=== PATIENT | female | born 1945 | race Caucasian/White ===

== ENCOUNTER → 2018-05-13 | Outpatient (CLI) | payer MEDICARE ==
--- NOTE | 2018-05-13 14:11 | CONS ---
CONSULTATION DATE OF SERVICE: 05/13/2018 A 72-year-old lady who has been evaluated in the [facility] for obstructive sleep apnea-hypopnea syndrome. HISTORY OF PRESENT ILLNESS/SLEEP-WAKE EVALUATION: Patient has been diagnosed with obstructive sleep apnea in [facility] about 5 years ago. Since that time, she is on treatment with CPAP. Presently, she is using her second CPAP unit, which she started to use for about 1-1/2 years. She is using equipment every night for the whole night without any significant problems with the machine. No snoring with the machine. She maybe wakes up from sleep only once with nocturia. No problem with falling asleep. Her sleep schedule from around 11 p.m. until 7 am. She has a TV set in bedroom, sleeps on the side position. No history of hypnagogic hallucinations. Patient usually dreams on the second part of the night. No history of sleep paralysis. [place] Sleepiness Scale is only 3, which is in normal range. She might have one nap around 2:30 pm and feel refreshed after that. No vivid dreams during naps. She takes about 1 cup of coffee a day. PAST MEDICAL HISTORY: Positive for hypertension. PAST SURGICAL HISTORY: Bilateral total knee replacement, cholecystectomy, hernia repair. MEDICATIONS: A baby aspirin, lisinopril, vitamin D supplement, multiple vitamins and some kind of water pills. SOCIAL HISTORY: Negative for smoking or using alcohol. FAMILY HISTORY: Positive for arthritis, acid reflux, diabetes, cancer. REVIEW OF SYMPTOMS: Basically negative, sometimes awakenings with nocturia. I checked patient's CPAP unit. CPAP pressure is 10 cm of water, usage 29/30 nights for more than 4 hours, average 7 hours. Borderline leak 29 L/minute. Apnea-hypopnea index reading from the machine for last month 3.5, the last 6 months 2.7. PHYSICAL EXAM: A 72-year-old lady without distress. BP 140/83, HR 59, RR 18, height 5, 4, weight 285.4, BMI 48.9, temperature 98.5, oxygen saturation at room air 96%. OROPHARYNX: Moderately low position of soft palate. ABDOMEN: Obese. EXTREMITIES: 1+ bilateral ankle edema. Neck Supple, no JVD. Thyroid is not palpable. LUNGS Clear to percussion and to auscultation. Good air exchange. No wheezing or rhonchi. HEART S1, S2 regular. No murmurs, gallops, or rubs. EMPLOYMENT INSTRUCTIONAL ASSOCIATE Awake, alert, and oriented X3. Cranial nerves 2 to 7 intact. There is no fasciculation or atrophy. noted. No focal deficits observed. IMPRESSION: 1. Obstructive sleep apnea-hypopnea syndrome, diagnosed in different institution. Patient is on treatment with CPAP every night for the whole night, demonstrated great compliance with treatment by the reading from her machine. Normal aspiration on CPAP. Low position of soft palate, snoring before started treatment, wide neck, obstructive sleep apnea-hypopnea syndrome on full control with CPAP at the present time, patient benefitting from treatment. 2. Obesity, body mass index 48.9. 3. Hypertension. 4. Status post bilateral total knee replacement. 5. Status post cholecystectomy. 6. One+ bilateral ankle edema. 7. Status post hernia repair. PLAN: 1. Patient will continue to use CPAP equipment every night for the whole night with the same regimen. CPAP pressure is 10 cm of water. 2. Prescription for all necessary CPAP supplies, including nasal pillow mask, tube, filters. 3. Losing weight. 4. Sleep hygiene with regular time in bed for at least 8 hours. 5. No driving if feeling any sleepiness. 6. We will get results of patient's previous sleep studies. Thank you very much for referring this patient. Sincerely, Buzz Francis MD, PhD, FAASM Diplomat of [place] [employer] [place] [employer] Last Puller of [facility] [place] MMODL / MAEVEN: [id number] /
== END | disposition home or self-care (01) ==
LOC: SLEEP 10:43
PROVIDERS: ATTEND Internal Medicine
DX: G47.33 Obstructive sleep apnea (adult) (pediatric) (principal); I10 Essential (primary) hypertension; E66.9 Obesity, unspecified; Z68.42 Body mass index [BMI] 45.0-49.9, adult; Z96.653 Presence of artificial knee joint, bilateral; Z90.49 Acquired absence of other specified parts of digestive tract; R60.9 Edema, unspecified; Z98.890 Other specified postprocedural states; Z79.82 Long term (current) use of aspirin; Z79.899 Other long term (current) drug therapy; Z99.89 Dependence on other enabling machines and devices
CPT/HCPCS: 99211

== ENCOUNTER → 2018-10-01 | Outpatient (CLI) | payer MEDICARE ==
--- NOTE | 2018-10-01 16:56 | BD ---
EXAMINATION TYPE: Axial Bone Density DATE OF EXAM: 10/01/2018 COMPARISON: NONE CLINICAL HISTORY: Height: 285.3 Weight: 63 FRAX RISK QUESTIONS: Alcohol (3 or more units per day): no Family History (Parent hip fracture): no Glucocorticoids (More than 3mos): no (Ex: prednisone, prednisolone, methylprednisolone, dexamethasone, and hydrocortisone). History of Fracture in Adulthood: yes Secondary Osteoporosis: 1. Type 1 Diabetes: no 2. Hyperthyroidism: no 3. Menopause before 45: no 4. Malnutrition: no 5. Chronic liver disease: no Rheumatoid Arthritis: no Current Tobacco Use: no RISK FACTORS HISTORY OF: Spine Fracture: l-5 When: 5 years ago Family History of Osteoporosis: no Active: sometimes Diet low in dairy products/other sources of calcium: no Postmenopausal woman: late 50's Lost more than 2 inches in height since high school: yes MEDICATIONS: lisinopril Additional History: EXAM MEASUREMENTS: Bone mineral densitometry was performed using the SensGard System. Bone mineral density as measured about the Lumbar spine is: ----- L1-L4(G/cm2): 1.216 T Score Values are as follows: ----- L2: 2.0 ----- L3: 0.2 ----- L4: -0.7 ----- L1-L4: 0.3 Bone mineral density : baseline Bone mineral density about the R hip (g/cm2): 0.816 Bone mineral density about the L hip (g/cm2): 0.766 T Score values are as follows: -----R Neck: -1.6 -----L Neck: -2.0 -----R Total: -0.4 -----L Total: -0.6 Bone mineral density : baseline IMPRESSION: Osteopenia (T Score between -2.5 and -1). There is slightly increased risk of fracture and the patient may be considered for treatment. Re-Screen 2-5 years. NOTE: T-SCORE=SD OF THE YOUNG ADULT MEAN.
--- NOTE | 2018-10-06 08:31 | MM ---
Reason for exam: screening (asymptomatic). Last mammogram was performed 1 year ago. History: Patient is postmenopausal. Family history of breast cancer in sister at age 70. Physical Findings: A clinical breast exam by your physician is recommended on an annual basis and results should be correlated with mammographic findings. MG 3D Screening Mammo W/Cad Bilateral CC and MLO view(s) were taken. Prior study comparison: September 17, 2017, bilateral MG 3d screening mammo w/cad. September 05, 2016, bilateral MG 3d screening mammo w/cad. There are scattered fibroglandular densities. No suspicious abnormality. No significant changes when compared with prior studies. ASSESSMENT: Negative, BI-RAD 1 RECOMMENDATION: Routine screening mammogram of both breasts in 1 year.
== END | disposition home or self-care (01) ==
LOC: RADMAMWWP 07:33
PROVIDERS: ATTEND Family Medicine
DX: Z12.31 Encounter for screening mammogram for malignant neoplasm of breast (principal); M85.80 Other specified disorders of bone density and structure, unspecified site; Z78.0 Asymptomatic menopausal state
CPT/HCPCS: 77063; 77067; 77080

== ENCOUNTER 2020-03-03 19:55 | Emergency (ER) | payer MEDICARE ==
[2020-03-03] MEDS ORDERED: DIAZEPAM 5 MG/ML 2 ML INJ IVP STA (20:57)
[2020-03-03] MEDS ORDERED: SODIUM CHLORIDE 0.9% 1,000 ML IV STA (20:57)
[2020-03-03] MEDS ORDERED: ONDANSETRON 4 MG/2 ML VIAL IVP STA (20:57)
--- NOTE | 2020-03-03 21:21 | ED ---
Dizziness HPI - General Chief Complaint: Dizziness Stated Complaint: Weakness Time Seen by Provider: 03/03/20 20:05 Source: patient, family Mode of arrival: wheelchair Limitations: no limitations - History of Present Illness Initial Comments: The patient is a 74-year-old female with past history of hypertension and seizure disorder who presents to the emergency department with reported vertiginous symptoms. She states her symptoms were sudden onset when she woke up this morning around 5:30. States that she feels as if the room is spinning. Symptoms are worse with positional changes. States she's been laying in bed all day. She has had nausea with dry heaving. States she is minimally ate today. No history of similar episodes in the past. Denies any recent trauma. Does admit to a frontal headache. History of migraines and states that this headache is not as severe. Denies photophobia, neck pain or stiffness, fevers or chills. No recent chiropractic medication tonight. Denies any head trauma. She denies any chest pain or shortness of breath. No abdominal pain. No changes in her bowel or bladder habits. Notes that her blood pressure is normally low however today she took it and was noted to be high. She took an extra dose of her lisinopril. There are no other alleviating, precipitating or modifying factors - Related Data Home Medications Medication Instructions Recorded Confirmed Multivitamins, Thera [Theragran] 1 tab PO DAILY 09/22/15 03/03/20 ALPRAZolam [Xanax] 0.25 mg PO TID PRN 10/12/15 03/03/20 Aspirin [Adult Low Dose Aspirin EC] 81 mg PO HS 10/12/15 03/03/20 Cholecalciferol [Vitamin D3] 2,000 unit PO DAILY 10/12/15 03/03/20 Lisinopril 10 mg PO BID 10/12/15 03/03/20 Albuterol Inhaler [Ventolin Hfa 2 puff INHALATION RT-Q6H PRN 03/03/20 03/03/20 Inhaler] Famotidine 40 mg PO HS 03/03/20 03/03/20 Hydrochlorothiazide [Hydrodiuril] 12.5 mg PO DAILY 03/03/20 03/03/20 Previous Rx's Medication Instructions Recorded Cephalexin [Keflex] 500 mg PO Q12HR #14 cap 03/04/20 Meclizine [Antivert] 25 mg PO TID PRN #15 tab 03/04/20 Allergies Allergy/AdvReac Type Severity Reaction Status Date / Time Iodinated Contrast Media Allergy Unknown Verified 03/03/20 21:59 [Iodinated Contrast Media - IV Dye] Penicillins Allergy Unknown Verified 03/03/20 21:59 Review of Systems ROS Statement: Those systems with pertinent positive or pertinent negative responses have been documented in the HPI. ROS Other: All systems not noted in ROS Statement are negative. Past Medical History Past Medical History: Hypertension, Seizure Disorder Additional Past Medical History / Comment(s): MOLES ON BACK, HX OF MIGRAINE, STATES HAD "MIGRAINE SEIZURE" 3 WEEKS AGO. HAD EPISODE OF HYPOGLYCEMIA AT SAME TIME. HX OF FX BACK, History of Any Multi-Drug Resistant Organisms: None Reported Past Surgical History: Cholecystectomy, Joint Replacement Additional Past Surgical History / Comment(s): JANNA knee replacement, JANNA CATARACT SX Past Anesthesia/Blood Transfusion Reactions: No Reported Reaction Past Psychological History: No Psychological Hx Reported Smoking Status: Never smoker Past Alcohol Use History: None Reported Past Drug Use History: None Reported General Exam Limitations: no limitations General appearance: alert, in no apparent distress Head exam: Present: atraumatic, normocephalic, normal inspection Eye exam: Present: normal appearance, PERRL, EOMI. Absent: scleral icterus, conjunctival injection, periorbital swelling ENT exam: Present: normal exam, mucous membranes moist Neck exam: Present: normal inspection. Absent: tenderness, meningismus, lymphadenopathy Respiratory exam: Present: normal lung sounds bilaterally. Absent: respiratory distress, wheezes, rales, rhonchi, stridor Cardiovascular Exam: Present: regular rate, normal rhythm, normal heart sounds. Absent: systolic murmur, diastolic murmur, rubs, gallop, clicks GI/Abdominal exam: Present: soft, normal bowel sounds. Absent: distended, tenderness, guarding, rebound, rigid Extremities exam: Present: normal inspection, full ROM, normal capillary refill. Absent: tenderness, pedal edema, joint swelling, calf tenderness Back exam: Present: normal inspection Neurological exam: Present: alert, oriented X3, CN II-XII intact, normal gait (no truncal ataxia. Finger to nose symmetric bilaterally. Ambulates without ataxia. No nystagmus), other Psychiatric exam: Present: normal affect, normal mood Skin exam: Present: warm, dry, intact, normal color. Absent: rash Course Vital Signs 03/03/20 03/03/20 03/03/20 20:03 20:20 21:42 Temperature 97.9 F Pulse Rate 70 62 61 Pulse Rate [ Admin Assistant ] Respiratory 20 18 18 Rate Blood Pressure 169/73 171/89 171/82 Blood Pressure [Left Arm Sitting] Blood Pressure [Left Arm Standing] Blood Pressure [Left Arm Supine] O2 Sat by Pulse 96 Oximetry 03/03/20 03/03/20 03/04/20 22:30 23:00 00:22 Temperature 98.0 F Pulse Rate 61 61 Pulse Rate [ 75 Admin Assistant ] Respiratory 16 16 16 Rate Blood Pressure 151/75 151/75 Blood Pressure 160/73 [Left Arm Sitting] Blood Pressure 174/49 [Left Arm Standing] Blood Pressure 157/61 [Left Arm Supine] O2 Sat by Pulse 96 Oximetry EKG Findings - EKG Comments: EKG Findings:: EKG demonstrates a normal sinus rhythm with a ventricular rate of 64. MD interval to a 6. QRS 92. QTC of 385. There is significant baseline artifact. No acute ST segment elevations or depressions. Medical Decision Making - Medical Decision Making Upon arrival the patient was placed into room 3. A thorough history and phys ical exam is performed. 12-lead EKG is performed. IV was established. Laboratory studies were conducted. Patient was given 2 mg of Valium and fluids are started at 75 mL per hour. Patient is also provided 4 mg of Zofran. Laboratory studies are remarkable for a glucose of 116. Urinalysis shows large leukocyte esterase, 16 red blood cells, 49 white blood cells and moderate white blood cell clumps. Patient was given a dose of Rocephin. Sent over for a CT of her brain without contrast as the patient does have a contrast ALLERGY. He demonstrates no acute findings. sinusitis unchanged. Chest x-ray demonstrates cardio medically with no active cardiac disease. The patient is able to get up and ambulate however does continue to report dizziness which is not as severe as her initial presentation. I did give the patient some meclizine. Patient is ambulated around the emergency department and reports to marked improvement in her symptoms. I discussed the diagnosis, differential and treatment options. At this time the patient does opt to go home. I will provide her with a small prescription for meclizine. Strict return parameters were discussed. The patient has any new or worsening symptoms I did strongly recommend that she come back to the emergency room. Patient did agree to this. She'll be given a prescription for her urinary tract infection. Patient was then discharged home ambulatory in stable condition - Lab Data Result diagrams: 03/03/20 22:29 03/03/20 22:29 Lab Results 03/03/20 03/03/20 03/03/20 Range/Units 22:21 22:29 22:29 WBC 9.3 (3.8-10.6) k/uL RBC 4.71 (3.80-5.40) m/uL Hgb 14.5 (11.4-16.0) gm/dL Hct 45.5 (34.0-46.0) % MCV 96.5 (80.0-100.0) fL MCH 30.7 (25.0-35.0) pg MCHC 31.9 (31.0-37.0) g/dL RDW 12.9 (11.5-15.5) % Plt Count 157 (150-450) k/uL Neutrophils % 78 % Lymphocytes % 15 % Monocytes % 5 % Eosinophils % 1 % Basophils % 0 % Neutrophils # 7.2 (1.3-7.7) k/uL Lymphocytes # 1.4 (1.0-4.8) k/uL Monocytes # 0.5 (0-1.0) k/uL Eosinophils # 0.1 (0-0.7) k/uL Basophils # 0.0 (0-0.2) k/uL PT 10.2 (9.0-12.0) sec INR 1.0 (<1.2) Sodium (137-145) mmol/L Potassium (3.5-5.1) mmol/L Chloride (98-107) mmol/L Carbon Dioxide (22-30) mmol/L Anion Gap mmol/L BUN (7-17) mg/dL Creatinine (0.52-1.04) mg/dL Est GFR (CKD-EPI)AfAm (>60 ml/min/1.73 sqM) Est GFR (CKD-EPI)NonAf (>60 ml/min/1.73 sqM) Glucose (74-99) mg/dL Plasma Lactic Acid Efra (0.7-2.0) mmol/L Calcium (8.4-10.2) mg/dL Total Bilirubin (0.2-1.3) mg/dL AST (14-36) U/L ALT (4-34) U/L Alkaline Phosphatase (38-126) U/L Troponin I (0.000-0.034) ng/mL Total Protein (6.3-8.2) g/dL Albumin (3.5-5.0) g/dL Urine Color Yellow Urine Appearance Turbid H (Clear) Urine pH 5.5 (5.0-8.0) Ur Specific [place] 1.022 (1.001-1.035) Urine Protein 1+ H (Negative) Urine Glucose (UA) Negative (Negative) Urine Ketones Negative (Negative) Urine Blood Small H (Negative) Urine Nitrite Negative (Negative) Urine Bilirubin Negative (Negative) Urine Urobilinogen <2.0 (<2.0) mg/dL Ur Leukocyte Esterase Large H (Negative) Urine RBC 16 H (0-5) /hpf Urine WBC 49 H (0-5) /hpf Urine WBC Clumps Moderate H (None) /hpf Ur Squamous Epith Cells 15 H (0-4) /hpf Urine Bacteria Few H (None) /hpf Hyaline Casts 51 H (0-2) /lpf Urine Mucus Few H (None) /hpf 03/03/20 03/03/20 03/03/20 Range/Units 22:29 22:29 22:29 WBC (3.8-10.6) k/uL RBC (3.80-5.40) m/uL Hgb (11.4-16.0) gm/dL Hct (34.0-46.0) % MCV (80.0-100.0) fL MCH (25.0-35.0) pg MCHC (31.0-37.0) g/dL RDW (11.5-15.5) % Plt Count (150-450) k/uL Neutrophils % % Lymphocytes % % Monocytes % % Eosinophils % % Basophils % % Neutrophils # (1.3-7.7) k/uL Lymphocytes # (1.0-4.8) k/uL Monocytes # (0-1.0) k/uL Eosinophils # (0-0.7) k/uL Basophils # (0-0.2) k/uL PT (9.0-12.0) sec INR (<1.2) Sodium 138 (137-145) mmol/L Potassium 3.9 (3.5-5.1) mmol/L Chloride 108 H (98-107) mmol/L Carbon Dioxide 24 (22-30) mmol/L Anion Gap 6 mmol/L BUN 16 (7-17) mg/dL Creatinine 0.70 (0.52-1.04) mg/dL Est GFR (CKD-EPI)AfAm >90 (>60 ml/min/1.73 sqM) Est GFR (CKD-EPI)NonAf 86 (>60 ml/min/1.73 sqM) Glucose 116 H (74-99) mg/dL Plasma Lactic Acid Efra 1.8 (0.7-2.0) mmol/L Calcium 8.3 L (8.4-10.2) mg/dL Total Bilirubin 0.5 (0.2-1.3) mg/dL AST 30 (14-36) U/L ALT 26 (4-34) U/L Alkaline Phosphatase 50 (38-126) U/L Troponin I <0.012 (0.000-0.034) ng/mL Total Protein 6.7 (6.3-8.2) g/dL Albumin 3.7 (3.5-5.0) g/dL Urine Color Urine Appearance (Clear) Urine pH (5.0-8.0) Ur Specific [place] (1.001-1.035) Urine Protein (Negative) Urine Glucose (UA) (Negative) Urine Ketones (Negative) Urine Blood (Negative) Urine Nitrite (Negative) Urine Bilirubin (Negative) Urine Urobilinogen (<2.0) mg/dL Ur Leukocyte Esterase (Negative) Urine RBC (0-5) /hpf Urine WBC (0-5) /hpf Urine WBC Clumps (None) /hpf Ur Squamous Epith Cells (0-4) /hpf Urine Bacteria (None) /hpf Hyaline Casts (0-2) /lpf Urine Mucus (None) /hpf Disposition Clinical Impression: Vertigo Disposition: HOME SELF-CARE Condition: Stable Instructions (If sedation given, give patient instructions): Dizziness (ED) Additional Instructions: Please follow-up with your primary care doctor in 2-4 days. Return to the emergency department for any new or worsening symptoms Prescriptions: Meclizine [Antivert] 25 mg PO TID PRN #15 tab PRN Reason: Vertigo Cephalexin [Keflex] 500 mg PO Q12HR #14 cap Is patient prescribed a controlled substance at d/c from ED?: No Referrals: Aroldo Ford MD [Primary Care Provider] - 1-2 days Time of Disposition: 00:05
--- NOTE | 2020-03-03 22:10 | CT ---
EXAMINATION TYPE: CT brain wo con DATE OF EXAM: 03/03/2020 COMPARISON: 09/22/2015 HISTORY: Headache, dizziness, hypertension. CT DLP: 1158.4 mGycm Automated exposure control for dose reduction was used. Ventricles and sulci appear normal. There is no mass effect nor midline shift. There is no sign of in tracranial hemorrhage. Calvarium is intact. Skull base is intact. Impression Negative unenhanced head CT scan. Maxillary sinusitis noted unchanged.
--- NOTE | 2020-03-03 22:27 | XR ---
EXAMINATION TYPE: XR chest 2V DATE OF EXAM: 03/03/2020 COMPARISON: NONE HISTORY: Weakness TECHNIQUE: 2 views FINDINGS: Heart is enlarged. There is no heart failure. Costophrenic angles are clear. There are no h ilar masses. Bony thorax is intact. IMPRESSION: Cardiomegaly. No active cardiopulmonary disease.
[2020-03-03 22:32] VITALS: RESP 16
[2020-03-03] MEDS ORDERED: MECLIZINE 12.5 MG TAB PO STA (22:52)
[2020-03-03 22:59] LABS: Basophils % (A) 0 %; Eosinophils # (A) 0.1 k/uL (0-0.7); Eosinophils % (A) 1 %; HCT 45.5 % (34.0-46.0); HGB 14.5 gm/dL (11.4-16.0); Lymphocytes # (A) 1.4 k/uL (1.0-4.8); Lymphocytes % (A) 15 %; MCH 30.7 pg (25.0-35.0); MCHC 31.9 g/dL (31.0-37.0); MCV 96.5 fL (80.0-100.0); Mean Platelet Volume 8.4; Monocytes # (A) 0.5 k/uL (0-1.0); Monocytes % (A) 5 %; Neutrophils # (A) 7.2 k/uL (1.3-7.7); Neutrophils % (A) 78 %; Platelet Count 157 k/uL (150-450); RBC 4.71 m/uL (3.80-5.40); RDW 12.9 % (11.5-15.5); WBC 9.3 k/uL (3.8-10.6)
[2020-03-03 23:11] LABS: Appearance,Urine Turbid (Clear); Bacteria,Urine Few /hpf; Bilirubin,Urine Negative (Negative); Blood,Urine Small (Negative); Color,Urine Yellow; Glucose,Urine (UA) Negative (Negative); Hyaline Casts,Urine 51 /lpf (0-2); Ketones,Urine Negative (Negative); Leukocyte Esterase,Urine Large (Negative); Mucus,Urine Few /hpf; Nitrite,Urine Negative (Negative); PH, Urine 5.5 (5.0-8.0); Protein,Urine 1+ (Negative); RBC,Urine 16 /hpf (0-5); Specific Gravity,Urine 1.022 (1.001-1.035); Squamous Epithelial Cell,Urine 15 /hpf (0-4); Urobilinogen,Urine <2.0 mg/dL (<2.0); WBC,Urine 49 /hpf (0-5)
[2020-03-03 23:13] LABS: ALT 26 U/L (4-34); AST 30 U/L (14-36); African American GFR (CKD) >90 (>60 ml/min/1.73 sqM); Albumin 3.7 g/dL (3.5-5.0); Alkaline Phosphatase 50 U/L (38-126); Anion Gap 6 mmol/L; Blood Urea Nitrogen 16 mg/dL (7-17); Calcium 8.3 mg/dL (8.4-10.2); Carbon Dioxide 24 mmol/L (22-30); Chloride 108 mmol/L (98-107); Glucose 116 mg/dL (74-99); Non-African American GFR(CKD) 86 (>60 ml/min/1.73 sqM); Potassium 3.9 mmol/L (3.5-5.1); Sodium 138 mmol/L (137-145); Total Bilirubin 0.5 mg/dL (0.2-1.3); Total Protein 6.7 g/dL (6.3-8.2)
[2020-03-03 23:20] VITALS: BP 151/75; PULSE 61
[2020-03-03] MEDS ORDERED: cefTRIAXone IN SWFI 1,000 MG/10 ML SYRINGE IVP STA (23:24)
[2020-03-03 23:29] LABS: Prothrombin Time 10.2 sec (9.0-12.0)
[2020-03-04 00:24] VITALS: TEMP 98
== END 2020-03-04 00:28 | disposition home or self-care (01) ==
LOC: EC 19:55
DX: R42 Dizziness and giddiness (principal); R82.998 Other abnormal findings in urine; R31.9 Hematuria, unspecified; I10 Essential (primary) hypertension; Z79.82 Long term (current) use of aspirin; Z79.899 Other long term (current) drug therapy; Z91.041 Radiographic dye allergy status; Z88.0 Allergy status to penicillin; Z96.653 Presence of artificial knee joint, bilateral; Z86.69 Personal history of other diseases of the nervous system and sense organs
CPT/HCPCS: 99285; 96374; 96375 ×2; 96361 ×3; 36415; 93005; 80053; 83605; 84484; 85025; 85610; 81001; 87086; 71046; 70450; J3360; J2405; J0696

== ENCOUNTER → 2020-06-07 | Outpatient (CLI) | payer MEDICARE ==
--- NOTE | 2020-06-07 17:58 | SFUN ---
SLEEP CENTER FOLLOW UP NOTE DATE OF SERVICE: 06/07/2020 This patient is a 74-year-old lady who has been followed in the sleep center for treatment of obstructive sleep apnea-hypopnea syndrome. The patient continues to use CPAP equipment every night for the whole night. No snoring with the machine. [place] Sleepiness Scale today is 2. Her weight is 307 pounds. During her previous visit several years ago her weight was 285 pounds. Subsequently her weight increased by 22 pounds. I checked her CPAP unit. Pressure is 10 cm of water. Usage is 28/30 nights and 21/30 nights for more than 4 hours with average usage 5.2 hours per night. Leak is 40 L/minute. Apnea-hypopnea index is only 0.9, which is normal. MEDICATIONS: Lisinopril, multivitamins, Prevacid, baby aspirin. PHYSICAL EXAMINATION: GENERAL: A pleasant patient in no distress. VITAL SIGNS: BP 159/60, HR 75, RR 15, height 5 feet 2 inches, weight 307, body mass index 56.1, temperature 98.0, oxygen saturation at room air 96%. HEENT: PERRLA, EOMI. Evaluation of oropharynx showed tongue protrudes midline. Low position of soft palate. Mallampati III. NECK: Supple. No JVD. Thyroid is not palpable. Wide neck; 19 inches in circumference. LUNGS: Clear to percussion and to auscultation. Good air exchange. No wheezing or rhonchi. HEART: S1, S2 regular. No murmurs, gallops or rubs. ABDOMEN: Obese. EXTREMITIES: No clubbing or cyanosis. SHORE HAND DREDGE OR BARGE: Awake, alert, and oriented X3. Cranial nerves 2 to 7 intact. There is no fasciculation or atrophy. noted. No focal deficits observed. IMPRESSION: 1. Obstructive sleep apnea-hypopnea syndrome. Patient demonstrated good compliance with treatment, benefitting from treatment. 2. Hypertension. 3. Morbid obesity. BMI 56.1. Patient's weight has increased by 22 pounds since her previous visit several years ago. 4. Status post bilateral total knee replacement. 5. Status post cholecystectomy. 6. Status post hernia repair. PLAN: 1. Patient will continue to use PAP equipment every night for the whole night. 2. Sleep hygiene with regular time in bed for at least 7-1/2 to 8 hours. 3. Precautions related to driving. No driving if feeling sleepiness. 4. I will maintain all necessary prescription for PAP supplies including mask, tube, filters. 5. Watching weight. 6. No driving if feeling sleepiness. 7. Follow-up visit in 6 months or earlier if patient has any problems. Thank you very much for allowing me to participate in the management of your patient. Sincerely, Buzz Francis MD, PhD, FAASM Diplomat of [place] [employer] [place] [employer] Wet Milling Wheel Operator of [facility] [place] MMODL / MAEVEN: [phone] /
== END | disposition home or self-care (01) ==
LOC: SLEEP 11:09
PROVIDERS: ATTEND Internal Medicine
DX: G47.33 Obstructive sleep apnea (adult) (pediatric) (principal); I10 Essential (primary) hypertension; E66.01 Morbid (severe) obesity due to excess calories; Z68.43 Body mass index [BMI] 50.0-59.9, adult; Z96.653 Presence of artificial knee joint, bilateral; Z90.49 Acquired absence of other specified parts of digestive tract; Z98.890 Other specified postprocedural states; Z99.89 Dependence on other enabling machines and devices

== ENCOUNTER → 2020-12-06 | Outpatient (CLI) | payer MEDICARE ==
--- NOTE | 2020-12-06 12:38 | SFUN ---
SLEEP CENTER FOLLOW UP NOTE DATE OF SERVICE: 12/06/2020 This 75-year-old lady has been followed in Sleep Center for treatment of obstructive sleep apnea-hypopnea syndrome. Patient continued to use her CPAP equipment, but sometimes in the middle of the night when she goes to bathroom she does not put her mask back on and sleeps second part of the night without machine. [place] Sleepiness Scale today is 4. Patient also had some problems with getting correct nasal pillow size instead of small size she received medium size and then when she asked company to replace it they sent her extra-small size. I checked her CPAP unit. CPAP pressure is 10 cm of water. Usage is 100% of nights and 18 out of 30 nights more than 4 hours, average usage 4.3 hours per night. Leak is quite high, 38 L/minute. Apnea-hypopnea index although perfect, 0.9. MEDICATIONS: Lisinopril 10 mg twice a day, aspirin 81 mg twice a day, vitamin D, Prevacid. PHYSICAL EXAMINATION: GENERAL: Patient in no distress. VITAL SIGNS: BP 143/59, HR 59, RR 12, height 5 feet 3-1/2 inches, weight 303 pounds, body mass index 52.8, temperature 97.8, oxygen saturation at room air 97%. HEENT: PERRLA, EOMI. Oropharynx low position of soft palate. Mallampati 3. NECK: Supple, no JVD. Thyroid is not palpable. LUNGS: Clear to percussion and to auscultation. Good air exchange. No wheezing or rhonchi. HEART: S1, S2 regular. No murmurs, gallops, or rubs. ABDOMEN: Soft and nontender. Bowel sounds are present. No organomegaly appreciated. EXTREMITIES: No clubbing or cyanosis. PIPELINE GANG SUPERVISOR: Awake, alert, and oriented X3. Cranial nerves 2 to 7 intact. There is no fasciculation or atrophy. noted. No focal deficits observed. IMPRESSION: 1. Obstructive sleep apnea-hypopnea syndrome. The patient demonstrated borderline compliance with treatment, benefitting from treatment. 2. Hypertension. 3. Morbid obesity. 4. Status post bilateral total knee replacement. 5. Status post cholecystectomy. 6. Status post hernia repair. PLAN: 1. I again wrote a prescription for all necessary CPAP supplies, including a nasal pillow mask, small size Robb FX. 2. I recommended the patient do not take her mask off when she goes to bathroom at night and just disconnect the tube and then connect the tube back, this way it is easier to restart using CPAP during the night. 3. Because of significant leak, I discussed with the patient's possibility to use the chinstrap. 4. Patient will continue to use PAP equipment every night for the whole night. 5. Sleep hygiene with regular time in bed for at least 7-1/2 to 8 hours. 6. Precautions related to driving. No driving if feeling sleepiness. 7. I will maintain all necessary prescription for PAP supplies including mask, tube, filters. 8. Watching weight. 9. No driving if feeling sleepiness. 10.Follow-up visit in 6 months or earlier if patient has any problems. Thank you very much for allowing me to participate in management of your patient. Sincerely, Buzz Francis MD, PhD, FAASM Diplomat of [place] [employer] [employer] Tile Mason of [facility] [place] MMSELENE / IESHA: [phone] /
== END | disposition home or self-care (01) ==
LOC: SLEEP 10:51
PROVIDERS: ATTEND Internal Medicine
DX: G47.33 Obstructive sleep apnea (adult) (pediatric) (principal); I10 Essential (primary) hypertension; E66.01 Morbid (severe) obesity due to excess calories; Z99.89 Dependence on other enabling machines and devices; Z79.899 Other long term (current) drug therapy; Z96.653 Presence of artificial knee joint, bilateral; Z90.49 Acquired absence of other specified parts of digestive tract; Z98.890 Other specified postprocedural states

== ENCOUNTER 2021-03-03 11:53 | Inpatient (IN) | payer MEDICARE ==
--- NOTE | 2021-03-03 12:13 | ED ---
General Adult HPI - General Chief complaint: Neuro Symptoms/Deficit Stated complaint: Vision issues Time Seen by Provider: 03/03/21 12:02 Source: patient, family, RN notes reviewed Mode of arrival: ambulatory Limitations: no limitations - History of Present Illness Initial comments: Patient is a pleasant 75-year-old female presenting to the emergency department with complaints of visual disturbance. Onset of symptoms was between 4 and 5 PM yesterday. Patient had sudden blurry vision in both eyes. Patient also lost vision of her left upper eye. Patient states she did have laser surgery done just week ago with Dr. Thorpe. Patient has had headache, mild at this time. Headache is frontal. No confusion.Crohn's. No extremity weakness. No history of similar symptoms previously. - Related Data Home Medications Medication Instructions Recorded Confirmed Multivitamins, Thera [Theragran] 1 tab PO DAILY 09/22/15 03/03/21 ALPRAZolam [Xanax] 0.25 mg PO TID PRN 10/12/15 03/03/21 Aspirin [Adult Low Dose Aspirin EC] 81 mg PO HS 10/12/15 03/03/21 Cholecalciferol [Vitamin D3] 50 mcg PO DAILY 10/12/15 03/03/21 lisinopriL [Lisinopril] 10 mg PO BID 10/12/15 03/03/21 hydroCHLOROthiazide [Hydrodiuril] 12.5 mg PO DAILY 03/03/20 03/03/21 Acetaminophen [Tylenol Arthritis] 650 mg PO TID PRN 03/03/21 03/03/21 Famotidine [Pepcid] 20 mg PO BID 03/03/21 03/03/21 Vit C/E/Zn/Coppr/Lutein/Zeaxan 1 cap PO BID 03/03/21 03/03/21 [Preservision Areds 2 Softgel] Allergies Allergy/AdvReac Type Severity Reaction Status Date / Time codeine Allergy Rash/Hives Verified 03/03/21 13:46 Iodinated Contrast Media Allergy Rash/Hives Verified 03/03/21 13:46 [Iodinated Contrast Media - IV Dye] Penicillins Allergy Rash/Hives Verified 03/03/21 13:46 Review of Systems ROS Statement: Those systems with pertinent positive or pertinent negative responses have been documented in the HPI. ROS Other: All systems not noted in ROS Statement are negative. Constitutional: Denies: fever Eyes: Reports: vision change. Denies: eye pain, eye discharge ENT: Denies: ear pain Respiratory: Denies: cough Cardiovascular: Denies: chest pain Endocrine: Denies: fatigue Gastrointestinal: Denies: abdominal pain Genitourinary: Denies: dysuria Musculoskeletal: Denies: back pain Skin: Denies: rash Neurological: Reports: as per HPI, headache. Denies: weakness, confusion Past Medical History Past Medical History: Hypertension, Seizure Disorder Additional Past Medical History / Comment(s): MOLES ON BACK, HX OF MIGRAINE, STATES HAD "MIGRAINE SEIZURE" 3 WEEKS AGO. HAD EPISODE OF HYPOGLYCEMIA AT SAME TIME. HX OF FX BACK, History of Any Multi-Drug Resistant Organisms: None Reported Past Surgical History: Cholecystectomy, Joint Replacement Additional Past Surgical History / Comment(s): JANNA knee replacement, JANNA CATARACT SX Past Anesthesia/Blood Transfusion Reactions: No Reported Reaction Past Psychological History: No Psychological Hx Reported Past Alcohol Use History: None Reported Past Drug Use History: None Reported General Exam Limitations: no limitations General appearance: alert, in no apparent distress Head exam: Present: normocephalic Eye exam: Present: normal appearance, PERRL, EOMI Expanded Eyelids: Normal Inspection: Bilateral Pupils: Regular, Round: Bilateral Sclera/Conjunctival: Normal Inspection: Bilateral Posterior chamber: Normal Inspection: Bilateral ENT exam: Present: normal oropharynx Respiratory exam: Present: normal lung sounds bilaterally Cardiovascular Exam: Present: regular rate, normal rhythm GI/Abdominal exam: Present: soft. Absent: tenderness Extremities exam: Present: normal inspection Neurological exam: Present: alert, oriented X3, CN II-XII intact. Absent: motor sensory deficit Expanded Neurological exam: Present: protecting the airway Speech: Present: fluid speech Cranial nerves: EOM's Intact: Normal, Facial Sensation: Normal Sensory exam: Upper Extremity Light Touch: Normal, Lower Extremity Light Touch: Normal Motor strength exam: RUE: 5, LUE: 5, RLE: 5, LLE: 5 Eye Response: (4) open spontaneously Motor Response: (6) obeys commands Verbal Response: (5) oriented Psychiatric exam: Present: normal affect, normal mood Skin exam: Present: normal color Course Vital Signs 03/03/21 03/03/21 03/03/21 11:54 12:06 14:17 Temperature 97.9 F Pulse Rate 70 65 62 Respiratory 18 18 18 Rate Blood Pressure 133/88 126/48 146/64 O2 Sat by Pulse 97 95 96 Oximetry - Reevaluation(s) Reevaluation #1: 03/03/21 12:20 I did speak with Dr. Thorpe who is out of town. He does also request adding ESR and CRP. He feels visual changes. Unlikely to be related to recent laser surgery. He does have some concern for ischemic optic neuropathy and agrees with CT and further workup. 03/03/21 15:33 Patient is not a candidate for TPA secondary to onset greater than 4.5 hours. EKG Findings - EKG Comments: EKG Findings:: Sinus rhythm rate of 70. AK 206. QRS 98. QT 362. QTC 390. Normal axis. LVH. No acute ST change. First-degree AV block. Medical Decision Making - Medical Decision Making Patient reevaluated. Patient and family updated. Case was discussed with Dr. Bright, who will admit For Dr. Ford. Neurology will be placed on consult. Ophthalmology Dr. Burk has also been paged. - Lab Data Result diagrams: 03/03/21 12:42 03/03/21 12:42 Lab Results 03/03/21 03/03/21 03/03/21 Range/Units 12:42 12:42 12:42 WBC 6.6 (3.8-10.6) k/uL RBC 4.64 (3.80-5.40) m/uL Hgb 14.5 (11.4-16.0) gm/dL Hct 43.6 (34.0-46.0) % MCV 94.0 (80.0-100.0) fL MCH 31.3 (25.0-35.0) pg MCHC 33.3 (31.0-37.0) g/dL RDW 13.4 (11.5-15.5) % Plt Count 154 (150-450) k/uL MPV 8.4 Neutrophils % 51 % Lymphocytes % 37 % Monocytes % 8 % Eosinophils % 2 % Basophils % 1 % Neutrophils # 3.4 (1.3-7.7) k/uL Lymphocytes # 2.4 (1.0-4.8) k/uL Monocytes # 0.5 (0-1.0) k/uL Eosinophils # 0.1 (0-0.7) k/uL Basophils # 0.0 (0-0.2) k/uL ESR 8 (0-20) mm/hr PT 10.5 (9.0-12.0) sec INR 1.0 (<1.2) APTT 20.7 L (22.0-30.0) sec Sodium 140 (137-145) mmol/L Potassium 3.5 (3.5-5.1) mmol/L Chloride 104 (98-107) mmol/L Carbon Dioxide 27 (22-30) mmol/L Anion Gap 9 mmol/L BUN 18 H (7-17) mg/dL Creatinine 0.75 (0.52-1.04) mg/dL Est GFR (CKD-EPI)AfAm >90 (>60 ml/min/1.73 sqM) Est GFR (CKD-EPI)NonAf 79 (>60 ml/min/1.73 sqM) Glucose 133 H (74-99) mg/dL Calcium 9.3 (8.4-10.2) mg/dL Total Bilirubin 0.4 (0.2-1.3) mg/dL AST 46 H (14-36) U/L ALT 46 H (4-34) U/L Alkaline Phosphatase 59 (38-126) U/L Troponin I (0.000-0.034) ng/mL C-Reactive Protein 0.8 (<1.0) mg/dL Total Protein 6.9 (6.3-8.2) g/dL Albumin 4.1 (3.5-5.0) g/dL 03/03/21 Range/Units 12:42 WBC (3.8-10.6) k/uL RBC (3.80-5.40) m/uL Hgb (11.4-16.0) gm/dL Hct (34.0-46.0) % MCV (80.0-100.0) fL MCH (25.0-35.0) pg MCHC (31.0-37.0) g/dL RDW (11.5-15.5) % Plt Count (150-450) k/uL MPV Neutrophils % % Lymphocytes % % Monocytes % % Eosinophils % % Basophils % % Neutrophils # (1.3-7.7) k/uL Lymphocytes # (1.0-4.8) k/uL Monocytes # (0-1.0) k/uL Eosinophils # (0-0.7) k/uL Basophils # (0-0.2) k/uL ESR (0-20) mm/hr PT (9.0-12.0) sec INR (<1.2) APTT (22.0-30.0) sec Sodium (137-145) mmol/L Potassium (3.5-5.1) mmol/L Chloride (98-107) mmol/L Carbon Dioxide (22-30) mmol/L Anion Gap mmol/L BUN (7-17) mg/dL Creatinine (0.52-1.04) mg/dL Est GFR (CKD-EPI)AfAm (>60 ml/min/1.73 sqM) Est GFR (CKD-EPI)NonAf (>60 ml/min/1.73 sqM) Glucose (74-99) mg/dL Calcium (8.4-10.2) mg/dL Total Bilirubin (0.2-1.3) mg/dL AST (14-36) U/L ALT (4-34) U/L Alkaline Phosphatase (38-126) U/L Troponin I 0.045 H* (0.000-0.034) ng/mL C-Reactive Protein (<1.0) mg/dL Total Protein (6.3-8.2) g/dL Albumin (3.5-5.0) g/dL - Radiology Data Radiology results: report reviewed (Computed tomography scan of the brain reveals no acute abnormality. Possible chronic small vessel ischemic changes. CT angios shows possible stenosis proximal right carotid artery), image reviewed (Chest x-ray shows no acute process) Disposition Clinical Impression: Cerebrovascular accident (CVA) Disposition: ADMITTED IP TO THIS HOSP Is patient prescribed a controlled substance at d/c from ED?: No Referrals: Aroldo Ford MD [Primary Care Provider] - 1-2 days Decision Time: 15:31
[2021-03-03] MEDS ORDERED: methylPREDNISolone SOD SUCCI 125 MG/2 ML VIAL IV STA (12:39)
[2021-03-03] MEDS ORDERED: FAMOTIDINE 20 MG/2 ML VIAL IV STA (12:39)
[2021-03-03] MEDS ORDERED: diphenhydrAMINE 50 MG/ML 1 ML VIAL IVP STA (12:39)
[2021-03-03 12:51] LABS: Basophils % (A) 1 %; Eosinophils # (A) 0.1 k/uL (0-0.7); Eosinophils % (A) 2 %; HCT 43.6 % (34.0-46.0); HGB 14.5 gm/dL (11.4-16.0); Lymphocytes # (A) 2.4 k/uL (1.0-4.8); Lymphocytes % (A) 37 %; MCH 31.3 pg (25.0-35.0); MCHC 33.3 g/dL (31.0-37.0); Mean Platelet Volume 8.4; Monocytes # (A) 0.5 k/uL (0-1.0); Monocytes % (A) 8 %; Neutrophils # (A) 3.4 k/uL (1.3-7.7); Neutrophils % (A) 51 %; Platelet Count 154 k/uL (150-450); RBC 4.64 m/uL (3.80-5.40); RDW 13.4 % (11.5-15.5); WBC 6.6 k/uL (3.8-10.6)
[2021-03-03 13:03] LABS: ALT 46 U/L (4-34); AST 46 U/L (14-36); African American GFR (CKD) >90 (>60 ml/min/1.73 sqM); Albumin 4.1 g/dL (3.5-5.0); Alkaline Phosphatase 59 U/L (38-126); Anion Gap 9 mmol/L; Blood Urea Nitrogen 18 mg/dL (7-17); C Reactive Protein 0.8 mg/dL (<1.0); Calcium 9.3 mg/dL (8.4-10.2); Carbon Dioxide 27 mmol/L (22-30); Chloride 104 mmol/L (98-107); Glucose 133 mg/dL (74-99); Non-African American GFR(CKD) 79 (>60 ml/min/1.73 sqM); Potassium 3.5 mmol/L (3.5-5.1); Sodium 140 mmol/L (137-145); Total Bilirubin 0.4 mg/dL (0.2-1.3); Total Protein 6.9 g/dL (6.3-8.2)
[2021-03-03 13:07] LABS: Prothrombin Time 10.5 sec (9.0-12.0)
[2021-03-03 13:14] LABS: Partial Thromboplastin Time 20.7 sec (22.0-30.0)
--- NOTE | 2021-03-03 13:36 | XR ---
EXAMINATION TYPE: XR chest 2V DATE OF EXAM: 03/03/2021 COMPARISON: Chest x-ray 03/03/2020 HISTORY: Altered mental status TECHNIQUE: Frontal and lateral views of the chest are obtained. FINDINGS: There is no focal air space opacity, pleural effusion, or pneumothorax seen. The cardiac silhouette size is stable, enlarged. There are overlying leads. The osseous structures are intact. IMPRESSION: No acute cardiopulmonary process.
--- NOTE | 2021-03-03 13:54 | CT ---
EXAMINATION TYPE: CT brain wo con for TPA DATE OF EXAM: 03/03/2021 COMPARISON: CT 03/03/2020 HISTORY: Weakness and visual disturbance. CT DLP: 2017.5 mGycm Automated exposure control for dose reduction was used. Helical imaging through the brain. FINDINGS: There is no interval change. No hemorrhage or hydrocephalus. Mild cortical atrophy is likely age-rela aury, periventricular patchy low-attenuation is noted. Orbits show symmetric appearance. There is a pa rtially empty sella. The calvarium is intact. Inflammatory changes are present within the maxillary s inuses. IMPRESSION: SINUS DISEASE. NO ACUTE BRAIN ABNORMALITY. POSSIBLE CHRONIC SMALL VESSEL ISCHEMIC CHANGES.
[2021-03-03 14:04] LABS: Erythrocyte Sedimentation Rate 8 mm/hr (0-20)
--- NOTE | 2021-03-03 14:07 | CT ---
EXAMINATION TYPE: CT angio head neck DATE OF EXAM: 03/03/2021 HISTORY: Weakness and visual disturbance. COMPARISON: CT brain same date CT DLP: 2017.5 mGycm. Automated Exposure Control for Dose Reduction was Utilized. TECHNIQUE: CTA scan of the neck is performed with IV Contrast, patient injected with 100 mL of Isovu e 370, axial images are obtained, coronal and sagittal reformatted images are reviewed. Three-D recon structed images are created on an independent workstation and reviewed. FINDINGS: Carotid/Vascular Structures: Patent, transverse aorta, 3 super aortic branch vessels are noted, there is atheromatous change present, left and right common carotid arteries are patent however there is m otion present. The origin of the right common carotid artery is not well-defined. There is atheromatous change of the carotid bifurcation on the right however no significant stenosis by NASCET criteria. There is no evident dissection or aneurysm. Vertebral arteries are patent and cod ominant. Origin of the right vertebral artery is not well seen however. Anterior posterior circulation within the [place] are patent. No aneurysm, stenosis, dissect ion, or embolus is evident. Atheromatous changes are present. Other: Degenerative disc changes, multilevel foraminal encroachment noted incidentally within the cer vical spine. IMPRESSION: Cannot exclude a stenosis of the proximal right common carotid artery, possibly technical .
[2021-03-03] MEDS ORDERED: ASPIRIN 325 MG TAB PO STA (15:31)
--- NOTE | 2021-03-03 16:15 | US ---
EXAMINATION TYPE: US carotid duplex BILAT DATE OF EXAM: 03/03/2021 COMPARISON: CT 03/03/2021 CLINICAL HISTORY: eval for blockage. EXAM MEASUREMENTS: RIGHT: Peak Systolic Velocity (PSV) cm/sec ----- Right CCA: 75.5 ----- Right ICA: 92.5 ----- Right ECA: 75.8 ICA/CCA ratio: 1.2 RIGHT: End Diastole cm/sec ----- Right CCA: 15.5 ----- Right ICA: 23.3 ----- Right ECA: 11.1 LEFT: Peak Systolic Velocity (PSV) cm/sec ----- Left CCA: 85.4 ----- Left ICA: 164.7 ----- Left ECA: 125.2 ICA/CCA ratio: 1.9 LEFT: End Diastole cm/sec ----- Left CCA: 14.4 ----- Left ICA: 34.6 ----- Left ECA: 6.7 VERTEBRALS (direction of flow): Right Vertebral: Antegrade Left Vertebral: Antegrade Rhythm: Normal Moderate plaque visualized in bilateral bulbs. Elevated velocity in left mid ICA, possibly due to it being a tortuous vessel. IMPRESSION: There is antegrade flow in the vertebral arteries. Images and measurements suggest 50-70% stenosis in the left internal carotid artery and 50% stenosis in the right internal carotid artery. Criteria for Assigning % of Stenosis / Diameter reduction (Estimation based on the indirect measurements of the internal carotid artery velocities (ICA PSV). 1. Normal (no stenosis)=ICA PSV < 125 cm/s: ratio < 2.0: ICA EDV<40 cm/s. 2. Less than 50% stenosis=ICA PSV < 125 cm/s: ratio < 2.0: ICA EDV<40 cm/s. 3. 50 to 69% stenosis=ICA PSV of 125 to 230 cm/s: ration 2.0 ? 4.0: ICA EDV 40-100 cm/s. 4. Greater than 70% stenosis to near occlusion= ICA PSV > 230 cm/s: ratio > 4.0: ICA EDV > 100 cm/s. 5. Near occlusion= ICA PSV velocities may be low or undetectable: variable ratio and ICA EDV. 6. Total occlusion=unable to detect flow.
[2021-03-03] MEDS: SODIUM CHLORIDE 0.9% 1,000 ML IV SCH (16:31)
[2021-03-03] MEDS ORDERED: ALPRAZolam 0.25 MG TAB PO PRN (20:32)
[2021-03-03 20:54] LABS: Glucose,Whole Blood 141 mg/dL (75-99)
[2021-03-03] MEDS: FAMOTIDINE 20 MG TAB PO SCH (21:16)
[2021-03-03] MEDS: ATORVASTATIN 40 MG TAB PO SCH (21:16)
[2021-03-03] MEDS: lisinopriL 10 MG TAB PO SCH (21:17)
[2021-03-03] MEDS: HEPARIN SODIUM,PORCINE/PF 5,000 UNIT/0.5 ML SYRINGE SQ SCH (21:17)
[2021-03-03] MEDS: ACETAMINOPHEN TAB 325 MG TAB PO PRN (21:25)
[2021-03-03] MEDS: VIT A,C & E-LUTEIN-MINERALS 1 EACH TAB PO SCH (21:59)
--- NOTE | 2021-03-03 22:13 | HP ---
HISTORY AND PHYSICAL I am covering for Dr. Ford. DATE OF SERVICE: 03/03/2021. CHIEF COMPLAINTS: Vision issues especially the left eye. HISTORY OF PRESENT ILLNESS: This 75-year-old woman with a past medical history of hypertension, seizure disorder, being followed Dr. Ford in the outpatient setting. Also had laser surgery with Dr. Littlejohn about 1 week ago. Yesterday, between 4 and 5 o'clock the patient apparently had visual difficulty in the some part of the left eye was showing especially upper part was having reddish coloration. Patient unable to see and the patient came to [facility] and was admitted for evaluation and treatment. Otherwise, a TIA was suspected. The baseline evaluation showed troponin 0.[address] angi[address] and CT scan of the brain showed no acute abnormality. Neurology and ophthalmology consultation has been sought. The CT angio showed cannot exclude stenosis of the proximal right common carotid artery, possible technical. Carotid Doppler was done which showed a 50-70 percent stenosis of the left internal carotid artery and 50% stenosis of the right internal carotid artery. There is no history of fevers, rigors or chills at this time. PAST MEDICAL HISTORY: Hypertension and seizure disorder. MEDICATIONS: Home medications are lisinopril, HydroDIURIL, multivitamins, Pepcid, vitamin D3, aspirin, Tylenol, Xanax. ALLERGIES: CODEINE, PENICILLIN. FAMILY HISTORY: No history of heart disease or strokes in the family. SOCIAL HISTORY: No history of smoking. No history of alcohol intake. REVIEW OF SYSTEMS: ENT: As mentioned earlier. Cardiovascular system: No angina. RESPIRATORY: No cough. GI no nausea or vomiting. no dysuria. NERVOUS SYSTEM: As mentioned earlier. ALLERGY/IMMUNOLOGY: No asthma or hayfever. MUSCULOSKELETAL: As mentioned earlier. HEMATOLOGY/ONCOLOGY: No history of anemia. ENDOCRINE: No history of diabetes or hypothyroidism. CONSTITUTIONAL: As mentioned earlier. DERMATOLOGY: Negative. RHEUMATOLOGY: Negative. PSYCHIATRIC: As mentioned earlier. PHYSICAL EXAMINATION: Alert and oriented times three. Pulse 71. Blood pressure 168/72, respiration 20, temperature normal, pulse ox 96% on room air. HEENT: Conjunctivae normal. NECK: No JVD. CARDIOVASCULAR: S1, S2 muffled. RESPIRATION: Breath sounds diminished in the bases. No rhonchi. No crackles. ABDOMEN: Soft. Nontender. LEGS: No edema. No swelling. NERVOUS SYSTEM: Higher functions as mentioned earlier. Cranial nerves 2nd eyes: Left eye visual field defect in the upper field does not appear to be hemianopsia. SKIN: No ulcer. No rashes. No bleeding. JOINTS: No active deforming arthropathy. Motor power. Sensory normal. LABORATORY DATA: CBC within normal limits. Sodium 140, troponin 0.045, AST and ALT noted. ASSESSMENT: 1. Vision loss and defect in the left eye possible acute transient ischemic attack rule out scotoma. 2. Troponin 0.045 indeterminate. 3. Elevated AST/ALT. 4. History of recent laser surgery to the eye. 5. Bilateral carotid artery stenosis in the carotid Doppler 50-70 percent on the left internal carotid artery and 50% stenosis of the right internal carotid artery. 6. Hypertension. 7. History of seizure disorder. 8. History of migraine. 9. History of migraine seizures. 10.History of cholecystectomy. 11.History of degenerative joint disease. 12.Obesity with body mass of 49.9. RECOMMENDATIONS AND DISCUSSION: This 75-year-old woman who presented with multiple complex medical issues, we will monitor the patient closely, continue the current medications, management and symptomatic treatment. We will initiate antiplatelet agents Lipitor, otherwise I would also recommend neurology and as well as Ophthalmology consultation. Resume the home medication. Monitor blood pressure closely. Permissive hypertension. Prognosis guarded because of multiple complex medical issues. Further recommendations to follow. I would also recommend vascular surgery evaluation. MMODL / IJN: [id number] /
[2021-03-04] MEDS: SODIUM CHLORIDE 0.9% 1,000 ML IV SCH ×3 (03:54→23:14)
[2021-03-04 03:55] LABS: Appearance,Urine Clear (Clear); Bacteria,Urine Rare /hpf; Bilirubin,Urine Negative (Negative); Blood,Urine Small (Negative); Color,Urine Yellow; Glucose,Urine (UA) Negative (Negative); Ketones,Urine Trace (Negative); Leukocyte Esterase,Urine Negative (Negative); Mucus,Urine Rare /hpf; Nitrite,Urine Negative (Negative); PH, Urine 5.5 (5.0-8.0); Protein,Urine Trace (Negative); RBC,Urine 8 /hpf (0-5); Specific Gravity,Urine 1.034 (1.001-1.035); Squamous Epithelial Cell,Urine <1 /hpf (0-4); Urobilinogen,Urine <2.0 mg/dL (<2.0); WBC,Urine <1 /hpf (0-5)
[2021-03-04] MEDS: PANTOPRAZOLE 40 MG TABLET PO SCH (06:14)
[2021-03-04 06:16] LABS: Glucose,Whole Blood 165 mg/dL (75-99)
[2021-03-04] MEDS: ACETAMINOPHEN TAB 325 MG TAB PO PRN ×3 (06:17→21:32)
[2021-03-04 08:10] LABS: Basophils % (A) 0 %; Eosinophils % (A) 0 %; HCT 42.4 % (34.0-46.0); HGB 13.6 gm/dL (11.4-16.0); Lymphocytes # (A) 1.8 k/uL (1.0-4.8); Lymphocytes % (A) 18 %; MCH 30.4 pg (25.0-35.0); MCHC 32.1 g/dL (31.0-37.0); MCV 94.7 fL (80.0-100.0); Monocytes # (A) 0.5 k/uL (0-1.0); Monocytes % (A) 5 %; Neutrophils # (A) 7.6 k/uL (1.3-7.7); Neutrophils % (A) 76 %; Platelet Count 190 k/uL (150-450); RBC 4.48 m/uL (3.80-5.40); RDW 13.5 % (11.5-15.5)
[2021-03-04 08:18] LABS: Calcium 8.9 mg/dL (8.4-10.2); Potassium 4.3 mmol/L (3.5-5.1)
[2021-03-04] MEDS: hydroCHLOROthiazide 12.5 MG CAP PO SCH (09:20)
[2021-03-04] MEDS: VIT A,C & E-LUTEIN-MINERALS 1 EACH TAB PO SCH ×2 (09:20→20:07)
[2021-03-04] MEDS: MULTIVITAMINS, THERA 1 EACH TAB PO SCH (09:21)
[2021-03-04] MEDS: lisinopriL 10 MG TAB PO SCH ×2 (09:21→20:07)
[2021-03-04] MEDS: HEPARIN SODIUM,PORCINE/PF 5,000 UNIT/0.5 ML SYRINGE SQ SCH ×2 (09:21→20:04)
[2021-03-04] MEDS: FAMOTIDINE 20 MG TAB PO SCH ×2 (09:21→20:07)
[2021-03-04] MEDS: CHOLECALCIFEROL 25 MCG (1000 IU) TABLET PO SCH (09:21)
[2021-03-04 12:13] LABS: Chol/HDL Ratio 3.53; LDL Cholesterol,Calculated 104.2 mg/dL (0.0-131.0); VLDL Calculation 19.8 mg/dL (5.00-40.00)
[2021-03-04 12:23] LABS: Glucose,Whole Blood 103 mg/dL (75-99)
[2021-03-04] MEDS ORDERED: CLOPIDOGREL 75 MG TAB PO STA (14:23)
--- NOTE | 2021-03-04 14:51 | P.CNNES ---
History of Present Illness Consult date: 03/04/21 Requesting physician: Samuel Marcelo Reason for Consult: Visual loss, evaluate for CVA History of Present Illness: Patient is a 75-year-old female came to the hospital yesterday at 11:53 AM for visual disturbance. Patient states that the day prior to arrival at 4:30 PM patient was speaking to her daughter on the phone when she developed blurred vision some dizziness. She then noticed that she has altitudinal visual field defect with solid infarct vision in the left upper visual field only of the left eye. She was able to see the lower half of the visual field clearly with the left eye. Patient states that her left eye is a good I, as her right I always have some blurred vision, which was slightly worse. She was having some headache involving bifrontal region and above the brow. Some pain in the left temporal region. Patient did not know what it was, had dinner, relaxed, and then went to sleep. Yesterday morning she woke up and was still having similar symptoms with upper altitudinal visual field defect of the left eye. She did have a laser eye surgery done by Dr. Thorpe a week ago for macular degeneration. Patient tried to contact her broadcast program director, as he was not available, therefore decided to come to the ER. Vital signs on arrival blood pressure 133/88, pulse rate 70, temperature 97.9. Blood pressure has gone up to 170s systolic as well. Chest x-ray showed no acute cardiopulmonary disease. CT of the head showed sinus disease. No acute brain abnormality, possible chronic small vessel ischemic changes. CTA of the head and neck showed cannot exclude a stenosis of proximal right common carotid artery, possible technical. Carotid Doppler showed antegrade flow in vertebral arteries. 50-70% stenosis in the left ICA and 50% stenosis in the right ICA. EKG shows sinus rhythm with premature atrial complexes. Left ventricle hypertrophy with repolarization abnormality. Blood test shows normal CBC, ESR is 8, PT/PTT is normal, Chem-7 is normal. CRP normal 0.8. AST mildly elevated 46 ALT 46. UA shows negative leukocyte esterase. Rose virus PCR negative. Lipid panel with cholesterol 173, LDL 104, HDL 49 and triglycerides 99. Medications include multivitamins, lisinopril 10 mg twice a day, aspirin 81 mg, HCTZ 12.5, Pepcid 20 twice a day. Patient states that since arrival to the hospital, the visual field defect has been changing color, from dark red to dark pink and today has started floating all over and goes up. Sometimes she sees light green color and then red. Sometimes she see as if there is a wire pad in her vision. It appears half of an egg is floating up. She is noticing light sensitivity. Patient denies any slurred speech facial droop or any strokelike symptoms otherwise. Still getting some headache and left temporal pain. Patient has hypertension, states has hypoglycemia no diabetes. She does not take any antiplatelet medication at home. Only Tylenol, for back problems. She has suffered from a fall due to coming out of stationary bike and fell hurting her back. She has arthritis and DJD. Review of Systems All other review of systems completely unremarkable except as mentioned in HPI. Denies any chest pain shortness of breath wheezing or cough. Denies any nausea vomiting diarrhea. Past Medical History Past Medical History: Hypertension, Seizure Disorder Additional Past Medical History / Comment(s): MOLES ON BACK, HX OF MIGRAINE, Hy poglycemia, last seizure in august 2020 History of Any Multi-Drug Resistant Organisms: None Reported Past Surgical History: Cholecystectomy, Joint Replacement Additional Past Surgical History / Comment(s): JANNA knee replacement, JANNA CATARACT SX, LASER eye surgery 1 week ago 02/24/21 Past Anesthesia/Blood Transfusion Reactions: No Reported Reaction Past Psychological History: No Psychological Hx Reported Smoking Status: Never smoker Past Alcohol Use History: None Reported Past Drug Use History: None Reported - Past Family History Mother Family Medical History: GERD/Reflux Father Family Medical History: CVA/TIA, Myocardial Infarction ([place]) Additional Family Medical History / Comment(s): mini strokes, CABG Medications and Allergies Home Medications Medication Instructions Recorded Confirmed Type Multivitamins, Thera [Theragran] 1 tab PO DAILY 09/22/15 03/03/21 History ALPRAZolam [Xanax] 0.25 mg PO TID PRN 10/12/15 03/03/21 History Aspirin [Adult Low Dose Aspirin EC] 81 mg PO HS 10/12/15 03/03/21 History Cholecalciferol [Vitamin D3] 50 mcg PO DAILY 10/12/15 03/03/21 History lisinopriL [Lisinopril] 10 mg PO BID 10/12/15 03/03/21 History hydroCHLOROthiazide [Hydrodiuril] 12.5 mg PO DAILY 03/03/20 03/03/21 History Acetaminophen [Tylenol Arthritis] 650 mg PO TID PRN 03/03/21 03/03/21 History Famotidine [Pepcid] 20 mg PO BID 03/03/21 03/03/21 History Vit C/E/Zn/Coppr/Lutein/Zeaxan 1 cap PO BID 03/03/21 03/03/21 History [Preservision Areds 2 Softgel] Allergies Allergy/AdvReac Type Severity Reaction Status Date / Time codeine Allergy Rash/Hives Verified 03/03/21 13:46 Iodinated Contrast Media Allergy Rash/Hives Verified 03/03/21 13:46 [Iodinated Contrast Media - IV Dye] Penicillins Allergy Rash/Hives Verified 03/03/21 13:46 Physical Examination - Vital Signs Vital Signs: Vital Signs Temp Pulse Pulse Resp BP BP Pulse Ox 03/04/21 08:00 98.2 F 71 18 142/68 96 03/04/21 06:32 66 17 140/65 95 03/04/21 03:44 97.9 F 77 17 157/76 93 L 03/04/21 01:07 68 17 03/04/21 00:00 98 F 68 17 175/72 93 L 03/03/21 20:55 98.1 F 74 17 175/78 95 03/03/21 20:00 74 17 03/03/21 18:44 73 18 177/87 95 03/03/21 17:00 71 20 168/72 96 03/03/21 16:23 71 18 170/68 95 03/03/21 15:00 58 L 18 167/75 95 03/03/21 14:17 62 18 146/64 96 Intake and Output 03/03/21 03/04/21 03/04/21 22:59 06:59 14:59 Intake Total 400 240 Balance 400 240 Intake: Intake, IV Titration 300 Amount Sodium Chloride 0.9% 1, 300 000 ml @ 100 mls/hr IV . Q10H [facility] Rx#:[id number] Oral 100 240 Other: Voiding Method Toilet Toilet Toilet Diaper Diaper Diaper # Voids 1 Weight 136.078 kg 134 kg Patient is an elderly female, very pleasant, in no acute distress. Patient is alert awake oriented to time place and person. Speech and language functions are normal. Attention, concentration and fund of knowledge is adequate. On cranial examination, pupils are round and reacting to light, visual spears are full on confrontation, although she has sometimes misses the left upper lateral quadrant. Funduscopic examination revealed no significant abnormality. Her extraocular muscles are intact with no nystagmus. Face is symmetric, tongue protrudes to the midline. Palatal elevation and sensation normal, hearing and shoulder shrug normal, facial sensation normal. Shoulder shrug normal. On muscle strength testing, there is no pronator drift and the strength is normal in arms and legs distally and proximally. Deep tendon reflexes are hypoactive and symmetric and plantars downgoing. Her knees are sensitive from previous surgery therefore was not checked. Sensory to touch is equal with no neglect. Cerebellar function showed no ataxia for [id number] testing. No dysdiadoch okinesia. Tone and bulk of muscles normal. Gait normal. On general examination, there is no carotid bruit or murmur, S1-S2 audible. Abdomen is soft nontender. Chest is clear. Peripheral pulses are present. No edema. Results - Laboratory Findings CBC and BMP: 03/04/21 07:03 03/04/21 07:03 Abnormal Lab Findings: Abnormal Labs 03/03/21 03/03/21 03/03/21 12:42 12:42 12:42 APTT 20.7 L BUN 18 H Glucose 133 H POC Glucose (mg/dL) AST 46 H ALT 46 H Troponin I 0.045 H* Urine Protein Urine Ketones Urine Blood Urine RBC Urine Bacteria Urine Mucus 03/03/21 03/04/21 03/04/21 20:52 02:03 06:14 APTT BUN Glucose POC Glucose (mg/dL) 141 H 165 H AST ALT Troponin I Urine Protein Trace H Urine Ketones Trace H Urine Blood Small H Urine RBC 8 H Urine Bacteria Rare H Urine Mucus Rare H 03/04/21 03/04/21 07:03 12:03 APTT BUN 19 H Glucose 139 H POC Glucose (mg/dL) 103 H AST ALT Troponin I Urine Protein Urine Ketones Urine Blood Urine RBC Urine Bacteria Urine Mucus Assessment and Plan Assessment: * Acute left upper altitudinal visual field defect involving the left eye, probably due to retinal ischemia. * Bilateral ICA stenosis, 50-70% on the left and 50% on the right as per carotid Doppler. * Hypertension * Obesity * Hyperlipidemia * History of cataract surgery and macular degeneration. Plan: * Patient is having fluctuating visual field symptoms involving the left eye. Concerned about complete vision loss in left eye. Patient has been given aspirin 325 mg in the ER. We will give loading dose of Plavix 300 mg and start on Plavix 75 mg daily. * Hemoglobin A1c. * MRI of the brain rule out CVA. * Vascular surgical consultation for possible possible ICA stenosis. Some discrepancy between report of CT and carotid Doppler. We await vascular surgery to evaluate. * Await ophthalmology consultation. * ESR and CRP are negative, therefore temporal arteritis less likely. * Avoid hypotension for the next 24-48 hours. * 2-D echo to rule out any embolic source. * Continue Lipitor 40 mg daily.
--- NOTE | 2021-03-04 16:41 | PN ---
PROGRESS NOTE DATE OF SERVICE: 03/04/2021 I am covering for Dr. Ford. INTERVAL HISTORY: This is a 75-year-old woman who was admitted with visual defect on the left side, possible acute TIA versus scotoma. Troponin is indeterminate. The patient also had bilateral carotid stenosis about 50% to 70% on the left, as was 50% on the right. Also the patient closely monitored. Patient will start antiplatelet agents. PAST MEDICAL HISTORY: Reviewed. REVIEW OF SYMPTOMS: ENT: As mentioned earlier. CARDIOVASCULAR: No angina. RESPIRATORY: No cough. GI: As mentioned earlier. : No dysuria. NERVOUS SYSTEM: No numbness or weakness. CURRENT MEDICATIONS: Reviewed include Tylenol, Xanax, aspirin, Lipitor, Pepcid, Doses and other medications reviewed. PHYSICAL EXAMINATION: GENERAL: Patient is alert and oriented times three. VITAL SIGNS: Pulse 70, blood pressure 132/60, respirations 18, temperature 98.2, pulse ox 96% on room air. HEENT: Conjunctivae normal. Oral mucosa moist. NECK: No jugular venous distention. No carotid bruits. No lymph node enlargement. RESPIRATORY: Breath sounds diminished at the bases. A few scattered rhonchi and crackles. ABDOMEN: Soft, no tenderness. No masses palpable. EXTREMITIES: No edema, no swelling. NERVOUS: No focal deficits. LABS: CBC within normal. Sodium 140, potassium 4.3, glucose is 139. UA is noted. ASSESSMENT: 1. Vision loss and defect in the left eye possible acute transient ischemic attack. Rule out scotoma. 2. Troponin 0.05 indeterminate. 3. Bilateral carotid artery stenosis. Carotid Doppler 50-70% in the left internal carotid artery and 50% stenosis of the right internal carotid artery. 4. Elevated AST and ALT. 5. History of recent laser surgery to the left eye. 6. Hypertension. 7. History of seizure disorder. 8. History of migraine. 9. History of migraine seizures. 10.History of cholecystectomy. 11.History of degenerative joint disease. 12.Obesity with body mass index 49.9. RECOMMENDATION AND DISCUSSION: In this 75-year-old woman who presented with multiple complex medical issues, we will monitor the patient closely. Continue the current management and continue symptomatic treatment. Continue with Lipitor and continue with antiplatelet agents. Otherwise, continue with neurovascular workup. Resume the home medications. Neurology and Vascular Surgery evaluation and as well Ophthalmology evaluation. Prognosis guarded because of multiple complex medical issues. Discussed the patient and discussed with the family. Further recommendations to follow. MMODL / IJN: [id number] /
--- NOTE | 2021-03-04 16:49 | P.GSCN ---
History of Present Illness Consult date: 03/04/21 Reason for Consult: Carotid stenosis with TIA History of present illness: 75-year-old female with a past medical history of hypertension, seizure disorder presents to the hospital yesterday secondary to blackness coming over her left eye at the top of her field of vision. She states that the day prior she was speaking with her daughter in the phone and developed blurred vision and some dizziness and at that time had some blackness in her field of vision. She the bed and the next morning she was still having the same issues and decided to come to the hospital. She's also been complaining of bilateral frontal headaches above her eyebrows. She does have a recent history of laser eye surgery a week ago for macular degeneration. She has tried to contact her legal entity controller but was unable and therefore came to the emergency department. Currently she states her field of vision is changing slightly with different color now a dark pink. She also is describing floaters. She also is complaining of a pain in her thigh consistent with a feeling of the wire in her vision. She denies any fevers, chills, chest pain or shortness of breath. She denies any other lateralizing symptoms such as weakness or slurred speech. Review of Systems All systems: negative (What is mentioned in the HPI or past medical history) Past Medical History Past Medical History: Hypertension, Seizure Disorder Additional Past Medical History / Comment(s): MOLES ON BACK, HX OF MIGRAINE, Hypoglycemia, last seizure in august 2020 History of Any Multi-Drug Resistant Organisms: None Reported Past Surgical History: Cholecystectomy, Joint Replacement Additional Past Surgical History / Comment(s): JANNA knee replacement, JANNA CATARACT SX, LASER eye surgery 1 week ago 02/24/21 Past Anesthesia/Blood Transfusion Reactions: No Reported Reaction Past Psychological History: No Psychological Hx Reported Smoking Status: Never smoker Past Alcohol Use History: None Reported Past Drug Use History: None Reported - Past Family History Mother Family Medical History: GERD/Reflux Father Family Medical History: CVA/TIA, Myocardial Infarction ([place]) Additional Family Medical History / Comment(s): mini strokes, CABG Medications and Allergies Home Medications Medication Instructions Recorded Confirmed Type Multivitamins, Thera [Theragran] 1 tab PO DAILY 09/22/15 03/03/21 History ALPRAZolam [Xanax] 0.25 mg PO TID PRN 10/12/15 03/03/21 History Aspirin [Adult Low Dose Aspirin EC] 81 mg PO HS 10/12/15 03/03/21 History Cholecalciferol [Vitamin D3] 50 mcg PO DAILY 10/12/15 03/03/21 History lisinopriL [Lisinopril] 10 mg PO BID 10/12/15 03/03/21 History hydroCHLOROthiazide [Hydrodiuril] 12.5 mg PO DAILY 03/03/20 03/03/21 History Acetaminophen [Tylenol Arthritis] 650 mg PO TID PRN 03/03/21 03/03/21 History Famotidine [Pepcid] 20 mg PO BID 03/03/21 03/03/21 History Vit C/E/Zn/Coppr/Lutein/Zeaxan 1 cap PO BID 03/03/21 03/03/21 History [Preservision Areds 2 Softgel] Allergies Allergy/AdvReac Type Severity Reaction Status Date / Time codeine Allergy Rash/Hives Verified 03/03/21 13:46 Iodinated Contrast Media Allergy Rash/Hives Verified 03/03/21 13:46 [Iodinated Contrast Media - IV Dye] Penicillins Allergy Rash/Hives Verified 03/03/21 13:46 Surgical - Exam Vital Signs Temp Pulse Resp BP Pulse Ox 97.9 F 70 18 133/88 97 03/03/21 11:54 03/03/21 11:54 03/03/21 11:54 03/03/21 11:54 03/03/21 11:54 - General well developed, well nourished, no distress - Eyes PERRL, normal ocular movement - ENT normal pinna, normal nares - Neck no masses - Respiratory normal expansion, normal respiratory effort - Cardiovascular Rhythm: regular - Abdomen Abdomen: soft, non tender, no distended - Integumentary no rash - Neurologic normal coordination, normal sensation - Psychiatric oriented to time, oriented to person, oriented to place, speech is normal, memory intact Muscle strength is 5 out of 5 bilaterally. No pronator drift. No facial droop. Results - Labs 03/04/21 07:03 03/04/21 07:03 Abnormal Lab Results - Last 24 Hours (Table) 03/03/21 03/04/21 03/04/21 Range/Units 20:52 02:03 06:14 BUN (7-17) mg/dL Glucose (74-99) mg/dL POC Glucose (mg/dL) 141 H 165 H (75-99) mg/dL Urine Protein Trace H (Negative) Urine Ketones Trace H (Negative) Urine Blood Small H (Negative) Urine RBC 8 H (0-5) /hpf Urine Bacteria Rare H (None) /hpf Urine Mucus Rare H (None) /hpf 03/04/21 03/04/21 Range/Units 07:03 12:03 BUN 19 H (7-17) mg/dL Glucose 139 H (74-99) mg/dL POC Glucose (mg/dL) 103 H (75-99) mg/dL Urine Protein (Negative) Urine Ketones (Negative) Urine Blood (Negative) Urine RBC (0-5) /hpf Urine Bacteria (None) /hpf Urine Mucus (None) /hpf Diabetes panel 03/04/21 Range/Units 07:03 Sodium 140 (137-145) mmol/L Potassium 4.3 (3.5-5.1) mmol/L Chloride 104 (98-107) mmol/L Carbon Dioxide 28 (22-30) mmol/L BUN 19 H (7-17) mg/dL Creatinine 0.78 (0.52-1.04) mg/dL Glucose 139 H (74-99) mg/dL Calcium 8.9 (8.4-10.2) mg/dL Triglycerides 99.0 (0.0-149.0) mg/dL HDL Cholesterol 49.0 (40.0-60.0) mg/dL Calcium panel 03/04/21 Range/Units 07:03 Calcium 8.9 (8.4-10.2) mg/dL Pituitary panel 03/04/21 Range/Units 07:03 Sodium 140 (137-145) mmol/L Potassium 4.3 (3.5-5.1) mmol/L Chloride 104 (98-107) mmol/L Carbon Dioxide 28 (22-30) mmol/L BUN 19 H (7-17) mg/dL Creatinine 0.78 (0.52-1.04) mg/dL Glucose 139 H (74-99) mg/dL Calcium 8.9 (8.4-10.2) mg/dL Adrenal panel 03/04/21 Range/Units 07:03 Sodium 140 (137-145) mmol/L Potassium 4.3 (3.5-5.1) mmol/L Chloride 104 (98-107) mmol/L Carbon Dioxide 28 (22-30) mmol/L BUN 19 H (7-17) mg/dL Creatinine 0.78 (0.52-1.04) mg/dL Glucose 139 H (74-99) mg/dL Calcium 8.9 (8.4-10.2) mg/dL - Imaging Additional studies: Carotid Doppler demonstrates bilateral ICA stenosis 50-70% on the left and 50% on the right CTA of the neck demonstrates calcification at the bifurcation but no significant stenosis of bilateral internal carotid arteries. Assessment and Plan Assessment: #1 amaurosis fugax of the left eye #2 bilateral internal carotid artery stenosis #3 hypertension #4 obesity #5 recent history of cataract surgery and macular degeneration Plan: Reviewed carotid Doppler and CT angiogram of the neck in full detail. The osorio tid Doppler demonstrates significantly increased stenosis compared to CT angiogram of the neck. She does have some calcification noted in the right internal carotid artery seen on computed tomography scan but her left internal carotid artery does not appear to have any significant stenosis compared to the carotid Doppler. There is significant tortuosity noted on the left and could be causing elevation of her velocities and not necessarily a stenosis. If per neurology it is determined that she is having embolic disease she would need a carotid angiogram to further delineate any disease. I do agree with aspirin and Plavix. Thank you for allowing me to participate in your patient's care.
[2021-03-04 17:18] LABS: Glucose,Whole Blood 109 mg/dL (75-99)
[2021-03-04] MEDS: ATORVASTATIN 40 MG TAB PO SCH (20:07)
[2021-03-04 20:08] LABS: Glucose,Whole Blood 130 mg/dL (75-99)
[2021-03-04 23:31] LABS: Hemoglobin A1C 4.7 % (4.0-6.0)
[2021-03-05 06:09] LABS: Glucose,Whole Blood 63 mg/dL (75-99)
[2021-03-05] MEDS: PANTOPRAZOLE 40 MG TABLET PO SCH (06:21)
[2021-03-05 06:24] LABS: Glucose,Whole Blood 81 mg/dL (75-99)
[2021-03-05] MEDS: CHOLECALCIFEROL 25 MCG (1000 IU) TABLET PO SCH (08:38)
[2021-03-05] MEDS: HEPARIN SODIUM,PORCINE/PF 5,000 UNIT/0.5 ML SYRINGE SQ SCH ×2 (08:38→20:32)
[2021-03-05] MEDS: hydroCHLOROthiazide 12.5 MG CAP PO SCH (08:38)
[2021-03-05] MEDS: FAMOTIDINE 20 MG TAB PO SCH ×2 (08:38→20:32)
[2021-03-05] MEDS: MULTIVITAMINS, THERA 1 EACH TAB PO SCH (08:38)
[2021-03-05] MEDS: lisinopriL 10 MG TAB PO SCH ×2 (08:38→20:32)
[2021-03-05] MEDS: VIT A,C & E-LUTEIN-MINERALS 1 EACH TAB PO SCH ×2 (08:39→20:33)
[2021-03-05] MEDS ORDERED: ASPIRIN 325 MG TAB PO SCH (09:00)
[2021-03-05 11:53] LABS: Glucose,Whole Blood 86 mg/dL (75-99)
--- NOTE | 2021-03-05 12:00 | ECHOF ---
Referral Reason:Thrombus MEASUREMENTS -------- HEIGHT: 165.1 cm WEIGHT: 136.1 kg BP: 113/66 RVIDd: 3.1 cm (< 3.3) IVSd: 1.8 cm (0.6 - 1.1) LVIDd: 5.0 cm (3.9 - 5.3) LVPWd: 1.9 cm (0.6 - 1.1) IVSs: 2.4 cm LVIDs: 2.1 cm LVPWs: 2.3 cm EF(Teich): 87 % %FS: 57 % LAESV Index (A-L): 31.90 ml/m IVSd: 1.7 cm (0.6 - 1.1) LVIDd: 4.5 cm (3.9 - 5.3) LVPWd: 1.8 cm (0.6 - 1.1) IVSs: 1.9 cm LVIDs: 2.0 cm LVPWs: 2.6 cm EDV(Teich): 94 ml ESV(Teich): 12 ml EF(Teich): 87 % %FS: 57 % SV(Teich): 82 ml Ao Diam: 3.1 cm (2.0 - 3.7) AV Cusp: 1.8 cm (1.5 - 2.6) LA Diam: 4.9 cm (2.7 - 3.8) MV EXCURSION: 16.226 mm (> 18.000) MV EF SLOPE: 72 mm/s (70 - 150) EPSS: 1.1 cm MV E Conrad: 1.06 m/s MV DecT: 279 ms MV A Conrad: 1.07 m/s MV E/A Ratio: 1.00 AV maxP.78 mmHg AV meanP.37 mmHg RAP: 5.00 mmHg RVSP: 25.72 mmHg FINDINGS -------- This was a technically difficult study with suboptimal views. The left ventricular size is normal. There is severe concentric left ventricular hypertrophy. Ove rall left ventricular systolic function is normal with, an EF between 55 - 60 %. Normal LAP. Grade 1 Diastolic Dysfunction. The right ventricle is normal in size. LA is midly dilated 29-33ml/m2. The right atrial size is normal. xx ml of Lumason was utilized for enhancement of images. Unable to visualize atrial septum. Aortic valve is trileaflet and is mildly thickened. There is moderate aortic stenosis present. Pe ak/mean gradient across the Aortic Valve is 33.78mmHg / 25.37mmHg. The mitral valve is normal. The mitral valve leaflets are mildly thickened. Mild mitral regurgita tion is present. The tricuspid valve appears structurally normal. Mild tricuspid regurgitation present. Right vent ricular systolic pressure is normal at < 35 mmHg. The pulmonic valve was not well visualized. The aortic root size is normal. IVC Not well visulized. There is no pericardial effusion. CONCLUSIONS -------- 1. The left ventricular size is normal. 2. There is severe concentric left ventricular hypertrophy. 3. Overall left ventricular systolic function is normal with, an EF between 55 - 60 %. 4. Normal LAP. Grade 1 Diastolic Dysfunction. 5. LA is midly dilated 29-33ml/m2. 6. Aortic valve is trileaflet and is mildly thickened. 7. There is moderate aortic stenosis present. 8. Peak/mean gradient across the Aortic Valve is 33.78mmHg / 25.37mmHg. 9. The mitral valve leaflets are mildly thickened. 10. Mild mitral regurgitation is present. 11. Mild tricuspid regurgitation present. 12. There is no pericardial effusion. DIAMOND SAW OPERATOR: Delmi Howard RDCS
[2021-03-05] MEDS: ACETAMINOPHEN TAB 325 MG TAB PO PRN (12:23)
--- NOTE | 2021-03-05 13:29 | P.PN ---
Subjective Progress Note Date: 03/05/21 Principal diagnosis: Carotid stenosis with TIA Patient was seen and examined lying in her pain. States she still having visual disturbances in her right eye. She states that she is now seeing things on the wall, that they are moving. She is also having floaters. Ophthalmology is consulted to see patient. Neurology is following patient as well. Patient scheduled for an MRI of the brain this afternoon. She is denying any upper or lower extremity weakness, any dysphasia or aphasia. Objective - Vital Signs Vital signs: Vital Signs Temp 96.7 F L 03/05/21 08:00 Pulse 67 03/05/21 08:00 Resp 17 03/05/21 08:00 BP 133/62 03/05/21 08:00 Pulse Ox 96 03/05/21 08:00 Intake & Output 03/04/21 03/05/21 03/05/21 18:59 06:59 18:59 Intake Total 720 290 280 Balance 720 290 280 Weight 136.2 kg Intake: IV 10 Invasive Line 3 10 Intake, IV Titration 180 Amount Sodium Chloride 0.9% 1, 180 000 ml @ 100 mls/hr IV . Q10H [facility] Rx#:[id number] Oral 720 100 280 Other: Voiding Method Toilet Toilet Toilet Diaper Diaper Diaper # Voids 2 1 - Exam General appearance: The patient is alert, oriented, appears in no acute distress. HET: Head is normocephalic and atraumatic. Facial symmetry. Neck: Supple without lymphadenopathy. Trachea midline. Heart: S1 S2. Regular rate and rhythm. Lungs: Clear to auscultation. Extremities: Normal skin color and turgor. Palpable bilateral brachial pulses. Neurological: Normal coordination. Facial symmetry, tongue protrudes midline, no pronator drift or facial droop. Strength and sensation are grossly intact. - Labs CBC & Chem 7: 03/04/21 07:03 03/04/21 07:03 Labs: Abnormal Lab Results - Last 24 Hours (Table) 03/04/21 03/04/21 03/04/21 Range/Units 12:03 17:04 20:06 POC Glucose (mg/dL) 103 H 109 H 130 H (75-99) mg/dL 03/05/21 Range/Units 06:07 POC Glucose (mg/dL) 63 L (75-99) mg/dL Assessment and Plan Assessment: 1. Amaurosis fugax of the left eye 2. Bilateral internal carotid artery stenosis 3. Hypertension 4. Obesity 5. Recent history of cataract surgery macular degeneration Plan: Carotid Doppler and CT angiogram reviewed in full detail by Dr. Gong. Carotid Doppler demonstrated significant increase stenosis compared to CT angiogram of the neck. There is significant tortuosity noted on the left and could be causing elevation of her last days and not necessarily as stenosis. If neurology determined she is having embolic disease to need a carotid angiogram for further delineation of any disease. Continue aspirin and Plavix. Agree w ith ophthalmology consultation, also await their recommendations. The impression and plan of care has been dictated as directed. I performed a history and examination of this patient, discussed the same with the dictator. I agree with the dictator's note ,documented as a scribe. Any additional findings or plans will be noted.
--- NOTE | 2021-03-05 16:03 | MR ---
MR brain without contrast HISTORY: Rule out cerebrovascular accident, left visual field defect Multiplanar multisequence imaging through the brain, correlation to CT brain dated 03/03/2020 fast brain protocol was utilized due to patient's claustrophobia. There is a focus of restricted diffusion involving the medial aspect of the right occipital lobe, axi al image 13, corresponding hyperintensity noted on inversion recovery T2-weighted sequences. There ar e scattered hyperintensities in the periventricular and subcortical white matter on inversion recover y T2-weighted sequences, approximately 5-10 lesions are present. Inflammatory changes present in the mastoid air cells bilaterally right greater than left. There is no hemorrhage or hydrocephalus. Corpu s callosum, cervical medullary junction are normal, there is a partially empty sella. Inflammatory ch skip noted within the maxillary sinus on the left. IMPRESSION: Subacute infarct left occipital lobe. Age-related changes of atrophy and probable chronic small vessel ischemia. Correlate for mastoiditis. Sinus disease.
[2021-03-05 17:16] LABS: Glucose,Whole Blood 82 mg/dL (75-99)
[2021-03-05] MEDS: CLOPIDOGREL 75 MG TAB PO SCH (19:35)
[2021-03-05 20:11] LABS: Glucose,Whole Blood 85 mg/dL (75-99)
[2021-03-05] MEDS: SODIUM CHLORIDE 0.9% 1,000 ML IV SCH (20:29)
[2021-03-05] MEDS: ATORVASTATIN 40 MG TAB PO SCH (20:32)
--- NOTE | 2021-03-05 20:44 | P.PN ---
Subjective Progress Note Date: 03/05/21 Patient was seen for a follow-up. Patient is sitting comfortably in the recliner. Patient states that for the last 2 nights she has been having some hallucinations. Her vision has improved. She is noticing some soaps/bubbles like aura in the left upper visual field. The visual scotomata goes up and then to the side. Denies any other focal symptoms whatsoever. No headache. Telemetry monitoring showing sinus rhythm with sinus bradycardia and first- degree AV block. Objective - Vital Signs Vital signs: Vital Signs Temp 96.7 F L 03/05/21 08:00 Pulse 60 03/05/21 16:00 Resp 18 03/05/21 16:00 BP 145/63 03/05/21 16:00 Pulse Ox 95 03/05/21 16:00 Intake & Output 03/04/21 03/05/21 03/05/21 18:59 06:59 18:59 Intake Total 720 290 380 Balance 720 290 380 Weight 136.2 kg Intake: IV 10 Invasive Line 3 10 Intake, IV Titration 180 Amount Sodium Chloride 0.9% 1, 180 000 ml @ 100 mls/hr IV . Q10H [facility] Rx#:[id number] Oral 720 100 380 Other: Voiding Method Toilet Toilet Toilet Diaper Diaper Diaper # Voids 2 1 - Exam Patient's examination remains unchanged. Had left visual field deficit has improved. Rest of the examination is nonfocal. Mental status, speech and language functions are normal. - Labs CBC & Chem 7: 03/04/21 07:03 03/04/21 07:03 Labs: Abnormal Lab Results - Last 24 Hours (Table) 03/04/21 03/04/21 03/05/21 Range/Units 17:04 20:06 06:07 POC Glucose (mg/dL) 109 H 130 H 63 L (75-99) mg/dL Assessment and Plan Assessment: * Acute upper altitudinal visual field defect involving the left eye, probably due to retinal ischemia. * Acute left occipital lobe stroke, small size. This suggests patient had 2 different ischemic event, (involving the left optic nerve, and also the left occipital region). * Bilateral ICA stenosis, 50-70% on the left and 50% on the right as per carotid Doppler. * Hypertension * Obesity * Hyperlipidemia * History of cataract surgery and macular degeneration. Plan: * MRI of the brain revealed subacute infarct left occipital lobe. Age-related changes of atrophy and probable chronic small vessel ischemia. Correlate for mastoiditis. * Patient apparently has 2 different ischemic events, one of them involving the left optic nerve, and second involving left occipital lobe. The CVA involving the left occipital lobe also appears to be likely from small vessel disease ve rsus a small embolic event also a possibility. Patient was not taking any antiplatelet medication prior to this CVA. Patient is now on dual antiplatelet medication. 2-D echo revealed no obvious embolic source. Consider bubble study which was not performed. I am not sure if HAYDEE is indicated, as the CVA is likely due to small vessel disease versus small embolic event. * Continue dual antiplatelet medication including aspirin 81 mg and Plavix 75 mg daily. * Hemoglobin A1c 4.7. * Vascular surgical consultation note reviewed, input appreciated. Will await ophthalmology input as well. * Await ophthalmology consultation. * ESR and CRP are negative, therefore temporal arteritis less likely. * Avoid hypotension for the next 24-48 hours. * 2-D echo revealed normal left ventricular size. Severe concentric LVH, EF is 55-60%. Left atrium is mildly dilated. Moderate aortic stenosis. Aortic valve is trileaflet in is mildly thickened. No obvious embolic source. It appears bubble study was not performed. * * Continue Lipitor 40 mg daily.
[2021-03-06] MEDS: SODIUM CHLORIDE 0.9% 1,000 ML IV SCH (05:17)
[2021-03-06 06:11] LABS: Glucose,Whole Blood 74 mg/dL (75-99)
[2021-03-06] MEDS: PANTOPRAZOLE 40 MG TABLET PO SCH (06:29)
[2021-03-06] MEDS: VIT A,C & E-LUTEIN-MINERALS 1 EACH TAB PO SCH ×2 (08:21→19:55)
[2021-03-06] MEDS: CLOPIDOGREL 75 MG TAB PO SCH (08:21)
[2021-03-06] MEDS: ASPIRIN 81 MG PO SCH (08:21)
[2021-03-06] MEDS: MULTIVITAMINS, THERA 1 EACH TAB PO SCH (08:21)
[2021-03-06] MEDS: hydroCHLOROthiazide 12.5 MG CAP PO SCH (08:21)
[2021-03-06] MEDS: FAMOTIDINE 20 MG TAB PO SCH ×2 (08:22→19:54)
[2021-03-06] MEDS: HEPARIN SODIUM,PORCINE/PF 5,000 UNIT/0.5 ML SYRINGE SQ SCH ×2 (08:22→19:54)
[2021-03-06] MEDS: CHOLECALCIFEROL 25 MCG (1000 IU) TABLET PO SCH (08:22)
[2021-03-06] MEDS: lisinopriL 10 MG TAB PO SCH ×2 (08:22→19:54)
[2021-03-06 12:05] LABS: Glucose,Whole Blood 77 mg/dL (75-99)
--- NOTE | 2021-03-06 14:39 | P.PN ---
Subjective Progress Note Date: 03/06/21 Principal diagnosis: Carotid stenosis with TIA Vision is seen and examined sitting up at the bedside. States the blackness in her vision of her left eye has improved, however now it's just blurred vision with seeing floaters and flashes. Ophthalmology still is seeing patient at this time. Patient underwent MRI of the brain yesterday showing subacute infarct left occipital lobe. Age-related changes of atrophy and probable chronic small vessel ischemia. Correlate for mastoiditis. Sinus disease. Neurology's note states patient had 2 different ischemic events one of them involving the left optic nerve and second involving left occipital lobe. CVA involving left occip ital lobe appears to be likely from small vessel disease versus a small embolic event also a possibility. 2-D echo revealed no obvious embolic source. Patient is on dual antiplatelet therapy. She denies any other focal deficits. She is denying any shortness of breath, chest pain, weakness, or difficulty swallowing. Objective - Vital Signs Vital signs: Vital Signs Temp 97.7 F 03/06/21 08:00 Pulse 57 L 03/06/21 11:44 Resp 18 03/06/21 11:44 BP 152/49 03/06/21 11:44 Pulse Ox 97 03/06/21 11:44 Intake & Output 03/05/21 03/06/21 03/06/21 18:59 06:59 18:59 Intake Total 755 720 180 Balance 755 720 180 Weight 111 kg Intake: Oral 755 720 180 Other: Voiding Method Toilet Toilet Toilet Diaper Diaper Diaper # Voids 1 1 - Exam General appearance: The patient is alert, oriented, appears in no acute distress. HET: Head is normocephalic and atraumatic. Facial symmetry. Neck: Supple without lymphadenopathy. Trachea midline. Heart: S1 S2. Regular rate and rhythm. Lungs: Clear to auscultation. Extremities: Normal skin color and turgor. Palpable bilateral brachial pulses. Neurological: Normal coordination. Facial symmetry, tongue protrudes midline, no pronator drift or facial droop. Strength and sensation are grossly intact. - Labs CBC & Chem 7: 03/04/21 07:03 03/04/21 07:03 Labs: Abnormal Lab Results - Last 24 Hours (Table) 03/06/21 Range/Units 06:00 POC Glucose (mg/dL) 74 L (75-99) mg/dL Assessment and Plan Assessment: 1. Amaurosis fugax of the left eye 2. Bilateral internal carotid artery stenosis 3. Subacute infarct left occipital lobe per MRI of the brain 4. Hypertension 5. Obesity 6. Recent history of cataract surgery macular degeneration Plan: 1. Agree continue with dual antiplatelet therapy 2. MRI of brain reviewed 3. Carotid ultrasound and CT angiogram of head and neck reviewed 4. Await recommendations from ophthalmology Recommend medical management at this time, with close outpatient follow-up. Thank you for this consultation, will be on standby The impression and plan of care has been dictated as directed. I performed a history and examination of this patient, discussed the same with the dictator. I agree with the dictator's note ,documented as a scribe. Any additional findings or plans will be noted.
[2021-03-06 17:14] LABS: Glucose,Whole Blood 83 mg/dL (75-99)
[2021-03-06] MEDS: ATORVASTATIN 40 MG TAB PO SCH (19:54)
[2021-03-06 20:13] LABS: Glucose,Whole Blood 99 mg/dL (75-99)
--- NOTE | 2021-03-06 21:07 | P.PN ---
Subjective Progress Note Date: 03/06/21 Principal diagnosis: Visual distortion This is a continue progress note on a 75-year-old white female, MRI has revealed occipital and retinal distortion causing visual disturbance. The patient states that bright lights do bother her and she is seeing bubbling in her visual field. No significant extremity weakness or speech/swallowing difficulties. No significant nausea, vomiting or diarrhea as stated. Appetite is minimal. Objective - Vital Signs Vital signs: Vital Signs Temp 97.7 F 03/06/21 08:00 Pulse 61 03/06/21 16:00 Resp 18 03/06/21 16:00 BP 159/69 03/06/21 16:00 Pulse Ox 97 03/06/21 16:00 Intake & Output 03/06/21 03/06/21 03/07/21 06:59 18:59 06:59 Intake Total 720 610 Balance 720 610 Weight 111 kg Intake: Oral 720 610 Other: Voiding Method Toilet Toilet Diaper Diaper # Voids 1 1 - Constitutional General appearance: Present: obese - EENT Eyes: Present: anicteric sclerae. Absent: ptosis, scleral icterus - Respiratory Respiratory: bilateral: CTA - Cardiovascular Rhythm: regular Heart sounds: normal: S1 Abnormal Heart Sounds: Absent: S3 Gallop - Gastrointestinal General gastrointestinal: Present: soft. Absent: tenderness - Musculoskeletal Musculoskeletal: Present: gait normal - Psychiatric Psychiatric: Present: A&O x's 3, appropriate affect, intact judgment & insight - Labs CBC & Chem 7: 03/04/21 07:03 03/04/21 07:03 Labs: Abnormal Lab Results - Last 24 Hours (Table) 03/06/21 Range/Units 06:00 POC Glucose (mg/dL) 74 L (75-99) mg/dL Assessment and Plan (1) Cerebrovascular accident (CVA) Current Visit: Yes Status: Acute Code(s): I63.9 - CEREBRAL INFARCTION, UNSPECIFIED SNOMED Code(s): 832452797 Plan: Continue current regimen of anticoagulation. Appreciate neurology and vascular surgery input. Check CBC and CMP in the a.m. Ophthalmology consult also pending.
--- NOTE | 2021-03-06 21:08 | P.PN ---
Subjective Principal diagnosis: Visual distortion This is a continue progress note on a 75-year-old white female, Echocardiogram does not show any type of valvular/embolic issue. The patient states that bright lights do bother her and she is seeing bubbling in her visual field. No significant extremity weakness or speech/swallowing difficulties. No significant nausea, vomiting or diarrhea as stated. Appetite is minimal. Objective - Vital Signs Vital signs: Vital Signs Temp 97.7 F 03/06/21 08:00 Pulse 61 03/06/21 16:00 Resp 18 03/06/21 16:00 BP 159/69 03/06/21 16:00 Pulse Ox 97 03/06/21 16:00 Intake & Output 03/06/21 03/06/21 03/07/21 06:59 18:59 06:59 Intake Total 720 610 Balance 720 610 Weight 111 kg Intake: Oral 720 610 Other: Voiding Method Toilet Toilet Diaper Diaper # Voids 1 1 - Constitutional General appearance: Present: obese - EENT Eyes: Absent: abnormal pupil - Respiratory Respiratory: bilateral: CTA - Cardiovascular Rhythm: regular Heart sounds: normal: S1, S2 Abnormal Heart Sounds: Absent: S3 Gallop - Gastrointestinal General gastrointestinal: Present: soft. Absent: tenderness - Musculoskeletal Musculoskeletal: Present: gait normal - Labs CBC & Chem 7: 03/04/21 07:03 03/04/21 07:03 Labs: Abnormal Lab Results - Last 24 Hours (Table) 03/06/21 Range/Units 06:00 POC Glucose (mg/dL) 74 L (75-99) mg/dL Assessment and Plan (1) Cerebrovascular accident (CVA) Current Visit: Yes Status: Acute Code(s): I63.9 - CEREBRAL INFARCTION, UNSPECIFIED SNOMED Code(s): 606079274 Plan: Continue current regimen of anticoagulation. MRI is pending for today. Check appropriate CMP in a.m. Multiple consultants appreciated.
[2021-03-07 04:50] VITALS: PULSE 60; RESP 20; TEMP 98.3
[2021-03-07] MEDS: SODIUM CHLORIDE 0.9% 1,000 ML IV SCH ×2 (05:35→08:15)
[2021-03-07] MEDS: PANTOPRAZOLE 40 MG TABLET PO SCH (05:35)
[2021-03-07 06:04] LABS: Glucose,Whole Blood 120 mg/dL (75-99)
--- NOTE | 2021-03-07 07:52 | P.DS ---
Providers Date of admission: 03/03/21 15:31 Attending physician: Aroldo Ford Consults: 03/03/21 15:32 Consult Physician Urgent Consulting Provider: Denilson Burk Consult Reason/Comments: visual loss Do you want consulting provider notified?: Yes Consult Physician Urgent Consulting Provider: Tate Nixon Consult Reason/Comments: visual loss, eval for cva Do you want consulting provider notified?: Yes 03/03/21 20:34 Consult Physician Routine Consulting Provider: Narciso Gong Consult Reason/Comments: carotid stenosis Do you want consulting provider notified?: Yes Primary care physician: Aroldo Ford - Discharge Diagnosis(es) (1) Cerebrovascular accident (CVA) Current Visit: Yes Status: Acute Hospital Course: This is a discharge summary on a 75 yo wF admitted for visual distortion. CVA on occiptal an retianl area was found. Mutiple consultants. Dual antiplatelet therapy started. She will be scheduled for outpatient angiogram once cleared by consultants. Patient Condition at Discharge: Stable Plan - Discharge Summary Discharge Rx Participant: Yes New Discharge Prescriptions: New Atorvastatin [Lipitor] 40 mg PO HS #30 tab Clopidogrel [Plavix] 75 mg PO DAILY #30 tab Continue Multivitamins, Thera [Multivitamin (formulary)] 1 tab PO DAILY lisinopriL [Lisinopril] 10 mg PO BID Cholecalciferol [Vitamin D3 (25 Mcg = 1000 Iu)] 50 mcg PO DAILY Aspirin [Adult Low Dose Aspirin EC] 81 mg PO HS ALPRAZolam [Xanax] 0.25 mg PO TID PRN PRN Reason: Anxiety hydroCHLOROthiazide [Hydrodiuril] 12.5 mg PO DAILY Vit C/E/Zn/Coppr/Lutein/Zeaxan [Preservision Areds 2 Softgel] 1 cap PO BID Acetaminophen [Tylenol Arthritis] 650 mg PO TID PRN PRN Reason: BACK PAIN Famotidine [Pepcid] 20 mg PO BID Discharge Medication List Multivitamins, Thera [Multivitamin (formulary)] 1 tab PO DAILY 09/22/15 [History] ALPRAZolam [Xanax] 0.25 mg PO TID PRN 10/12/15 [History] Aspirin [Adult Low Dose Aspirin EC] 81 mg PO HS 10/12/15 [History] Cholecalciferol [Vitamin D3 (25 Mcg = 1000 Iu)] 50 mcg PO DAILY 10/12/15 [History] lisinopriL [Lisinopril] 10 mg PO BID 10/12/15 [History] hydroCHLOROthiazide [Hydrodiuril] 12.5 mg PO DAILY 03/03/20 [History] Acetaminophen [Tylenol Arthritis] 650 mg PO TID PRN 03/03/21 [History] Famotidine [Pepcid] 20 mg PO BID 03/03/21 [History] Vit C/E/Zn/Coppr/Lutein/Zeaxan [Preservision Areds 2 Softgel] 1 cap PO BID 03/03/21 [History] Atorvastatin [Lipitor] 40 mg PO HS #30 tab 03/07/21 [Rx] Clopidogrel [Plavix] 75 mg PO DAILY #30 tab 03/07/21 [Rx] Follow up Appointment(s)/Referral(s): Aroldo Ford MD [Primary Care Provider] - 1 Week Discharge Disposition: HOME WITH HOME HEALTH SERVICES
[2021-03-07] MEDS: CLOPIDOGREL 75 MG TAB PO SCH (08:14)
[2021-03-07] MEDS: hydroCHLOROthiazide 12.5 MG CAP PO SCH (08:14)
[2021-03-07] MEDS: CHOLECALCIFEROL 25 MCG (1000 IU) TABLET PO SCH (08:14)
[2021-03-07] MEDS: MULTIVITAMINS, THERA 1 EACH TAB PO SCH (08:14)
[2021-03-07] MEDS: lisinopriL 10 MG TAB PO SCH (08:14)
[2021-03-07] MEDS: ASPIRIN 81 MG PO SCH (08:14)
[2021-03-07] MEDS: FAMOTIDINE 20 MG TAB PO SCH (08:14)
[2021-03-07] MEDS: VIT A,C & E-LUTEIN-MINERALS 1 EACH TAB PO SCH (08:14)
[2021-03-07] MEDS: HEPARIN SODIUM,PORCINE/PF 5,000 UNIT/0.5 ML SYRINGE SQ SCH (08:14)
[2021-03-07 09:45] VITALS: BP 136/62
--- NOTE | 2021-03-07 10:47 | P.PN ---
Subjective Progress Note Date: 03/06/21 Patient was seen for a follow-up. Patient is sitting comfortably in the recliner. Patient states her visual spears have improved. She is still seeing some scotomas in the left upper visual field. She sometimes sees double. Her vision has improved. Denies any other focal symptoms whatsoever. No headache. Telemetry monitoring showing sinus rhythm with sinus bradycardia and first- degree AV block. Objective - Vital Signs Vital signs: Vital Signs Temp 97.7 F 03/06/21 08:00 Pulse 57 L 03/06/21 14:00 Resp 18 03/06/21 14:00 BP 152/49 03/06/21 11:44 Pulse Ox 97 03/06/21 11:44 Intake & Output 03/05/21 03/06/21 03/06/21 18:59 06:59 18:59 Intake Total 755 720 610 Balance 755 720 610 Weight 111 kg Intake: Oral 755 720 610 Other: Voiding Method Toilet Toilet Toilet Diaper Diaper Diaper # Voids 1 1 - Exam Patient's examination remains unchanged. Her pupils are round and reacting, visual spears are full on confrontation. Extraocular muscles are intact. Sometimes she see double on looking to 1 or the other side. Rest of the exami nation is nonfocal. Mental status, speech and language functions are normal. Muscle strength is normal. No ataxia. Sensations are equal. - Labs CBC & Chem 7: 03/04/21 07:03 03/04/21 07:03 Labs: Abnormal Lab Results - Last 24 Hours (Table) 03/06/21 Range/Units 06:00 POC Glucose (mg/dL) 74 L (75-99) mg/dL Assessment and Plan Assessment: * Acute upper altitudinal visual field defect involving the left eye, probably due to retinal ischemia. * Acute left occipital lobe stroke, small size. This suggests patient had 2 different ischemic event, (involving the left optic nerve, and also the left occipital region). * Bilateral ICA stenosis, 50-70% on the left and 50% on the right as per carotid Doppler. * Hypertension * Obesity * Hyperlipidemia * History of cataract surgery and macular degeneration. Plan: * MRI of the brain revealed subacute infarct left occipital lobe. Age-related changes of atrophy and probable chronic small vessel ischemia. Correlate for mastoiditis. * Carotid Doppler revealed 50-70% stenosis of the left ICA and 50% stenosis of the right ICA. Antegrade flow in both vertebral arteries. * CTA revealed "cannot exclude a stenosis of the proximal right common carotid artery, possibly technical". * Patient apparently has 2 different ischemic events, one of them involving the left optic nerve, and second involving left occipital lobe. The CVA involving the left occipital lobe also appears to be likely from small vessel disease versus a small embolic event also a possibility. Patient was not taking any antiplatelet medication prior to this CVA. Patient is now on dual antiplatelet medication. 2-D echo revealed no obvious embolic source. Consider bubble study which was not performed. I am not sure if HAYDEE is indicated, as the CVA is likely due to small vessel disease versus small embolic event. * Continue dual antiplatelet medication including aspirin 81 mg and Plavix 75 mg daily. * Hemoglobin A1c 4.7. * Await ophthalmology consultation. * ESR and CRP are negative, therefore temporal arteritis less likely. * Avoid hypotension for the next 24-48 hours. * 2-D echo revealed normal left ventricular size. Severe concentric LVH, EF is 55-60%. Left atrium is mildly dilated. Moderate aortic stenosis. Aortic valve is trileaflet in is mildly thickened. No obvious embolic source. It appears bubble study was not performed. * Lipid panel with cholesterol 173, LDL 104, HDL 49 and triglycerides 99. Continue Lipitor 40 mg daily. * Patient has been seen by vascular surgery, recommending outpatient angiogram and perhaps revascularization for left ICA stenosis.
[2021-03-07 11:47] LABS: Glucose,Whole Blood 84 mg/dL (75-99)
--- NOTE | 2021-03-07 11:49 | P.PN ---
Subjective Progress Note Date: 03/07/21 Principal diagnosis: Carotid stenosis with TIA Patient is seen and examined sitting up at the bedside chair. No acute changes through the night. No focal deficits. Patient states still has some blurred vision in her left eye. Ophthalmology has still not seen patient, patient has orders for discharge to follow-up with pulmonology outpatient. Objective - Vital Signs Vital signs: Vital Signs Temp 98.3 F 03/07/21 04:00 Pulse 60 03/07/21 04:00 Resp 20 03/07/21 04:00 BP 154/88 03/07/21 04:00 Pulse Ox 96 03/07/21 04:00 Intake & Output 03/06/21 03/07/21 03/07/21 18:59 06:59 18:59 Intake Total 610 480 240 Output Total 200 Balance 610 480 40 Weight 134.9 kg Intake: Oral 610 480 240 Output: Urine 200 Other: Voiding Method Toilet Toilet Diaper Diaper # Voids 1 1 2 - Exam General appearance: The patient is alert, oriented, appears in no acute distress. HET: Head is normocephalic and atraumatic. Facial symmetry. Neck: Supple without lymphadenopathy. Trachea midline. Heart: S1 S2. Regular rate and rhythm. Lungs: Clear to auscultation. Extremities: Normal skin color and turgor. Palpable bilateral brachial pulses. Neurological: Normal coordination. Facial symmetry, tongue protrudes midline, no pronator drift or facial droop. Strength and sensation are grossly intact. - Labs CBC & Chem 7: 03/04/21 07:03 03/04/21 07:03 Labs: Abnormal Lab Results - Last 24 Hours (Table) 03/07/21 Range/Units 06:02 POC Glucose (mg/dL) 120 H (75-99) mg/dL Assessment and Plan Assessment: 1. Amaurosis fugax of the left eye 2. Bilateral internal carotid artery stenosis 3. Subacute infarct left occipital lobe per MRI of the brain 4. Hypertension 5. Obesity 6. Recent history of cataract surgery macular degeneration Plan: 1. Agree continue with dual antiplatelet therapy and statin 2. MRI of brain reviewed 3. Carotid ultrasound and CT angiogram of head and neck reviewed Recommend medical management at this time, with close outpatient follow-up. Thank you for this consultation, patient is cleared for discharge from vascular surgery. The impression and plan of care has been dictated as directed. I performed a history and examination of this patient, discussed the same with the dictator. I agree with the dictator's note ,documented as a scribe. Any additional findings or plans will be noted.
== END 2021-03-07 13:30 | disposition home health service (06) | DRG 65 ==
LOC: EC 11:53 → 3SCARD 15:31
PROVIDERS: ADMIT Family Medicine; ATTEND Family Medicine
DX: I63.89 Other cerebral infarction (principal); G45.3 Amaurosis fugax; Z68.42 Body mass index [BMI] 45.0-49.9, adult; H35.82 Retinal ischemia; E16.2 Hypoglycemia, unspecified; E66.9 Obesity, unspecified; E78.5 Hyperlipidemia, unspecified; G40.909 Epilepsy, unspecified, not intractable, without status epilepticus; H35.30 Unspecified macular degeneration; H53.459 Other localized visual field defect, unspecified eye; I11.9 Hypertensive heart disease without heart failure; I44.30 Unspecified atrioventricular block; I49.1 Atrial premature depolarization; M19.90 Unspecified osteoarthritis, unspecified site; Z20.822 Contact with and (suspected) exposure to COVID-19; D22.5 Melanocytic nevi of trunk; K21.9 Gastro-esophageal reflux disease without esophagitis; R77.8 Other specified abnormalities of plasma proteins; Z79.82 Long term (current) use of aspirin; Z79.899 Other long term (current) drug therapy; Z82.3 Family history of stroke; Z82.49 Family history of ischemic heart disease and other diseases of the circulatory system; Z90.49 Acquired absence of other specified parts of digestive tract; Z96.653 Presence of artificial knee joint, bilateral; Z88.5 Allergy status to narcotic agent; Z88.0 Allergy status to penicillin; Z91.041 Radiographic dye allergy status; Z98.42 Cataract extraction status, left eye; Z98.41 Cataract extraction status, right eye; Z98.890 Other specified postprocedural states; Z79.02 Long term (current) use of antithrombotics/antiplatelets
CPT/HCPCS: 36415; 70450; 70496; 70498; 70551; 71046; 80048; 80053; 80061; 81001; 83036; 84484; 85025; 85610; 85652; 85730; 86140; 87635; 93005; 93306; 93880; 94760; 96374; 96375; 99285

== ENCOUNTER → 2021-03-27 | Outpatient (CLI) | payer MEDICARE ==
[2021-03-27 14:12] LABS: Basophils # (A) 0.1 k/uL (0-0.2); Basophils % (A) 1 %; Eosinophils # (A) 0.2 k/uL (0-0.7); Eosinophils % (A) 2 %; HCT 41.4 % (34.0-46.0); HGB 13.8 gm/dL (11.4-16.0); Lymphocytes # (A) 2.9 k/uL (1.0-4.8); Lymphocytes % (A) 35 %; MCH 31.4 pg (25.0-35.0); MCHC 33.4 g/dL (31.0-37.0); Mean Platelet Volume 7.8; Monocytes # (A) 0.7 k/uL (0-1.0); Monocytes % (A) 8 %; Neutrophils # (A) 4.4 k/uL (1.3-7.7); Neutrophils % (A) 52 %; Platelet Count 181 k/uL (150-450); RBC 4.41 m/uL (3.80-5.40); RDW 13.3 % (11.5-15.5); WBC 8.5 k/uL (3.8-10.6)
[2021-03-27 14:32] LABS: Potassium 4.3 mmol/L (3.5-5.1)
== END | disposition home or self-care (01) ==
LOC: LABPAT 13:08
PROVIDERS: ATTEND Surgery
DX: Z01.812 Encounter for preprocedural laboratory examination (principal); I65.23 Occlusion and stenosis of bilateral carotid arteries
CPT/HCPCS: 36415; 80051; 82565; 84520; 85025

== ENCOUNTER 2021-04-18 06:17 | Day surgery (SDC) | payer MEDICARE ==
[2021-04-17 09:14] VITALS: BMI 53.1
[2021-04-18 06:52] LABS: Glucose,Whole Blood 165 mg/dL (75-99)
[2021-04-18 06:59] VITALS: RESP 18; TEMP 98.7
[2021-04-18] MEDS ORDERED: SODIUM CHLORIDE 0.9% 1,000 ML IV ONE (06:59)
[2021-04-18] MEDS ORDERED: LIDOCAINE 1% INJ 10MG/ML (20 ML MDV) ONE (07:25)
[2021-04-18] MEDS ORDERED: LIDOCAINE 1% INJ 10MG/ML (20 ML MDV) SQ ONE (07:52)
[2021-04-18] MEDS ORDERED: IOPAMIDOL-250 100ML BTL INTRAARTER ONE (08:01)
--- NOTE | 2021-04-18 08:29 | P.OP ---
Date of Procedure: 04/18/21 Description of Procedure: Preoperative diagnosis: [Carotid stenosis, discordance on imaging, vision changes] Postoperative diagnosis: Same, less than 50% bilateral internal carotid artery stenosis Procedure: [Ultrasound-guided right common femoral artery Right iliofemoral angiogram Aortic arch angiogram] Surgeon: Citlaly Fay D.O. EBL: [<10cc] IV fluids: [See records] Urine output: [Not measured] Drains: [None] Complications: [None immediately apparent] Condition: [Stable to recovery] Operative indication and findings: [Patient is a 75-year-old female who initially was admitted to the hospital in the past with vision changes and was thought to have possible ocular stroke, she had an ultrasound which showed 50- 69% stenosis on the left. She had CT angiogram which showed no evidence of stenosis but significant tortuosity. She was discharged home to see a hair boiler operator and given the discordance it was recommended she undergo a cerebral angiogram. Risks and benefits were discussed. She seemingly understood and is willing to proceed as such] Procedure in detail: [The patient was taken to the special suite and placed in supine position. Bilateral groins are prepped and draped in usual sterile fashion. A preprocedure timeout performed, all parties were in agreement. The ultrasound was utilized in the right common femoral artery was identified. The skin overlying was necessary 1% lidocaine plain. A micropuncture needle was used and the artery was accessed. Seldinger technique was used and a 5-Bermudian sheath was placed. A right iliofemoral angiogram was performed revealing no evidence of significant stenosis or calcific disease. Guidewires catheters were advanced into the ascending aortic arch. An angiogram was performed. There is a type I arch. There is a patent brachiocephalic, right subclavian and right common carotid artery. The bifurcation of the right internal and external carotid are slightly obscured by dental hardware. Patent right vertebral artery. The left common carotid, internal neck show appear widely patent. There is a significant bend of tortuosity in the left internal carotid artery without any significant stenosis with pulsatile flow. The left subclavian and vertebral arteries appear patent without significant disease. At this point given these findings the catheters and wires were removed. The sheath was removed and pressure was held until hemostasis was adequate. Plan - Discharge Summary Discharge Rx Participant: No New Discharge Prescriptions: No Action RX: Multivitamins, Thera [Multivitamin (formulary)] 1 tab PO DAILY RX: lisinopriL [Lisinopril] 10 mg PO BID RX: Cholecalciferol [Vitamin D3 (25 Mcg = 1000 Iu)] 50 mcg PO DAILY RX: Aspirin [Adult Low Dose Aspirin EC] 81 mg PO HS RX: ALPRAZolam [Xanax] 0.25 mg PO TID PRN PRN Reason: Anxiety RX: hydroCHLOROthiazide [Hydrodiuril] 12.5 mg PO DAILY RX: Vit C/E/Zn/Coppr/Lutein/Zeaxan [Preservision Areds 2 Softgel] 1 cap PO BID Latanoprost/Pf [Latanoprost 0.005% Eye Drop] 1 drop BOTH EYES BID RX: Famotidine [Pepcid] 20 mg PO BID RX: Clopidogrel [Plavix] 75 mg PO DAILY #30 tab Albuterol Inhaler [Ventolin Hfa Inhaler] 1 puff INHALATION DIRECTED PRN PRN Reason: Shortness Of Breath Nystatin 100,000 Unit/gm Powd [Mycostatin Powder] 1 applic TOPICAL DIRECTED Brimonidine Tartrate [Alphagan P 0.2% Ophth Soln] 1 drops BOTH EYES BID Discharge Medication List Multivitamins, Thera [Multivitamin (formulary)] 1 tab PO DAILY 09/22/15 [History] ALPRAZolam [Xanax] 0.25 mg PO TID PRN 10/12/15 [History] Aspirin [Adult Low Dose Aspirin EC] 81 mg PO HS 10/12/15 [History] Cholecalciferol [Vitamin D3 (25 Mcg = 1000 Iu)] 50 mcg PO DAILY 10/12/15 [History] lisinopriL [Lisinopril] 10 mg PO BID 10/12/15 [History] hydroCHLOROthiazide [Hydrodiuril] 12.5 mg PO DAILY 03/03/20 [History] Famotidine [Pepcid] 20 mg PO BID 03/03/21 [History] Vit C/E/Zn/Coppr/Lutein/Zeaxan [Preservision Areds 2 Softgel] 1 cap PO BID 03/03/21 [History] Clopidogrel [Plavix] 75 mg PO DAILY #30 tab 03/07/21 [Rx] Albuterol Inhaler [Ventolin Hfa Inhaler] 1 puff INHALATION DIRECTED PRN 04/17/21 [History] Brimonidine Tartrate [Alphagan P 0.2% Ophth Soln] 1 drops BOTH EYES BID 04/17/21 [History] Latanoprost/Pf [Latanoprost 0.005% Eye Drop] 1 drop BOTH EYES BID 04/17/21 [History] Nystatin 100,000 Unit/gm Powd [Mycostatin Powder] 1 applic TOPICAL DIRECTED 04/17/21 [History] Follow up Appointment(s)/Referral(s): Citlaly Fay DO [STAFF PHYSICIAN] - 2 Weeks Activity/Diet/Wound Care/Special Instructions: Light activity for the next 48 hours. May resume Plavix and aspirin starting tomorrow. Resume regular diet. Resume other medications as previously ordered. Discharge Disposition: HOME SELF-CARE
[2021-04-18] MEDS ORDERED: ALPRAZolam 0.25 MG TAB PO STA (10:12)
[2021-04-18] MEDS ORDERED: ACETAMINOPHEN TAB 325 MG TAB PO STA (10:12)
[2021-04-18] MEDS ORDERED: ACETAMINOPHEN TAB 325 MG TAB ONE (10:13)
--- NOTE | 2021-04-18 12:31 | IR ---
EXAMINATION TYPE: IR angio aortic arch DATE OF EXAM: 04/18/2021 CLINICAL HISTORY: Vision changes TECHNIQUE: Fluoroscopy. COMPARISON: None. FINDINGS: Fluoroscopic guidance was provided during procedure by performing physician. A total of 1 .1 minutes of fluoroscopic time was utilized during the procedure and 26 total images acquired. IMPRESSION: As Above.
[2021-04-18 14:43] VITALS: BP 136/64; PULSE 74
== END 2021-04-18 15:04 | disposition home or self-care (01) ==
LOC: CATHCVL 06:17
PROVIDERS: ATTEND Surgery
DX: I65.23 Occlusion and stenosis of bilateral carotid arteries (principal); Z79.02 Long term (current) use of antithrombotics/antiplatelets; Z79.82 Long term (current) use of aspirin
CPT/HCPCS: 76937; 36221; C1769 ×4; C1894; J2001; Q9966

== ENCOUNTER 2021-04-18 20:00 | Emergency (ER) | payer MEDICARE ==
[2021-04-18 20:08] VITALS: TEMP 98
[2021-04-18] MEDS ORDERED: SODIUM CHLORIDE 0.9% 1,000 ML IV STA (20:28)
[2021-04-18] MEDS ORDERED: diphenhydrAMINE 50 MG/ML 1 ML VIAL IVP STA (20:28)
[2021-04-18] MEDS ORDERED: MECLIZINE 12.5 MG TAB PO STA (20:28)
[2021-04-18] MEDS ORDERED: methylPREDNISolone SOD SUCCI 125 MG/2 ML VIAL IV STA (20:29)
[2021-04-18] MEDS ORDERED: FAMOTIDINE 20 MG/2 ML VIAL IV STA (20:29)
[2021-04-18] MEDS ORDERED: ACETAMINOPHEN TAB 500 MG TAB PO STA (20:29)
[2021-04-18] MEDS ORDERED: KETOROLAC 15 MG/ML 1 ML VIAL IVP STA (20:29)
--- NOTE | 2021-04-18 20:30 | ED ---
General Adult HPI - General Chief complaint: Dizziness Stated complaint: Post op weakness Time Seen by Provider: 04/18/21 20:20 Source: patient, RN notes reviewed, old records reviewed Mode of arrival: ambulatory Limitations: no limitations - History of Present Illness Initial comments: Patient is a 75-year-old female with past medical history remarkable for asthma, CVA, hypertension, seizure disorder, sleep apnea, obesity received a carotid angiography earlier this morning and received contrast dye, which is ALLERGIC to but received the pre-prep presents emergency Department complaining of lightheadedness, flushing sensation, and anxiety since this morning. She denies any difficulty breathing or difficulty swallowing. She denies any chest pain or dyspnea or wheezing. She denies any nausea or vomiting. She denies any rashes. She has not abdominal pain. Patient states that her anxiety may be causing this, but she is also concerned because she now she is ALLERGIC to contrast prep. She states she felt lightheaded at home and flushed which somewhat resolved but due to her symptoms, she wanted to be evaluated in the hospital. She did take the full prep consisting of Benadryl, famotidine, Solu-Medrol prior to her angiography this morning. She endorses no acute complaints at this time otherwise. - Related Data Home Medications Medication Instructions Recorded Confirmed Multivitamins, Thera [Multivitamin 1 tab PO DAILY 09/22/15 04/18/21 (formulary)] ALPRAZolam [Xanax] 0.25 mg PO TID PRN 10/12/15 04/18/21 Aspirin [Adult Low Dose Aspirin EC] 81 mg PO HS 10/12/15 04/18/21 Cholecalciferol [Vitamin D3 (25 2,000 unit PO DAILY 10/12/15 04/18/21 Mcg = 1000 Iu)] lisinopriL [Lisinopril] 10 mg PO BID 10/12/15 04/18/21 hydroCHLOROthiazide [Hydrodiuril] 12.5 mg PO DAILY 03/03/20 04/18/21 Famotidine [Pepcid] 20 mg PO BID 03/03/21 04/18/21 Vit C/E/Zn/Coppr/Lutein/Zeaxan 1 cap PO BID 03/03/21 04/18/21 [Preservision Areds 2 Softgel] Albuterol Inhaler [Ventolin Hfa 1 puff INHALATION RT-Q6H PRN 04/17/21 04/18/21 Inhaler] Brimonidine Tartrate [Alphagan P 1 drops BOTH EYES BID 04/17/21 04/18/21 0.2% Ophth Soln] Latanoprost/Pf [Latanoprost 0.005% 1 drop BOTH EYES BID 04/17/21 04/18/21 Eye Drop] Nystatin 100,000 Unit/gm Powd 1 applic TOPICAL BID PRN 04/17/21 04/18/21 [Mycostatin Powder] Atorvastatin Calcium [Lipitor] 40 mg PO DAILY 04/18/21 04/18/21 Ibuprofen [Motrin] 600 mg PO Q8HR PRN 04/18/21 04/18/21 Previous Rx's Medication Instructions Recorded Clopidogrel [Plavix] 75 mg PO DAILY #30 tab 03/07/21 Meclizine [Antivert] 25 mg PO TID PRN #20 tab 04/18/21 Allergies Allergy/AdvReac Type Severity Reaction Status Date / Time codeine Allergy Rash/Hives Verified 04/18/21 21:31 Iodinated Contrast Media Allergy Rash/Hives Verified 04/18/21 21:31 [Iodinated Contrast Media - IV Dye] Penicillins Allergy Rash/Hives Verified 04/18/21 21:31 Review of Systems ROS Statement: Those systems with pertinent positive or pertinent negative responses have been documented in the HPI. Review of Systems: CONST: Denies fever EYES: Denies blurry vision ENT: Denies nasal congestion C/V: Denies Chest pain RESP: Denies shortness of breath GI: Denies abdominal pain : Denies dysuria SKIN: Denies rash. MSK: Denies joint pain. NEURO: Endorses lightheadedness, dizziness ROS Other: All systems not noted in ROS Statement are negative. 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 History of Any Multi-Drug Resistant Organisms: None Reported Past Surgical History: Cholecystectomy, Hernia Repair, Joint Replacement Additional Past Surgical History / Comment(s): JANNA knee replacement, JANNA CATARACT SX, LASER eye surgery janna 02/24/21 . hiatal hernia repair. Past Anesthesia/Blood Transfusion Reactions: No Reported Reaction Past Psychological History: Anxiety Smoking Status: Never smoker Past Alcohol Use History: None Reported Past Drug Use History: None Reported - Past Family History Mother Family Medical History: GERD/Reflux Father Family Medical History: CVA/TIA, Myocardial Infarction (ME) Additional Family Medical History / Comment(s): mini strokes, CABG General Exam - General Exam Comments Initial Comments: General: Appears in no acute distress. HEAD: Normal with no signs of head trauma. EYES: PERRLA, EOMI, conjunctiva normal, no discharge. Pupils are 3 mm and equally reactive bilaterally. ENT: Hearing grossly intact, normal oropharynx. There is no stridor auscultated, there is no swelling in the posterior or anterior oropharynx. RESPIRATORY: Clear breath sounds bilaterally. No wheezes, rales, or rhonchi. C/V: Regular rate and rhythm. S1 and S2 auscultated, no edema, peripheral pulses 2+ and intact throughout ABD: Abd is soft, nontender, nondistended EXT: Normal range of motion, no obvious deformity SKIN: No rashes or lesions observed on exposed skin. NEURO: Patient is alert and oriented 4. Cranial nerves II-12 are intact. No focal sensory strength deficits. Cerebellar function is intact as evident by normal finger to nose testing. Patient is able to ambulate without difficulty. Limitations: no limitations Course Vital Signs 04/18/21 04/18/21 20:04 22:56 Temperature 98.0 F Pulse Rate 72 57 L Respiratory 18 16 Rate Blood Pressure 151/66 135/62 O2 Sat by Pulse 95 100 Oximetry Medical Decision Making - Medical Decision Making Based on the patient's presentation and physical exam, I'm concerned for possible mild ALLERGIC reaction to the contrast media earlier. She does have a known ALLERGIC reaction and she is currently lightheaded. She is not currently ananaphylaxis. I cannot rule out other possible causes including cardiac with her history, and therefore we will obtain basic laboratory studies including EKG, chest x-ray, troponin and blood work. She will be treated with 125 mg of IV Solu-Medrol, IV famotidine, IV Benadryl, IV Toradol, by mouth Tylenol, meclizine, 1 L fluid bolus. She'll be subsequently reevaluated. While she is in the department should both connected to continuous cardiac monitoring. She was in agreement with this plan. Patient's laboratory studies are relatively unremarkable. Troponin is not elevated. Patient has a slight leukocytosis of 15.0 which is likely reactive. Remainder of her labs are unremarkable. Chest x-ray shows no acute cardiopulmonary process. EKG revealed now acute signs of ischemia or acute changes. I discussed the results with the patient. She expressed understanding. On reevaluation, her symptoms have resolved. She feels improved. She is able to ambulate without difficulty. She is no longer lightheaded. She never had chest pain in the emergency department. She will be discharged home with close follow-up with her PCP. She was in agreement with this plan. I will provide the patient with a prescription for meclizine. I instructed the patient to follow up with their PCP in the next 3 days. I explained that the patient should return to the emergency department if they experience any worsening symptoms. Strict return precautions were discussed with the patient. The patient expressed understanding of these instructions. I answered all questions that the patient had. The patient was discharged home in improved condition with their prescriptions and follow up information. - Lab Data Result diagrams: 04/18/21 20:35 04/18/21 20:35 Lab Results 04/18/21 04/18/21 04/18/21 Range/Units 20:35 20:35 20:35 WBC 15.0 H (3.8-10.6) k/uL RBC 4.45 (3.80-5.40) m/uL Hgb 14.0 (11.4-16.0) gm/dL Hct 41.6 (34.0-46.0) % MCV 93.3 (80.0-100.0) fL MCH 31.4 (25.0-35.0) pg MCHC 33.7 (31.0-37.0) g/dL RDW 13.4 (11.5-15.5) % Plt Count 165 (150-450) k/uL MPV 8.3 Neutrophils % 74 % Lymphocytes % 15 % Monocytes % 8 % Eosinophils % 2 % Basophils % 0 % Neutrophils # 11.1 H (1.3-7.7) k/uL Lymphocytes # 2.3 (1.0-4.8) k/uL Monocytes # 1.2 H (0-1.0) k/uL Eosinophils # 0.2 (0-0.7) k/uL Basophils # 0.0 (0-0.2) k/uL Sodium 139 (137-145) mmol/L Potassium 4.4 (3.5-5.1) mmol/L Chloride 102 (98-107) mmol/L Carbon Dioxide 27 (22-30) mmol/L Anion Gap 10 mmol/L BUN 26 H (7-17) mg/dL Creatinine 0.75 (0.52-1.04) mg/dL Est GFR (CKD-EPI)AfAm >90 (>60 ml/min/1.73 sqM) Est GFR (CKD-EPI)NonAf 79 (>60 ml/min/1.73 sqM) Glucose 158 H (74-99) mg/dL Calcium 9.4 (8.4-10.2) mg/dL Total Bilirubin 0.8 (0.2-1.3) mg/dL AST 45 H (14-36) U/L ALT 28 (4-34) U/L Alkaline Phosphatase 55 (38-126) U/L Troponin I 0.022 (0.000-0.034) ng/mL Total Protein 7.2 (6.3-8.2) g/dL Albumin 4.0 (3.5-5.0) g/dL - EKG Data -: EKG Interpreted by Me EKG Comments: 12-lead Electrocardiogram Interpretation Note EKG was reviewed and interpreted by myself. 12-lead ECG performed at 2132 is i nterpreted by me as revealing normal sinus rhythm, despite the machine reading is atrial fibrillation there is a P-wave for every QRS complex. At a rate of 61 bpm beats per minute. [place] is normal. DC interval is not obtained. QRS duration 76 ms, QTc is 434 ms.. There are biphasic T waves seen in leads III, as well as V2 through V6 which are seen on prior EKGs.. R wave progression across the precordium was satisfactory. By my interpretation this EKG is non- diagnostic for acute ischemia. It reveals chronic T-wave changes. Disposition Clinical Impression: Dizziness, Contrast media allergy, Headache Disposition: HOME SELF-CARE Condition: Good Instructions (If sedation given, give patient instructions): Dizziness (ED) Prescriptions: Meclizine [Antivert] 25 mg PO TID PRN #20 tab PRN Reason: Vertigo Is patient prescribed a controlled substance at d/c from ED?: No Referrals: Aroldo Ford MD [Primary Care Provider] - 1-2 days
[2021-04-18 20:50] LABS: Basophils % (A) 0 %; Eosinophils # (A) 0.2 k/uL (0-0.7); Eosinophils % (A) 2 %; HCT 41.6 % (34.0-46.0); Lymphocytes # (A) 2.3 k/uL (1.0-4.8); Lymphocytes % (A) 15 %; MCH 31.4 pg (25.0-35.0); MCHC 33.7 g/dL (31.0-37.0); MCV 93.3 fL (80.0-100.0); Mean Platelet Volume 8.3; Monocytes # (A) 1.2 k/uL (0-1.0); Monocytes % (A) 8 %; Neutrophils # (A) 11.1 k/uL (1.3-7.7); Neutrophils % (A) 74 %; Platelet Count 165 k/uL (150-450); RBC 4.45 m/uL (3.80-5.40); RDW 13.4 % (11.5-15.5)
--- NOTE | 2021-04-18 21:32 | XR ---
EXAMINATION TYPE: XR chest 1V portable DATE OF EXAM: 04/18/2021 COMPARISON: 03/03/2021 HISTORY: Dizziness TECHNIQUE: Single view FINDINGS: Heart is enlarged. There is no heart failure. There are no hilar masses. Costophrenic angle s are clear. Thoracic aorta is atheromatous. IMPRESSION: Mild cardiomegaly. No active cardiopulmonary disease. No change.
[2021-04-18 21:33] LABS: ALT 28 U/L (4-34); African American GFR (CKD) >90 (>60 ml/min/1.73 sqM); Anion Gap 10 mmol/L; Blood Urea Nitrogen 26 mg/dL (7-17); Calcium 9.4 mg/dL (8.4-10.2); Carbon Dioxide 27 mmol/L (22-30); Chloride 102 mmol/L (98-107); Glucose 158 mg/dL (74-99); Non-African American GFR(CKD) 79 (>60 ml/min/1.73 sqM); Sodium 139 mmol/L (137-145)
[2021-04-18 21:40] LABS: Potassium 4.4 mmol/L (3.5-5.1)
[2021-04-18 21:41] LABS: AST 45 U/L (14-36); Alkaline Phosphatase 55 U/L (38-126); Total Bilirubin 0.8 mg/dL (0.2-1.3); Total Protein 7.2 g/dL (6.3-8.2)
[2021-04-18 22:57] VITALS: BP 135/62; PULSE 57; RESP 16
== END 2021-04-18 22:56 | disposition home or self-care (01) ==
LOC: EC 20:00
DX: R51.9 Headache, unspecified (principal); T50.8X5A Adverse effect of diagnostic agents, initial encounter; M19.90 Unspecified osteoarthritis, unspecified site; E66.9 Obesity, unspecified; F41.9 Anxiety disorder, unspecified; G40.909 Epilepsy, unspecified, not intractable, without status epilepticus; I10 Essential (primary) hypertension; J45.909 Unspecified asthma, uncomplicated; K21.9 Gastro-esophageal reflux disease without esophagitis; Z79.82 Long term (current) use of aspirin; Z96.653 Presence of artificial knee joint, bilateral; Z86.73 Personal history of transient ischemic attack (TIA), and cerebral infarction without residual deficits; Z79.02 Long term (current) use of antithrombotics/antiplatelets; Z68.43 Body mass index [BMI] 50.0-59.9, adult
CPT/HCPCS: 36415; 93005; 80053; 84484; 85025; 71045; 99284; 96374; 96375 ×3; 96361; J1200; J2930; J1885

== ENCOUNTER → 2021-07-11 | Outpatient (CLI) | payer MEDICARE ==
--- NOTE | 2021-07-11 18:08 | SFUN ---
SLEEP CENTER FOLLOW UP NOTE DATE OF SERVICE: 07/11/2021 This 76-year-old lady has been followed in Sleep Center for treatment of obstructive sleep apnea-hypopnea syndrome. The patient continues to use CPAP equipment every night. No snoring with the machine. Nelson Sleepiness Scale today is 3. The patient had a stroke in March of 2021. I checked her CPAP unit. CPAP pressure is 10 cm of water, usage 27/30 nights with average usage 6.4 hours. Leak is slightly increased at 38 L/minute. Apnea-hypopnea index is 1.5, which is absolutely normal. MEDICATIONS: 1. Tolterodine 4 mg once a day. 2. Famotidine 40 mg twice a day. 3. Clopidogrel 75 mg once a day. 4. Hydrochlorothiazide 12.5 mg once a day. 5. Lisinopril 10 mg once a day. 6. Atorvastatin 40 mg once a day. 7. Aspirin 81 mg once a day. 8. Albuterol inhaler as needed. 9. Alprazolam 0.5 mg as needed. 10.Meclizine 25 mg as needed. 11.Latanoprost eye drops once a day. 12. eyedrops both eyes once a day. 13.Multivitamins, vitamin D3. PHYSICAL EXAMINATION: GENERAL: Pleasant patient in no distress. VITAL SIGNS: BP 169/74, HR 80, RR 15, height 5 feet 3 inches, weight 306.6, which is 3 pounds more than during the last visit. Body mass index 54.5. Temperature 97.2. Oxygen saturation at room air 94%. HEENT: PERRLA, EOMI, evaluation of oropharynx showed tongue protrudes midline. Low position of soft palate; Mallampati III. NECK: Supple, no JVD. Thyroid is not palpable. LUNGS: Clear to percussion and to auscultation. Good air exchange. No wheezing or rhonchi. HEART: S1, S2 regular. No murmurs, gallops, or rubs. ABDOMEN: Obese. EXTREMITIES: No clubbing or cyanosis. PETROPHYSICAL ENGINEER: Awake, alert, and oriented X3. Cranial nerves 2 to 7 intact. There is no fasciculation or atrophy. noted. No focal deficits observed. IMPRESSION: 1. Obstructive sleep apnea-hypopnea syndrome. Patient demonstrated great compliance with treatment, benefitting from treatment. 2. Hypertension. Blood pressure increased in the office. 3. History of stroke in March of 2021. 4. Obesity. Body mass index 54.5. 5. Status post bilateral total knee replacement. 6. Status post cholecystectomy. 7. Status post hernia repair. PLAN: 1. Monitoring blood pressure. 2. Patient will continue to use CPAP equipment every night for the whole night. 3. Sleep hygiene with regular time in bed for at least 7-1/2 to 8 hours. 4. Precautions related to driving. No driving if feeling sleepiness. 5. I will maintain all necessary prescription for PAP supplies including mask, tube, filters. 6. Watching weight. 7. Follow-up visit in 6 months or earlier if patient has any problems. Thank you very much for allowing me to participate in the management of your patient. Sincerely, Buzz Francis MD, PhD, FAASM Diplomat of [place] [employer] Sleep Medicine Board of [place] [employer] Pin Inserter Regulator of [facility] [place] MMODL / MAEVEN: [id number] /
== END ==
LOC: SLEEP 14:29
PROVIDERS: ATTEND Internal Medicine
DX: G47.33 Obstructive sleep apnea (adult) (pediatric) (principal); I10 Essential (primary) hypertension; E66.9 Obesity, unspecified; Z86.73 Personal history of transient ischemic attack (TIA), and cerebral infarction without residual deficits; Z68.43 Body mass index [BMI] 50.0-59.9, adult; Z90.49 Acquired absence of other specified parts of digestive tract; Z98.890 Other specified postprocedural states; Z96.653 Presence of artificial knee joint, bilateral; Z99.89 Dependence on other enabling machines and devices; Z79.82 Long term (current) use of aspirin; Z79.899 Other long term (current) drug therapy; Z88.0 Allergy status to penicillin; Z88.5 Allergy status to narcotic agent; Z91.041 Radiographic dye allergy status

== ENCOUNTER → 2022-03-04 | Outpatient (CLI) | payer MEDICARE | END | disposition home or self-care (01) | LOC: LABWHC1 14:59 | PROVIDERS: ATTEND Ophthalmology | DX: Z00.00 Encounter for general adult medical examination without abnormal findings (principal) | CPT/HCPCS: 36415; 85652; 86140 ==

== ENCOUNTER → 2022-07-23 | Outpatient (CLI) | payer MEDICARE ==
--- NOTE | 2022-07-23 11:27 | P.PN ---
Subjective DATE: 07/23/2022 FOLLOW UP VISIT. Patient with obstructive sleep apnea hypopnea syndrome return to sleep center for follow-up visit. Information from previous visit have been reviewed. Patient is using PAP equipment every night for the whole night, getting PAP supplies in time. The patient does not have significant problems with the mask, PAP unit and humidification. Rudyard sleepiness scale is 4, which is normal I checked PAP unit. PAP unit pressure [10cm H2O. Usage is 90 ]% for more then 4 hours, average [4.1hours per night. Leak is 34[]l/m, which is in acceptable range. Apnea Hypopnea Index is 0.8[], which is perfect. MEDICATIONS:1. [ Lisinopril 10 mg twice a day 2. [ Hydrochlorothiazide 12.5 mg once a day 3. [ Clopidogrel 75 mg once a day 4. [ Famotidine 40 mg once a day 5. [ Alprazolam 0.25 mg 3 times a day 6. [ Meclizine 25 mg up to 3 times a day 7. [Atorvastatin 40 mg once a day During physical exam: GENERAL: A pleasant patient without any distress. VITAL SIGNS: BP [153/70 HR [68 RR[ 20, weight[ 315.4 temperature [98.7 oxygen saturation at room air[ 95 . HEENT: PERRLA, EOMI.low position of soft palate, Mallapati[ 3. NECK: Supple. No JVD. LUNGS: Clear to percussion and to auscultation. Good air exchange. No wheezing or rhonchi. HEART: S1, S2 regular. ABDOMEN: Soft and nontender.[ Obese EXTREMITIES: No clubbing or cyanosis. BUSINESS DEVELOPMENT MANAGER: Awake, alert, and oriented x3. No focal deficit. Impressions: 1. Obstructive sleep apnea-hypopnea syndrome. Patient demonstrated great compliance with treatment, benefiting from treatment. 2. [Obesity 3. [Hypertension 4. [History of stroke in March 2021 5. [Status post bilateral total knee replacement 6. [Status post cholecystectomy 7. [Status post hernia repair Plan: 1. Continue using PAP equipment every night for the whole night. 2. To change air filter at least 1-2 times per month. 3. PAP unit should stay lower then position of the head. 4. Advised patient to remove all remaining water from humidifier canister daily and make it dry after each usage. Refill canister with fresh distilled water before each usage. 5. Sleep hygiene with regular time in bed for at least 8 hours. 6. Precautions related to driving. No driving if feel any sleepiness. 7. I will maintain prescription for PAP supplies including mask, tube, filters. 8. Follow up visit in 6 months or earlier if patient has any problems. 9. Watching and losingweight. Thank you very much for allowing me to participate in the management of your patient. Buzz Francis MD, PhD, FAASM. Diplomat of [place] [employer], Sleep Medicine Board by [place] [employer] Rib Cloth Knitter of [facility] [place]
== END ==
LOC: SLEEP 10:38
PROVIDERS: ATTEND Internal Medicine
DX: G47.33 Obstructive sleep apnea (adult) (pediatric) (principal); Z88.5 Allergy status to narcotic agent; Z88.0 Allergy status to penicillin; Z91.041 Radiographic dye allergy status; E66.9 Obesity, unspecified; I10 Essential (primary) hypertension; Z86.73 Personal history of transient ischemic attack (TIA), and cerebral infarction without residual deficits; Z90.49 Acquired absence of other specified parts of digestive tract; Z96.653 Presence of artificial knee joint, bilateral; Z98.890 Other specified postprocedural states; Z99.89 Dependence on other enabling machines and devices

== ENCOUNTER 2022-09-20 16:38 | Emergency (ER) | payer MEDICARE ==
[2022-09-20 16:43] VITALS: BP 154/59; PULSE 76; RESP 16; TEMP 98.3
[2022-09-20] MEDS ORDERED: FLUORESCEIN STRIPS 1 MG STRIP RIGHT EYE ONE ×2 (17:21→17:55)
--- NOTE | 2022-09-20 17:25 | ED ---
General Adult HPI - General Chief complaint: Eye Problems Stated complaint: pain near eyes Time Seen by Provider: 09/20/22 17:07 Source: patient, RN notes reviewed Mode of arrival: ambulatory Limitations: no limitations - History of Present Illness Initial comments: 77-year-old female presents to the emergency Department with complaints of sharp shooting pain in the right eye. Patient states has been intermittent for the past three days. Reports some improvement today. No aggravating or alleviating factors. No known trigger. No erythema, edema, or drainage from or surrounding the eye. Reports photosensitivity, though states this is baseline for her since having a stroke last summer. Patient states when she had her stroke her only symptom was sudden onset left eye blurry vision. States she now sees DR. Thorpe, ophthalmology, for ongoing care and was there last month; has been using eye drops as prescribed. Denies any other concerns or symptoms at this time. Denies headache, weakness, dizziness, chest pain, shortness of breath, abdominal pain, nausea, or vomiting. - Related Data Home Medications Medication Instructions Recorded Confirmed Multivitamins, Thera [Multivitamin 1 tab PO DAILY 09/22/15 04/18/21 (formulary)] ALPRAZolam [Xanax] 0.25 mg PO TID PRN 10/12/15 04/18/21 Aspirin [Adult Low Dose Aspirin EC] 81 mg PO HS 10/12/15 04/18/21 Cholecalciferol [Vitamin D3 (25 2,000 unit PO DAILY 10/12/15 04/18/21 Mcg = 1000 Iu)] lisinopriL [Lisinopril] 10 mg PO BID 10/12/15 04/18/21 hydroCHLOROthiazide [Hydrodiuril] 12.5 mg PO DAILY 03/03/20 04/18/21 Famotidine [Pepcid] 20 mg PO BID 03/03/21 04/18/21 Vit C/E/Zn/Coppr/Lutein/Zeaxan 1 cap PO BID 03/03/21 04/18/21 [Preservision Areds 2 Softgel] Albuterol Inhaler [Ventolin Hfa 1 puff INHALATION RT-Q6H PRN 04/17/21 04/18/21 Inhaler] Brimonidine Tartrate [Alphagan P 1 drops BOTH EYES BID 04/17/21 04/18/21 0.2% Ophth Soln] Latanoprost/Pf [Latanoprost 0.005% 1 drop BOTH EYES BID 04/17/21 04/18/21 Eye Drop] Nystatin 100,000 Unit/gm Powd 1 applic TOPICAL BID PRN 04/17/21 04/18/21 [Mycostatin Powder] Atorvastatin Calcium [Lipitor] 40 mg PO DAILY 04/18/21 04/18/21 Ibuprofen [Motrin] 600 mg PO Q8HR PRN 04/18/21 04/18/21 Previous Rx's Medication Instructions Recorded Clopidogrel [Plavix] 75 mg PO DAILY #30 tab 03/07/21 Meclizine [Antivert] 25 mg PO TID PRN #20 tab 04/18/21 Allergies Allergy/AdvReac Type Severity Reaction Status Date / Time codeine Allergy Rash/Hives Verified 09/20/22 16:43 Iodinated Contrast Media Allergy Rash/Hives Verified 09/20/22 16:43 [Iodinated Contrast Media - IV Dye] Penicillins Allergy Rash/Hives Verified 09/20/22 16:43 Review of Systems ROS Statement: Those systems with pertinent positive or pertinent negative responses have been documented in the HPI. ROS Other: All systems not noted in ROS Statement are negative. 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 History of Any Multi-Drug Resistant Organisms: None Reported Past Surgical History: Cholecystectomy, Hernia Repair, Joint Replacement Additional Past Surgical History / Comment(s): JANNA knee replacement, JANNA CATARACT SX, LASER eye surgery janna 02/24/21 . hiatal hernia repair. Past Anesthesia/Blood Transfusion Reactions: No Reported Reaction Past Psychological History: Anxiety Smoking Status: Never smoker Past Alcohol Use History: None Reported Past Drug Use History: None Reported - Past Family History Mother Family Medical History: GERD/Reflux Father Family Medical History: CVA/TIA, Myocardial Infarction ([place]) Additional Family Medical History / Comment(s): mini strokes, CABG General Exam Limitations: no limitations General appearance: alert, in no apparent distress Eye exam: Present: normal appearance, PERRL, EOMI. Absent: scleral icterus, conjunctival injection, periorbital swelling, periorbital tenderness Pupils: Present: other (Fluorescein stain shows no focal area of uptake. No dendritic lesions.) Expanded Eyelids: Normal Inspection: Bilateral Pupils: Regular, Round: Bilateral, Reactive: Bilateral Sclera/Conjunctival: Normal Inspection: Bilateral Anterior chamber: Normal Inspection: Bilateral Visual acuity (R) = 20/: 30 Visual acuity (L) = 20/: 50 (baseline for patient) With correction: Yes (20/25 both) IOP (R) in mmH IOP (L) in mmH IOP measured with: Tonopen ENT exam: Present: normal exam, normal oropharynx, mucous membranes moist, TM's normal bilaterally Respiratory exam: Present: normal lung sounds bilaterally. Absent: respiratory distress, wheezes, rales, rhonchi, stridor Cardiovascular Exam: Present: regular rate, normal rhythm, normal heart sounds, systolic murmur. Absent: diastolic murmur, rubs, gallop, clicks Neurological exam: Present: alert, oriented X3, other (gait baseline for patient- cane) Psychiatric exam: Present: normal affect, normal mood Course Vital Signs 09/20/22 16:40 Temperature 98.3 F Pulse Rate 76 Respiratory 16 Rate Blood Pressure 154/59 O2 Sat by Pulse 97 Oximetry - Reevaluation(s) Reevaluation #1: 09/20/22 17:20 Fluorescein exam reveals no focal area of uptake. Eyelids everted with no evidence of foreign body. No pain at this time. 09/20/22 18:00 Spoke with my attending regarding this patient's care. He perform slitlamp exam with no significant findings. Will reach out to her electronic installer if available. 09/20/22 19:30 Visual acuity in right eye 20/30. Left eye 20/50. Both eyes 20/25. Patient was wearing correction. Patient states this is baseline for her. She will be discharged home to follow up with her electronic installer on Thursday for recheck. Strict return parameters given. Medical Decision Making - Medical Decision Making This is a pleasant 77-year-old female with a past medical history of CVA affecting the left eye causing vision impairment who presents to the emergency department for evaluation of right eye pain x3 days. Upon exam, patient is well appearing and in no acute distress. There is no periorbital edema or swelling. No conjunctivitis, tearing, or drainage from the eye. PERRL. Fluorescein stain shows no focal area of uptake or dendritic lesions. Slit lamp per Dr. Brewster shows no abnormal findings. Visual acuity is baseline for patient. Right eye 20/30, left eye 20/50, both eyes 20/25 while wearing correction. Patient sees her electronic installer, Dr. Thorpe, regularly. She is using eyedrops as prescribed. Results were discussed with patient and spouse at length. She will be discharged home to follow-up with her electronic installer. Instructed to call the office on Thursday to schedule an appointment. Return parameters were discussed in detail. Patient verbalizes understanding and agrees with this plan. Attending: Narcisa Disposition Clinical Impression: Pain, eye, right Disposition: HOME SELF-CARE Condition: Stable Instructions (If sedation given, give patient instructions): Eye Pain (ED) Additional Instructions: Please call Dr. Thorpe on Thursday to schedule an appointment to be seen. Return to the emergency department immediately if you have any change in vision, redness or swelling to the eye, or worsening pain. Is patient prescribed a controlled substance at d/c from ED?: No Referrals: Aroldo Ford MD [Primary Care Provider] - 1-2 days Time of Disposition: 19:44
== END 2022-09-20 20:32 | disposition home or self-care (01) ==
LOC: EC 16:38
DX: H57.11 Ocular pain, right eye (principal); I10 Essential (primary) hypertension; K21.9 Gastro-esophageal reflux disease without esophagitis; F41.9 Anxiety disorder, unspecified; J45.909 Unspecified asthma, uncomplicated; Z88.0 Allergy status to penicillin; Z88.8 Allergy status to other drugs, medicaments and biological substances; Z88.5 Allergy status to narcotic agent; Z79.899 Other long term (current) drug therapy; Z90.89 Acquired absence of other organs
CPT/HCPCS: 99283

== ENCOUNTER → 2023-02-19 | Outpatient (CLI) | payer MEDICARE ==
--- NOTE | 2023-02-19 16:36 | P.PN ---
Subjective DATE: 02/19/2023 FOLLOW UP VISIT. Patient with obstructive sleep apnea hypopnea syndrome return to sleep center for follow-up visit. Information from previous visit have been reviewed. Patient is using PAP equipment every night for the whole night, getting PAP supplies in time. The patient does not have significant problems with the mask, PAP unit and humidification. [place] sleepiness scale is 5, which is normal. I checked information from PAP unit. PAP unit pressure 10 cm H2O. Usage is 80 % , average 4.3 hours per night. Leak is 24 l/m, which is in acceptable range. Apnea Hypopnea Index is 1.1, which is normal. MEDICATIONS:1. Lisinopril 10 mg once a day 2. Hydrochlorothiazide 12.5 mg once a day 3. Clopidogrel 75 mg once a day 4. Famotidine 40 mg once a day 5. Xanax 0.25 mg up to 3 times a day 6. Meclizine 25 mg up to 3 times a day 7. Atorvastatin 40 mg once a day During physical exam: GENERAL: A pleasant patient without any distress. VITAL SIGNS: BP 146/61, HR 90, RR 16 , weight 316.4, temperature 97.1, oxygen saturation at room air 95 % . HEENT: PERRLA, EOMI.low position of soft palate, Mallapati 3 . NECK: Supple. No JVD. LUNGS: Clear to percussion and to auscultation. Good air exchange. No wheezing or rhonchi. HEART: S1, S2 regular. ABDOMEN: Soft and nontender. Obese EXTREMITIES: No clubbing or cyanosis. REVOLVING FIELD ASSEMBLER: Awake, alert, and oriented x3. No focal deficit. Impressions: 1. Obstructive sleep apnea-hypopnea syndrome. Patient demonstrated good compliance with treatment, benefiting from treatment. 2. Obesity, body mass index 56.8. 3. Hypertension. 4. History of stroke in March 2021. 5. Status post bilateral total knee replacement. 6. Status post cholecystectomy. Plan: 1. Continue using PAP equipment every night for the whole night. 2. To change air filter at least 1-2 times per month. 3. PAP unit should stay lower then position of the head. 4. Advised patient to remove all remaining water from humidifier canister daily and make it dry after each usage. Refill canister with fresh distilled water before each usage. 5. Sleep hygiene with regular time in bed for at least 8 hours. 6. Precautions related to driving. No driving if feel any sleepiness. 7. I will maintain prescription for PAP supplies including mask, tube, filters. 8. Watching and losing weight. 9. Follow up visit in 6 months or earlier if patient has any problems. Thank you very much for allowing me to participate in the management of your patient. Buzz Francis MD, PhD, FAASM. Diplomat of [place] [employer], Sleep Medicine Board by [place] [employer] Inclusion Paraeducator of [facility] [place]
== END ==
LOC: SLEEP 15:37
PROVIDERS: ATTEND Internal Medicine
DX: G47.33 Obstructive sleep apnea (adult) (pediatric) (principal); Z79.899 Other long term (current) drug therapy; E66.9 Obesity, unspecified; Z68.43 Body mass index [BMI] 50.0-59.9, adult; I10 Essential (primary) hypertension; Z86.73 Personal history of transient ischemic attack (TIA), and cerebral infarction without residual deficits; Z96.653 Presence of artificial knee joint, bilateral; Z98.890 Other specified postprocedural states; Z99.89 Dependence on other enabling machines and devices; Z88.5 Allergy status to narcotic agent; Z88.0 Allergy status to penicillin; Z91.041 Radiographic dye allergy status
CPT/HCPCS: 99212

== ENCOUNTER 2023-06-05 17:55 | Emergency (ER) | payer MEDICARE ==
[2023-06-05 18:06] VITALS: TEMP 97.9
[2023-06-05] MEDS ORDERED: HYDROmorphone 1 MG/ML 1 ML SYRINGE IM STA (18:16)
--- NOTE | 2023-06-05 18:19 | ED ---
General Adult HPI - General Chief complaint: Fall Stated complaint: left rib pain Time Seen by Provider: 06/05/23 17:58 Source: patient, EMS, RN notes reviewed Mode of arrival: EMS Limitations: no limitations - History of Present Illness Initial comments: Patient is a pleasant 77-year-old female presenting to the emergency department with concerns with left-sided rib pain. Patient did have a fall 2 days ago. Patient tripped in her yard over grass. Patient landed on the left side of her chest. Patient has had some left rib discomfort since that time, worse today. Discomfort does increase with deep breaths as well as turning. Discomfort feels improved with holding pressure on the left lower ribs under the breast. No dyspnea. Discomfort feels sharp. - Related Data Home Medications Medication Instructions Recorded Confirmed Multivitamins, Thera [Multivitamin 1 tab PO DAILY 09/22/15 04/18/21 (formulary)] ALPRAZolam [Xanax] 0.25 mg PO TID PRN 10/12/15 04/18/21 Aspirin [Adult Low Dose Aspirin EC] 81 mg PO HS 10/12/15 04/18/21 Cholecalciferol [Vitamin D3 (25 2,000 unit PO DAILY 10/12/15 04/18/21 Mcg = 1000 Iu)] lisinopriL [Lisinopril] 10 mg PO BID 10/12/15 04/18/21 hydroCHLOROthiazide [Hydrodiuril] 12.5 mg PO DAILY 03/03/20 04/18/21 Famotidine [Pepcid] 20 mg PO BID 03/03/21 04/18/21 Vit C/E/Zn/Coppr/Lutein/Zeaxan 1 cap PO BID 03/03/21 04/18/21 [Preservision Areds 2 Softgel] Albuterol Inhaler [Ventolin Hfa 1 puff INHALATION RT-Q6H PRN 04/17/21 04/18/21 Inhaler] Brimonidine Tartrate [Alphagan P 1 drops BOTH EYES BID 04/17/21 04/18/21 0.2% Ophth Soln] Latanoprost/Pf [Latanoprost 0.005% 1 drop BOTH EYES BID 04/17/21 04/18/21 Eye Drop] Nystatin 100,000 Unit/gm Powd 1 applic TOPICAL BID PRN 04/17/21 04/18/21 [Mycostatin Powder] Atorvastatin Calcium [Lipitor] 40 mg PO DAILY 04/18/21 04/18/21 Ibuprofen [Motrin] 600 mg PO Q8HR PRN 04/18/21 04/18/21 Previous Rx's Medication Instructions Recorded Clopidogrel [Plavix] 75 mg PO DAILY #30 tab 03/07/21 Meclizine [Antivert] 25 mg PO TID PRN #20 tab 04/18/21 Cyclobenzaprine [Flexeril] 10 mg PO TID PRN #12 tablet 06/05/23 Ibuprofen [Motrin] 600 mg PO Q6HR PRN #20 tab 06/05/23 Allergies Allergy/AdvReac Type Severity Reaction Status Date / Time codeine Allergy Rash/Hives Verified 09/20/22 16:43 Iodinated Contrast Media Allergy Rash/Hives Verified 09/20/22 16:43 [Iodinated Contrast Media - IV Dye] Penicillins Allergy Rash/Hives Verified 09/20/22 16:43 Review of Systems ROS Statement: Those systems with pertinent positive or pertinent negative responses have been documented in the HPI. ROS Other: All systems not noted in ROS Statement are negative. Constitutional: Denies: fever Eyes: Denies: eye pain ENT: Denies: ear pain Respiratory: Reports: as per HPI. Denies: cough Cardiovascular: Reports: as per HPI Endocrine: Denies: fatigue Gastrointestinal: Denies: abdominal pain Past Medical History Past Medical History: Asthma, CVA/TIA, Eye Disorder, GERD/Reflux, Hypertension, Osteoarthritis (OA), Seizure Disorder, Sleep Apnea/CPAP/BIPAP Additional Past Medical History / Comment(s): Hypoglycemia-states seizure from hypoglycemia - last seizure 08/2020., heart murmur, hx of broken back , DDD, uses c-pap machine., states bed sore left buttocks, "inflammation" in abd fold (using nystatin powder), states "mini eye stroke"-no vision in top of left eye., recent episode of vertigo. History of Any Multi-Drug Resistant Organisms: None Reported Past Surgical History: Cholecystectomy, Hernia Repair, Joint Replacement Additional Past Surgical History / Comment(s): JANNA knee replacement, JANNA CATARACT SX, LASER eye surgery janna 02/24/21 . hiatal hernia repair. Past Anesthesia/Blood Transfusion Reactions: No Reported Reaction Past Psychological History: Anxiety Smoking Status: Never smoker Past Alcohol Use History: None Reported Past Drug Use History: None Reported - Past Family History Mother Family Medical History: GERD/Reflux Father Family Medical History: CVA/TIA, Myocardial Infarction ([place]) Additional Family Medical History / Comment(s): mini strokes, CABG General Exam Limitations: no limitations General appearance: alert Head exam: Present: normocephalic Eye exam: Present: normal appearance Neck exam: Present: normal inspection. Absent: tenderness Respiratory exam: Present: normal lung sounds bilaterally, chest wall tenderness (Left-sided under the breast.) Cardiovascular Exam: Present: regular rate, normal rhythm Expanded Peripheral pulses: 2+: Radial (R), Radial (L), Dorsalis Pedis (R), Dorsalis Pedis (L) GI/Abdominal exam: Present: soft. Absent: distended, tenderness, guarding, rebound, rigid, pulsatile mass Extremities exam: Present: normal inspection. Absent: pedal edema, calf tenderness Neurological exam: Present: alert Psychiatric exam: Present: normal affect, normal mood Skin exam: Present: normal color Course Vital Signs 06/05/23 17:59 Temperature 97.9 F Pulse Rate 66 Respiratory 23 Rate Blood Pressure 125/80 O2 Sat by Pulse 95 Oximetry EKG Findings - EKG Results: EKG: interpreted by [facility] (LVH criteria. Previous EKG reviewed from 2020 also showing atrial fibrillation.), normal axis, normal ST/T EKG shows: atrial fibrillation Medical Decision Making - Medical Decision Making Was pt. sent in by a medical professional or institution (, PA, FAMILY LIVING EDUCATOR, urgent care, hospital, or fci...) When possible be specific @ -No Did you speak to anyone other than the patient for history (EMS, parent, family, police, friend...)? What history was obtained from this source @ -Daughter is present and helps confirm history including incident of the fall Did you review nursing and triage notes (agree or disagree)? Why? @ -I reviewed and agree with nursing and triage notes Were old charts reviewed (outside hosp., previous admission, EMS record, old EKG, old radiological studies, urgent care reports/EKG's, fci records)? Report findings @ -Previous EKG reviewed Differential Diagnosis (chest pain, altered mental status, abdominal pain women, abdominal pain men, vaginal bleeding, weakness, fever, dyspnea, syncope, headache, dizziness, GI bleed, back pain, seizure, CVA, palpatations, mental health, musculoskeletal)? @ -Differential Musculoskeletal Muscular strain, contusion, ligament sprain, fracture, arthritis, septic arthritis, bursitis, cellulitis, muscle spasm, nerve compression, DVT, arterial occlusion, herpes zoster, electrolyte abnormality, tumor.... This is not meant to be in all inclusive list EKG interpreted by me (3pts min.). @ -As above X-rays interpreted by me (1pt min.). @ -X-ray left ribs and chest show no fracture. Some increased versus hemorrhagic CT interpreted by me (1pt min.). @ -None done U/S interpreted by me (1pt. min.). @ -None done What testing was considered but not performed or refused? (CT, X-rays, U/S, labs)? Why? @ -None What meds were considered but not given or refused? Why? @ -None Did you discuss the management of the patient with other professionals (professionals i.e. , PA, FAMILY LIVING EDUCATOR, lab, RT, psych nurse, clinical social worker, manufacturing accountant, teacher, prison officer, manager case management)? Give summary @ -No Was smoking cessation discussed for >3mins.? @ -No Was critical care preformed (if so, how long)? @ -No Were there social determinants of health that impacted care today? How? (Homelessness, low income, unemployed, alcoholism, drug addiction, transportation, low edu. Level, literacy, decrease access to med. care, group home, rehab)? @ -No Was there de-escalation of care discussed even if they declined (Discuss DNR or withdrawal of care, Hospice)? DNR status @ -No What co-morbidities impacted this encounter? (DM, HTN, Smoking, COPD, CAD, Cancer, CVA, ARF, Chemo, Hep., AIDS, mental health diagnosis, sleep apnea, morbid obesity)? @ -None Was patient admitted / discharged? Hospital course, mention meds given and route, prescriptions, significant lab abnormalities, going to OR and other pertinent info. @ -Patient reevaluated. Patient and family updated. Patient states she is feeling much better however is receptive to Toradol. Previous EKG also shows atrial fibrillation. Patient states she is on Plavix for this. Patient is advised to make sure she follows up with her doctor and probably clinical documentation consultant for this as well. Undiagnosed new problem with uncertain prognosis? @ -No Drug Therapy requiring intensive monitoring for toxicity (Heparin, Nitro, Insulin, Cardizem)? @ -No Were any procedures done? @ -No Diagnosis/symptom? @ -Chest wall pain Acute, or Chronic, or Acute on Chronic? @ -Acute Uncomplicated (without systemic symptoms) or Complicated (systemic symptoms)? @ -default Side effects of treatment? @ -No Exacerbation, Progression, or Severe Exacerbation? @ -No Poses a threat to life or bodily function? How? (Chest pain, [place], [place], pneumonia, PE, COPD, DKA, ARF, appy, cholecystitis, CVA, Diverticulitis, Homicidal, Suicidal, threat to staff... and all critical care pts) @ -No Disposition Clinical Impression: Chest wall pain Disposition: HOME SELF-CARE Condition: Stable Instructions (If sedation given, give patient instructions): Chest Wall Pain (ED) Additional Instructions: Please do follow-up to primary care physician in the next day or 2 for recheck. These have your primary care physician review EKG and confirmed no history of atrial fibrillation. Otherwise follow-up as directed with her primary care physician with cardiology, number provided. Return for difficulty breathing, increased pain, weakness, worsening symptoms or other concerns. Prescription was sent to pharmacy. Prescriptions: Cyclobenzaprine [Flexeril] 10 mg PO TID PRN #12 tablet PRN Reason: Pain Ibuprofen [Motrin] 600 mg PO Q6HR PRN #20 tab PRN Reason: Pain Is patient prescribed a controlled substance at d/c from ED?: No Referrals: Aroldo Ford MD [Primary Care Provider] - 1-2 days Selam Espinoza MD [STAFF PHYSICIAN] - 1-2 days Time of Disposition: 19:30
--- NOTE | 2023-06-05 19:18 | XR ---
EXAMINATION TYPE: XR ribs LT w pa chest xray DATE OF EXAM: 06/05/2023 6:49 PM INDICATION: Patient age:Female; 77 years old; Reason for study: fall; [facility]. COMPARISON: 04/18/2021 TECHNIQUE: Frontal and oblique views of the left ribs with frontal chest radiograph. FINDINGS: The ribs have a normal appearance. No displaced rib fractures definitively visualized. The heart is enlarged for size. There is suspected pulmonary vascular congestion. This course of the aort ic arch. IMPRESSION: 1. No definitive displaced rib fracture. 2. Cardiomegaly with suspected pulmonary vasculature congestion correlate with serum BNP.
[2023-06-05] MEDS ORDERED: traMADol 50 MG STARTER PACK 3 TAB BTL PO STA (19:31)
[2023-06-05] MEDS ORDERED: KETOROLAC 15 MG/ML 1 ML VIAL IM STA (19:31)
[2023-06-05 19:52] VITALS: BP 118/80; PULSE 72; RESP 18
== END 2023-06-05 19:52 | disposition home or self-care (01) ==
LOC: EC 17:55
DX: R07.89 Other chest pain (principal); J45.909 Unspecified asthma, uncomplicated; I10 Essential (primary) hypertension; G47.30 Sleep apnea, unspecified; M19.90 Unspecified osteoarthritis, unspecified site; F41.9 Anxiety disorder, unspecified; Z79.899 Other long term (current) drug therapy; Z79.1 Long term (current) use of non-steroidal anti-inflammatories (NSAID); Z79.82 Long term (current) use of aspirin; Z88.5 Allergy status to narcotic agent; Z91.041 Radiographic dye allergy status; Z88.0 Allergy status to penicillin; Z90.49 Acquired absence of other specified parts of digestive tract; W01.0XXA Fall on same level from slipping, tripping and stumbling without subsequent striking against object, initial encounter
CPT/HCPCS: 93005; 71101; 99285; 96372 ×2; J1170; J1885

== ENCOUNTER → 2023-09-03 | Outpatient (CLI) | payer MEDICARE ==
--- NOTE | 2023-09-03 16:15 | P.PN ---
Subjective DATE: 09/03/2023 FOLLOW UP VISIT. Patient with obstructive sleep apnea hypopnea syndrome return to sleep center for follow-up visit. Information from previous visit have been reviewed. Patient is using PAP equipment every night for the whole night, getting PAP supplies in time. The patient does not have significant problems with the mask, PAP unit and humidification. [place] sleepiness scale is 3. I checked information from PAP unit. PAP unit pressure 10 cm H2O. Usage is 98 % for more then 4 hours, average 4.5 hours per night. Leak is 28 l/m, which is in acceptable range. Apnea Hypopnea Index is 0.7, which is normal. MEDICATIONS:1. Lisinopril 10 mg twice a day 2. Hydrochlorothiazide 12.5 mg once a day 3. Clopidogrel 75 mg once a day 4. Famotidine 40 mg once a day 5. Atorvastatin 40 mg once a day 6. Xanax 0.25 mg up to 3 times a day 7. Meclizine 25 mg 3 times a day 8. Latanoprost eyedrops During physical exam: GENERAL: A pleasant patient without any distress. VITAL SIGNS: BP 137/66, HR 93, RR 16 , weight 293.0, temperature 97.3, oxygen saturation at room air 94 % . HEENT: PERRLA, EOMI.low position of soft palate, Mallapati 3 . NECK: Supple. No JVD. LUNGS: Clear to percussion and to auscultation. Good air exchange. No wheezing or rhonchi. HEART: S1, S2 irregular. ABDOMEN: Soft and nontender.[] EXTREMITIES: No clubbing or cyanosis. MEASURER MACHINE: Awake, alert, and oriented x3. No focal deficit. Impressions: 1. Obstructive sleep apnea-hypopnea syndrome. Patient demonstrated great compliance with treatment, benefiting from treatment. 2. Obesity, patient lost 23 pounds since previous visit. 3. Hypertension. 4. History of stroke in March 2021. 5. Status post bilateral knee replacement. 6. Status post cholecystectomy. 7. Atrial fibrillation. Plan: 1. Continue using PAP equipment every night for the whole night. 2. To change air filter at least 1-2 times per month. 3. PAP unit should stay lower then position of the head. 4. Advised patient to remove all remaining water from humidifier canister daily and make it dry after each usage. Refill canister with fresh distilled water before each usage. 5. Sleep hygiene with regular time in bed for at least 8 hours. 6. Precautions related to driving. No driving if feel any sleepiness. 7. I will maintain prescription for PAP supplies including mask, tube, filters. 8. Follow up visit in 6 months or earlier if patient has any problems. 9. Watching and losing weight. Thank you very much for allowing me to participate in the management of your patient. Buzz Francis MD, PhD, FAASM. Diplomat of [place] [employer], Sleep Medicine Board by [place] [employer] Draw Fire Operator of [facility] [place]
== END ==
LOC: 3 N SLEEP 14:59
PROVIDERS: ATTEND Internal Medicine
DX: G47.33 Obstructive sleep apnea (adult) (pediatric) (principal); E66.9 Obesity, unspecified; I10 Essential (primary) hypertension; I48.91 Unspecified atrial fibrillation; Z96.653 Presence of artificial knee joint, bilateral; Z90.49 Acquired absence of other specified parts of digestive tract; Z86.73 Personal history of transient ischemic attack (TIA), and cerebral infarction without residual deficits; Z99.89 Dependence on other enabling machines and devices; Z88.5 Allergy status to narcotic agent; Z88.0 Allergy status to penicillin; Z91.041 Radiographic dye allergy status; Z79.899 Other long term (current) drug therapy; Z79.82 Long term (current) use of aspirin; Z79.02 Long term (current) use of antithrombotics/antiplatelets
CPT/HCPCS: 99212

== ENCOUNTER 2023-09-25 10:24 | Day surgery (SDC) | payer MEDICARE ==
[~2023-09-25 10:24] MED LIST: ALPRAZolam 0.25 MG TAB PO PRN; ALPRAZolam 0.5 MG TAB PO PRN; ASPIRIN 325 MG TAB PO ONE; HEPARIN SODIUM,PORCINE (1 ML) 2,500 UNIT in SODIUM CHLORIDE 0.9% 250 ML IRRIGATION PRN; HEPARIN SODIUM,PORCINE 10,000 UNIT in SODIUM CHLORIDE 0.9% 1,000 ML IRRIGATION PRN; NITROGLYCERIN SL TABS 0.4 MG TAB SUBLINGUAL PRN; SODIUM CHLORIDE 0.9% 1,000 ML in EMPTY BAG 1 BAG IV SCH
[2023-09-25] MEDS ORDERED: SODIUM CHLORIDE 0.9% 1,000 ML IV ONE (10:30)
[2023-09-25 10:55] VITALS: TEMP 98.5
[2023-09-25 10:58] LABS: Basophils % (A) 0 %; Eosinophils # (A) 0.2 k/uL (0-0.7); Eosinophils % (A) 1 %; HCT 31.8 % (34.0-46.0); HGB 10.2 gm/dL (11.4-16.0); Hypochromasia Moderate; Lymphocytes # (A) 2.1 k/uL (1.0-4.8); Lymphocytes % (A) 15 %; MCH 28.8 pg (25.0-35.0); Mean Platelet Volume 7.3; Monocytes # (A) 0.7 k/uL (0-1.0); Monocytes % (A) 5 %; Neutrophils # (A) 11.5 k/uL (1.3-7.7); Neutrophils % (A) 78 %; Platelet Count 373 k/uL (150-450); RBC 3.54 m/uL (3.80-5.40); RDW 14.5 % (11.5-15.5); WBC 14.7 k/uL (3.8-10.6)
[2023-09-25 11:14] LABS: African American GFR (CKD) 80 (>60 ml/min/1.73 sqM); Anion Gap 12 mmol/L; Blood Urea Nitrogen 22 mg/dL (7-17); Calcium 8.9 mg/dL (8.4-10.2); Carbon Dioxide 25 mmol/L (22-30); Chloride 99 mmol/L (98-107); Glucose 99 mg/dL (74-99); Non-African American GFR(CKD) 69 (>60 ml/min/1.73 sqM); Potassium 4.3 mmol/L (3.5-5.1); Sodium 136 mmol/L (137-145)
[2023-09-25] MEDS ORDERED: methylPREDNISolone SOD SUCCI 125 MG/2 ML VIAL IV STA (11:20)
[2023-09-25] MEDS ORDERED: diphenhydrAMINE 50 MG/ML 1 ML VIAL IVP STA (11:20)
[2023-09-25] MEDS ORDERED: VERAPAMIL 2.5 MG/ML 2 ML AMP ONE (11:33)
[2023-09-25] MEDS ORDERED: LIDOCAINE 1% INJ 10MG/ML (20 ML MDV) ONE (11:33)
[2023-09-25] MEDS ORDERED: HEPARIN SODIUM 1,000 UN/ML (10ML VL) ONE (12:35)
[2023-09-25] MEDS ORDERED: LIDOCAINE 1% INJ 10MG/ML (20 ML MDV) SQ ONE (12:43)
[2023-09-25] MEDS ORDERED: VERAPAMIL SYRINGE (5 MG/10 ML) INTRAARTER ONE (12:47)
[2023-09-25] MEDS ORDERED: MIDAZOLAM 2 MG/2 ML VIAL IVP ONE (12:47)
[2023-09-25] MEDS ORDERED: HEPARIN SODIUM 1,000 UN/ML (10ML VL) IVP ONE ×2 (12:49→12:56)
[2023-09-25] MEDS ORDERED: fentaNYL (PF) 50 MCG/ML 2 ML AMP ONE (12:51)
[2023-09-25] MEDS ORDERED: NITROGLYCERIN SL TABS 0.4 MG TAB SUBLINGUAL ONE ×2 (12:52→12:55)
[2023-09-25] MEDS ORDERED: fentaNYL (PF) 50 MCG/ML 2 ML AMP IVP ONE (12:55)
[2023-09-25] MEDS ORDERED: IOPAMIDOL-370 100ML BTL INJ ONE (13:00)
[2023-09-25] MEDS ORDERED: SODIUM CHLORIDE 0.9% 500 ML 500 ML IV ONE (13:54)
[2023-09-25 14:16] VITALS: RESP 16
[2023-09-25 17:01] VITALS: BP 132/78; PULSE 78
--- NOTE | 2023-09-28 18:46 | P.PCN ---
Date of Procedure: 09/28/23 Operative Findings: Cardiac catheterization Performing physician Ector Jerez MD Procedure performed Selective right and left coronary angiogram Left heart catheterization Ultrasound-guided access of the right radial artery Indication Abnormal myocardial perfusion imaging stress test in this 78-year-old female patient who was symptomatic Approach Right radial artery Complications None Level of sedation Moderate with sedation lenght of 12 minutes Procedure description The patient was brought to the cardiac rn cardiac cath. The right radial artery was cannulated using micropuncture technique under ultrasound guidance and a micropuncture wire passed easily and I placed a 6 Egyptian 11 cm sheath at the right radial artery. I gave the patient 2 mg of verapamil intra-arterial and 5000's of heparin intravenous. Selective right and left coronary angiogram performed using JR4 and JL 3.5 catheters. After heart catheterization was performed using 6 Egyptian pigtail catheter Selective coronary angiogram The RCA Is a moderate caliber vessel and dominant vessel appeared to be angiographically normal The left main Is angiographically normal Left circumflex Is a large caliber vessel and a dominant vessel and appeared to be angiographically normal. Gives rises into the first and second obtuse marginal branches and distally bifurcates into PDA and PLV branches The LAD Is a large caliber vessel and appears to be angiographically normal. Gives rises into a diagonal branch which has mild ostial disease Hemodynamic The LVEDP was 12 mmHg was no significant gradient across the aortic valve Conclusion Normal coronary angiogram Normal left-sided filling pressure
== END 2023-09-25 16:54 | disposition home or self-care (01) ==
LOC: CATHCVL 10:24
PROVIDERS: ATTEND Internal Medicine Interventional Cardiology
DX: I48.0 Paroxysmal atrial fibrillation (principal); I10 Essential (primary) hypertension; E78.5 Hyperlipidemia, unspecified; Z86.73 Personal history of transient ischemic attack (TIA), and cerebral infarction without residual deficits; Z88.5 Allergy status to narcotic agent; Z88.0 Allergy status to penicillin; Z88.8 Allergy status to other drugs, medicaments and biological substances; Z79.01 Long term (current) use of anticoagulants; Z79.899 Other long term (current) drug therapy
CPT/HCPCS: 93458; 76937; 80048; 85025; C1769 ×2; C1894; J2250; J1200; J2930; J2001; J3010; J1644; Q9967

== ENCOUNTER 2023-11-02 10:21 | Inpatient (IN) | payer MEDICARE ==
--- NOTE | 2023-11-02 10:43 | ED ---
Weakness HPI - General Chief complaint: Fall Stated complaint: Fall Time Seen by Provider: 11/02/23 10:32 Source: patient, RN notes reviewed, old records reviewed Mode of arrival: EMS Limitations: no limitations - History of Present Illness Initial comments: This is a 78-year-old female to the ER for evaluation today. Patient resting for evaluation of severe debility. Patient fell sometime last night was on the ground throughout the course of the night patient admits to feeling significantly weak lately especially with multiple syncopal events. No headache chest pain shortness of breath or abdominal pain. Patient has no other real complaints MD Complaint: generalized weakness, lack of energy, difficulty walking -: days(s) Location: generalized Severity: severe Severity scale (1-10): 10 Quality: constant Consistency: constant Improves with: none Context: recent illness, history of similar Associated Symptoms: confusion, shortness of breath, syncope - Related Data Home Medications Medication Instructions Recorded Confirmed Multivitamins, Thera [Multivitamin 1 tab PO DAILY 09/22/15 11/02/23 (formulary)] ALPRAZolam [Xanax] 0.25 mg PO TID PRN 10/12/15 11/02/23 hydroCHLOROthiazide [Hydrodiuril] 12.5 mg PO DAILY 03/03/20 11/02/23 Albuterol Inhaler [Ventolin Hfa 1 puff INHALATION RT-Q6H PRN 04/17/21 11/02/23 Inhaler] Latanoprost/Pf [Latanoprost 0.005% 1 drop BOTH EYES BID 04/17/21 11/02/23 Eye Drop] Atorvastatin Calcium [Lipitor] 40 mg PO HS 04/18/21 11/02/23 Acetaminophen Tab [Tylenol] 500 mg PO Q6H PRN 09/23/23 11/02/23 Apixaban [Eliquis] 2.5 mg PO BID 09/23/23 11/02/23 Cholecalciferol (Vitamin D3) 1 tab PO DAILY 09/23/23 11/02/23 [Vitamin D3 (50 Mcg = 2000 Iu) Chew Tab] Dorzolamide HCl/Pf [Dorzolamide 2% 1 drop BOTH EYES BID 09/23/23 11/02/23 Eye Drop] Loratadine [Claritin] 10 mg PO DAILY 09/23/23 11/02/23 Tolterodine ER [Detrol LA] 4 mg PO DAILY 09/23/23 11/02/23 Previous Rx's Medication Instructions Recorded Clopidogrel [Plavix] 75 mg PO DAILY #30 tab 03/07/21 Ferrous Sulfate [Iron (65 MG 325 mg PO DAILY #30 tab 11/07/23 Elemental)] Pantoprazole [Protonix] 40 mg PO AC-BID 30 Days #60 tab 11/07/23 lisinopriL 2.5 mg PO DAILY #30 tablet 11/07/23 Allergies Allergy/AdvReac Type Severity Reaction Status Date / Time codeine Allergy Rash/Hives Verified 11/02/23 13:29 Iodinated Contrast Media Allergy Rash/Hives Verified 11/02/23 13:29 [Iodinated Contrast Media - IV Dye] Penicillins Allergy Rash/Hives Verified 11/02/23 13:29 Review of Systems ROS Statement: Those systems with pertinent positive or pertinent negative responses have been documented in the HPI. ROS Other: All systems not noted in ROS Statement are negative. 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 History of Any Multi-Drug Resistant Organisms: None Reported Past Surgical History: Cholecystectomy, Hernia Repair, Joint Replacement Additional Past Surgical History / Comment(s): Bilateral knee replacement,kashif. cataract surgery, bilateral laser eye surgery 02/24/21. hiatal hernia repair. Past Anesthesia/Blood Transfusion Reactions: No Reported Reaction Past Psychological History: Anxiety Smoking Status: Never smoker - Past Family History Mother Family Medical History: GERD/Reflux Additional Family Medical History / Comment(s): osteoporosis Father Family Medical History: CVA/TIA, Myocardial Infarction (CO) Additional Family Medical History / Comment(s): mini strokes, CABG General Exam Limitations: altered mental status, physical limitation General appearance: alert, anxious, lethargic, in distress Head exam: Present: atraumatic, normocephalic, normal inspection Eye exam: Present: normal appearance, PERRL, EOMI. Absent: scleral icterus, conjunctival injection, periorbital swelling ENT exam: Present: normal exam, mucous membranes moist Neck exam: Present: normal inspection. Absent: tenderness, meningismus, lymphadenopathy Respiratory exam: Present: normal lung sounds bilaterally. Absent: respiratory distress, wheezes, rales, rhonchi, stridor Cardiovascular Exam: Present: regular rate, normal rhythm, normal heart sounds. Absent: systolic murmur, diastolic murmur, rubs, gallop, clicks GI/Abdominal exam: Present: soft, normal bowel sounds. Absent: distended, tenderness, guarding, rebound, rigid Extremities exam: Present: normal inspection, full ROM, normal capillary refill. Absent: tenderness, pedal edema, joint swelling, calf tenderness Back exam: Present: normal inspection Neurological exam: Present: alert, oriented X3, CN II-XII intact Psychiatric exam: Present: normal affect, normal mood Skin exam: Present: warm, dry, intact, normal color. Absent: rash Course Vital Signs 11/02/23 11/02/23 11/02/23 10:24 14:07 14:17 Temperature 99.7 F H 98.1 F 98.2 F Pulse Rate 99 98 93 Pulse Rate [ Waiter/Waitress Head ] Respiratory 20 18 20 Rate Blood Pressure 104/38 120/49 112/40 Blood Pressure [Left Arm] O2 Sat by Pulse 94 L 95 Oximetry 11/02/23 11/02/23 11/02/23 14:37 15:06 15:41 Temperature 98 F 98.2 F 98.3 F Pulse Rate 92 95 87 Pulse Rate [ Waiter/Waitress Head ] Respiratory 20 20 20 Rate Blood Pressure 111/41 104/49 98/46 Blood Pressure [Left Arm] O2 Sat by Pulse 94 L 96 96 Oximetry 11/02/23 11/02/23 11/02/23 16:31 16:53 17:18 Temperature 97.4 F L 98.3 F 98.6 F Pulse Rate 93 81 90 Pulse Rate [ Waiter/Waitress Head ] Respiratory 20 20 18 Rate Blood Pressure 124/57 112/46 100/78 Blood Pressure [Left Arm] O2 Sat by Pulse 98 97 Oximetry 11/02/23 11/02/23 11/02/23 17:38 17:53 18:28 Temperature 98 F 98.7 F Pulse Rate 88 87 89 Pulse Rate [ Waiter/Waitress Head ] Respiratory 20 20 18 Rate Blood Pressure 107/51 107/51 127/50 Blood Pressure [Left Arm] O2 Sat by Pulse 97 95 97 Oximetry 11/02/23 11/02/23 20:07 20:30 Temperature 98.6 F 98.6 F Pulse Rate 88 Pulse Rate [ 88 Waiter/Waitress Head ] Respiratory 20 18 Rate Blood Pressure 100/75 Blood Pressure 100/75 [Left Arm] O2 Sat by Pulse 99 99 Oximetry - Reevaluation(s) Reevaluation #1: 11/02/23 12:35 Medical record is reviewed Reevaluation #2: 11/02/23 12:35 Patient symptoms are unchanged still very weak and short of breath Reevaluation #3: 11/02/23 12:35 Patient informed of results and questions answered Reevaluation #4: 11/02/23 12:35 Was pt. sent in by a medical professional or institution (, PA, CRIME LAB ANALYST, urgent care, hospital, or half-way...) When possible be specific @ -no Did you speak to anyone other than the patient for history (EMS, parent, family, police, friend...)? What history was obtained from this source @ -no Did you review nursing and triage notes (agree or disagree)? Why? @ -agree Are old charts reviewed (outside hosp., previous admission, EMS record, old EKG, old radiological studies, urgent care reports/EKG's, half-way records)? Report findings @ -yes Differential Diagnosis (chest pain, altered mental status, abdominal pain women, abdominal pain men, vaginal bleeding, weakness, fever, dyspnea, syncope, headache, dizziness, GI bleed, back pain, seizure, CVA, palpatations, mental health, musculoskeletal)? @ -prior EKG interpreted by me (3pts min.). @ -yes X-rays interpreted by me (1pt min.). @ -yes negative for acute disease CT interpreted by me (1pt min.). @ -no U/S interpreted by me (1pt. min.). @ -no What testing was considered but not performed or refused? (CT, X-rays, U/S, labs)? Why? @ -none What meds were considered but not given or refused? Why? @ -none Did you discuss the management of the patient with other professionals (trev yost ijesenia Amaya, PA, CRIME LAB ANALYST, lab, RT, psych nurse, criminal justice social worker, media relations associate, teacher, aviation ordnance officer, telephonic case manager)? Give summary @ -no Was smoking cessation discussed for >3mins.? @ -no Were there social determinants of health that impacted care today? How? (Homelessness, low income, unemployed, alcoholism, drug addiction, transportation, low edu. Level, literacy, decrease access to med. care, [facility], r ehab)? @ -none Was there de-escalation of care discussed even if they declined (Discuss DNR or withdrawal of care, Hospice)? DNR status @ -no What co-morbidities impacted this encounter? (DM, HTN, Smoking, COPD, CAD, Cancer, CVA, ARF, Chemo, Hep., AIDS, mental health diagnosis, sleep apnea, morbid obesity)? @ -none Was patient admitted / discharged? Hospital course, mention meds given and route , prescriptions, significant lab abnormalities, going to OR and other pertinent info. @ - 78 female with severe anemia. Patient will be admitted for transfusion and GI evaluation, patient had a near syncopal versus syncopal event with recent episodes of weakness lately and was unable to get off the floor secondary to weakness Admitted Was critical care preformed (if so, how long)? @ -yes31 Diagnosis/symptom? @ -Severe anemia weakness Undiagnosed new problem with uncertain prognosis? @ -no Drug Therapy requiring intensive monitoring for toxicity (Heparin, Nitro, Insulin, Cardizem)? @ -no Were any procedures done? @ -no Acute, or Chronic, or Acute on Chronic? @ -Acute Uncomplicated (without systemic symptoms) or Complicated (systemic symptoms)? @ -Complicated Side effects of treatment? @ -no Exacerbation, Progression, or Severe Exacerbation? @ -exacerbation Poses a threat to life or bodily function? How? (Chest pain, USA, CO, pneumonia, PE, COPD, DKA, ARF, appy, cholecystitis, CVA, Diverticulitis, Homicidal, Suicidal, threat to staff... and all critical care pts) @ -yes significant blood loss anemia Reevaluation #5: 11/02/23 12:35 Differential Syncope: Valvular disease, hypertrophic cardiomyopathy, pulmonary embolism, tamponade, tachycardia, bradycardia, CO, hypovolemia, hemorrhage, dissection, anemia, intracranial hemorrhage, seizure, hypoglycemia, carbon monoxide poisoning, this is not meant to be an all-inclusive list. - Consultations Consultation #1: Spoke with Dr. Ford who will admit this patient Consultation #2: sPoke with ICU regarding ICU placement, patient does not meet criteria for ICU at this time EKG Findings - EKG Comments: EKG Findings:: EKG shows atrial fibrillation 98 QRS 92 QTc 429 - EKG Results: EKG: interpreted by [facility] Medical Decision Making - Medical Decision Making 78 female with severe anemia. Patient will be admitted for transfusion and GI evaluation, patient had a near syncopal versus syncopal event with recent episodes of weakness lately and was unable to get off the floor secondary to weakness - Lab Data Result diagrams: 11/07/23 14:23 11/07/23 10:06 Lab Results 11/02/23 11/02/23 11/02/23 Range/Units 10:59 10:59 10:59 WBC 26.7 H (3.8-10.6) k/uL RBC 2.06 L (3.80-5.40) m/uL Hgb 4.7 L* D (11.4-16.0) gm/dL Hct 16.1 L* (34.0-46.0) % MCV 78.3 L D (80.0-100.0) fL MCH 23.0 L (25.0-35.0) pg MCHC 29.3 L (31.0-37.0) g/dL RDW 17.4 H (11.5-15.5) % Plt Count 531 H (150-450) k/uL MPV 7.7 Neutrophils % (Manual) 88 % Lymphocytes % (Manual) 7 % Monocytes % (Manual) 6 % Neutrophils # (Manual) 23.50 H (1.3-7.7) k/uL Lymphocytes # (Manual) 1.87 (1.0-4.8) k/uL Monocytes # (Manual) 1.60 H (0-1.0) k/uL Nucleated RBCs 3 H (0-0) /100 WBC Manual Slide Review Performed Polychromasia Present Hypochromasia Marked Poikilocytosis Moderate Anisocytosis Slight Microcytosis Slight PT 12.2 (10.0-12.5) sec INR 1.1 (<1.2) APTT 19.9 L (22.0-30.0) sec Sodium 133 L (137-145) mmol/L Potassium 4.1 (3.5-5.1) mmol/L Chloride 96 L (98-107) mmol/L Carbon Dioxide 24 (22-30) mmol/L Anion Gap 13 mmol/L BUN 44 H (7-17) mg/dL Creatinine 1.17 H (0.52-1.04) mg/dL Est GFR (CKD-EPI)AfAm 52 (>60 ml/min/1.73 sqM) Est GFR (CKD-EPI)NonAf 45 (>60 ml/min/1.73 sqM) Glucose 193 H (74-99) mg/dL Plasma Lactic Acid Efra (0.7-2.0) mmol/L Calcium 8.4 (8.4-10.2) mg/dL Phosphorus 4.7 H (2.5-4.5) mg/dL Magnesium 2.1 (1.6-2.3) mg/dL Iron (50-170) UG/DL TIBC (228-460) UG/DL % Saturation (12.00-45.00) Transferrin (204.0-354.0) mg/dL Ferritin (10.0-291.0) ng/mL Total Bilirubin 1.2 (0.2-1.3) mg/dL AST 120 H (14-36) U/L ALT 43 H (4-34) U/L Alkaline Phosphatase 81 (38-126) U/L Creatine Kinase 5249 H* (30-135) U/L Troponin I (0.000-0.034) ng/mL NT-Pro-B Natriuret Pep 8280 pg/mL Total Protein 5.9 L (6.3-8.2) g/dL Albumin 3.2 L (3.5-5.0) g/dL Vitamin B12 (200.0-944.0) pg/mL 11/02/23 11/02/23 11/02/23 Range/Units 10:59 10:59 10:59 WBC (3.8-10.6) k/uL RBC (3.80-5.40) m/uL Hgb (11.4-16.0) gm/dL Hct (34.0-46.0) % MCV (80.0-100.0) fL MCH (25.0-35.0) pg MCHC (31.0-37.0) g/dL RDW (11.5-15.5) % Plt Count (150-450) k/uL MPV Neutrophils % (Manual) % Lymphocytes % (Manual) % Monocytes % (Manual) % Neutrophils # (Manual) (1.3-7.7) k/uL Lymphocytes # (Manual) (1.0-4.8) k/uL Monocytes # (Manual) (0-1.0) k/uL Nucleated RBCs (0-0) /100 WBC Manual Slide Review Polychromasia Hypochromasia Poikilocytosis Anisocytosis Microcytosis PT (10.0-12.5) sec INR (<1.2) APTT (22.0-30.0) sec Sodium (137-145) mmol/L Potassium (3.5-5.1) mmol/L Chloride (98-107) mmol/L Carbon Dioxide (22-30) mmol/L Anion Gap mmol/L BUN (7-17) mg/dL Creatinine (0.52-1.04) mg/dL Est GFR (CKD-EPI)AfAm (>60 ml/min/1.73 sqM) Est GFR (CKD-EPI)NonAf (>60 ml/min/1.73 sqM) Glucose (74-99) mg/dL Plasma Lactic Acid Efra 4.2 H* (0.7-2.0) mmol/L Calcium (8.4-10.2) mg/dL Phosphorus (2.5-4.5) mg/dL Magnesium (1.6-2.3) mg/dL Iron 13 L (50-170) UG/DL TIBC 307 (228-460) UG/DL % Saturation 4.23 L (12.00-45.00) Transferrin 219.0 (204.0-354.0) mg/dL Ferritin 12.5 (10.0-291.0) ng/mL Total Bilirubin (0.2-1.3) mg/dL AST (14-36) U/L ALT (4-34) U/L Alkaline Phosphatase (38-126) U/L Creatine Kinase (30-135) U/L Troponin I 0.136 H* (0.000-0.034) ng/mL NT-Pro-B Natriuret Pep pg/mL Total Protein (6.3-8.2) g/dL Albumin (3.5-5.0) g/dL Vitamin B12 414.0 (200.0-944.0) pg/mL - EKG Data -: EKG Interpreted by Me - Radiology Data Radiology results: report reviewed (X-ray chest and pelvis are negative for acute disease), image reviewed Critical Care Time Critical Care Time: Yes Total Critical Care Time: 31 Disposition Clinical Impression: Fall, Weakness, Anemia, Syncope, NSTEMI (non-ST elevated myocardial infarction), Rhabdomyolysis Disposition: ADMITTED IP TO THIS [facility] Condition: Good Is patient prescribed a controlled substance at d/c from ED?: No Time of Disposition: 12:30
--- NOTE | 2023-11-02 11:09 | XR ---
EXAMINATION TYPE: XR chest 1V DATE OF EXAM: 11/02/2023 COMPARISON: 06/05/2023 HISTORY: 78-year-old female with pain after fall TECHNIQUE: Single frontal view of the chest is obtained. FINDINGS: Heart moderately enlarged. Suggestion of some mild pleural thickening or effusion tracking of the rig ht chest wall. Patchy opacity right side of chest. Left lung appears relatively clear. IMPRESSION: 1. Moderate cardiomegaly. 2. There may be underlying small right pleural effusion along with some mild volume loss in the right hemithorax. Patchy densities in the right lung may reflect atelectasis or mild pulmonary contusions.
--- NOTE | 2023-11-02 11:10 | XR ---
EXAMINATION TYPE: XR pelvis AP view DATE OF EXAM: 11/02/2023 Comparison: None Clinical History: 78-year-old female with pain after fall Findings: Large body habitus limiting evaluation. Further limitation due to osteopenia. Pubic symphysis and SI joints appear intact. Mild degenerative change at the hips. No displaced fracture is seen. Impression: Osteopenia and large body habitus limiting evaluation. No displaced fracture seen.
[2023-11-02] MEDS: SODIUM CHLORIDE 0.9% 1,000 ML IV STA (12:16)
[2023-11-02 12:18] LABS: Anisocytosis Slight; Hypochromasia Marked; MCHC 29.3 g/dL (31.0-37.0); MCV 78.3 fL (80.0-100.0); Mean Platelet Volume 7.7; Microcytosis Slight; Platelet Count 531 k/uL (150-450); Poikilocytosis Moderate; RBC 2.06 m/uL (3.80-5.40); RDW 17.4 % (11.5-15.5)
[2023-11-02 12:21] LABS: INR 1.1 (<1.2); Prothrombin Time 12.2 sec (10.0-12.5)
[2023-11-02 12:25] LABS: HCT 16.1 % (34.0-46.0); HGB 4.7 gm/dL (11.4-16.0)
[2023-11-02 12:27] LABS: ALT 43 U/L (4-34); AST 120 U/L (14-36); African American GFR (CKD) 52 (>60 ml/min/1.73 sqM); Albumin 3.2 g/dL (3.5-5.0); Alkaline Phosphatase 81 U/L (38-126); Anion Gap 13 mmol/L; Blood Urea Nitrogen 44 mg/dL (7-17); Calcium 8.4 mg/dL (8.4-10.2); Carbon Dioxide 24 mmol/L (22-30); Chloride 96 mmol/L (98-107); Glucose 193 mg/dL (74-99); Magnesium 2.1 mg/dL (1.6-2.3); Non-African American GFR(CKD) 45 (>60 ml/min/1.73 sqM); Phosphorus 4.7 mg/dL (2.5-4.5); Potassium 4.1 mmol/L (3.5-5.1); Sodium 133 mmol/L (137-145); Total Bilirubin 1.2 mg/dL (0.2-1.3); Total Protein 5.9 g/dL (6.3-8.2)
[2023-11-02 12:28] LABS: Partial Thromboplastin Time 19.9 sec (22.0-30.0)
[2023-11-02 12:33] LABS: NT-Pro-B-Type Natriuretic Pept 8280 pg/mL
[2023-11-02] MEDS ORDERED: NALOXONE 0.4 MG/ML 1 ML VIAL IV PRN (12:33)
[2023-11-02 12:46] LABS: Lymphocytes # (M) 1.87 k/uL (1.0-4.8); Neutrophils % (M) 88 %; Nucleated Red Blood Cells 3 /100 WBC (0-0); Total Cells Counted 200; WBC 26.7 k/uL (3.8-10.6)
[2023-11-02 12:47] LABS: Polychromasia Present
[2023-11-02 13:17] LABS: Creatine Kinase 5249 U/L (30-135)
[2023-11-02] MEDS: MORPHINE SULFATE 4 MG/ML SYRINGE IV PRN (13:25)
[2023-11-02] MEDS ORDERED: Kcentra PER PHARMACY 1 EACH MISC MISCELLANE PRN (13:50)
[2023-11-02] MEDS ORDERED: HUMAN PROTHROMBIN COMPLX 500 UNIT/16 ML VIAL IV ONE (13:56)
[2023-11-02] MEDS ORDERED: LORazepam 2 MG/ML INJ IV PRN (15:03)
--- NOTE | 2023-11-02 15:11 | P.CONS ---
History of Present Illness - Reason for Consult Consult date: 11/02/23 Anemia Requesting physician: Deo Yin - Chief Complaint Weakness, fall - History of Present Illness This is a pleasant 78-year-old white female who was brought in by EMS after being found on the floor. Patient apparently had fallen and was on the ground for about approximately 16 hours. Patient states she has been feeling weak over the last couple weeks she has not been eating well she has been having dry heaves. She was started on Eliquis 2.5 mg twice daily about 4 months ago also on Plavix and aspirin for history of stroke. On presentation she was found to have a hemoglobin of 4.6 with a microcytic anemia. Also labs are consistent with rhabdomyolysis. She is complaining of back and butt pain. She denies any abdominal pain, or nancy red blood. She does state that since she started Eliquis as she has been having black stool. Last dose of Eliquis was yesterday morning as well as her Plavix and aspirin. Unsure of last scopes. She does st ate that she does have a history of an ulcer many years ago. Review of Systems REVIEW OF SYSTEMS: CARDIOPULMONARY: No chest pain or shortness of breath. Gastrointestinal: No abdominal pain. Nausea and dry heaves. No hematemesis, coffee-ground emesis. No rectal bleeding, patient does report black stool for about last 4 months. GENITOURINARY: No dysuria or hematuria. MUSCULOSKELETAL: Reports normal range of motion., Joint pain. Pain in back and buttocks after fall. SKIN: No rashes. No jaundice. ENDOCRINE: No chills, fevers. No excessive weight gain or loss. No polydipsia or polyuria. PSYCHIATRIC: Unremarkable. NEUROLOGY: No change in mental status. Denies dizziness, headache. ENT: Vision unremarkable. CONSTITUTIONAL: No recent weight loss. No fever, chills, night sweats. Increased weakness. 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 History of Any Multi-Drug Resistant Organisms: None Reported Past Surgical History: Cholecystectomy, Hernia Repair, Joint Replacement Additional Past Surgical History / Comment(s): Bilateral knee replacement,kashif. cataract surgery, bilateral laser eye surgery 02/24/21. hiatal hernia repair. Past Anesthesia/Blood Transfusion Reactions: No Reported Reaction Past Psychological History: Anxiety Smoking Status: Never smoker - Past Family History Mother Family Medical History: GERD/Reflux Additional Family Medical History / Comment(s): osteoporosis Father Family Medical History: CVA/TIA, Myocardial Infarction ([place]) Additional Family Medical History / Comment(s): mini strokes, CABG Medications and Allergies Home Medications Medication Instructions Recorded Confirmed Type Multivitamins, Thera [Multivitamin 1 tab PO DAILY 09/22/15 11/02/23 History (formulary)] ALPRAZolam [Xanax] 0.25 mg PO TID PRN 10/12/15 11/02/23 History lisinopriL [Lisinopril] 10 mg PO BID 10/12/15 11/02/23 History hydroCHLOROthiazide [Hydrodiuril] 12.5 mg PO DAILY 03/03/20 11/02/23 History Famotidine [Pepcid] 40 mg PO HS 03/03/21 11/02/23 History Vit C/E/Zn/Coppr/Lutein/Zeaxan 1 cap PO BID 03/03/21 11/02/23 History [Preservision Areds 2 Softgel] Clopidogrel [Plavix] 75 mg PO DAILY #30 tab 03/07/21 11/02/23 Rx Albuterol Inhaler [Ventolin Hfa 1 puff INHALATION RT-Q6H PRN 04/17/21 11/02/23 History Inhaler] Latanoprost/Pf [Latanoprost 0.005% 1 drop BOTH EYES BID 04/17/21 11/02/23 History Eye Drop] Atorvastatin Calcium [Lipitor] 40 mg PO HS 04/18/21 11/02/23 History Acetaminophen Tab [Tylenol Tab] 500 mg PO Q6H PRN 09/23/23 11/02/23 History Apixaban [Eliquis] 2.5 mg PO BID 09/23/23 11/02/23 History Cholecalciferol (Vitamin D3) 1 tab PO DAILY 09/23/23 11/02/23 History [Vitamin D3 (50 Mcg = 2000 Iu) Chew Tab] Dorzolamide HCl/Pf [Dorzolamide 2% 1 drop BOTH EYES BID 09/23/23 11/02/23 History Eye Drop] Loratadine [Claritin] 10 mg PO DAILY 09/23/23 11/02/23 History Tolterodine ER [Detrol LA] 4 mg PO DAILY 09/23/23 11/02/23 History Allergies Allergy/AdvReac Type Severity Reaction Status Date / Time codeine Allergy Rash/Hives Verified 11/02/23 13:29 Iodinated Contrast Media Allergy Rash/Hives Verified 11/02/23 13:29 [Iodinated Contrast Media - IV Dye] Penicillins Allergy Rash/Hives Verified 11/02/23 13:29 Physical Exam Vitals: Vital Signs Temp Pulse Resp BP Pulse Ox 11/02/23 10: 99.7 F H 99 20 104/38 94 L Intake and Output 11/01/23 11/02/23 11/02/23 22:59 06:59 14:59 Other: Weight 134.717 kg General appearance: The patient is alert, oriented, pale and ill appearing. Appears in no acute distress. HET: Head is normocephalic and atraumatic. Pupils are equal and reactive. Neck: Supple. Heart: Regular. Lungs: Equal expansion, normal respiratory effort. Abdomen: Soft, nontender, nondistended. Extremities: Normal skin color and turgor. Neurological: No focal deficits. Results CBC & Chem 7: 11/02/23 10:59 11/02/23 10:59 Labs: Abnormal Lab Results - Last 24 Hours (Table) 11/02/23 11/02/23 11/02/23 Range/Units 10:59 10:59 10:59 WBC 26.7 H (3.8-10.6) k/uL RBC 2.06 L (3.80-5.40) m/uL Hgb 4.7 L* D (11.4-16.0) gm/dL Hct 16.1 L* (34.0-46.0) % MCV 78.3 L D (80.0-100.0) fL MCH 23.0 L (25.0-35.0) pg MCHC 29.3 L (31.0-37.0) g/dL RDW 17.4 H (11.5-15.5) % Plt Count 531 H (150-450) k/uL Neutrophils # (Manual) 23.50 H (1.3-7.7) k/uL Monocytes # (Manual) 1.60 H (0-1.0) k/uL Nucleated RBCs 3 H (0-0) /100 WBC APTT 19.9 L (22.0-30.0) sec Sodium 133 L (137-145) mmol/L Chloride 96 L (98-107) mmol/L BUN 44 H (7-17) mg/dL Creatinine 1.17 H (0.52-1.04) mg/dL Glucose 193 H (74-99) mg/dL Plasma Lactic Acid Efra (0.7-2.0) mmol/L Phosphorus 4.7 H (2.5-4.5) mg/dL AST 120 H (14-36) U/L ALT 43 H (4-34) U/L Creatine Kinase 5249 H* (30-135) U/L Troponin I (0.000-0.034) ng/mL Total Protein 5.9 L (6.3-8.2) g/dL Albumin 3.2 L (3.5-5.0) g/dL Crossmatch 11/02/23 11/02/23 11/02/23 Range/Units 10:59 10:59 12:40 WBC (3.8-10.6) k/uL RBC (3.80-5.40) m/uL Hgb (11.4-16.0) gm/dL Hct (34.0-46.0) % MCV (80.0-100.0) fL MCH (25.0-35.0) pg MCHC (31.0-37.0) g/dL RDW (11.5-15.5) % Plt Count (150-450) k/uL Neutrophils # (Manual) (1.3-7.7) k/uL Monocytes # (Manual) (0-1.0) k/uL Nucleated RBCs (0-0) /100 WBC APTT (22.0-30.0) sec Sodium (137-145) mmol/L Chloride (98-107) mmol/L BUN (7-17) mg/dL Creatinine (0.52-1.04) mg/dL Glucose (74-99) mg/dL Plasma Lactic Acid Efra 4.2 H* (0.7-2.0) mmol/L Phosphorus (2.5-4.5) mg/dL AST (14-36) U/L ALT (4-34) U/L Creatine Kinase (30-135) U/L Troponin I 0.136 H* (0.000-0.034) ng/mL Total Protein (6.3-8.2) g/dL Albumin (3.5-5.0) g/dL Crossmatch See Detail Comments: Pelvis x-ray: Osteopenia and large body habitus limiting evaluation. No displaced fracture seen. Chest x-ray: report reviewed (Moderate cardiomegaly. There may be underlying small right pleural effusion along with some mild volume loss in the right hemithorax. Patchy densities in the right lung may reflect atelectasis or mild pulmonary contusions.) Assessment and Plan (1) Anemia Narrative/Plan: 78-year-old female with multiple comorbidities on Eliquis, Plavix and aspirin pr esented to the emergency department after sustaining a fall and being on the ground for at least 16 hours according to patient's family. Patient was noted to have rhabdomyolysis, and significant anemia with a hemoglobin of 4.7. Patient denies any history of GI bleed in the past. States she started her Eliquis about 4 months ago and has had dark stools since that time. Does also report a remote history of peptic ulcer disease, unclear of any endoscopic evaluation in the past. 4 units of blood have been ordered. Unclear etiology possibilities include peptic ulcer disease, AVM, esophagitis, gastritis or other possible etiologies. Recommend upper endoscopy tomorrow and based on those find ings will consider colonoscopy in another day or 2. Current Visit: Yes Status: Acute Code(s): D64.9 - ANEMIA, UNSPECIFIED SNOMED Code(s): 866100942 (2) Fall Current Visit: Yes Status: Acute Code(s): W19.XXXA - UNSPECIFIED FALL, INITIAL ENCOUNTER SNOMED Code(s): 0063334 (3) Rhabdomyolysis Current Visit: Yes Status: Acute Code(s): M62.82 - RHABDOMYOLYSIS SNOMED Code(s): 081051584 (4) Weakness Current Visit: Yes Status: Acute Code(s): R53.1 - WEAKNESS SNOMED Code(s): 30266240 Plan: 1. Continue symptomatic and supportive care 2. Agree with blood transfusion 3. Repeat CBC daily 4. Hold Eliquis, Plavix and aspirin 5. Patient may have clear liquid diet, n.p.o. after midnight 6. Plan for EGD tomorrow. Procedure discussed with patient and family at the bedside. Patient is willing to proceed Thank you for this consultation, we will continue to follow. Dr. Miguel Alfaro I agree with the dictator's note, documented as a scribe by Jeni Lynn.
[2023-11-02] MEDS: HUMAN PROTHROMBIN COMPLX IV STA (15:20)
[2023-11-02] MEDS: SODIUM CHLORIDE 0.9% 1,000 ML IV SCH (16:22)
[2023-11-02] MEDS: LORazepam 2 MG/ML INJ IV STA (16:24)
[2023-11-03 07:10] LABS: ALT 101 U/L (4-34); AST 224 U/L (14-36); African American GFR (CKD) 79 (>60 ml/min/1.73 sqM); Albumin 2.8 g/dL (3.5-5.0); Alkaline Phosphatase 95 U/L (38-126); Anion Gap 3 mmol/L; Blood Urea Nitrogen 42 mg/dL (7-17); Carbon Dioxide 29 mmol/L (22-30); Chloride 102 mmol/L (98-107); Glucose 81 mg/dL (74-99); Magnesium 2.2 mg/dL (1.6-2.3); Non-African American GFR(CKD) 69 (>60 ml/min/1.73 sqM); Phosphorus 3.2 mg/dL (2.5-4.5); Potassium 3.9 mmol/L (3.5-5.1); Sodium 134 mmol/L (137-145); Total Protein 5.4 g/dL (6.3-8.2)
[2023-11-03] MEDS ORDERED: ALBUTEROL NEBULIZED 2.5 MG/3 ML INHALATION PRN (08:18)
--- NOTE | 2023-11-03 08:41 | P.HPIM ---
History of Present Illness H&P Date: 11/03/23 Chief Complaint: weakness, fall This is a 78-year-old female who presented to the emergency room with complaints of weakness and fall. She had been found at home laying on the ground for a unknown amount of time. Hemoglobin on admission was 4.7. Patient does report a history of black tarry stools for the last several months since starting Eliquis. Patient reports she was started on Eliquis 4 months ago for a CVA. Patient seen and evaluated by surgeon and is planning for an EGD this morning. Repeat hemoglobin is not up at this time of dictation. Further medical history as noted below. Review of Systems Constitutional: Reports fatigue, Reports weakness, Denies chills, Denies fever Cardiovascular: Denies chest pain, Denies dyspnea on exertion (Over the) Respiratory: Denies cough, Denies dyspnea (Present.) Gastrointestinal: Reports abdominal pain, Reports melena Musculoskeletal: Denies arm numbness/tingling, Denies leg numbness/tingling (6) Neurological: Reports weakness (Reviewed), Denies headaches Past Medical History Past Medical History: Atrial Fibrillation, Asthma, CVA/TIA, Eye Disorder, GERD/Reflux, Hyperlipidemia, Hypertension, Osteoarthritis (OA), Seizure Disorder, Sleep Apnea/CPAP/BIPAP Additional Past Medical History / Comment(s): Hypoglycemia-states seizure from hypoglycemia - last seizure 08/2020., heart murmur, hx of broken back , DDD, uses c-pap machine., "inflammation" in abd fold (using nystatin powder) - no current problems, 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 History of Any Multi-Drug Resistant Organisms: None Reported Past Surgical History: Cholecystectomy, Hernia Repair, Joint Replacement Additional Past Surgical History / Comment(s): Bilateral knee replacement,kashif. cataract surgery, bilateral laser eye surgery 02/24/21. hiatal hernia repair. Past Anesthesia/Blood Transfusion Reactions: No Reported Reaction Past Psychological History: Anxiety Smoking Status: Never smoker Past Alcohol Use History: None Reported Past Drug Use History: None Reported - Past Family History Mother Family Medical History: GERD/Reflux Additional Family Medical History / Comment(s): osteoporosis Father Family Medical History: CVA/TIA, Myocardial Infarction ([place]) Additional Family Medical History / Comment(s): mini strokes, CABG Medications and Allergies Home Medications Medication Instructions Recorded Confirmed Type Multivitamins, Thera [Multivitamin 1 tab PO DAILY 09/22/15 11/02/23 History (formulary)] ALPRAZolam [Xanax] 0.25 mg PO TID PRN 10/12/15 11/02/23 History lisinopriL [Lisinopril] 10 mg PO BID 10/12/15 11/02/23 History hydroCHLOROthiazide [Hydrodiuril] 12.5 mg PO DAILY 03/03/20 11/02/23 History Famotidine [Pepcid] 40 mg PO HS 03/03/21 11/02/23 History Vit C/E/Zn/Coppr/Lutein/Zeaxan 1 cap PO BID 03/03/21 11/02/23 History [Preservision Areds 2 Softgel] Clopidogrel [Plavix] 75 mg PO DAILY #30 tab 03/07/21 11/02/23 Rx Albuterol Inhaler [Ventolin Hfa 1 puff INHALATION RT-Q6H PRN 04/17/21 11/02/23 History Inhaler] Latanoprost/Pf [Latanoprost 0.005% 1 drop BOTH EYES BID 04/17/21 11/02/23 History Eye Drop] Atorvastatin Calcium [Lipitor] 40 mg PO HS 04/18/21 11/02/23 History Acetaminophen Tab [Tylenol Tab] 500 mg PO Q6H PRN 09/23/23 11/02/23 History Apixaban [Eliquis] 2.5 mg PO BID 09/23/23 11/02/23 History Cholecalciferol (Vitamin D3) 1 tab PO DAILY 09/23/23 11/02/23 History [Vitamin D3 (50 Mcg = 2000 Iu) Chew Tab] Dorzolamide HCl/Pf [Dorzolamide 2% 1 drop BOTH EYES BID 09/23/23 11/02/23 History Eye Drop] Loratadine [Claritin] 10 mg PO DAILY 09/23/23 11/02/23 History Tolterodine ER [Detrol LA] 4 mg PO DAILY 09/23/23 11/02/23 History Allergies Allergy/AdvReac Type Severity Reaction Status Date / Time codeine Allergy Rash/Hives Verified 11/02/23 13:29 Iodinated Contrast Media Allergy Rash/Hives Verified 11/02/23 13:29 [Iodinated Contrast Media - IV Dye] Penicillins Allergy Rash/Hives Verified 11/02/23 13:29 Physical Exam Vitals: Vital Signs Temp Pulse Pulse Resp BP BP Pulse Ox 11/03/23 04:56 98.0 F 84 18 103/52 99 11/03/23 04:00 83 18 103/50 100 11/03/23 02:37 98.0 F 80 16 116/70 100 11/03/23 02:17 98.2 F 81 16 105/51 100 11/03/23 02:07 98.0 F 79 16 112/67 11/03/23 02:00 98.0 F 73 16 105/47 11/03/23 00:00 98.4 F 84 20 103/57 100 11/02/23 23:12 98.0 F 95 16 100/62 100 11/02/23 22:52 98.8 F 82 16 102/69 100 11/02/23 22:42 99.6 F 82 16 114/60 96 11/02/23 20:30 98.6 F 88 18 100/75 99 11/02/23 20:07 98.6 F 88 20 100/75 99 11/02/23 18:28 98.7 F 89 18 127/50 97 11/02/23 17:53 98 F 87 20 107/51 95 11/02/23 17:38 88 20 107/51 97 11/02/23 17:18 98.6 F 90 18 100/78 97 11/02/23 16:53 98.3 F 81 20 112/46 11/02/23 16:31 97.4 F L 93 20 124/57 98 11/02/23 15:41 98.3 F 87 20 98/46 96 11/02/23 15:06 98.2 F 95 20 104/49 96 11/02/23 14:37 98 F 92 20 111/41 94 L 11/02/23 14:17 98.2 F 93 20 112/40 95 11/02/23 14:07 98.1 F 98 18 120/49 11/02/23 10:24 99.7 F H 99 20 104/38 94 L Intake and Output 11/02/23 11/03/23 11/03/23 22:59 06:59 14:59 Intake Total 620 630 Output Total 500 Balance 620 130 Intake: IV 10 Invasive Line 1 10 Blood Product 620 620 Rc As-1 Unit 0 310 [id number] Rc As-1 Unit 310 [id number] Rc As-1 Unit 310 [id number] Rc As-1 Unit 310 [id number] Output: Urine 500 Other: Voiding Method External Catheter Weight 134.717 kg 110.5 kg - Constitutional General appearance: cooperative, no acute distress - EENT Eyes: PERRLA - Neck Neck: no lymphadenopathy, normal ROM, rigidity - Respiratory Respiratory: bilateral: diminished - Cardiovascular Heart sounds: normal: S1, S2 - Gastrointestinal General gastrointestinal: soft, no tenderness - Integumentary Integumentary: pale - Musculoskeletal Musculoskeletal: generalized weakness - Psychiatric Psychiatric: A&O x's 3, appropriate affect, intact judgment & insight Results CBC & Chem 7: 11/02/23 10:59 11/03/23 06:50 Labs: Abnormal Lab Results - Last 24 Hours (Table) 11/02/23 11/02/23 11/02/23 Range/Units 10:59 10:59 10:59 WBC 26.7 H (3.8-10.6) k/uL RBC 2.06 L (3.80-5.40) m/uL Hgb 4.7 L* D (11.4-16.0) gm/dL Hct 16.1 L* (34.0-46.0) % MCV 78.3 L D (80.0-100.0) fL MCH 23.0 L (25.0-35.0) pg MCHC 29.3 L (31.0-37.0) g/dL RDW 17.4 H (11.5-15.5) % Plt Count 531 H (150-450) k/uL Neutrophils # (Manual) 23.50 H (1.3-7.7) k/uL Monocytes # (Manual) 1.60 H (0-1.0) k/uL Nucleated RBCs 3 H (0-0) /100 WBC APTT 19.9 L (22.0-30.0) sec Sodium 133 L (137-145) mmol/L Chloride 96 L (98-107) mmol/L BUN 44 H (7-17) mg/dL Creatinine 1.17 H (0.52-1.04) mg/dL Glucose 193 H (74-99) mg/dL Plasma Lactic Acid Efra (0.7-2.0) mmol/L Calcium (8.4-10.2) mg/dL Phosphorus 4.7 H (2.5-4.5) mg/dL Total Bilirubin (0.2-1.3) mg/dL AST 120 H (14-36) U/L ALT 43 H (4-34) U/L Creatine Kinase 5249 H* (30-135) U/L Troponin I (0.000-0.034) ng/mL Total Protein 5.9 L (6.3-8.2) g/dL Albumin 3.2 L (3.5-5.0) g/dL Crossmatch 11/02/23 11/02/23 11/02/23 Range/Units 10:59 10:59 12:40 WBC (3.8-10.6) k/uL RBC (3.80-5.40) m/uL Hgb (11.4-16.0) gm/dL Hct (34.0-46.0) % MCV (80.0-100.0) fL MCH (25.0-35.0) pg MCHC (31.0-37.0) g/dL RDW (11.5-15.5) % Plt Count (150-450) k/uL Neutrophils # (Manual) (1.3-7.7) k/uL Monocytes # (Manual) (0-1.0) k/uL Nucleated RBCs (0-0) /100 WBC APTT (22.0-30.0) sec Sodium (137-145) mmol/L Chloride (98-107) mmol/L BUN (7-17) mg/dL Creatinine (0.52-1.04) mg/dL Glucose (74-99) mg/dL Plasma Lactic Acid Efra 4.2 H* (0.7-2.0) mmol/L Calcium (8.4-10.2) mg/dL Phosphorus (2.5-4.5) mg/dL Total Bilirubin (0.2-1.3) mg/dL AST (14-36) U/L ALT (4-34) U/L Creatine Kinase (30-135) U/L Troponin I 0.136 H* (0.000-0.034) ng/mL Total Protein (6.3-8.2) g/dL Albumin (3.5-5.0) g/dL Crossmatch See Detail 11/02/23 11/02/23 11/03/23 Range/Units 15:30 18:17 06:50 WBC (3.8-10.6) k/uL RBC (3.80-5.40) m/uL Hgb (11.4-16.0) gm/dL Hct (34.0-46.0) % MCV (80.0-100.0) fL MCH (25.0-35.0) pg MCHC (31.0-37.0) g/dL RDW (11.5-15.5) % Plt Count (150-450) k/uL Neutrophils # (Manual) (1.3-7.7) k/uL Monocytes # (Manual) (0-1.0) k/uL Nucleated RBCs (0-0) /100 WBC APTT (22.0-30.0) sec Sodium 134 L (137-145) mmol/L Chloride (98-107) mmol/L BUN 42 H (7-17) mg/dL Creatinine (0.52-1.04) mg/dL Glucose (74-99) mg/dL Plasma Lactic Acid Efra 2.6 H* 2.3 H* (0.7-2.0) mmol/L Calcium 8.0 L (8.4-10.2) mg/dL Phosphorus (2.5-4.5) mg/dL Total Bilirubin 2.0 H (0.2-1.3) mg/dL AST 224 H (14-36) U/L ALT 101 H (4-34) U/L Creatine Kinase (30-135) U/L Troponin I (0.000-0.034) ng/mL Total Protein 5.4 L (6.3-8.2) g/dL Albumin 2.8 L (3.5-5.0) g/dL Crossmatch Assessment and Plan (1) History of CVA (cerebrovascular accident) Current Visit: Yes Status: Acute Code(s): Z86.73 - PRSNL HX OF TIA (TIA), AND CEREB INFRC W/O RESID DEFICITS SNOMED Code(s): 148224041 (2) Anemia Current Visit: Yes Status: Acute Code(s): D64.9 - ANEMIA, UNSPECIFIED SNOMED Code(s): 652622531 (3) Fall Current Visit: Yes Status: Acute Code(s): W19.XXXA - UNSPECIFIED FALL, INITIAL ENCOUNTER SNOMED Code(s): 4863874 (4) Rhabdomyolysis Current Visit: Yes Status: Acute Code(s): M62.82 - RHABDOMYOLYSIS SNOMED Code(s): 714256987 (5) Weakness Current Visit: Yes Status: Acute Code(s): R53.1 - WEAKNESS SNOMED Code(s): 65527198 (6) Hypertension Current Visit: Yes Status: Acute Code(s): I10 - ESSENTIAL (PRIMARY) HYPERTENSION SNOMED Code(s): 26619357 (7) Hyperlipidemia Current Visit: Yes Status: Acute Code(s): E78.5 - HYPERLIPIDEMIA, UNSPECIFIED SNOMED Code(s): 92567317 (8) GERD (gastroesophageal reflux disease) Current Visit: Yes Status: Acute Code(s): K21.9 - GASTRO-ESOPHAGEAL REFLUX DISEASE WITHOUT ESOPHAGITIS SNOMED Code(s): 642385090 Plan: Home medications reconciled, continue to hold anticoagulation. She may begin to take home medications after her EGD Check CBC and CMP in the morning. Patient seen and evaluated by nurse practitioner, physician in agreement with plan
[2023-11-03 09:20] LABS: Anisocytosis Slight; Hypochromasia Moderate; MCH 29.2 pg (25.0-35.0); MCHC 33.5 g/dL (31.0-37.0); MCV 87.2 fL (80.0-100.0); Mean Platelet Volume 8.4; Platelet Count 329 k/uL (150-450); Poikilocytosis Marked; RBC 3.56 m/uL (3.80-5.40); RDW 17.4 % (11.5-15.5)
[2023-11-03 09:29] LABS: HGB 10.4 gm/dL (11.4-16.0)
[2023-11-03] MEDS: ONDANSETRON 4 MG/2 ML VIAL IVP PRN (11:33)
--- NOTE | 2023-11-03 11:35 | CDI ---
Documentation Clarification Form Date: From: Sheila Whelan Phone: [phone] Admit Date: 11/02/2023 12:33:00 PM Patient Name: Sharla Lin Visit Number: [id number] Discharge Date: ATTENTION: The Clinical Documentation Specialists (CDI) and [facility] Coding Staff appreciate your assistance in clarifying documentation. Please respond to the clarification below the line at the bottom and electronically sign. The CDI & [facility] Coding staff will review the response and follow-up if needed. Please note: Queries are made part of the Legal Health Record. If you have any questions, please contact the author of this message via ITS. Dr. Aroldo Ford Rhabdomyolysis is documented in the H&P on 11/03. Additional clarification regarding the type of rhabdomyolysis is requested. History/Risk Factors: "78-year-old female who presented to the emergency room with complaints of weakness and fall." - Per H&P on 11/03 Clinical Indicators: "found at home laying on the ground for a unknown amount of time." - Per H&P on 11/03 CK: 11/02 - 5249 Treatment: Per MAR: Normal saline IV infusion 130ml/hr started 11/02 10:44 Please clarify the type of rhabdomyolysis, if known: [ ] Traumatic rhabdomyolysis due to fall [x ] Traumatic rhabdomyolysis due to prolonged immobility [ ] Other, please specify [ ] Unable to Determine MTDD
[2023-11-03] MEDS ORDERED: PROPOFOL 10 MG/ML 20 ML VIAL IV ONE (12:23)
[2023-11-03] MEDS ORDERED: LIDOCAINE 1% INJ 10MG/ML (20 ML MDV) ONE (12:23)
[2023-11-03] MEDS: IV FLUID CONTINUATION 1,000 ML IV ONE (12:33)
--- NOTE | 2023-11-03 12:49 | P.PCN ---
Date of Procedure: 11/03/23 Procedure(s) Performed: BRIEF HISTORY: Patient is a 78-year-old, pleasant, white female admitted hospital yesterday with a hemoglobin of 4.5 g/dL. She is been having fatigue and weakness for the last 2 weeks and intermittent black tarry stools. Rest history of A. fib and has been on Eliquis as for the last 4 months.. PROCEDURE PERFORMED: Esophagogastroduodenoscopy. PREOPERATIVE DIAGNOSIS: Severe symptomatic anemia and black tarry stools. IV sedation per anesthesia. PROCEDURE: After informed consent was obtained, the patient was brought into the endoscopy unit. IV sedation was administered by Anesthesia under continuous monitoring. Initially the Olympus GIF-140 video endoscope was inserted into the mouth. Esophagus intubated without any difficulty. It was gradually advanced into the stomach and duodenum and carefully examined. The bulb and the second part of the duodenum appeared normal. The scope at this time was withdrawn to the stomach, adequately insufflated with air, and upon careful examination, mucosa of the antrum, had mild gastritis. In the prepyloric area there was a 2 cm ulceration identified with no active bleeding. Biopsies were done from this ulcer. In the gastric body along the incisura angularis there was a 5-6 cm deep ulceration with raised margins and multiple biopsies were done from the margins of the ulcer. No active bleeding noted. In the proximal body the stomach just distal to the cardia there was another 3 cm gastric ulcer with a clean base and no active bleeding and biopsies were done from this area. The fundus appeared normal. The scope was then withdrawn into the esophagus. The GE junction was located at 39 cm from the incisors. The esophagus appeared normal. There were no erosions or ulcerations seen and the patient tolerated the procedure well. IMPRESSION: 1. 2 cm prepyloric ulcer with no active bleeding. 2. 5-6 cm deep large ulcer along the incisura angularis with raised margins status post multiple biopsies to rule out neoplasm 3. 3 cm proximal gastric ulcer just distal to the cardia of the stomach status post biopsy. RECOMMENDATIONS: The findings of this examination were discussed with the patient . She'll be started on clear liquid diet. Await biopsy results. Continue with Protonix 40 mg twice daily.. The CBC daily.
[2023-11-03 13:04] LABS: Band Neutrophils % 1 %; Neutrophils % (M) 84 %; Nucleated Red Blood Cells 3 /100 WBC (0-0); Total Cells Counted 200
[2023-11-03 13:05] LABS: Eosinophils # (M) 0.27 k/uL (0-0.7); Monocytes # (M) 2.18 k/uL (0-1.0); Polychromasia Present; WBC 27.2 k/uL (3.8-10.6)
[2023-11-03] MEDS: VIT A,C & E-LUTEIN-MINERALS 1 EACH TAB PO SCH (16:33)
[2023-11-03] MEDS: PANTOPRAZOLE 40 MG TABLET PO SCH (16:50)
[2023-11-03] MEDS: MULTIVITAMINS, THERA 1 EACH TAB PO SCH (16:50)
[2023-11-03] MEDS: lisinopriL 10 MG TAB PO SCH (16:50)
[2023-11-03] MEDS: DORZOLAMIDE HCL 2% DROPS 10 ML BTL BOTH EYES SCH (16:50)
[2023-11-03] MEDS: hydroCHLOROthiazide 12.5 MG CAP PO SCH (16:50)
[2023-11-03] MEDS: LORATADINE 10 MG TAB PO SCH (16:50)
[2023-11-03] MEDS: OXYBUTYNIN 10 MG TAB.ER.24 PO SCH (16:50)
[2023-11-03] MEDS: CHOLECALCIFEROL 25 MCG (1000 IU) TABLET PO SCH (16:50)
[2023-11-03] MEDS ORDERED: FAMOTIDINE 20 MG TAB PO SCH (21:00)
[2023-11-03] MEDS: DOCUSATE 100 MG CAP PO SCH (22:03)
[2023-11-03] MEDS: ATORVASTATIN 40 MG TAB PO SCH (22:03)
[2023-11-03] MEDS: LATANOPROST 0.005% OPHTH DROPS 2.5 ML BTL BOTH EYES SCH (22:04)
[2023-11-04 06:51] LABS: Anisocytosis Slight; HCT 29.7 % (34.0-46.0); HGB 9.6 gm/dL (11.4-16.0); Hypochromasia Marked; MCHC 32.3 g/dL (31.0-37.0); MCV 89.8 fL (80.0-100.0); Mean Platelet Volume 7.6; Platelet Count 284 k/uL (150-450); Poikilocytosis Marked; RDW 17.5 % (11.5-15.5); WBC 19.1 k/uL (3.8-10.6)
[2023-11-04 07:03] LABS: ALT 84 U/L (4-34); AST 143 U/L (14-36); African American GFR (CKD) 82 (>60 ml/min/1.73 sqM); Albumin 2.4 g/dL (3.5-5.0); Alkaline Phosphatase 93 U/L (38-126); Anion Gap 4 mmol/L; Blood Urea Nitrogen 28 mg/dL (7-17); Carbon Dioxide 29 mmol/L (22-30); Chloride 103 mmol/L (98-107); Glucose 70 mg/dL (74-99); Non-African American GFR(CKD) 71 (>60 ml/min/1.73 sqM); Potassium 3.6 mmol/L (3.5-5.1); Sodium 136 mmol/L (137-145); Total Bilirubin 1.5 mg/dL (0.2-1.3)
--- NOTE | 2023-11-04 08:32 | P.PN ---
Subjective Progress Note Date: 11/04/23 Principal diagnosis: The patient is here essentially for acute GI bleed with anemia associated. Status post transfusion of PRBC. EKG shows 3 areas of concern with ulceration. Still some tarry stools stated. Appreciate GI input. Patient states no chest pain no voiding difficulties. No fever or chills. Objective - Vital Signs Vital signs: Vital Signs Temp 97.9 F 11/04/23 04:00 Pulse 82 11/04/23 08:05 Resp 16 11/04/23 08:05 BP 101/56 11/04/23 04:00 Pulse Ox 98 11/04/23 04:00 FiO2 Intake & Output 11/03/23 11/04/23 11/04/23 18:59 06:59 18:59 Intake Total 230 Output Total 300 Balance -70 Intake: IV 110 Invasive Line 1 10 Oral 120 Output: Urine 300 Other: Voiding Method Bedpan Bedpan Bedpan External Catheter External Catheter External Catheter # Voids 1 # Bowel Movements 1 - Constitutional General appearance: Present: morbidly obese - EENT Eyes: Absent: abnormal pupil - Neck Neck: Absent: lymphadenopathy - Respiratory Respiratory: bilateral: diminished - Cardiovascular Rhythm: irregularly irregular Heart sounds: normal: S1, S2 Abnormal Heart Sounds: Absent: S3 Gallop - Gastrointestinal General gastrointestinal: Present: soft. Absent: tenderness - Psychiatric Psychiatric: Present: A&O x's 3 - Labs CBC & Chem 7: 11/04/23 06:35 11/04/23 06:35 Labs: Abnormal Lab Results - Last 24 Hours (Table) 11/03/23 11/04/23 11/04/23 Range/Units 06:50 06:35 06:35 WBC 27.2 H 19.1 H (3.8-10.6) k/uL RBC 3.56 L 3.30 L (3.80-5.40) m/uL Hgb 10.4 L D 9.6 L (11.4-16.0) gm/dL Hct 31.0 L 29.7 L (34.0-46.0) % RDW 17.4 H 17.5 H (11.5-15.5) % Neutrophils # (Manual) 23.10 H (1.3-7.7) k/uL Monocytes # (Manual) 2.18 H (0-1.0) k/uL Nucleated RBCs 3 H (0-0) /100 WBC Sodium 136 L (137-145) mmol/L BUN 28 H (7-17) mg/dL Glucose 70 L (74-99) mg/dL Calcium 8.0 L (8.4-10.2) mg/dL Total Bilirubin 1.5 H (0.2-1.3) mg/dL AST 143 H (14-36) U/L ALT 84 H (4-34) U/L Total Protein 5.0 L (6.3-8.2) g/dL Albumin 2.4 L (3.5-5.0) g/dL Assessment and Plan (1) Anemia due to GI blood loss Current Visit: Yes Status: Acute Code(s): D50.0 - IRON DEFICIENCY ANEMIA SECONDARY TO BLOOD LOSS (CHRONIC) SNOMED Code(s): 630648753 (2) Peptic ulcer disease Current Visit: Yes Status: Acute Code(s): K27.9 - PEPTIC ULC, SITE UNSP, UNSP AC OR CHR, W/O HEMOR OR PERF SNOMED Code(s): 31673561 Plan: Check CBC and CMP in the a.m. Hold anticoagulation at this time. Await colonoscopy per GI. Will continue to follow Time with Patient: Greater than 30
--- NOTE | 2023-11-04 10:36 | P.PN ---
Subjective Progress Note Date: 11/04/23 Principal diagnosis: GI bleed This is a pleasant 78-year-old white female who was brought in by EMS after being found on the floor. Patient apparently had fallen and was on the ground for about approximately 16 hours. Patient states she has been feeling weak over the last couple weeks she has not been eating well she has been having dry heaves. She was started on Eliquis 2.5 mg twice daily about 4 months ago also on Plavix and aspirin for history of stroke. On presentation she was found to have a hemoglobin of 4.6 with a microcytic anemia. Also labs are consistent wi th rhabdomyolysis. She is complaining of back and butt pain. She denies any abdominal pain, or nancy red blood. She does state that since she started Eliquis as she has been having black stool. Last dose of Eliquis was yesterday morning as well as her Plavix and aspirin. Unsure of last scopes. She does state that she does have a history of an ulcer many years ago. 11/04/2023 Patient seen and examined as a follow-up. She is status post upper endoscopy with findings of prepyloric ulcer with no active bleeding, a 5 to 6 cm deep large ulcer along the incisura angularis with raised margins status post biopsy to rule out neoplasm and a 3 cm proximal gastric ulcer status postbiopsy. Patient started on Protonix 40 mg twice daily. Repeat CBC today stable at 9.4. Patient had a bowel movement this morning around 3 AM which she states was dark still. No abdominal pain, nausea or vomiting. Objective - Vital Signs Vital signs: Vital Signs Temp 97.9 F 11/04/23 04:00 Pulse 82 11/04/23 08:05 Resp 16 11/04/23 08:05 BP 101/56 11/04/23 04:00 Pulse Ox 98 11/04/23 04:00 FiO2 Intake & Output 11/03/23 11/04/23 11/04/23 18:59 06:59 18:59 Intake Total 230 Output Total 300 Balance -70 Intake: IV 110 Invasive Line 1 10 Oral 120 Output: Urine 300 Other: Voiding Method Bedpan Bedpan Bedpan External Catheter External Catheter External Catheter # Voids 1 # Bowel Movements 1 - Exam General appearance: The patient is alert, oriented, appears in no acute distress. Morbidly obese. HET: Head is normocephalic and atraumatic. Conjunctiva pink. Sclera anicteric. Neck: Supple without lymphadenopathy. Abdomen: Soft, nontender, nondistended with bowel sounds. No guarding or rigidity. Extremities: Normal skin color and turgor. No pedal edema Skin: No rashes, no jaundice Neurological: No focal deficits. Alert and oriented. - Labs CBC & Chem 7: 11/04/23 06:35 11/04/23 06:35 Labs: Abnormal Lab Results - Last 24 Hours (Table) 11/03/23 11/04/23 11/04/23 Range/Units 06:50 06:35 06:35 WBC 27.2 H 19.1 H (3.8-10.6) k/uL RBC 3.56 L 3.30 L (3.80-5.40) m/uL Hgb 10.4 L D 9.6 L (11.4-16.0) gm/dL Hct 31.0 L 29.7 L (34.0-46.0) % RDW 17.4 H 17.5 H (11.5-15.5) % Neutrophils # (Manual) 23.10 H (1.3-7.7) k/uL Monocytes # (Manual) 2.18 H (0-1.0) k/uL Nucleated RBCs 3 H (0-0) /100 WBC Sodium 136 L (137-145) mmol/L BUN 28 H (7-17) mg/dL Glucose 70 L (74-99) mg/dL Calcium 8.0 L (8.4-10.2) mg/dL Total Bilirubin 1.5 H (0.2-1.3) mg/dL AST 143 H (14-36) U/L ALT 84 H (4-34) U/L Total Protein 5.0 L (6.3-8.2) g/dL Albumin 2.4 L (3.5-5.0) g/dL Assessment and Plan (1) Anemia Narrative/Plan: 78-year-old female with multiple comorbidities on Eliquis, Plavix and aspirin presented to the emergency department after sustaining a fall and being on the ground for at least 16 hours according to patient's family. Patient was noted to have rhabdomyolysis, and significant anemia with a hemoglobin of 4.7. Patient denies any history of GI bleed in the past. States she started her Eliquis about 4 months ago and has had dark stools since that time. Does also report a remote history of peptic ulcer disease, unclear of any endoscopic evaluation in the past. 4 units of blood have been ordered. Unclear etiology possibilities include peptic ulcer disease, AVM, esophagitis, gastritis or other possible etiologies. Recommend upper endoscopy tomorrow and based on those findings will consider colonoscopy in another day or 2. 11/04/2023 patient is status post upper endoscopy with findings of a 2 cm prepyloric ulcer with no active bleeding, 5 to 6 cm deep large ulcer along the incisor angularis with raised margins status post multiple biopsies to rule out neoplasm as well as a 3 cm proximal gastric ulcer just distal to the cardia of the stomach status post biopsy. This is likely source of bleeding however no active bleeding. Recommend holding Eliquis for another 2 days. No plans for colonoscopy as a source of blood loss likely from ulcers. Current Visit: Yes Status: Acute Code(s): D64.9 - ANEMIA, UNSPECIFIED SNOMED Code(s): 479425469 (2) Fall Current Visit: Yes Status: Acute Code(s): W19.XXXA - UNSPECIFIED FALL, INITIAL ENCOUNTER SNOMED Code(s): 4866716 (3) Rhabdomyolysis Current Visit: Yes Status: Acute Code(s): M62.82 - RHABDOMYOLYSIS SNOMED Code(s): 114919679 (4) Pyloric ulcer Current Visit: Yes Status: Acute Code(s): K25.9 - GASTRIC ULCER, UNSP ACUTE OR CHRONIC, W/O HEMOR OR PERF SNOMED Code(s): 60494536 (5) Gastric ulcer Current Visit: Yes Status: Acute Code(s): K25.9 - GASTRIC ULCER, UNSP ACUTE OR CHRONIC, W/O HEMOR OR PERF SNOMED Code(s): 698555295 (6) Weakness Current Visit: Yes Status: Acute Code(s): R53.1 - WEAKNESS SNOMED Code(s): 47316191 Plan: 1. Continue symptomatic and supportive care 2. Patient started on Protonix 40 mg twice daily, continue after discharge 3. Patient may have regular diet 4. Continue to hold Eliquis for 2 more days may resume Thursday11/06/23 5. No plans on any further endoscopic evaluation 6. Patient is cleared from gastroenterology for discharge, recommend following up in 1 week for biopsy results Thank you for this consultation. Dr. Miguel Alfaro I agree with the dictator's note, documented as a scribe by Jeni Lynn.
[2023-11-04] MEDS: ACETAMINOPHEN TAB 500 MG TAB PO PRN (13:24)
--- NOTE | 2023-11-04 15:06 | P.CRDCN ---
History of Present Illness Consult date: 11/04/23 Consult reason: atrial fibrillation History of present illness: History of present illness: This is a 78-year-old female patient Dr. Jerez with past med history of hypertension, dyslipidemia, morbid obesity, obstructive sleep apnea, paroxysmal atrial fibrillation, valvular heart disease with moderate AAS, history of stroke. We have been asked to evaluate the patient for atrial fibrillation. Patient presented to the hospital on November 02 due to weakness, debility status post fall on the ground for about 16 hours. Patient was also having dry heaves at home. And she had been on Eliquis, Plavix. Her initial hemoglobin was 4.6 and she has been treated for rhabdomyolysis. Patient underwent upper endoscopy finding prepyloric ulcer with no active bleeding, 5 to 6 cm deep large ulcer along the incisura need to angularis with raised margins s/p biopsy to rule out neoplasm and a 3 cm proximal gastric ulcer status postbiopsy. Patient has been transfused a total of 4 units of packed RBCs. This morning, patient was noted to be in A-fib with RVR. EKG obtained on 11/02: Atrial fibrillation with ventricular rate of 98. Telemetry is atrial fibrillation with controlled response. Chest x-ray: Moderate cardiomegaly. Small right pleural effusion and mild volume loss in the right hemithorax. Patchy densities in the right lung may reflect atelectasis or mild pulmonary contusions. WBC 19.1, hemoglobin 9.6, platelet count 284. Sodium 136, potassium 3.6, BUN 20 and creatinine 0.81. Total bilirubin 1.5, AST 143, ALT 84, alkaline phosphatase 93. Lactic acid most recently 1.5. Troponin obtained on 11/02 0.136. proBNP 8280. Initial CK 5249. Home cardiac medications: Eliquis 2.5 mg twice daily, atorvastatin 40 mg at bedtime, Plavix 75 mg daily, hydrochlorothiazide 12.5 mg daily, lisinopril 10 mg twice daily. Cardiac catheterization history 09/25/2023: Normal coronaries Echocardiogram obtained 08/31/2023 revealed normal EF of 55%, moderate aortic stenosis, mild mitral regurgitation, mild tricuspid regurgitation. Lexiscan Cardiolite stress test performed in the office on 07/21/2023 revealed nondiagnostic electrocardiographic stress test and response to Lexiscan. Abnormal myocardial perfusion imaging with evidence of reversible defect of moderate size and mild intensity anteriorly. Normal left ventricular systolic function. Review Of Systems: At the time of my evaluation: Constitutional: No fever, no chills. + weakness, + fatigue. EENT: No headache. No dizziness. Lungs: No shortness of breath, cough, no sputum production. No wheezing. Cardiovascular: No chest pain, no lower extremity edema. No palpitations. No paroxysmal nocturnal dyspnea. No orthopnea. No lightheadedness or dizziness. No syncopal episodes. Abdominal: No abdominal pain. No nausea, vomiting. No diarrhea. No constipation. No bloody or tarry stools. Genitourinary: No dysuria.. No urinary retention. Musculoskeletal: No myalgias. No muscle weakness, no frequent falls. Integumentary: No wounds. No rash. No unusual bruising. Neurologic: No aphasia. No facial droop. No change in mentation. Physical examination: Gen: This is a 78-year-old female resting in bed and appears to be in no acute distress. VS: reviewed blood pressure 91/47, heart rate 89, pulse ox 93% on room air, afebrile HEENT: Head is atraumatic, normocephalic. Pupils equal, round. Sclerae is anicteric. NECK: Supple. No JVD. LUNGS: Clear to auscultation. No wheezes or rhonchi. No intercostal retractions. HEART: Irregular rate and rhythm. Systolic murmur. EXTREMITIES: No pedal edema. No calf tenderness. NEUROLOGICAL: Patient is awake, alert and oriented x3. Assessment: Acute blood loss anemia, acute GI bleed status posttransfusion of 4 units packed RBCs Lactic acidosis Fall and rhabdomyolysis Paroxysmal atrial fibrillation, controlled ventricular rate Hypertension Dyslipidemia Valvular heart disease with moderate History of stroke Morbid obesity Obstructive sleep apnea Plan: Continue patient's home cardiac medications Continue to hold Eliquis Patient may not require both Eliquis and plavix in future. May consider Watchman procedure. Patient may discuss with Dr. Jerez on follow up. Further recommendations to follow based upon clinical course Upon discharge, patient will follow up with Dr. Jerez in 1-2 weeks. Nurse practitioner note has been reviewed, I agree with documented findings and plan of care. Patient was seen and examined. 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 History of Any Multi-Drug Resistant Organisms: None Reported Past Surgical History: Cholecystectomy, Hernia Repair, Joint Replacement Additional Past Surgical History / Comment(s): Bilateral knee replacement,kashif. cataract surgery, bilateral laser eye surgery 02/24/21. hiatal hernia repair. Past Anesthesia/Blood Transfusion Reactions: No Reported Reaction Past Psychological History: Anxiety Smoking Status: Never smoker Past Alcohol Use History: None Reported Past Drug Use History: None Reported - Past Family History Mother Family Medical History: GERD/Reflux Additional Family Medical History / Comment(s): osteoporosis Father Family Medical History: CVA/TIA, Myocardial Infarction (ID) Additional Family Medical History / Comment(s): mini strokes, CABG Medications and Allergies Home Medications Medication Instructions Recorded Confirmed Type Multivitamins, Thera [Multivitamin 1 tab PO DAILY 09/22/15 11/02/23 History (formulary)] ALPRAZolam [Xanax] 0.25 mg PO TID PRN 10/12/15 11/02/23 History lisinopriL [Lisinopril] 10 mg PO BID 10/12/15 11/02/23 History hydroCHLOROthiazide [Hydrodiuril] 12.5 mg PO DAILY 03/03/20 11/02/23 History Famotidine [Pepcid] 40 mg PO HS 03/03/21 11/02/23 History Vit C/E/Zn/Coppr/Lutein/Zeaxan 1 cap PO BID 03/03/21 11/02/23 History [Preservision Areds 2 Softgel] Clopidogrel [Plavix] 75 mg PO DAILY #30 tab 03/07/21 11/02/23 Rx Albuterol Inhaler [Ventolin Hfa 1 puff INHALATION RT-Q6H PRN 04/17/21 11/02/23 History Inhaler] Latanoprost/Pf [Latanoprost 0.005% 1 drop BOTH EYES BID 04/17/21 11/02/23 History Eye Drop] Atorvastatin Calcium [Lipitor] 40 mg PO HS 04/18/21 11/02/23 History Acetaminophen Tab [Tylenol Tab] 500 mg PO Q6H PRN 09/23/23 11/02/23 History Apixaban [Eliquis] 2.5 mg PO BID 09/23/23 11/02/23 History Cholecalciferol (Vitamin D3) 1 tab PO DAILY 09/23/23 11/02/23 History [Vitamin D3 (50 Mcg = 2000 Iu) Chew Tab] Dorzolamide HCl/Pf [Dorzolamide 2% 1 drop BOTH EYES BID 09/23/23 11/02/23 History Eye Drop] Loratadine [Claritin] 10 mg PO DAILY 09/23/23 11/02/23 History Tolterodine ER [Detrol LA] 4 mg PO DAILY 09/23/23 11/02/23 History Allergies Allergy/AdvReac Type Severity Reaction Status Date / Time codeine Allergy Rash/Hives Verified 11/02/23 13:29 Iodinated Contrast Media Allergy Rash/Hives Verified 11/02/23 13:29 [Iodinated Contrast Media - IV Dye] Penicillins Allergy Rash/Hives Verified 11/02/23 13:29 Physical Exam Vitals: Vital Signs Temp Pulse Resp BP Pulse Ox 11/04/23 11:55 89 16 91/47 93 L 11/04/23 11:33 98.1 F 82 18 92/59 99 11/04/23 08:05 82 16 11/04/23 08:00 97.9 F 82 18 90/55 99 11/04/23 04:00 97.9 F 75 18 101/56 98 11/04/23 00:00 98 F 91 16 107/60 95 11/03/23 20:36 98.2 F 86 16 121/83 98 11/03/23 17:59 80 16 11/03/23 17:02 97.8 F 82 16 123/77 97 11/03/23 16:40 83 16 Intake and Output 11/03/23 11/04/23 11/04/23 22:59 06:59 14:59 Intake Total 360 Balance 360 Intake: Oral 360 Other: Voiding Method Bedpan Bedpan Bedpan External Catheter External Catheter External Catheter # Voids 1 # Bowel Movements 0 1 1 Results 11/04/23 06:35 11/04/23 06:35 Cardiac Enzymes 11/04/23 Range/Units 06:35 AST 143 H (14-36) U/L CBC 11/03/23 11/04/23 Range/Units 06:50 06:35 WBC 19.1 H (3.8-10.6) k/uL RBC 3.30 L (3.80-5.40) m/uL Hgb 10.4 L D 9.6 L (11.4-16.0) gm/dL Hct 31.0 L 29.7 L (34.0-46.0) % Plt Count 284 (150-450) k/uL Comprehensive Metabolic Panel 11/04/23 Range/Units 06:35 Sodium 136 L (137-145) mmol/L Potassium 3.6 (3.5-5.1) mmol/L Chloride 103 (98-107) mmol/L Carbon Dioxide 29 (22-30) mmol/L BUN 28 H (7-17) mg/dL Creatinine 0.81 (0.52-1.04) mg/dL Glucose 70 L (74-99) mg/dL Calcium 8.0 L (8.4-10.2) mg/dL AST 143 H (14-36) U/L ALT 84 H (4-34) U/L Alkaline Phosphatase 93 (38-126) U/L Total Protein 5.0 L (6.3-8.2) g/dL Albumin 2.4 L (3.5-5.0) g/dL Current Medications Generic Name Dose Route Start Last Admin Trade Name Nicolette PRN Reason Stop Dose Admin Acetaminophen 500 mg 11/03/23 08:18 11/04/23 13:24 Acetaminophen Tab 500 Mg Tab PO 500 mg Q6H PRN Administration back pain Albuterol Sulfate 2.5 mg 11/03/23 08:18 Albuterol Nebulized 2.5 Mg/3 Ml INHALATION RT-Q6H PRN Shortness Of Breath Atorvastatin Calcium 40 mg 11/03/23 21:00 11/03/23 22:03 Atorvastatin 40 Mg Tab PO 40 mg HS BR[facility]ORD Administration Cholecalciferol 50 mcg 11/03/23 09:00 11/04/23 10:01 Cholecalciferol 25 Mcg (1000 Iu) Tablet PO 50 mcg DAILY [facility] Administration Docusate Sodium 100 mg 11/03/23 21:00 11/04/23 10:01 Docusate 100 Mg Cap PO 100 mg BID [facility] Administration Dorzolamide HCl 1 drops 11/03/23 09:00 11/04/23 10:02 Dorzolamide Hcl 2% Drops 10 Ml Btl BOTH EYES 1 drops BID [facility] Administration Hydrochlorothiazide 12.5 mg 11/03/23 09:00 11/04/23 10:03 Hydrochlorothiazide 12.5 Mg Cap PO 12.5 mg DAILY [facility] Administration Sodium Chloride 1,000 mls @ 20 mls/hr 11/02/23 12:45 11/04/23 12:04 Saline 0.9% IV Not Given .Q24H [facility] Latanoprost 1 drops 11/03/23 21:00 11/03/23 22:04 Latanoprost 0.005% Ophth Drops 2.5 Ml Btl BOTH EYES 1 drops HS [facility] Administration Lisinopril 10 mg 11/03/23 09:00 11/04/23 12:04 Lisinopril 10 Mg Tab PO Not Given BID [facility] Loratadine 10 mg 11/03/23 09:00 11/04/23 10:04 Loratadine 10 Mg Tab PO 10 mg DAILY [facility] Administration Lorazepam 0.5 mg 11/02/23 15:03 Lorazepam 2 Mg/Ml Inj IV Q6HR PRN Anxiety Miscellaneous Information 1 each 11/02/23 13:50 Kcentra Per Pharmacy 1 Each Misc MISCELLANE DIRECTED PRN Bleeding Protocol Morphine Sulfate 4 mg 11/02/23 12:33 11/02/23 19:58 Morphine Sulfate 4 Mg/Ml Syringe IV 4 mg Q4HR PRN Administration Severe Pain (Scale 7 to 10) Multivitamins 1 each 11/03/23 09:00 11/04/23 10:04 Multivitamins, Thera 1 Each Tab PO 1 each DAILY BR[facility] Administration Multivitamins/Minerals 1 each 11/03/23 09:00 11/04/23 10:06 Vit A,C & R-[id number]-[id number] 1 Each Tab PO 1 each BID BR[facility] Administration Naloxone HCl 0.2 mg 11/02/23 12:33 Naloxone 0.4 Mg/Ml 1 Ml Vial IV Q2M PRN Opioid Reversal Ondansetron HCl 4 mg 11/02/23 12:33 11/03/23 11:33 Ondansetron 4 Mg/2 Ml Vial IVP 4 mg Q8HR PRN Administration Nausea And Vomiting Oxybutynin Chloride 10 mg 11/03/23 09:00 11/04/23 10:05 Oxybutynin 10 Mg Tab.Er.24 PO 10 mg DAILY [facility] Administration Pantoprazole Sodium 40 mg 11/03/23 17:30 11/04/23 06:25 Pantoprazole 40 Mg Tablet PO 40 mg AC-BID BR[facility] Administration Intake and Output 11/03/23 11/04/23 11/04/23 22:59 06:59 14:59 Intake Total 360 Balance 360 Intake: Oral 360 Other: Voiding Method Bedpan Bedpan Bedpan External Catheter External Catheter External Catheter # Voids 1 # Bowel Movements 0 1 1 11/04/23 06:35 11/04/23 06:35
[2023-11-04] MEDS: LACTATED RINGERS 1,000 ML IV SCH (17:16)
--- NOTE | 2023-11-04 17:40 | CA ---
Transthoracic Echo Report Name: Sharla Lin Age: 78 Gender: F : 1945 Exam Date: 11/04/2023 12:46 Exam Location: [place] [facility] Ht (in): 63 Wt (lb): 243 Ordering Physician: Aroldo Ford MD Attending/Referring Phys: [employer] Presser Jerel Huynh RD Procedure CPT: Indications: atrial fibrillation Cardiac Hx: Technical Quality: Technically difficult study Contrast 1: Total Dose (mL): Contrast 2: Total Dose (mL): MEASUREMENTS (Male / Female) Normal Values 2D ECHO LV Diastolic Diameter PLAX 5.0 cm 4.2 - 5.9 / 3.9 - 5.3 cm LV Systolic Diameter PLAX 3.7 cm IVS Diastolic Thickness 1.3 cm 0.6 - 1.0 / 0.6 - 0.9 cm LVPW Diastolic Thickness 1.5 cm 0.6 - 1.0 / 0.6 - 0.9 cm LV Relative Wall Thickness 0.6 RV Internal Dim ED PLAX 3.4 cm LVOT Diameter 2.0 cm Aortic Root Diameter 2.6 cm LA Systolic Diameter LX 3.1 cm 3.0 - 4.0 / 2.7 - 3.8 cm LV Diastolic Volume MOD 4C 52.1 cm??? LV Systolic Volume MOD 4C 31.1 cm??? LV Ejection Fraction MOD 4C 40.3 % LV Cardiac Index MOD 4C 627.3 cm???/min???m??? LV Diastolic Length 4C 6.7 cm LV Systolic Length 4C 6.4 cm LA Volume 65.7 cm??? 18 - 58 / 22 - 52 cm??? LA Volume Index 28.9 cm???/m??? 16 - 28 cm???/m??? DOPPLER AV Peak Velocity 232.6 cm/s AV Peak Gradient 21.6 mmHg AV Mean Velocity 150.7 cm/s AV Mean Gradient 10.7 mmHg AV Velocity Time Integral 40.0 cm LVOT Peak Velocity 154.0 cm/s LVOT Peak Gradient 9.5 mmHg LVOT Velocity Time Integral 28.3 cm LVOT Stroke Volume 87.5 cm??? LVOT Stroke Volume Index 41.6 ml/m??? LVOT Cardiac Index 2614.0 cm???/min???m??? AV Area Cont Eq vti 2.2 cm??? AV Area Cont Eq pk 2.0 cm??? MV Peak Velocity 153.7 cm/s MV Peak Gradient 9.4 mmHg MV Mean Velocity 64.7 cm/s MV Mean Gradient 2.4 mmHg MV Velocity Time Integral 38.0 cm TR Peak Velocity 267.2 cm/s TR Peak Gradient 28.6 mmHg Right Ventricular Systolic Press 33.7 mmHg PV Peak Velocity 113.0 cm/s PV Peak Gradient 5.1 mmHg FINDINGS Left Ventricle Normal LV size. Moderate concentric LVH. Left ventricular ejection fraction is estimated at 50-55 %. Right Ventricle Upper limits of normal in size. RVSP= 38mmHg. Right Atrium Normal right atrial size. Left Atrium Mild to moderate left atrial dilatation. LA volume index= 31ml/m2 Mitral Valve Mitral valve not well visualized. At least moderate posterior mitral annulus calcification. No mitral stenosis. No mitral regurgitation. Aortic Valve Aortic valve not well visualized. Mild AV calcification/sclerosis. Peak gradient= 21.6mmHg. AV area by VTI= 2.2cm2 Tricuspid Valve Structurally normal tricuspid valve. Mild TR. Pulmonic Valve Pulmonic valve not well visualized. No pulmonic regurgitation. Pericardium No pleural effusion. Aorta Normal size aortic root. CONCLUSIONS Left ventricular ejection fraction is estimated at 50-55 %. Moderate concentric LVH. Mild TV dilatation with normal gloabl systolic function Mitral valve annular calcification with no significant regurgitation or stenosis Aortic valve calcification with mild aortic stenosis, mean gradient 10 mmHg No pleural effusion. Previewed by: Dr Tyron Alcantara (Electronically Signed) Final Date: 04 November 2023 17:40
[2023-11-05 08:49] LABS: Anisocytosis Slight; HCT 29.6 % (34.0-46.0); HGB 9.2 gm/dL (11.4-16.0); Hypochromasia Marked; MCH 28.4 pg (25.0-35.0); MCHC 31.2 g/dL (31.0-37.0); Mean Platelet Volume 8.6; Platelet Count 274 k/uL (150-450); Poikilocytosis Marked; RBC 3.25 m/uL (3.80-5.40); RDW 17.2 % (11.5-15.5); WBC 20.3 k/uL (3.8-10.6)
--- NOTE | 2023-11-05 08:52 | P.PN ---
Subjective Progress Note Date: 11/05/23 Principal diagnosis: weakness This is a 78-year-old female who presented to the emergency room with complaints of weakness and a fall she had been found at home after laying on the ground for an unknown amount of time. Hemoglobin on admission was 4.7. EGD was completed with 3 areas of ulceration found. Hemoglobin has stabilized. Patient was found to be in atrial fibrillation yesterday which is new for her. Cardiology has been consulted. She has also been hypotensive since yesterday. Patient does report an increase in lightheadedness today. She is seen this morning sitting in chair at side of bed eating breakfast this morning. Objective - Vital Signs Vital signs: Vital Signs Temp 98.6 F 11/05/23 08:10 Pulse 73 11/05/23 08:10 Resp 18 11/05/23 08:10 BP 98/50 11/05/23 08:33 Pulse Ox 100 11/05/23 08:10 FiO2 Intake & Output 11/04/23 11/05/23 11/05/23 18:59 06:59 18:59 Intake Total 1200 480 Output Total 450 200 Balance 750 280 Intake: Oral 1200 480 Output: Urine 450 200 Other: Voiding Method External Catheter External Catheter # Bowel Movements 1 - Constitutional General appearance: Present: cooperative, no acute distress - EENT Eyes: Present: PERRLA - Neck Neck: Present: normal ROM. Absent: lymphadenopathy, rigidity - Respiratory Respiratory: bilateral: diminished - Cardiovascular Rhythm: irregularly irregular - Gastrointestinal General gastrointestinal: Present: soft. Absent: tenderness - Integumentary Integumentary: Present: normal, normal turgor - Psychiatric Psychiatric: Present: appropriate affect, intact judgment & insight - Labs CBC & Chem 7: 11/04/23 06:35 11/04/23 06:35 Assessment and Plan (1) History of CVA (cerebrovascular accident) Current Visit: Yes Status: Acute Code(s): Z86.73 - PRSNL HX OF TIA (TIA), AND CEREB INFRC W/O RESID DEFICITS SNOMED Code(s): 410608609 (2) Anemia Current Visit: Yes Status: Acute Code(s): D64.9 - ANEMIA, UNSPECIFIED SNOMED Code(s): 216249406 (3) Fall Current Visit: Yes Status: Acute Code(s): W19.XXXA - UNSPECIFIED FALL, INITIAL ENCOUNTER SNOMED Code(s): 7743699 (4) Rhabdomyolysis Current Visit: Yes Status: Acute Code(s): M62.82 - RHABDOMYOLYSIS SNOMED Code(s): 432948564 (5) Weakness Current Visit: Yes Status: Acute Code(s): R53.1 - WEAKNESS SNOMED Code(s): 90520682 (6) Hypertension Current Visit: Yes Status: Acute Code(s): I10 - ESSENTIAL (PRIMARY) HYPER TENSION SNOMED Code(s): 09726777 (7) Hyperlipidemia Current Visit: Yes Status: Acute Code(s): E78.5 - HYPERLIPIDEMIA, UNSPECIFIED SNOMED Code(s): 34985683 (8) GERD (gastroesophageal reflux disease) Current Visit: Yes Status: Acute Code(s): K21.9 - GASTRO-ESOPHAGEAL REFLUX DISEASE WITHOUT ESOPHAGITIS SNOMED Code(s): 248247016 (9) Peptic ulcer disease Current Visit: Yes Status: Acute Code(s): K27.9 - PEPTIC ULC, SITE UNSP, UNS P AC OR CHR, W/O HEMOR OR PERF SNOMED Code(s): 29374255 (10) Atrial fibrillation Current Visit: Yes Status: Acute Code(s): I48.91 - UNSPECIFIED ATRIAL FIBRILLATION SNOMED Code(s): 15585423 Plan: Check CBC and CMP in the morning. Appreciate cardiology's input regarding hypotension. Anticipate discharge in the next 24 to 48 hours if vitals are stable Patient seen and evaluated by nurse practitioner, physician in agreement with plan
[2023-11-05 09:13] LABS: ALT 108 U/L (4-34); AST 126 U/L (14-36); African American GFR (CKD) 72 (>60 ml/min/1.73 sqM); Albumin 2.7 g/dL (3.5-5.0); Alkaline Phosphatase 90 U/L (38-126); Anion Gap 4 mmol/L; Blood Urea Nitrogen 27 mg/dL (7-17); Carbon Dioxide 30 mmol/L (22-30); Chloride 100 mmol/L (98-107); Glucose 82 mg/dL (74-99); Non-African American GFR(CKD) 63 (>60 ml/min/1.73 sqM); Potassium 3.8 mmol/L (3.5-5.1); Sodium 134 mmol/L (137-145); Total Protein 5.3 g/dL (6.3-8.2)
--- NOTE | 2023-11-05 09:42 | P.PN ---
Subjective Progress Note Date: 11/05/23 Principal diagnosis: GI bleed This is a pleasant 78-year-old white female who was brought in by EMS after being found on the floor. Patient apparently had fallen and was on the ground for about approximately 16 hours. Patient states she has been feeling weak over the last couple weeks she has not been eating well she has been having dry heaves. She was started on Eliquis 2.5 mg twice daily about 4 months ago also on Plavix and aspirin for history of stroke. On presentation she was found to have a hemoglobin of 4.6 with a microcytic anemia. Also labs are consistent wi th rhabdomyolysis. She is complaining of back and butt pain. She denies any abdominal pain, or nancy red blood. She does state that since she started Eliquis as she has been having black stool. Last dose of Eliquis was yesterday morning as well as her Plavix and aspirin. Unsure of last scopes. She does state that she does have a history of an ulcer many years ago. 11/04/2023 Patient seen and examined as a follow-up. She is status post upper endoscopy with findings of prepyloric ulcer with no active bleeding, a 5 to 6 cm deep large ulcer along the incisura angularis with raised margins status post biopsy to rule out neoplasm and a 3 cm proximal gastric ulcer status postbiopsy. Patient started on Protonix 40 mg twice daily. Repeat CBC today stable at 9.4. Patient had a bowel movement this morning around 3 AM which she states was dark still. No abdominal pain, nausea or vomiting. 11/05/2023 Patient is seen and examined today as a follow-up. She has had no further bleeding no blood in her stool. Hemoglobin stable. Cardiology following for hypotension and atrial fibrillation. She denies any abdominal pain, nausea or vomiting. States she had a normal bowel movement today that was green no blood. Objective - Vital Signs Vital signs: Vital Signs Temp 98.6 F 11/05/23 08:10 Pulse 73 11/05/23 08:10 Resp 18 11/05/23 08:10 BP 98/50 11/05/23 08:33 Pulse Ox 100 11/05/23 08:10 FiO2 Intake & Output 11/04/23 11/05/23 11/05/23 18:59 06:59 18:59 Intake Total 1200 480 100 Output Total 450 200 Balance 750 280 100 Intake: Oral 1200 480 100 Output: Urine 450 200 Other: Voiding Method External Catheter External Catheter External Catheter # Bowel Movements 1 - Exam General appearance: The patient is alert, oriented, appears in no acute distress. Morbidly obese. HET: Head is normocephalic and atraumatic. Conjunctiva pink. Sclera anicteric. Neck: Supple without lymphadenopathy. Abdomen: Soft, nontender, nondistended with bowel sounds. No guarding or rigidity. Extremities: Normal skin color and turgor. No pedal edema Skin: No rashes, no jaundice Neurological: No focal deficits. Alert and oriented. - Labs CBC & Chem 7: 11/05/23 08:36 02 08:36 Labs: Abnormal Lab Results - Last 24 Hours (Table) 11/05/23 11/05/23 Range/Units 08:36 08:36 WBC 20.3 H (3.8-10.6) k/uL RBC 3.25 L (3.80-5.40) m/uL Hgb 9.2 L (11.4-16.0) gm/dL Hct 29.6 L (34.0-46.0) % RDW 17.2 H (11.5-15.5) % Sodium 134 L (137-145) mmol/L BUN 27 H (7-17) mg/dL Calcium 8.0 L (8.4-10.2) mg/dL AST 126 H (14-36) U/L ALT 108 H (4-34) U/L Total Protein 5.3 L (6.3-8.2) g/dL Albumin 2.7 L (3.5-5.0) g/dL Assessment and Plan (1) Anemia Narrative/Plan: 78-year-old female with multiple comorbidities on Eliquis, Plavix and aspirin presented to the emergency department after sustaining a fall and being on the ground for at least 16 hours according to patient's family. Patient was noted to have rhabdomyolysis, and significant anemia with a hemoglobin of 4.7. Patient denies any history of GI bleed in the past. States she started her Eliquis about 4 months ago and has had dark stools since that time. Does also report a remote history of peptic ulcer disease, unclear of any endoscopic evaluation in the past. 4 units of blood have been ordered. Unclear etiology possibilities include peptic ulcer disease, AVM, esophagitis, gastritis or other possible etiologies. Recommend upper endoscopy tomorrow and based on those findings will consider colonoscopy in another day or 2. 11/04/2023 patient is status post upper endoscopy with findings of a 2 cm prepyloric ulcer with no active bleeding, 5 to 6 cm deep large ulcer along the incisor angularis with raised margins status post multiple biopsies to rule out neoplasm as well as a 3 cm proximal gastric ulcer just distal to the cardia of the stomach status post biopsy. This is likely source of bleeding however no active bleeding. Recommend holding Eliquis for another 2 days. No plans for colonoscopy as a source of blood loss likely from ulcers. Current Visit: Yes Status: Acute Code(s): D64.9 - ANEMIA, UNSPECIFIED SNOMED Code(s): 165812550 (2) Fall Current Visit: Yes Status: Acute Code(s): W19.XXXA - UNSPECIFIED FALL, INITIAL ENCOUNTER SNOMED Code(s): 9047256 (3) Rhabdomyolysis Current Visit: Yes Status: Acute Code(s): M62.82 - RHABDOMYOLYSIS SNOMED Code(s): 938964215 (4) Pyloric ulcer Current Visit: Yes Status: Acute Code(s): K25.9 - GASTRIC ULCER, UNSP ACUTE OR CHRONIC, W/O HEMOR OR PERF SNOMED Code(s): 61097196 (5) Gastric ulcer Current Visit: Yes Status: Acute Code(s): K25.9 - GASTRIC ULCER, UNSP ACUTE OR CHRONIC, W/O HEMOR OR PERF SNOMED Code(s): 914021474 (6) Weakness Current Visit: Yes Status: Acute Code(s): R53.1 - WEAKNESS SNOMED Code(s): 64678178 Plan: 1. Continue symptomatic and supportive care 2. Patient started on Protonix 40 mg twice daily, continue after discharge 3. Patient may have regular diet 4. Continue to hold Eliquis for 2 more days may resume Thursday11/06/23 5. No plans on any further endoscopic evaluation 6. Patient is cleared from gastroenterology for discharge, recommend following up in 1 week for biopsy results Thank you for this consultation. We will sign off at this time. Dr. Miguel Alfaro I agree with the dictator's note, documented as a scribe by Jeni Lynn.
--- NOTE | 2023-11-05 17:15 | P.PN ---
Subjective History of present illness: This is a 78-year-old female patient Dr. Jerez with past med history of hypertension, dyslipidemia, morbid obesity, obstructive sleep apnea, paroxysmal atrial fibrillation, valvular heart disease with moderate AAS, history of stroke. We have been asked to evaluate the patient for atrial fibrillation. Patient presented to the hospital on November 02 due to weakness, debility status post fall on the ground for about 16 hours. Patient was also having dry heaves at home. And she had been on Eliquis, Plavix. Her initial hemoglobin was 4.6 and she has been treated for rhabdomyolysis. Patient underwent upper endoscopy finding prepyloric ulcer with no active bleeding, 5 to 6 cm deep large ulcer along the incisura need to angularis with raised margins s/p biopsy to rule out neoplasm and a 3 cm proximal gastric ulcer status postbiopsy. Patient has been transfused a total of 4 units of packed RBCs. This morning, patient was noted to be in A-fib with RVR. EKG obtained on 11/02: Atrial fibrillation with ventricular rate of 98. Telemetry is atrial fibrillation with controlled response. Chest x-ray: Moderate cardiomegaly. Small right pleural effusion and mild volume loss in the right hemithorax. Patchy densities in the right lung may reflect atelectasis or mild pulmonary contusions. WBC 19.1, hemoglobin 9.6, platelet count 284. Sodium 136, potassium 3.6, BUN 20 and creatinine 0.81. Total bilirubin 1.5, AST 143, ALT 84, alkaline phosphatase 93. Lactic acid most recently 1.5. Troponin obtained on 11/02 0.136. proBNP 8280. Initial CK 5249. Home cardiac medications: Eliquis 2.5 mg twice daily, atorvastatin 40 mg at bedtime, Plavix 75 mg daily, hydrochlorothiazide 12.5 mg daily, lisinopril 10 mg twice daily. Cardiac catheterization history 09/25/2023: Normal coronaries Echocardiogram obtained 08/31/2023 revealed normal EF of 55%, moderate aortic stenosis, mild mitral regurgitation, mild tricuspid regurgitation. Lexiscan Cardiolite stress test performed in the office on 07/21/2023 revealed nondiagnostic electrocardiographic stress test and response to Lexiscan. Abnormal myocardial perfusion imaging with evidence of reversible defect of moderate size and mild intensity anteriorly. Normal left ventricular systolic function. 11/05 Patient seen and examined. Patient's hemoglobin has been relatively stable I'll be decreased to 9.2 today. Denies any hematochezia or melena. She has had b orderline blood pressures and dropped in the 70s overnight. We will discontinue her lisinopril and she was restarted on hydrochlorothiazide secondary to mild lower extremity edema. Liver enzymes have mildly decreased. Physical examination: Gen: This is a 78-year-old female resting in bed and appears to be in no acute distress. VS: reviewed blood pressure 91/47, heart rate 89, pulse ox 93% on room air, afebrile HEENT: Head is atraumatic, normocephalic. Pupils equal, round. Sclerae is anicteric. NECK: Supple. No JVD. LUNGS: Clear to auscultation. No wheezes or rhonchi. No intercostal retra ctions. HEART: Irregular rate and rhythm. Systolic murmur. EXTREMITIES: No pedal edema. No calf tenderness. NEUROLOGICAL: Patient is awake, alert and oriented x3. Assessment: Acute blood loss anemia, acute GI bleed status posttransfusion of 4 units packed RBCs Lactic acidosis Fall and rhabdomyolysis Paroxysmal atrial fibrillation, controlled ventricular rate Hypertension Dyslipidemia Valvular heart disease with moderate History of stroke Morbid obesity Obstructive sleep apnea Hypotension, may be component of blood loss anemia Plan: Hold patient's lisinopril secondary to hypotension with systolics in the 70s overnight Continue to hold Eliquis Patient may not require both Eliquis and plavix in future. May consider Watchman procedure. Patient may discuss with Dr. Jerez on follow up. Further recommendations to follow based upon clinical course Objective - Vital Signs Vital signs: Vital Signs Temp 98.1 F 11/05/23 11:31 Pulse 85 11/05/23 11:31 Resp 16 11/05/23 11:31 BP 113/55 11/05/23 11:31 Pulse Ox 95 11/05/23 11:31 FiO2 Intake & Output 11/04/23 11/05/23 11/05/23 18:59 06:59 18:59 Intake Total 1200 480 238 Output Total 450 200 350 Balance 750 280 -112 Intake: IV 20 Invasive Line 1 10 Invasive Line 2 10 Oral 1200 480 218 Output: Urine 450 200 350 Other: Voiding Method External Catheter External Catheter External Catheter # Voids 1 # Bowel Movements 1 - Labs CBC & Chem 7: 11/05/23 08:36 11/05/23 08:36 Labs: Abnormal Lab Results - Last 24 Hours (Table) 11/05/23 11/05/23 Range/Units 08:36 08:36 WBC 20.3 H (3.8-10.6) k/uL RBC 3.25 L (3.80-5.40) m/uL Hgb 9.2 L (11.4-16.0) gm/dL Hct 29.6 L (34.0-46.0) % RDW 17.2 H (11.5-15.5) % Sodium 134 L (137-145) mmol/L BUN 27 H (7-17) mg/dL Calcium 8.0 L (8.4-10.2) mg/dL AST 126 H (14-36) U/L ALT 108 H (4-34) U/L Total Protein 5.3 L (6.3-8.2) g/dL Albumin 2.7 L (3.5-5.0) g/dL
--- NOTE | 2023-11-06 08:27 | P.PN ---
Subjective Principal diagnosis: The patient is here essentially for acute GI bleed with anemia associated. Status post transfusion of PRBC. EKG shows 3 areas of concern with ulceration. Still some tarry stools stated. Appreciate GI input. Patient states no chest pain no voiding difficulties. No fever or chills. The patient states minimal dizziness today. Increase ambulation. Objective - Vital Signs Vital signs: Vital Signs Temp 98.4 F 11/06/23 07:42 Pulse 78 11/06/23 07:42 Resp 18 11/06/23 07:42 BP 98/55 11/06/23 07:42 Pulse Ox 93 L 11/06/23 03:18 FiO2 Intake & Output 11/05/23 11/06/23 11/06/23 18:59 06:59 18:59 Intake Total 238 Output Total 350 550 Balance -112 -550 Intake: IV 20 Invasive Line 2 10 Invasive Line 3 10 Oral 218 Output: Urine 350 550 Other: Voiding Method External Catheter External Catheter # Voids 1 - Constitutional General appearance: Present: obese - EENT Eyes: Absent: abnormal pupil - Neck Neck: Absent: lymphadenopathy - Respiratory Respiratory: bilateral: diminished - Cardiovascular Rhythm: irregularly irregular Heart sounds: normal: S1, S2 Abnormal Heart Sounds: Absent: S3 Gallop - Gastrointestinal General gastrointestinal: Present: soft. Absent: tenderness - Psychiatric Psychiatric: Present: A&O x's 3 - Labs CBC & Chem 7: 11/05/23 08:36 11/05/23 08:36 Labs: Abnormal Lab Results - Last 24 Hours (Table) 11/05/23 11/05/23 Range/Units 08:36 08:36 WBC 20.3 H (3.8-10.6) k/uL RBC 3.25 L (3.80-5.40) m/uL Hgb 9.2 L (11.4-16.0) gm/dL Hct 29.6 L (34.0-46.0) % RDW 17.2 H (11.5-15.5) % Sodium 134 L (137-145) mmol/L BUN 27 H (7-17) mg/dL Calcium 8.0 L (8.4-10.2) mg/dL AST 126 H (14-36) U/L ALT 108 H (4-34) U/L Total Protein 5.3 L (6.3-8.2) g/dL Albumin 2.7 L (3.5-5.0) g/dL Assessment and Plan (1) Anemia due to GI blood loss Current Visit: Yes Status: Acute Code(s): D50.0 - IRON DEFICIENCY ANEMIA SECONDARY TO BLOOD LOSS (CHRONIC) SNOMED Code(s): 533625072 (2) Peptic ulcer disease Current Visit: Yes Status: Acute Code(s): K27.9 - PEPTIC ULC, SITE UNSP, UNSP AC OR CHR, W/O HEMOR OR PERF SNOMED Code(s): 42812695 Plan: Appreciate cardiology input. We will continue to increase ambulation. Hypotension is slowly resolving although she was below 100 systolic this morniimg Anticipate discharge in a.m. Atrial fibrillation with normal ventricular rate for the last day. Check CBC in the a.m.
[2023-11-06 09:02] LABS: Anisocytosis Slight; HCT 29.5 % (34.0-46.0); HGB 9.4 gm/dL (11.4-16.0); Hypochromasia Marked; MCH 28.9 pg (25.0-35.0); MCHC 31.9 g/dL (31.0-37.0); MCV 90.7 fL (80.0-100.0); Mean Platelet Volume 7.5; Platelet Count 278 k/uL (150-450); Poikilocytosis Moderate; RBC 3.26 m/uL (3.80-5.40); WBC 14.8 k/uL (3.8-10.6)
[2023-11-06 09:29] LABS: ALT 114 U/L (4-34); AST 102 U/L (14-36); African American GFR (CKD) >90 (>60 ml/min/1.73 sqM); Albumin 2.8 g/dL (3.5-5.0); Alkaline Phosphatase 87 U/L (38-126); Anion Gap 5 mmol/L; Blood Urea Nitrogen 21 mg/dL (7-17); Calcium 8.2 mg/dL (8.4-10.2); Carbon Dioxide 28 mmol/L (22-30); Chloride 99 mmol/L (98-107); Glucose 81 mg/dL (74-99); Non-African American GFR(CKD) 79 (>60 ml/min/1.73 sqM); Potassium 3.4 mmol/L (3.5-5.1); Sodium 132 mmol/L (137-145); Total Protein 5.6 g/dL (6.3-8.2)
[2023-11-06] MEDS ORDERED: Potassium Replacement Protocol 1 EACH MISC MISCELLANE PRN (10:16)
[2023-11-06] MEDS: POTASSIUM CHLORIDE ER 20 MEQ TAB.ER PO SCH ×2 (11:23→16:49)
--- NOTE | 2023-11-06 16:41 | P.PN ---
Subjective Progress Note Date: 11/06/23 History of present illness: This is a 78-year-old female patient Dr. Jerez with past med history of hyperte nsion, dyslipidemia, morbid obesity, obstructive sleep apnea, paroxysmal atrial fibrillation, valvular heart disease with moderate AAS, history of stroke. We have been asked to evaluate the patient for atrial fibrillation. Patient presented to the hospital on November 02 due to weakness, debility status post fall on the ground for about 16 hours. Patient was also having dry heaves at home. And she had been on Eliquis, Plavix. Her initial hemoglobin was 4.6 and she has been treated for rhabdomyolysis. Patient underwent upper endoscopy finding prepyloric ulcer with no active bleeding, 5 to 6 cm deep large ulcer along the incisura need to angularis with raised margins s/p biopsy to rule out neoplasm and a 3 cm proximal gastric ulcer status postbiopsy. Patient has been transfused a total of 4 units of packed RBCs. This morning, patient was noted to be in A-fib with RVR. EKG obtained on 11/02: Atrial fibrillation with ventricular rate of 98. Telemetry is atrial fibrillation with controlled response. Chest x-ray: Moderate cardiomegaly. Small right pleural effusion and mild volume loss in the right hemithorax. Patchy densities in the right lung may reflect atelectasis or mild pulmonary contusions. WBC 19.1, hemoglobin 9.6, platelet count 284. Sodium 136, potassium 3.6, BUN 20 and creatinine 0.81. Total bilirubin 1.5, AST 143, ALT 84, alkaline phosphatase 93. Lactic acid most recently 1.5. Troponin obtained on 11/02 0.136. proBNP 8280. Initial CK 5249. Home cardiac medications: Eliquis 2.5 mg twice daily, atorvastatin 40 mg at bedtime, Plavix 75 mg daily, hydrochlorothiazide 12.5 mg daily, lisinopril 10 mg twice daily. Cardiac catheterization history 09/25/2023: Normal coronaries Echocardiogram obtained 08/31/2023 revealed normal EF of 55%, moderate aortic stenosis, mild mitral regurgitation, mild tricuspid regurgitation. Lexiscan Cardiolite stress test performed in the office on 07/21/2023 revealed nondiagnostic electrocardiographic stress test and response to Lexiscan. Abnormal myocardial perfusion imaging with evidence of reversible defect of moderate size and mild intensity anteriorly. Normal left ventricular systolic function. 11/05 Patient seen and examined. Patient's hemoglobin has been relatively stable I'll be decreased to 9.2 today. Denies any hematochezia or melena. She has had borderline blood pressures and dropped in the 70s overnight. We will discontinue her lisinopril and she was restarted on hydrochlorothiazide secondary to mild lower extremity edema. Liver enzymes have mildly decreased. 11/06 Echocardiogram reveals EF of 50 to 55%, moderate concentric left ventricular hypertrophy. Mild TV dilatation with normal global systolic function. Mitral valve annular calcification with no significant regurgitation or stenosis. A ortic valve calcification with mild aortic stenosis mean gradient 10 mmHg. No pericardial effusion. Patient underwent EGD with positive results on biopsy for diffuse large B-cell lymphoma. Physical examination: Gen: This is a 78-year-old female resting in bed and appears to be in no acute distress. VS: reviewed blood pressure 91/47, heart rate 89, pulse ox 93% on room air, afebrile HEENT: Head is atraumatic, normocephalic. Pupils equal, round. Sclerae is anicteric. NECK: Supple. No JVD. LUNGS: Clear to auscultation. No wheezes or rhonchi. No intercostal retractions. HEART: Irregular rate and rhythm. Systolic murmur. EXTREMITIES: No pedal edema. No calf tenderness. NEUROLOGICAL: Patient is awake, alert and oriented x3. Assessment: Acute blood loss anemia, acute GI bleed status posttransfusion of 4 units packed RBCs Lactic acidosis Fall and rhabdomyolysis Paroxysmal atrial fibrillation, controlled ventricular rate Hypertension Dyslipidemia Valvular heart disease with moderate History of stroke Morbid obesity Obstructive sleep apnea Hypotension, may be component of blood loss anemia Plan: Continue to hold Eliquis, resume when cleared by GI Patient may not require both Eliquis and plavix in future. May consider Watchman procedure. Patient may discuss with Dr. Jerez on follow up. Cardiology will sign off this case and follow on an as-needed basis. Please reconsult for any new concerns. Patient may follow-up in the office in one to 2 weeks. Nurse practitioner note has been reviewed, I agree with documented findings and plan of care. Patient was seen and examined. Objective - Vital Signs Vital signs: Vital Signs Temp 97.7 F 11/06/23 15:51 Pulse 76 11/06/23 15:51 Resp 20 11/06/23 15:51 BP 118/74 11/06/23 15:51 Pulse Ox 96 11/06/23 15:51 FiO2 Intake & Output 11/05/23 11/06/23 11/06/23 18:59 06:59 18:59 Intake Total 238 368 Output Total 350 550 Balance -112 -550 368 Weight 133.3 kg Intake: IV 20 10 Invasive Line 2 10 Invasive Line 3 10 10 Oral 218 358 Output: Urine 350 550 Other: Voiding Method External Catheter External Catheter Toilet Diaper # Voids 1 2 - Labs CBC & Chem 7: 11/06/23 08:40 11/06/23 15:23 Labs: Abnormal Lab Results - Last 24 Hours (Table) 11/06/23 11/06/23 11/06/23 Range/Units 08:40 08:40 15:23 WBC 14.8 H (3.8-10.6) k/uL RBC 3.26 L (3.80-5.40) m/uL Hgb 9.4 L (11.4-16.0) gm/dL Hct 29.5 L (34.0-46.0) % RDW 18.0 H (11.5-15.5) % Sodium 132 L (137-145) mmol/L Potassium 3.4 L 3.4 L (3.5-5.1) mmol/L BUN 21 H (7-17) mg/dL Calcium 8.2 L (8.4-10.2) mg/dL AST 102 H (14-36) U/L ALT 114 H (4-34) U/L Total Protein 5.6 L (6.3-8.2) g/dL Albumin 2.8 L (3.5-5.0) g/dL
--- NOTE | 2023-11-06 21:39 | P.CONS ---
History of Present Illness - Reason for Consult Consult date: 11/06/23 Large B cell lymphoma Requesting physician: Jeni Leigh - Chief Complaint weakness, fall - History of Present Illness Patient is a 78-year-old female with a significant history of CVA and atrial fibrillation anticoagulated with eliquis and plavix. 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 Patient initially presented by EMS after a fall and was found on the floor. Patient reports progressing weakness over the last 6 weeks and also reports melena since starting eliquis approx 4 months ago. She was started on Eliquis 2.5 mg twice daily. Upon admission CBC revealed microcytic hypochromic anemia with hgb of 4.7. leukocytosis WBC 26.7 and platelets 531,000. Differential revealed neutrophilia and monocytosis. She has been transfused 4 units PRBCs since admit. Hemoglobin now stable at 9.4. Anticoagulation has been held. She underwent EGD on 11/03/2023 which revealed 2 cm prepyloric ulcer with no active bleeding. 5-6 cm deep large ulcer along the incisura angularis with raised margins. 3 cm proximal gastric ulcer just distal to the cardia of the stomach. Biopsies of gastric body ulcer and proximal gastric ulcer both positive for diffuse large B-cell lymphoma Review of Systems 10 point ROS is negative except as stated in the HPI Past Medical History Past Medical History: Atrial Fibrillation, Asthma, CVA/TIA, Eye Disorder, GERD/Reflux, Hyperlipidemia, Hypertension, Osteoarthritis (OA), Seizure Disorder, Sleep Apnea/CPAP/BIPAP Additional Past Medical History / Comment(s): Hypoglycemia-states seizure from hypoglycemia - last seizure 08/2020., heart murmur, hx of broken back , DDD, uses c-pap machine., "inflammation" in abd fold (using nystatin powder) - no current problems, 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 History of Any Multi-Drug Resistant Organisms: None Reported Past Surgical History: Cholecystectomy, Hernia Repair, Joint Replacement Additional Past Surgical History / Comment(s): Bilateral knee replacement,kashif. cataract surgery, bilateral laser eye surgery 02/24/21. hiatal hernia repair. Past Anesthesia/Blood Transfusion Reactions: No Reported Reaction Past Psychological History: Anxiety Smoking Status: Never smoker Past Alcohol Use History: None Reported Past Drug Use History: None Reported - Past Family History Mother Family Medical History: GERD/Reflux Additional Family Medical History / Comment(s): osteoporosis Father Family Medical History: CVA/TIA, Myocardial Infarction ([place]) Additional Family Medical History / Comment(s): mini strokes, CABG Medications and Allergies Home Medications Medication Instructions Recorded Confirmed Type Multivitamins, Thera [Multivitamin 1 tab PO DAILY 09/22/15 11/02/23 History (formulary)] ALPRAZolam [Xanax] 0.25 mg PO TID PRN 10/12/15 11/02/23 History lisinopriL [Lisinopril] 10 mg PO BID 10/12/15 11/02/23 History hydroCHLOROthiazide [Hydrodiuril] 12.5 mg PO DAILY 03/03/20 11/02/23 History Famotidine [Pepcid] 40 mg PO HS 03/03/21 11/02/23 History Vit C/E/Zn/Coppr/Lutein/Zeaxan 1 cap PO BID 03/03/21 11/02/23 History [Preservision Areds 2 Softgel] Clopidogrel [Plavix] 75 mg PO DAILY #30 tab 03/07/21 11/02/23 Rx Albuterol Inhaler [Ventolin Hfa 1 puff INHALATION RT-Q6H PRN 04/17/21 11/02/23 History Inhaler] Latanoprost/Pf [Latanoprost 0.005% 1 drop BOTH EYES BID 04/17/21 11/02/23 History Eye Drop] Atorvastatin Calcium [Lipitor] 40 mg PO HS 04/18/21 11/02/23 History Acetaminophen Tab [Tylenol Tab] 500 mg PO Q6H PRN 09/23/23 11/02/23 History Apixaban [Eliquis] 2.5 mg PO BID 09/23/23 11/02/23 History Cholecalciferol (Vitamin D3) 1 tab PO DAILY 09/23/23 11/02/23 History [Vitamin D3 (50 Mcg = 2000 Iu) Chew Tab] Dorzolamide HCl/Pf [Dorzolamide 2% 1 drop BOTH EYES BID 09/23/23 11/02/23 History Eye Drop] Loratadine [Claritin] 10 mg PO DAILY 09/23/23 11/02/23 History Tolterodine ER [Detrol LA] 4 mg PO DAILY 09/23/23 11/02/23 History Allergies Allergy/AdvReac Type Severity Reaction Status Date / Time codeine Allergy Rash/Hives Verified 11/02/23 13:29 Iodinated Contrast Media Allergy Rash/Hives Verified 11/02/23 13:29 [Iodinated Contrast Media - IV Dye] Penicillins Allergy Rash/Hives Verified 11/02/23 13:29 Physical Exam Vitals: Vital Signs Temp Pulse Pulse Resp BP BP Pulse Ox 11/06/23 20:00 98.0 F 60 18 121/52 98 11/06/23 19:05 81 16 11/06/23 17:30 97.8 F 81 16 127/56 98 11/06/23 15:51 97.7 F 76 20 118/74 96 11/06/23 11:18 98.2 F 72 16 107/64 96 11/06/23 10:18 79 112/55 11/06/23 07:42 98.4 F 78 18 98/55 11/06/23 03:18 98.1 F 59 L 18 99/64 93 L 11/05/23 23:34 98.2 F 86 20 124/70 97 Intake and Output 11/06/23 11/06/23 11/06/23 06:59 14:59 22:59 Intake Total 368 360 Output Total 550 Balance -550 368 360 Intake: IV 10 Invasive Line 3 10 Oral 358 360 Output: Urine 550 Other: Voiding Method External Catheter Toilet Toilet Diaper # Voids 2 1 Weight 133.3 kg - Constitutional General appearance: no acute distress, obese - EENT Eyes: anicteric sclerae, EOMI ENT: hearing grossly normal - Neck Neck: no lymphadenopathy - Respiratory Respiratory: bilateral: CTA - Cardiovascular Rhythm: regular Heart sounds: normal: S1, S2 - Gastrointestinal General gastrointestinal: soft, no tenderness - Integumentary Integumentary: no cyanotic - Musculoskeletal Musculoskeletal: generalized weakness - Psychiatric Psychiatric: A&O x's 3 Results CBC & Chem 7: 11/06/23 08:40 11/06/23 15:23 Labs: Abnormal Lab Results - Last 24 Hours (Table) 11/06/23 11/06/23 11/06/23 Range/Units 08:40 08:40 15:23 WBC 14.8 H (3.8-10.6) k/uL RBC 3.26 L (3.80-5.40) m/uL Hgb 9.4 L (11.4-16.0) gm/dL Hct 29.5 L (34.0-46.0) % RDW 18.0 H (11.5-15.5) % Sodium 132 L (137-145) mmol/L Potassium 3.4 L 3.4 L (3.5-5.1) mmol/L BUN 21 H (7-17) mg/dL Calcium 8.2 L (8.4-10.2) mg/dL AST 102 H (14-36) U/L ALT 114 H (4-34) U/L Total Protein 5.6 L (6.3-8.2) g/dL Albumin 2.8 L (3.5-5.0) g/dL Chest x-ray: report reviewed Assessment and Plan (1) Large B-cell lymphoma Current Visit: Yes Status: Acute Priority: High Code(s): C85.10 - UNSPECIFIED B-CELL LYMPHOMA, UNSPECIFIED SITE SNOMED Code(s): 529990089 (2) Anemia due to GI blood loss Current Visit: Yes Status: Acute Priority: High Code(s): D50.0 - IRON DEFICIENCY ANEMIA SECONDARY TO BLOOD LOSS (CHRONIC) SNOMED Code(s): 612228965 Plan: Large B cell Lymphoma: -Presented with progressing weakness and melena. Upon admission CBC revealed microcytic hypochromic anemia with hgb of 4.7. Leukocytosis with WBC 26.7 and platelets 531,000. Differential revealed neutrophilia and monocytosis. -She underwent EGD on 11/03/2023 which revealed 2 cm prepyloric ulcer with no active bleeding. 5-6 cm deep large ulcer along the incisura angularis with raised margins. 3 cm proximal gastric ulcer just distal to the cardia of the stomach. Biopsies of gastric body ulcer and proximal gastric ulcer both positive for diffuse large B-cell lymphoma. Discussed findings/diagnosis with patient and family -Staging PET CT will be scheduled outpt with clinic f/u to discuss results, treatment and goals of care Pt agreeable with POC Anemia: -Has been experiencing melena since starting eliquis approx 4 months ago. She was started on Eliquis 2.5 mg twice daily. Also on plavix for hx of CVA -Upon admission CBC revealed microcytic hypochromic anemia with hgb of 4.7. Plts 531,000. She has been transfused 4 units PRBCs since admit. Hemoglobin now stable at 9.4. -Had EGD on 11/03/2023 which revealed 2 cm prepyloric ulcer, 5-6 cm deep large ulcer along the incisura angularis with raised margins, and 3 cm proximal gastric ulcer just distal to the cardia of the stomach. No active bleeding was noted on EGD. -PPI started, Anticoagulation has been held -Anemia workup ordered -Will continue to monitor. Please transfuse for hgb less than 7 or if symptomatic Attests: I have seen and examined pt, performed H&P, developed impression and plan of care. Discussed with dictator. Agree with documentation, dictated as a scribe.
[2023-11-07 04:36] LABS: Ferritin 12.5 ng/mL (10.0-291.0)
[2023-11-07 05:54] LABS: % Iron Saturation 4.23 (12.00-45.00)
[2023-11-07 08:20] VITALS: RESP 20; TEMP 98
[2023-11-07 10:25] LABS: Anisocytosis Slight; HCT 27.6 % (34.0-46.0); HGB 8.6 gm/dL (11.4-16.0); Hypochromasia Marked; MCH 28.2 pg (25.0-35.0); MCHC 31.2 g/dL (31.0-37.0); MCV 90.2 fL (80.0-100.0); Mean Platelet Volume 8.1; Platelet Count 249 k/uL (150-450); Poikilocytosis Moderate; RBC 3.07 m/uL (3.80-5.40); RDW 18.3 % (11.5-15.5); WBC 10.5 k/uL (3.8-10.6)
[2023-11-07 10:55] LABS: African American GFR (CKD) >90 (>60 ml/min/1.73 sqM); Anion Gap 2 mmol/L; Blood Urea Nitrogen 16 mg/dL (7-17); Calcium 8.1 mg/dL (8.4-10.2); Carbon Dioxide 30 mmol/L (22-30); Chloride 104 mmol/L (98-107); Glucose 97 mg/dL (74-99); Non-African American GFR(CKD) 83 (>60 ml/min/1.73 sqM); Potassium 4.1 mmol/L (3.5-5.1); Sodium 136 mmol/L (137-145)
--- NOTE | 2023-11-07 13:35 | P.PN ---
Subjective Progress Note Date: 11/07/23 Principal diagnosis: Anemia Gastric DLBCL Pt's Hgb 8.6 today from 9.4. No active bleeding. Objective - Vital Signs Vital signs: Vital Signs Temp 98 F 11/07/23 08:00 Pulse 89 11/07/23 08:00 Resp 20 11/07/23 08:00 BP 126/49 11/07/23 08:00 Pulse Ox 98 11/07/23 09:43 FiO2 Intake & Output 11/06/23 11/07/23 11/07/23 18:59 06:59 18:59 Intake Total 728 120 Balance 728 120 Weight 133.3 kg Intake: IV 10 Invasive Line 3 10 Oral 718 120 Other: Voiding Method Toilet Toilet Diaper # Voids 3 1 # Bowel Movements 1 - Exam Patient is alert and oriented 3. Appears in no acute distress. No respiratory distress. No jaundice. Mucosa moist. - Labs CBC & Chem 7: 11/07/23 10:06 11/07/23 10:06 Labs: Abnormal Lab Results - Last 24 Hours (Table) 11/02/23 11/06/23 11/07/23 Range/Units 10:59 15:23 10:06 RBC 3.07 L (3.80-5.40) m/uL Hgb 8.6 L (11.4-16.0) gm/dL Hct 27.6 L (34.0-46.0) % RDW 18.3 H (11.5-15.5) % Sodium (137-145) mmol/L Potassium 3.4 L (3.5-5.1) mmol/L Calcium (8.4-10.2) mg/dL Iron 13 L (50-170) UG/DL % Saturation 4.23 L (12.00-45.00) 11/07/23 Range/Units 10:06 RBC (3.80-5.40) m/uL Hgb (11.4-16.0) gm/dL Hct (34.0-46.0) % RDW (11.5-15.5) % Sodium 136 L (137-145) mmol/L Potassium (3.5-5.1) mmol/L Calcium 8.1 L (8.4-10.2) mg/dL Iron (50-170) UG/DL % Saturation (12.00-45.00) Assessment and Plan Assessment: 1. Severe anemia 2. Iron deficiency 3. DLBCL of the stomach Plan: Mrs. Lin is a very pleasant 77-year-old female who is here for severe weakness and symptomatic anemia, hemoglobin of 4. Workup including EGD revealed multiple stomach ulceration, biopsy positive for DL BCL. Workup for anemia with iron deficiency. -For her DLBCL, recommended outpatient PET scan to complete staging and outpatient follow up afterwards to discuss results -For her iron deficiency anemia, she was transfused and received IV iron -Hemoglobin overall stable however did decrease slightly today -Patient otherwise seems ready for discharge, repeat CBC today to ensure fluctuating hemoglobin and not downtrending, and if stable no objections to discharge from hematology standpoint and will have her follow up to complete workup and continue IV iron supplementation outpatient -Pt states she does not feel well today, with weakness and abdominal pain, which may necessitate monitoring prior to discharge however. Discussed with patient she is agreeable to the plan. All of her questions were answered. Discussed with nursing staff.
[2023-11-07 14:55] LABS: Anisocytosis Slight; HCT 31.7 % (34.0-46.0); HGB 9.9 gm/dL (11.4-16.0); Hypochromasia Marked; MCH 28.1 pg (25.0-35.0); MCHC 31.1 g/dL (31.0-37.0); MCV 90.4 fL (80.0-100.0); Mean Platelet Volume 7.8; Platelet Count 319 k/uL (150-450); Poikilocytosis Moderate; RBC 3.51 m/uL (3.80-5.40); RDW 18.1 % (11.5-15.5); WBC 13.4 k/uL (3.8-10.6)
[2023-11-07 16:24] VITALS: BP 106/51; PULSE 85
--- NOTE | 2023-11-07 16:55 | P.DS ---
Providers Date of admission: 11/02/23 12:33 Expected date of discharge: 11/07/23 Attending physician: Aroldo Ford Consults: 11/04/23 08:42 Consult Physician Routine Consulting Provider: Live Vernon Consult Reason/Comments: atrial fibrillation Do you want consulting provider notified?: Yes 11/06/23 11:30 Consult Physician Urgent Consulting Provider: Iam Cam Consult Reason/Comments: Biopsy positive for diffuse large B-cell lymphoma on EGD Do you want consulting provider notified?: Yes Primary care physician: Aroldo Ford Hospital Course: 11/07/2023 Patient is currently sitting in a chair. Awake alert and oriented 3. Her complaints of chest pain or shortness of breath. No nausea vomiting or abdominal pain or diarrhea. Denied any episodes of hematemesis or melena. Hemoglobin this morning was 8.6 and repeat hemoglobin level is 9.9 today afternoon.. GI is agreeable to start back on eliquis but the patient states that she is not comfortable taking her liquids anymore and would like to discuss with Dr. Ford before restarting. Patient would like to continue to take Plavix at this time. Patient was advised that if she starts taking eliquis, she does not need to be on Plavix. Otherwise patient denied any chest pain. No fever no chills. No other acute overnight issues. Patient does have chronic leg swelling left slightly greater than right. Cleared from hematology standpoint and follow up as an outpatient. Patient Condition at Discharge: Good Plan - Discharge Summary Discharge Rx Participant: No New Discharge Prescriptions: New Pantoprazole [Protonix] 40 mg PO AC-BID 30 Days #60 tab lisinopriL 2.5 mg PO DAILY #30 tablet Ferrous Sulfate [Iron (65 MG Elemental)] 325 mg PO DAILY #30 tab Continue Multivitamins, Thera [Multivitamin (formulary)] 1 tab PO DAILY ALPRAZolam [Xanax] 0.25 mg PO TID PRN PRN Reason: Anxiety hydroCHLOROthiazide [Hydrodiuril] 12.5 mg PO DAILY Latanoprost/Pf [Latanoprost 0.005% Eye Drop] 1 drop BOTH EYES BID Atorvastatin Calcium [Lipitor] 40 mg PO HS Loratadine [Claritin] 10 mg PO DAILY Apixaban [Eliquis] 2.5 mg PO BID Cholecalciferol (Vitamin D3) [Vitamin D3 (50 Mcg = 2000 Iu) Chew Tab] 1 tab PO DAILY Clopidogrel [Plavix] 75 mg PO DAILY #30 tab Albuterol Inhaler [Ventolin Hfa Inhaler] 1 puff INHALATION RT-Q6H PRN PRN Reason: Shortness Of Breath Tolterodine ER [Detrol LA] 4 mg PO DAILY Acetaminophen Tab [Tylenol] 500 mg PO Q6H PRN PRN Reason: back pain Dorzolamide HCl/Pf [Dorzolamide 2% Eye Drop] 1 drop BOTH EYES BID Discontinued lisinopriL [Lisinopril] 10 mg PO BID Vit C/E/Zn/Coppr/Lutein/Zeaxan [Preservision Areds 2 Softgel] 1 cap PO BID Famotidine [Pepcid] 40 mg PO HS Discharge Medication List Multivitamins, Thera [Multivitamin (formulary)] 1 tab PO DAILY 09/22/15 [History] ALPRAZolam [Xanax] 0.25 mg PO TID PRN 10/12/15 [History] hydroCHLOROthiazide [Hydrodiuril] 12.5 mg PO DAILY 03/03/20 [History] Clopidogrel [Plavix] 75 mg PO DAILY #30 tab 03/07/21 [Rx] Albuterol Inhaler [Ventolin Hfa Inhaler] 1 puff INHALATION RT-Q6H PRN 04/17/21 [History] Latanoprost/Pf [Latanoprost 0.005% Eye Drop] 1 drop BOTH EYES BID 04/17/21 [History] Atorvastatin Calcium [Lipitor] 40 mg PO HS 04/18/21 [History] Acetaminophen Tab [Tylenol] 500 mg PO Q6H PRN 09/23/23 [History] Apixaban [Eliquis] 2.5 mg PO BID 09/23/23 [History] Cholecalciferol (Vitamin D3) [Vitamin D3 (50 Mcg = 2000 Iu) Chew Tab] 1 tab PO DAILY 09/23/23 [History] Dorzolamide HCl/Pf [Dorzolamide 2% Eye Drop] 1 drop BOTH EYES BID 09/23/23 [History] Loratadine [Claritin] 10 mg PO DAILY 09/23/23 [History] Tolterodine ER [Detrol LA] 4 mg PO DAILY 09/23/23 [History] Ferrous Sulfate [Iron (65 MG Elemental)] 325 mg PO DAILY #30 tab 11/07/23 [Rx] Pantoprazole [Protonix] 40 mg PO AC-BID 30 Days #60 tab 11/07/23 [Rx] lisinopriL 2.5 mg PO DAILY #30 tablet 11/07/23 [Rx] Follow up Appointment(s)/Referral(s): Aroldo Ford MD [Primary Care Provider] - 1-2 days [facility] Visiting Nurse, [NON-STAFF] - Iam Cam [STAFF PHYSICIAN] - 4 Weeks Discharge Disposition: HOME WITH HOME HEALTH SERVICES
[2023-11-10 06:38] LABS: Methylmalonic Acid 0.19 umol/L (<0.40)
== END 2023-11-07 17:35 | disposition home health service (06) | DRG 811 ==
LOC: EC 10:21 → 3SCARD 12:33 → 6NMEDSUR 11-07 07:13
PROVIDERS: ADMIT Family Medicine; ATTEND Family Medicine
PROC: 30283B1 Transfusion of Nonautologous 4-Factor Prothrombin Complex Concentrate into Vein, Percutaneous Approach (ICD-10-PCS; 2023-11-02)
PROC: 30233N1 Transfusion of Nonautologous Red Blood Cells into Peripheral Vein, Percutaneous Approach (ICD-10-PCS; 2023-11-02)
PROC: 0DB78ZX Excision of Stomach, Pylorus, Via Natural or Artificial Opening Endoscopic, Diagnostic (ICD-10-PCS; principal; 2023-11-03 11:50)
PROC: 0DB68ZX Excision of Stomach, Via Natural or Artificial Opening Endoscopic, Diagnostic (ICD-10-PCS; principal; 2023-11-03 11:50)
DX: D62 Acute posthemorrhagic anemia (principal); K25.4 Chronic or unspecified gastric ulcer with hemorrhage; K29.71 Gastritis, unspecified, with bleeding; C83.39 Diffuse large B-cell lymphoma, extranodal and solid organ sites; Z68.43 Body mass index [BMI] 50.0-59.9, adult; E87.20 Acidosis, unspecified; D72.829 Elevated white blood cell count, unspecified; E66.01 Morbid (severe) obesity due to excess calories; E78.5 Hyperlipidemia, unspecified; K21.9 Gastro-esophageal reflux disease without esophagitis; J45.909 Unspecified asthma, uncomplicated; I48.0 Paroxysmal atrial fibrillation; I10 Essential (primary) hypertension; T79.6XXA Traumatic ischemia of muscle, initial encounter; R53.81 Other malaise; M85.80 Other specified disorders of bone density and structure, unspecified site; K44.9 Diaphragmatic hernia without obstruction or gangrene; W18.30XA Fall on same level, unspecified, initial encounter; Y92.019 Unspecified place in single-family (private) house as the place of occurrence of the external cause; I95.9 Hypotension, unspecified; M19.90 Unspecified osteoarthritis, unspecified site; Z96.653 Presence of artificial knee joint, bilateral; G40.909 Epilepsy, unspecified, not intractable, without status epilepticus; F41.9 Anxiety disorder, unspecified; G47.33 Obstructive sleep apnea (adult) (pediatric); Z88.5 Allergy status to narcotic agent; Z88.0 Allergy status to penicillin; Z91.041 Radiographic dye allergy status; Z86.73 Personal history of transient ischemic attack (TIA), and cerebral infarction without residual deficits; Z79.899 Other long term (current) drug therapy; Z79.02 Long term (current) use of antithrombotics/antiplatelets; Z79.01 Long term (current) use of anticoagulants
CPT/HCPCS: 36415; 43239; 71045; 72170; 80048; 80053; 82525; 82550; 82607; 82728; 82747; 83540; 83550; 83605; 83735; 83880; 83921; 84100; 84132; 84484; 85025; 85027; 85610; 85730; 86850; 86900; 86901; 86920; 88305; 88341; 88342; 93005; 93306; 94760; 96361; 96365; 96375; 96376; 99291

== ENCOUNTER 2023-11-23 07:10 | Day surgery (SDC) | payer MEDICARE ==
[~2023-11-23 07:10] MED LIST changes: -ALPRAZolam 0.25 MG TAB PO PRN; -ALPRAZolam 0.5 MG TAB PO PRN; -ASPIRIN 325 MG TAB PO ONE; -HEPARIN SODIUM,PORCINE (1 ML) 2,500 UNIT in SODIUM CHLORIDE 0.9% 250 ML IRRIGATION PRN; -HEPARIN SODIUM,PORCINE 10,000 UNIT in SODIUM CHLORIDE 0.9% 1,000 ML IRRIGATION PRN; +LACTATED RINGERS 1,000 ML IV SCH; -NITROGLYCERIN SL TABS 0.4 MG TAB SUBLINGUAL PRN; +Pre Op ABX Message 1 EACH MISC MISCELLANE ONE; -SODIUM CHLORIDE 0.9% 1,000 ML in EMPTY BAG 1 BAG IV SCH; +fentaNYL (PF) 50 MCG/ML 2 ML AMP IV PRN
[2023-11-23] MEDS: LACTATED RINGERS 1,000 ML IV ONE (07:49)
[2023-11-23 08:06] LABS: Glucose,Whole Blood 84 mg/dL (70-110)
[2023-11-23] MEDS: DEXAMETHASONE SOD PHOSPHATE 4 MG/ML 1 ML VIAL IV ONE (08:31)
[2023-11-23] MEDS: ONDANSETRON 4 MG/2 ML VIAL IVP ONE (08:31)
[2023-11-23] MEDS: HEPARIN SODIUM,PORCINE 5,000 UNIT/ML 1 ML VIAL SQ PRN (08:32)
--- NOTE | 2023-11-23 08:33 | P.GSHP ---
History of Present Illness H&P Date: 11/23/23 Chief Complaint: Lymphoma This is a 78-year-old female who was recently diagnosed with gerd patient presents today for Port-A-Cath insertion. 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 bleeding ulcer- recent admit for anemia and weakness, ( transfused ) nonhodkins lymphoma in stomach dx. to have PET scan. pt states she has arrythmia where her heart beats faster ( afib per hx). cellulitis to bilateral shins - antibiotic cream uses diabetic socks. edema to left ankle History of Any Multi-Drug Resistant Organisms: None Reported Past Surgical History: Cholecystectomy, Hernia Repair, Joint Replacement Additional Past Surgical History / Comment(s): Bilateral knee replacement,kashif. cataract surgery, bilateral laser eye surgery 02/24/21. hiatal hernia repair. Past Anesthesia/Blood Transfusion Reactions: No Reported Reaction Smoking Status: Never smoker - Past Family History Mother Family Medical History: GERD/Reflux Additional Family Medical History / Comment(s): osteoporosis, feeding tube Father Family Medical History: CVA/TIA, Myocardial Infarction ([place]) Additional Family Medical History / Comment(s): mini strokes, CABG Daughter(s) Family Medical History: Pulmonary Embolus Additional Family Medical History / Comment(s): granddaughter blood clots when Medications and Allergies Home Medications Medication Instructions Recorded Confirmed Type Multivitamins, Thera [Multivitamin 1 tab PO DAILY 09/22/15 11/19/23 History (formulary)] ALPRAZolam [Xanax] 0.25 mg PO TID PRN 10/12/15 11/19/23 History hydroCHLOROthiazide [Hydrodiuril] 12.5 mg PO DAILY 03/03/20 11/19/23 History Clopidogrel [Plavix] 75 mg PO DAILY #30 tab 03/07/21 11/19/23 Rx Albuterol Inhaler [Ventolin Hfa 1 puff INHALATION RT-Q6H PRN 04/17/21 11/19/23 History Inhaler] Latanoprost/Pf [Latanoprost 0.005% 1 drop BOTH EYES BID 04/17/21 11/19/23 History Eye Drop] Atorvastatin Calcium [Lipitor] 40 mg PO HS 04/18/21 11/19/23 History Acetaminophen Tab [Tylenol] 500 mg PO Q6H PRN 09/23/23 11/19/23 History Cholecalciferol (Vitamin D3) 1 tab PO DAILY 09/23/23 11/19/23 History [Vitamin D3 (50 Mcg = 2000 Iu) Chew Tab] Loratadine [Claritin] 10 mg PO DAILY 09/23/23 11/19/23 History Tolterodine ER [Detrol LA] 4 mg PO DAILY 09/23/23 11/19/23 History Ferrous Sulfate [Iron (65 MG 325 mg PO DAILY #30 tab 11/07/23 11/19/23 Rx Elemental)] Pantoprazole [Protonix] 40 mg PO AC-BID 30 Days #60 tab 11/07/23 11/19/23 Rx lisinopriL 2.5 mg PO DAILY #30 tablet 11/07/23 11/19/23 Rx Unk Preservision 1 tab PO DAILY 11/19/23 11/19/23 History Allergies Allergy/AdvReac Type Severity Reaction Status Date / Time aspirin Allergy upset Verified 11/23/23 07:51 stomach , ulcers codeine Allergy Rash/Hives Verified 11/23/23 07:51 Iodinated Contrast Media Allergy Rash/Hives Verified 11/23/23 07:51 [Iodinated Contrast Media - IV Dye] Penicillins Allergy Rash/Hives Verified 11/23/23 07:51 Surgical - Exam Vital Signs Temp Pulse Resp BP Pulse Ox 97.8 F 102 H 16 128/57 97 11/23/23 08:07 11/23/23 08:07 11/23/23 08:07 11/23/23 08:07 11/23/23 08:07 - General well developed, well nourished, no distress - Eyes PERRL - ENT normal pinna - Neck no masses - Respiratory normal expansion - Cardiovascular Rhythm: regular - Abdomen Abdomen: soft, non tender Assessment and Plan Plan: History of lymphoma. Will perform Port-A-Cath insertion.
[2023-11-23 08:36] VITALS: RESP 16
[2023-11-23] MEDS: ACETAMINOPHEN TAB 500 MG TAB PO PRN (08:36)
[2023-11-23] MEDS ORDERED: PROPOFOL 10 MG/ML 20 ML VIAL IV ONE (08:48)
[2023-11-23] MEDS ORDERED: LIDOCAINE 1% INJ 10MG/ML (20 ML MDV) ONE (08:48)
[2023-11-23] MEDS ORDERED: MIDAZOLAM 2 MG/2 ML VIAL ONE (08:48)
[2023-11-23] MEDS ORDERED: fentaNYL (PF) 50 MCG/ML 2 ML AMP ONE (08:48)
[2023-11-23] MEDS ORDERED: SUCCINYLCHOLINE CHLORIDE 200 MG/10 ML VIAL IV ONE (08:48)
[2023-11-23] MEDS: HEPARIN SODIUM,PORCINE 100 UNIT/ML 5 ML VIAL IV ONE ×2 (09:12→09:22)
[2023-11-23] MEDS: LIDOCAINE 2%-EPI 1:100,000 20 ML VIAL SQ ONE ×2 (09:12→09:22)
--- NOTE | 2023-11-23 09:45 | FL ---
EXAMINATION TYPE: FL guided central line placemt HISTORY: Fluoroscopy time Impression: 1. Fluoroscopy support provided to the referring physician.
--- NOTE | 2023-11-23 10:00 | P.OP ---
Date of Procedure: 11/23/23 Preoperative Diagnosis: Lymphoma Postoperative Diagnosis: Lymphoma Procedure(s) Performed: Right subclavian Port-A-Cath Anesthesia: SAMUEL Surgeon: Asael Nicholas Estimated Blood Loss (ml): 5 Pathology: none sent Condition: stable Disposition: PACU Description of Procedure: T the patient was placed on the operating table in the supine position. The patient received IV sedation. The patient's chest was prepped and draped in the usual sterile fashion. A roll had been placed between the shoulder blades in a longitudinal fashion. After prepping and draping the skin was anesthetized 1% local Xylocaine. And then using the Seldinger technique the subclavian vein was cannulated. A wire was placed into the vein and fluoroscopy position the wire at the atrial caval junction. Next the dilator sheath was placed over top the wire and the wire was withdrawn. The catheter was positioned at the atriocaval position. The catheter was placed through the sheath after the dilator was withdrawn. The sheath was then withdrawn. Position of the catheter was confirmed with fluoroscopy. The Port-A-Cath was connected to the catheter. The Port-A-Cath was flushed with saline and then heparinized saline. The skin was closed interrupted 3-0 Monocryl suture. Dermabond was applied. Patient tolerated procedure well and was sent to recovery room stable condition.
[2023-11-23 10:13] VITALS: TEMP 97
[2023-11-23 10:24] LABS: Glucose,Whole Blood 91 mg/dL (70-110)
--- NOTE | 2023-11-23 10:43 | XR ---
EXAMINATION TYPE: XR chest 1V portable DATE OF EXAM: 11/23/2023 COMPARISON: 11/02/2023 HISTORY: Port-A-Cath TECHNIQUE: Single frontal view of the chest is obtained. FINDINGS: Heart is enlarged. A Mediport catheter is seen the tip overlying the SVC. Underlying COPD with no overt failure. Atherosclerotic change of the aorta. Degenerative changes of the spine. IMPRESSION: A Port-A-Cath is seen with the tip overlying the SVC and no sizable pneumothorax.
[2023-11-23 11:15] VITALS: BP 129/75; PULSE 82
== END 2023-11-23 11:15 | disposition home or self-care (01) ==
LOC: OR 07:10
PROVIDERS: ATTEND Surgery
DX: C85.90 Non-Hodgkin lymphoma, unspecified, unspecified site (principal); K21.9 Gastro-esophageal reflux disease without esophagitis; I48.91 Unspecified atrial fibrillation; J45.909 Unspecified asthma, uncomplicated; M19.90 Unspecified osteoarthritis, unspecified site; E78.5 Hyperlipidemia, unspecified; I10 Essential (primary) hypertension; G47.33 Obstructive sleep apnea (adult) (pediatric); G40.909 Epilepsy, unspecified, not intractable, without status epilepticus; K92.2 Gastrointestinal hemorrhage, unspecified; E16.2 Hypoglycemia, unspecified; Z90.49 Acquired absence of other specified parts of digestive tract; Z96.653 Presence of artificial knee joint, bilateral; Z98.890 Other specified postprocedural states; Z86.73 Personal history of transient ischemic attack (TIA), and cerebral infarction without residual deficits; Z82.62 Family history of osteoporosis; Z82.3 Family history of stroke; Z79.02 Long term (current) use of antithrombotics/antiplatelets; Z79.51 Long term (current) use of inhaled steroids; Z88.6 Allergy status to analgesic agent; Z88.5 Allergy status to narcotic agent; Z91.041 Radiographic dye allergy status; Z88.0 Allergy status to penicillin; Z45.2 Encounter for adjustment and management of vascular access device
CPT/HCPCS: 84132; 77001; 71045; 36561; C1788; J2250; J0330; J1644; J1642; J1100; J2405; J2001; J3010; J2704

== ENCOUNTER → 2023-11-27 | Outpatient (CLI) | payer MEDICARE ==
--- NOTE | 2023-11-30 07:26 | PE ---
EXAMINATION TYPE: PET CT fusion skull to thigh DATE OF EXAM: 11/27/2023 COMPARISON: No recent pertinent CT. Prior PET/CT: No prior PET/CT at this location HISTORY: Trauma TECHNIQUE: Following the intravenous administration of 10.81 mCi of F-18 FDG, whole body images are performed from the skull base to the midthigh. Images are reviewed on the computer in the coronal, a xial, and sagittal planes. Reconstructed rotating images are created on independent workstation and reviewed on the computer. A localization and attenuation correction CT is performed in conjunction with the PET scan. DLP: 1027.69 mGycm SCAN: Subsequent Blood glucose: 93 mg/dL Average Mediastinum SUV: 1.81 Average Liver SUV: 2.71 FINDINGS: NECK: No abnormal uptake THORAX: No abnormal uptake ABDOMEN: There is irregular signal within the wall of the stomach greater along the fundus and lesser curvature. Sample image 129, SUV 19.82. There is a punctate area of uptake near the aorta posterior to the stomach could be a small adjacent lymph node, image 129, SUV 5.82 Larger nodule appears to be superior to the stomach has increased uptake is suspicious for a lymph no de. Example Image 139, SUV 9.87 PELVIS: No abnormal uptake OSSEOUS STRUCTURES: No suspicious uptake identified. There is some mild intermediate areas of uptake near scattered joint spaces more likely inflammatory changes. LOCALIZATION CT: Nodule corresponding to the uptake adjacent to the distal stomach is evident posteri or to surgical clips suspicious for lymph node corresponding to the 80 uptake on PET scan. Additional soft tissue anterior to the inferior vena cava at this level does not have abnormal this time COMPARISON: None IMPRESSION: 1. Irregular uptake throughout the stomach wall predominantly on this. 2. Abnormal uptake within the soft tissue nodular density superior to the lesser curvature of the dis pedro stomach may be a lymph node. 3. Punctate density near the gastroesophageal junction posterior to the stomach may be an additional small node.
== END | disposition home or self-care (01) ==
LOC: RADPETMAIN 13:50
PROVIDERS: ATTEND Internal Medicine Hematology & Oncology
DX: C83.39 Diffuse large B-cell lymphoma, extranodal and solid organ sites (principal)
CPT/HCPCS: 78815; A9552

== ENCOUNTER → 2024-02-22 | Outpatient (CLI) | payer MEDICARE ==
--- NOTE | 2024-02-26 09:45 | PE ---
EXAMINATION TYPE: PET CT fusion skull to thigh DATE OF EXAM: 02/22/2024 COMPARISON: No recent pertinent CT Prior PET/CT: 11/27/2023 HISTORY: Lymphoma TECHNIQUE: Following the intravenous administration of 12.73 mCi of F-18 FDG, whole body images are performed from the skull base to the midthigh. Images are reviewed on the computer in the coronal, a xial, and sagittal planes. Reconstructed rotating images are created on independent workstation and reviewed on the computer. A localization and attenuation correction CT is performed in conjunction with the PET scan. DLP: 468.23 mGycm SCAN: Subsequent Blood glucose: 110 mg/dL Average Mediastinum SUV: 1.84 Average Liver SUV: 2.4 FINDINGS: NECK: No abnormal uptake THORAX: No abnormal uptake within the thoracic cavity. ABDOMEN: No intraperitoneal abnormality. Liver is heterogenous. Subtle underlying metastases may be d ifficult to exclude. Previous uptake within the epigastric region is not evident. PELVIS: No abnormal uptake OSSEOUS STRUCTURES: Negative there is increased uptake within the acromion on the left. There are norma e scattered areas of increased uptake within the cervical spine. Scattered uptake is within the thora cic spine. There may be some mild uptake within the sternoclavicular junctions.. Some uptake may be w ithin the humeral diaphysis. There is uptake within the pelvis iliac wings. Some uptake is is region. LOCALIZATION CT: No suspicious uptake. There is limitation due to beam hardening artifact. COMPARISON: Uptake within the osseous regions may be changing. IMPRESSION: 1. Mild scattered areas of increased uptake within the osseous structures. This may be related to christi atment changes. 2. Suspicious focal uptake is not otherwise apparent. 3. Resolution previous epigastric region uptake.
== END | disposition home or self-care (01) ==
LOC: RADPETMAIN 08:54
PROVIDERS: ATTEND Internal Medicine Hematology & Oncology
DX: C83.39 Diffuse large B-cell lymphoma, extranodal and solid organ sites (principal)
CPT/HCPCS: 78815; A9552

== ENCOUNTER → 2024-04-20 | Outpatient (CLI) | payer MEDICARE ==
[2024-04-20 11:38] VITALS: BP 107/73; PULSE 72; RESP 16; TEMP 98.3
--- NOTE | 2024-04-20 12:02 | P.PROGSL ---
Subjective DATE: 04/20/2024 FOLLOW UP VISIT. Patient with obstructive sleep apnea hypopnea syndrome return to sleep center for follow-up visit. Information from previous visit have been reviewed. Patient is using PAP equipment most of the night, getting PAP supplies in time. The patient does not have significant problems with the mask, PAP unit and humi dification. [place] sleepiness scale is 2. I checked information from PAP unit. PAP unit pressure 10 cm H2O. Usage is 50% of the nights for last 6 months, average 3 hours per night. Sometimes patient sleeps in the chair without CPAP. Leak is 28 l/m, which is in acceptable range. Apnea Hypopnea Index is 0.5, which is normal. MEDICATIONS: Please see below During physical exam: GENERAL: A pleasant patient without any distress. VITAL SIGNS: Please see below, weight 268 pounds . HEENT: PERRLA, EOMI.low position of soft palate, Mallapati[] . NECK: Supple. No JVD. LUNGS: Clear to percussion and to auscultation. Good air exchange. No wheezing or rhonchi. HEART: S1, S2 . ABDOMEN: Soft and nontender.[] EXTREMITIES: No clubbing or cyanosis. MANAGER BENEFIT: Awake, alert, and oriented x3. No focal deficit. Impressions: 1. Obstructive sleep apnea-hypopnea syndrome. Patient demonstrated borderline compliance with treatment, benefiting from treatment. 2. Status post recent chemotherapy for non-Hodgkin lymphoma. 3. Obesity, BMI 47.4, patient lost 25 pounds comparing with previous visit. 4. Hypertension. 5. History of stroke in March 2021. 6. Status post bilateral knee replacement. 7. History of atrial fibrillation. 8. Status post cholecystectomy. Plan: 1. Continue using PAP equipment every night for the whole night. Patient promised to follow recommendations. 2. To change air filter at least 1-2 times per month. 3. PAP unit should stay lower then position of the head. 4. Advised patient to remove all remaining water from humidifier canister daily and make it dry after each usage. Refill canister with fresh distilled water before each usage. 5. Sleep hygiene with regular time in bed for at least 8 hours. 6. Precautions related to driving. No driving if feel any sleepiness. 7. I will maintain prescription for PAP supplies including mask, tube, filters. 8. Watching and losing weight. 9. Follow up visit in 6 months or earlier if patient has any problems. Thank you very much for allowing me to participate in the management of your patient. Buzz Francis MD, PhD, FAASM. Diplomat of [employer], Sleep Medicine Board by [employer] Security Operations Specialist of [facility] [place] Objective - Vital Signs Vital Signs: Vital Signs Temp 98.3 F 04/20/24 11:37 Pulse 72 04/20/24 11:37 Resp 16 04/20/24 11:37 BP 107/73 04/20/24 11:37 Pulse Ox 94 L 04/20/24 11:37 FiO2 Intake & Output 04/19/24 04/20/24 04/20/24 18:59 06:59 18:59 Weight 121.563 kg Home Medications: Home Medications Medication Instructions Recorded Confirmed Type Multivitamins, Thera [Multivitamin 1 tab PO DAILY 09/22/15 04/20/24 History (formulary)] ALPRAZolam [Xanax] 0.25 mg PO TID PRN 10/12/15 04/20/24 History hydroCHLOROthiazide [Hydrodiuril] 12.5 mg PO DAILY 03/03/20 04/20/24 History Clopidogrel [Plavix] 75 mg PO DAILY #30 tab 03/07/21 12/10/23 Rx Albuterol Inhaler [Ventolin Hfa 1 puff INHALATION RT-Q6H PRN 04/17/21 04/20/24 History Inhaler] Latanoprost/Pf [Latanoprost 0.005% 1 drop BOTH EYES BID 04/17/21 04/20/24 History Eye Drop] Atorvastatin Calcium [Lipitor] 40 mg PO HS 04/18/21 04/20/24 History Acetaminophen Tab [Tylenol] 500 mg PO Q6H PRN 09/23/23 04/20/24 History Cholecalciferol (Vitamin D3) 1 tab PO DAILY 09/23/23 04/20/24 History [Vitamin D3 (50 Mcg = 2000 Iu) Chew Tab] Loratadine [Claritin] 10 mg PO DAILY 09/23/23 04/20/24 History Tolterodine ER [Detrol LA] 4 mg PO DAILY 09/23/23 04/20/24 History Ferrous Sulfate [Iron (65 MG 325 mg PO DAILY #30 tab 11/07/23 12/10/23 Rx Elemental)] Pantoprazole [Protonix] 40 mg PO AC-BID 30 Days #60 tab 11/07/23 04/20/24 Rx Unk Preservision 1 tab PO DAILY 11/19/23 04/20/24 History Apixaban [Eliquis] 5 mg PO BID 04/20/24 04/20/24 History Famotidine 40 mg PO HS 04/20/24 04/20/24 History lisinopriL 2.5 mg PO DAILY 04/20/24 04/20/24 History
== END ==
LOC: 3 N SLEEP 11:24
PROVIDERS: ATTEND Internal Medicine
DX: G47.33 Obstructive sleep apnea (adult) (pediatric) (principal); E66.9 Obesity, unspecified; I10 Essential (primary) hypertension; I48.91 Unspecified atrial fibrillation; Z86.73 Personal history of transient ischemic attack (TIA), and cerebral infarction without residual deficits; Z96.653 Presence of artificial knee joint, bilateral; Z90.49 Acquired absence of other specified parts of digestive tract; Z68.42 Body mass index [BMI] 45.0-49.9, adult; Z99.89 Dependence on other enabling machines and devices; Z79.01 Long term (current) use of anticoagulants; Z85.72 Personal history of non-Hodgkin lymphomas; Z92.21 Personal history of antineoplastic chemotherapy; Z79.899 Other long term (current) drug therapy; Z79.02 Long term (current) use of antithrombotics/antiplatelets; Z88.6 Allergy status to analgesic agent; Z88.5 Allergy status to narcotic agent; Z91.041 Radiographic dye allergy status; Z88.0 Allergy status to penicillin
CPT/HCPCS: 99212

== ENCOUNTER → 2024-05-13 | Outpatient (CLI) | payer MEDICARE ==
--- NOTE | 2024-06-16 14:19 | CT ---
EXAMINATION TYPE: CT ChestAbdPelvis w con CT DLP: 1898 mGycm, Automated exposure control for dose reduction was used. DATE OF EXAM: 05/13/2024 COMPARISON: PET CT 02/22/2024, 11/27/2023 CLINICAL INDICATION:Female, 78 years old with history of C83.39, I48.91, I10, J45.998; PHH, lymphoma Technique: Multiple axial images of the chest, abdomen, and pelvis were obtained following the intrav enous administration of 100 mL Isovue-300. Oral contrast was administered. Two-dimensional coronal an d sagittal reconstructions were obtained. Findings: CHEST: LUNGS/ PLEURA: No pleural effusion or pneumothorax. Left lower lung posteriorly. Dependent fatty pleu ral thickening. No focal consolidation. No suspicious pulmonary nodule or mass. AIRWAY: Patent and unremarkable.. HEART: Cardiomegaly is demonstrated. No pericardial effusion. Aortic valvular calcifications. Dense m itral annulus calcifications. MEDIASTINUM: No evidence of adenopathy. VASCULATURE: No aortic aneurysm. Right chest wall IJ Mediport catheter distal tip terminating in the low SVC. MUSCULOSKELETAL: No acute osseous abnormalities. No aggressive osseous lesion. Multilevel degenerativ e disc disease. SOFT TISSUES/LYMPH NODES: Unremarkable. LOWER NECK: No significant findings. ABDOMEN: ABDOMEN LIVER: Unremarkable GALLBLADDER AND BILE DUCTS: The gallbladder is surgically absent. Mild intra and extrahepatic biliary ductal dilatation which is not unexpected post cholecystectomy. PANCREAS: Unremarkable. SPLEEN: Unremarkable. ADRENAL GLANDS: Right adrenal gland is unremarkable. Left ureteral gland 1.9 cm nodule. No previous F DG avidity. KIDNEYS AND URETERS: No evidence of hydronephrosis or renal calculus. The kidneys enhance symmetrical ly. Contrast is demonstrated within both collecting systems on the delayed phase. PELVIS BLADDER: Unremarkable REPRODUCTIVE: Unremarkable. ABDOMEN & PELVIS STOMACH AND BOWEL: Post surgical changes at the GE junction. There is similar hypodense soft tissue i n the gastrohepatic region of the lesser curvature with encasement of the left gastric artery. This a buts the splenic artery and the common hepatic artery. This soft tissue extends into the lino hepati s region. Distal colonic diverticulosis without evidence for acute diverticulitis. Enteric contrast i s reaches the distal small bowel. The appendix is within normal limits. No evidence of bowel obstruct ion. PERITONEUM: No evidence of pneumoperitoneum or free fluid. VASCULATURE: Mild atherosclerotic calcifications are present throughout the abdominal aorta and its b ranches. No abdominal aortic aneurysm. MUSCULOSKELETAL: No acute osseous abnormalities. No aggressive osseous lesion. Multilevel degenerativ e disease. Prominent posterior disc osteophyte complex at T11-T12. Prominent Schmorl's node involving the superior endplate of the T12 vertebral body. There are multiple central compression deformity ve rsus Schmorl's node involving the superior endplate of the L2 vertebral body. Mild osteoarthritic veronika nges of both hips. LYMPH NODES: No distinct lymph nodes greater than 1 cm short axis. SOFT TISSUE/ABDOMINAL WALL: Unremarkable IMPRESSION: 1. Redemonstration of ill-defined soft tissue along the lesser curvature of the stomach extending in to the lino hepatis region related to known lymphoma. Relatively stable from most recent PET/CT 02/21. No new lymphadenopathy. 2. Stable indeterminate left adrenal gland 1.9 cm nodule. No previous FDG activity. May represent a benign adenoma however metastasis is not excluded. Attention on follow-up exams. 3. No evidence of metastatic disease within the chest.
== END | disposition home or self-care (01) ==
LOC: RADCTMAIN 11:05
PROVIDERS: ATTEND Internal Medicine Hematology & Oncology
DX: C83.39 Diffuse large B-cell lymphoma, extranodal and solid organ sites (principal); I48.91 Unspecified atrial fibrillation; I10 Essential (primary) hypertension; J45.998 Other asthma
CPT/HCPCS: 71260; 74177; Q9967

== ENCOUNTER 2024-06-01 20:28 | Inpatient (IN) | payer MEDICARE ==
--- NOTE | 2024-06-01 21:30 | ED ---
Weakness HPI - General Chief complaint: Weakness Stated complaint: Weakness, Dizzy Time Seen by Provider: 06/01/24 21:29 Source: patient Mode of arrival: wheelchair Limitations: no limitations - History of Present Illness Initial comments: 78-year-old female who recently just completed chemotherapy for non-Hodgkin's lymphoma presenting with chief complaint of weakness. Patient has been having generalized weakness which severely worsened yesterday. She denies any chest pain or difficulty breathing. - Related Data Home Medications Medication Instructions Recorded Confirmed Multivitamins, Thera [Multivitamin 1 tab PO DAILY 09/22/15 06/02/24 (formulary)] ALPRAZolam [Xanax] 0.25 mg PO TID PRN 10/12/15 06/02/24 hydroCHLOROthiazide [Hydrodiuril] 12.5 mg PO DAILY 03/03/20 06/02/24 Albuterol Inhaler [Ventolin Hfa 1 - 2 puff INHALATION RT-Q6H PRN 04/17/21 06/02/24 Inhaler] Latanoprost/Pf [Latanoprost 0.005% 1 drop BOTH EYES HS 04/17/21 06/02/24 Eye Drop] Atorvastatin Calcium [Lipitor] 40 mg PO HS 04/18/21 06/02/24 Cholecalciferol (Vitamin D3) 50 mcg PO DAILY 09/23/23 06/02/24 [Vitamin D3 (50 Mcg = 2000 Iu) Chew Tab] Loratadine [Claritin] 10 mg PO DAILY 09/23/23 06/02/24 Tolterodine ER [Detrol LA] 4 mg PO DAILY 09/23/23 06/02/24 Apixaban [Eliquis] 5 mg PO BID 04/20/24 06/02/24 Famotidine 40 mg PO HS 04/20/24 06/02/24 lisinopriL 2.5 mg PO DAILY 04/20/24 06/02/24 Dorzolamide 2% [Trusopt 2%] 1 drop BOTH EYES TID 06/02/24 06/02/24 Vit A/Vit C/Vit E/Zinc/Copper 1 cap PO DAILY 06/02/24 06/02/24 [ICAPS SOFTGEL] Previous Rx's Medication Instructions Recorded Clopidogrel [Plavix] 75 mg PO DAILY #30 tab 03/07/21 Pantoprazole [Protonix] 40 mg PO AC-BID 30 Days #60 tab 11/07/23 Allergies Allergy/AdvReac Type Severity Reaction Status Date / Time aspirin Allergy upset Verified 06/02/24 08:38 stomach , ulcers codeine Allergy Rash/Hives Verified 06/02/24 08:38 Iodinated Contrast Media Allergy Rash/Hives Verified 06/02/24 08:38 [Iodinated Contrast Media - IV Dye] Penicillins Allergy Rash/Hives Verified 06/02/24 08:38 Review of Systems ROS Statement: Those systems with pertinent positive or pertinent negative responses have been documented in the HPI. ROS Other: All systems not noted in ROS Statement are negative. 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 History of Any Multi-Drug Resistant Organisms: None Reported Past Surgical History: Cholecystectomy, Hernia Repair, Joint Replacement Additional Past Surgical History / Comment(s): Bilateral knee replacement,kashif. cataract surgery, bilateral laser eye surgery 02/24/21. hiatal hernia repair. Past Anesthesia/Blood Transfusion Reactions: No Reported Reaction Past Psychological History: Anxiety Smoking Status: Never smoker Past Alcohol Use History: None Reported Past Drug Use History: None Reported - Past Family History Mother Family Medical History: GERD/Reflux Additional Family Medical History / Comment(s): osteoporosis, feeding tube Father Family Medical History: CVA/TIA, Myocardial Infarction ([place]) Additional Family Medical History / Comment(s): mini strokes, CABG Daughter(s) Family Medical History: Pulmonary Embolus Additional Family Medical History / Comment(s): granddaughter blood clots when General Exam - General Exam Comments Initial Comments: Visual Physical Exam Vital signs reviewed General: Well-appearing, nontoxic, no acute distress. Head: Normocephalic, atraumatic Eyes: PERRLA, EOMI ENT: Airway patent Chest: Nonlabored breathing Skin: No visual rash, normal skin tone Neuro: Alert and oriented 3 Musculoskeletal: No gross abnormalities Limitations: no limitations Course Vital Signs 06/01/24 06/02/24 06/02/24 20:38 00:40 06:02 Temperature 98.8 F 98.5 F 99.1 F Pulse Rate 101 H 79 86 Respiratory 18 20 18 Rate Blood Pressure 118/54 110/71 103/67 O2 Sat by Pulse 94 L 94 L 95 Oximetry 06/02/24 06/02/24 06/02/24 09:27 10:58 13:06 Temperature 100.3 F H 98.8 F 98.1 F Pulse Rate 86 87 80 Respiratory 18 18 18 Rate Blood Pressure 112/68 119/52 110/60 O2 Sat by Pulse 96 92 L 97 Oximetry 06/02/24 06/02/24 06/02/24 14:36 15:24 15:45 Temperature 98.2 F 99.2 F 99.2 F Pulse Rate 59 L 60 Respiratory 18 20 Rate Blood Pressure 121/68 117/68 O2 Sat by Pulse 92 L 90 L Oximetry 06/02/24 06/02/24 06/02/24 16:19 17:39 17:48 Temperature Pulse Rate 68 68 65 Respiratory 18 Rate Blood Pressure O2 Sat by Pulse 95 95 Oximetry 06/02/24 18:20 Temperature 102.0 F H Pulse Rate 106 H Respiratory 18 Rate Blood Pressure 102/62 O2 Sat by Pulse 95 Oximetry Medical Decision Making - Medical Decision Making I performed the quick note portion of this visit, electronically signed Ozzie Rosenthal PA-C - Lab Data Result diagrams: 06/06/24 06:36 06/06/24 06:36 Lab Results 06/01/24 06/01/24 06/02/24 Range/Units 21:40 22:40 02:33 WBC 8.9 (3.8-10.6) k/uL RBC 4.83 (3.80-5.40) m/uL Hgb 14.4 (11.4-16.0) gm/dL Hct 44.8 (34.0-46.0) % MCV 92.8 (80.0-100.0) fL MCH 29.8 (25.0-35.0) pg MCHC 32.1 (31.0-37.0) g/dL RDW 14.7 (11.5-15.5) % Plt Count 128 L (150-450) k/uL MPV 7.7 Neutrophils % 73 % Lymphocytes % 16 % Monocytes % 8 % Eosinophils % 1 % Basophils % 0 % Neutrophils # 6.5 (1.3-7.7) k/uL Lymphocytes # 1.5 (1.0-4.8) k/uL Monocytes # 0.7 (0-1.0) k/uL Eosinophils # 0.1 (0-0.7) k/uL Basophils # 0.0 (0-0.2) k/uL PT (10.0-12.5) sec INR (<1.2) APTT (22.0-30.0) sec Sodium (137-145) mmol/L Potassium (3.5-5.1) mmol/L Chloride (98-107) mmol/L Carbon Dioxide (22-30) mmol/L Anion Gap mmol/L BUN (7-17) mg/dL Creatinine (0.52-1.04) mg/dL Est GFR (CKD-EPI)AfAm (>60 ml/min/1.73 sqM) Est GFR (CKD-EPI)NonAf (>60 ml/min/1.73 sqM) Glucose (74-99) mg/dL POC Glucose (mg/dL) (70-110) mg/dL POC Glu Nurse Informaticist ID Plasma Lactic Acid Efra (0.7-2.0) mmol/L Calcium (8.4-10.2) mg/dL Phosphorus (2.5-4.5) mg/dL Magnesium (1.6-2.3) mg/dL Total Bilirubin (0.2-1.3) mg/dL AST (14-36) U/L ALT (4-34) U/L Alkaline Phosphatase (38-126) U/L Troponin I (0.000-0.034) ng/mL Total Protein (6.3-8.2) g/dL Albumin (3.5-5.0) g/dL Procalcitonin (0.02-0.50) ng/mL Urine Color Light Yellow Urine Appearance Cloudy H (Clear) Urine pH 6.0 (5.0-8.0) Ur Specific [place] 1.018 (1.001-1.035) Urine Protein Trace H (Negative) Urine Glucose (UA) Negative (Negative) Urine Ketones Negative (Negative) Urine Blood Moderate H (Negative) Urine Nitrite Negative (Negative) Urine Bilirubin Negative (Negative) Urine Urobilinogen <2.0 (<2.0) mg/dL Ur Leukocyte Esterase Large H (Negative) Urine RBC 34 H (0-5) /hpf Urine WBC 118 H (0-5) /hpf Ur Squamous Epith Cells <1 (0-4) /hpf Urine Bacteria Many H (None) /hpf Urine Mucus Rare H (None) /hpf Influenza Type A (PCR) Not Detected (Not Detectd) Influenza Type B (PCR) Not Detected (Not Detectd) RSV (PCR) Not Detected (Not Detectd) SARS-CoV-2 (PCR) Not Detected (Not Detectd) 06/02/24 06/02/24 06/02/24 Range/Units 02:33 02:33 02:33 WBC (3.8-10.6) k/uL RBC (3.80-5.40) m/uL Hgb (11.4-16.0) gm/dL Hct (34.0-46.0) % MCV (80.0-100.0) fL MCH (25.0-35.0) pg MCHC (31.0-37.0) g/dL RDW (11.5-15.5) % Plt Count (150-450) k/uL MPV Neutrophils % % Lymphocytes % % Monocytes % % Eosinophils % % Basophils % % Neutrophils # (1.3-7.7) k/uL Lymphocytes # (1.0-4.8) k/uL Monocytes # (0-1.0) k/uL Eosinophils # (0-0.7) k/uL Basophils # (0-0.2) k/uL PT (10.0-12.5) sec INR (<1.2) APTT (22.0-30.0) sec Sodium 137 (137-145) mmol/L Potassium 3.5 (3.5-5.1) mmol/L Chloride 99 (98-107) mmol/L Carbon Dioxide 32 H (22-30) mmol/L Anion Gap 6 mmol/L BUN 16 (7-17) mg/dL Creatinine 0.74 (0.52-1.04) mg/dL Est GFR (CKD-EPI)AfAm >90 (>60 ml/min/1.73 sqM) Est GFR (CKD-EPI)NonAf 79 (>60 ml/min/1.73 sqM) Glucose 83 (74-99) mg/dL POC Glucose (mg/dL) (70-110) mg/dL POC Glu Nurse Informaticist ID Plasma Lactic Acid Efra 1.4 (0.7-2.0) mmol/L Calcium 9.4 (8.4-10.2) mg/dL Phosphorus (2.5-4.5) mg/dL Magnesium (1.6-2.3) mg/dL Total Bilirubin 1.4 H (0.2-1.3) mg/dL AST 36 (14-36) U/L ALT 24 (4-34) U/L Alkaline Phosphatase 80 (38-126) U/L Troponin I 0.160 H* (0.000-0.034) ng/mL Total Protein 6.9 (6.3-8.2) g/dL Albumin 4.1 (3.5-5.0) g/dL Procalcitonin (0.02-0.50) ng/mL Urine Color Urine Appearance (Clear) Urine pH (5.0-8.0) Ur Specific [place] (1.001-1.035) Urine Protein (Negative) Urine Glucose (UA) (Negative) Urine Ketones (Negative) Urine Blood (Negative) Urine Nitrite (Negative) Urine Bilirubin (Negative) Urine Urobilinogen (<2.0) mg/dL Ur Leukocyte Esterase (Negative) Urine RBC (0-5) /hpf Urine WBC (0-5) /hpf Ur Squamous Epith Cells (0-4) /hpf Urine Bacteria (None) /hpf Urine Mucus (None) /hpf Influenza Type A (PCR) (Not Detectd) Influenza Type B (PCR) (Not Detectd) RSV (PCR) (Not Detectd) SARS-CoV-2 (PCR) (Not Detectd) 06/02/24 06/02/24 06/02/24 Range/Units 02:33 02:33 06:01 WBC (3.8-10.6) k/uL RBC (3.80-5.40) m/uL Hgb (11.4-16.0) gm/dL Hct (34.0-46.0) % MCV (80.0-100.0) fL MCH (25.0-35.0) pg MCHC (31.0-37.0) g/dL RDW (11.5-15.5) % Plt Count (150-450) k/uL MPV Neutrophils % % Lymphocytes % % Monocytes % % Eosinophils % % Basophils % % Neutrophils # (1.3-7.7) k/uL Lymphocytes # (1.0-4.8) k/uL Monocytes # (0-1.0) k/uL Eosinophils # (0-0.7) k/uL Basophils # (0-0.2) k/uL PT (10.0-12.5) sec INR (<1.2) APTT (22.0-30.0) sec Sodium (137-145) mmol/L Potassium (3.5-5.1) mmol/L Chloride (98-107) mmol/L Carbon Dioxide (22-30) mmol/L Anion Gap mmol/L BUN (7-17) mg/dL Creatinine (0.52-1.04) mg/dL Est GFR (CKD-EPI)AfAm (>60 ml/min/1.73 sqM) Est GFR (CKD-EPI)NonAf (>60 ml/min/1.73 sqM) Glucose (74-99) mg/dL POC Glucose (mg/dL) 92 (70-110) mg/dL POC Glu Nurse Informaticist ID Becca Val Plasma Lactic Acid Efra (0.7-2.0) mmol/L Calcium (8.4-10.2) mg/dL Phosphorus 3.9 (2.5-4.5) mg/dL Magnesium 1.6 (1.6-2.3) mg/dL Total Bilirubin (0.2-1.3) mg/dL AST (14-36) U/L ALT (4-34) U/L Alkaline Phosphatase (38-126) U/L Troponin I (0.000-0.034) ng/mL Total Protein (6.3-8.2) g/dL Albumin (3.5-5.0) g/dL Procalcitonin 0.10 (0.02-0.50) ng/mL Urine Color Urine Appearance (Clear) Urine pH (5.0-8.0) Ur Specific [place] (1.001-1.035) Urine Protein (Negative) Urine Glucose (UA) (Negative) Urine Ketones (Negative) Urine Blood (Negative) Urine Nitrite (Negative) Urine Bilirubin (Negative) Urine Urobilinogen (<2.0) mg/dL Ur Leukocyte Esterase (Negative) Urine RBC (0-5) /hpf Urine WBC (0-5) /hpf Ur Squamous Epith Cells (0-4) /hpf Urine Bacteria (None) /hpf Urine Mucus (None) /hpf Influenza Type A (PCR) (Not Detectd) Influenza Type B (PCR) (Not Detectd) RSV (PCR) (Not Detectd) SARS-CoV-2 (PCR) (Not Detectd) 06/02/24 06/02/24 Range/Units 09:23 14:53 WBC (3.8-10.6) k/uL RBC (3.80-5.40) m/uL Hgb (11.4-16.0) gm/dL Hct (34.0-46.0) % MCV (80.0-100.0) fL MCH (25.0-35.0) pg MCHC (31.0-37.0) g/dL RDW (11.5-15.5) % Plt Count (150-450) k/uL MPV Neutrophils % % Lymphocytes % % Monocytes % % Eosinophils % % Basophils % % Neutrophils # (1.3-7.7) k/uL Lymphocytes # (1.0-4.8) k/uL Monocytes # (0-1.0) k/uL Eosinophils # (0-0.7) k/uL Basophils # (0-0.2) k/uL PT 12.6 H (10.0-12.5) sec INR 1.2 H (<1.2) APTT 27.7 (22.0-30.0) sec Sodium (137-145) mmol/L Potassium (3.5-5.1) mmol/L Chloride (98-107) mmol/L Carbon Dioxide (22-30) mmol/L Anion Gap mmol/L BUN (7-17) mg/dL Creatinine (0.52-1.04) mg/dL Est GFR (CKD-EPI)AfAm (>60 ml/min/1.73 sqM) Est GFR (CKD-EPI)NonAf (>60 ml/min/1.73 sqM) Glucose (74-99) mg/dL POC Glucose (mg/dL) (70-110) mg/dL POC Glu Nurse Informaticist ID Plasma Lactic Acid Efra (0.7-2.0) mmol/L Calcium (8.4-10.2) mg/dL Phosphorus (2.5-4.5) mg/dL Magnesium (1.6-2.3) mg/dL Total Bilirubin (0.2-1.3) mg/dL AST (14-36) U/L ALT (4-34) U/L Alkaline Phosphatase (38-126) U/L Troponin I 0.136 H* (0.000-0.034) ng/mL Total Protein (6.3-8.2) g/dL Albumin (3.5-5.0) g/dL Procalcitonin (0.02-0.50) ng/mL Urine Color Urine Appearance (Clear) Urine pH (5.0-8.0) Ur Specific [place] (1.001-1.035) Urine Protein (Negative) Urine Glucose (UA) (Negative) Urine Ketones (Negative) Urine Blood (Negative) Urine Nitrite (Negative) Urine Bilirubin (Negative) Urine Urobilinogen (<2.0) mg/dL Ur Leukocyte Esterase (Negative) Urine RBC (0-5) /hpf Urine WBC (0-5) /hpf Ur Squamous Epith Cells (0-4) /hpf Urine Bacteria (None) /hpf Urine Mucus (None) /hpf Influenza Type A (PCR) (Not Detectd) Influenza Type B (PCR) (Not Detectd) RSV (PCR) (Not Detectd) SARS-CoV-2 (PCR) (Not Detectd) Disposition Disposition: ADMITTED IP TO THIS HOSP
--- NOTE | 2024-06-01 22:02 | XR ---
EXAMINATION TYPE: XR chest 2V DATE OF EXAM: 06/01/2024 9:57 PM CLINICAL INDICATION:Female, 78 years old with history of Weakness; [facility] COMPARISON: Chest radiographs from 11/23/2023 TECHNIQUE: XR chest 2V Frontal and lateral views of the chest. FINDINGS: Lungs/Pleura: Suggestion of trace bilateral pleural effusions. Subsegmental atelectasis also present in the lung bases. Pulmonary vascularity: Unremarkable. Heart/mediastinum: Cardiomediastinal silhouette is enlarged and stable. Musculoskeletal: No acute osseous pathology. Lines/Tubes: Right chest wall [id number] is identified terminating in the superior vena cava. IMPRESSION: Mild cardiomegaly with suggestion of trace pleural effusions. Correlate with signs/symptoms of heart failure.
[2024-06-02 06:03] LABS: Glucose,Whole Blood 92 mg/dL (70-110)
[2024-06-02] MEDS ORDERED: MAG HYDROX/AL HYDROX/SIMETH 30 ML CUP PO PRN (07:43)
[2024-06-02] MEDS ORDERED: MAGNESIUM HYDROXIDE 2,400 MG/30 ML CUP PO PRN (07:43)
[2024-06-02] MEDS ORDERED: ONDANSETRON 4 MG/2 ML VIAL IVP PRN (07:43)
[2024-06-02] MEDS ORDERED: NALOXONE 0.4 MG/ML 1 ML VIAL IV PRN (07:43)
[2024-06-02] MEDS: SODIUM CHLORIDE 0.9% 1,000 ML IV SCH (08:13)
--- NOTE | 2024-06-02 08:22 | P.HPIM ---
History of Present Illness H&P Date: 06/02/24 Chief Complaint: weakness This is 78-year-old female with a history of non-Hodgkin's lymphoma who is currently undergoing chemotherapy who presented to the emergency room with increasing weakness. Patient reports over the last several days she become progressively weaker so she presented to the emergency department. Patient was diagnosed with a UTI in the ER. She is receiving Rocephin. She reports she is feeling better this morning. Further medical history as noted below. Review of Systems Constitutional: Reports chills, Reports weakness, Denies fever Cardiovascular: Denies chest pain, Denies dyspnea on exertion Respiratory: Denies cough, Denies dyspnea Gastrointestinal: Denies abdominal pain, Denies nausea, Denies vomiting Genitourinary: Denies urgency, Denies urinary frequency Musculoskeletal: Denies arm numbness/tingling, Denies leg numbness/tingling Neurological: Reports weakness Past Medical History Past Medical History: Asthma, CVA/TIA, Eye Disorder, GERD/Reflux, Hyperlipidemia, Hypertension, Osteoarthritis (OA), Seizure Disorder, Sleep Apnea/CPAP/BIPAP Additional Past Medical History / Comment(s): Hypoglycemia-states seizure from hypoglycemia - last seizure 08/2020., heart murmur, hx of broken back , DDD, uses c-pap machine., "inflammation" in abd fold (using nystatin powder) - no current problems, 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 History of Any Multi-Drug Resistant Organisms: None Reported Past Surgical History: Cholecystectomy, Hernia Repair, Joint Replacement Additional Past Surgical History / Comment(s): Bilateral knee replacement,kashif. cataract surgery, bilateral laser eye surgery 02/24/21. hiatal hernia repair. Past Anesthesia/Blood Transfusion Reactions: No Reported Reaction Past Psychological History: Anxiety Smoking Status: Never smoker Past Alcohol Use History: None Reported Past Drug Use History: None Reported - Past Family History Mother Family Medical History: GERD/Reflux Additional Family Medical History / Comment(s): osteoporosis, feeding tube Father Family Medical History: CVA/TIA, Myocardial Infarction ([place]) Additional Family Medical History / Comment(s): mini strokes, CABG Daughter(s) Family Medical History: Pulmonary Embolus Additional Family Medical History / Comment(s): granddaughter blood clots when Medications and Allergies Home Medications Medication Instructions Recorded Confirmed Type Multivitamins, Thera [Multivitamin 1 tab PO DAILY 09/22/15 04/20/24 History (formulary)] ALPRAZolam [Xanax] 0.25 mg PO TID PRN 10/12/15 04/20/24 History hydroCHLOROthiazide [Hydrodiuril] 12.5 mg PO DAILY 03/03/20 04/20/24 History Clopidogrel [Plavix] 75 mg PO DAILY #30 tab 03/07/21 12/10/23 Rx Albuterol Inhaler [Ventolin Hfa 1 puff INHALATION RT-Q6H PRN 04/17/21 04/20/24 History Inhaler] Latanoprost/Pf [Latanoprost 0.005% 1 drop BOTH EYES BID 04/17/21 04/20/24 History Eye Drop] Atorvastatin Calcium [Lipitor] 40 mg PO HS 04/18/21 04/20/24 History Acetaminophen Tab [Tylenol] 500 mg PO Q6H PRN 09/23/23 04/20/24 History Cholecalciferol (Vitamin D3) 1 tab PO DAILY 09/23/23 04/20/24 History [Vitamin D3 (50 Mcg = 2000 Iu) Chew Tab] Loratadine [Claritin] 10 mg PO DAILY 09/23/23 04/20/24 History Tolterodine ER [Detrol LA] 4 mg PO DAILY 09/23/23 04/20/24 History Ferrous Sulfate [Iron (65 MG 325 mg PO DAILY #30 tab 11/07/23 12/10/23 Rx Elemental)] Pantoprazole [Protonix] 40 mg PO AC-BID 30 Days #60 tab 11/07/23 04/20/24 Rx Unk Preservision 1 tab PO DAILY 11/19/23 04/20/24 History Apixaban [Eliquis] 5 mg PO BID 04/20/24 04/20/24 History Famotidine 40 mg PO HS 04/20/24 04/20/24 History lisinopriL 2.5 mg PO DAILY 04/20/24 04/20/24 History Allergies Allergy/AdvReac Type Severity Reaction Status Date / Time aspirin Allergy upset Verified 06/01/24 20:40 stomach , ulcers codeine Allergy Rash/Hives Verified 06/01/24 20:40 Iodinated Contrast Media Allergy Rash/Hives Verified 06/01/24 20:40 [Iodinated Contrast Media - IV Dye] Penicillins Allergy Rash/Hives Verified 06/01/24 20:40 Physical Exam Vitals: Vital Signs Temp Pulse Resp BP Pulse Ox 06/02/24 06:02 99.1 F 86 18 103/67 95 06/02/24 00:40 98.5 F 79 20 110/71 94 L 06/01/24 20:38 98.8 F 101 H 18 118/54 94 L Intake and Output 06/01/24 06/02/24 06/02/24 22:59 06:59 14:59 Other: Weight 120.202 kg - Constitutional General appearance: cooperative, no acute distress - EENT Eyes: PERRLA - Neck Neck: no lymphadenopathy, normal ROM, no rigidity - Respiratory Respiratory: bilateral: CTA - Cardiovascular Heart sounds: normal: S1, S2 - Gastrointestinal General gastrointestinal: soft, no tenderness - Integumentary Integumentary: normal, normal turgor - Musculoskeletal Musculoskeletal: generalized weakness - Psychiatric Psychiatric: A&O x's 3, appropriate affect, intact judgment & insight Assessment and Plan (1) Weakness Current Visit: No Status: Acute Code(s): R53.1 - WEAKNESS SNOMED Code(s): 21209505 (2) History of CVA (cerebrovascular accident) Current Visit: No Status: Acute Code(s): Z86.73 - PRSNL HX OF TIA (TIA), AND CEREB INFRC W/O RESID DEFICITS SNOMED Code(s): 137700992 (3) Hypertension Current Visit: No Status: Acute Code(s): I10 - ESSENTIAL (PRIMARY) HYPERTENSION SNOMED Code(s): 05568327 (4) Hyperlipidemia Current Visit: No Status: Acute Code(s): E78.5 - HYPERLIPIDEMIA, UNSPECIFIED SNOMED Code(s): 27475469 (5) GERD (gastroesophageal reflux disease) Current Visit: No Status: Acute Code(s): K21.9 - GASTRO-ESOPHAGEAL REFLUX DISEASE WITHOUT ESOPHAGITIS SNOMED Code(s): 622026140 (6) Non Hodgkin's lymphoma Current Visit: Yes Status: Acute Code(s): C85.90 - NON-HODGKIN LYMPHOMA, UNSPECIFIED, UNSPECIFIED SITE SNOMED Code(s): 159478636 (7) UTI (urinary tract infection) Current Visit: Yes Status: Acute Code(s): N39.0 - URINARY TRACT INFECTION, SITE NOT SPECIFIED SNOMED Code(s): 54001407 Plan: Continue home medications. Check CBC and CMP in the morning. Continue IV hydration. Patient seen and evaluated by nurse practitioner, physician in agreement with plan
[2024-06-02 08:47] LABS: Magnesium 1.6 mg/dL (1.6-2.3); Phosphorus 3.9 mg/dL (2.5-4.5)
[2024-06-02] MEDS ORDERED: CLOPIDOGREL 75 MG TAB PO SCH (09:00)
[2024-06-02 09:19] LABS: Appearance,Urine Cloudy (Clear); Bacteria,Urine Many /hpf; Bilirubin,Urine Negative (Negative); Blood,Urine Moderate (Negative); Color,Urine Light Yellow; Glucose,Urine (UA) Negative (Negative); Ketones,Urine Negative (Negative); Leukocyte Esterase,Urine Large (Negative); Mucus,Urine Rare /hpf; Nitrite,Urine Negative (Negative); Protein,Urine Trace (Negative); RBC,Urine 34 /hpf (0-5); Specific Gravity,Urine 1.018 (1.001-1.035); Squamous Epithelial Cell,Urine <1 /hpf (0-4); Urobilinogen,Urine <2.0 mg/dL (<2.0); WBC,Urine 118 /hpf (0-5)
[2024-06-02 09:30] LABS: Basophils % (A) 0 %; Eosinophils # (A) 0.1 k/uL (0-0.7); Eosinophils % (A) 1 %; HCT 44.8 % (34.0-46.0); HGB 14.4 gm/dL (11.4-16.0); Lymphocytes # (A) 1.5 k/uL (1.0-4.8); Lymphocytes % (A) 16 %; MCH 29.8 pg (25.0-35.0); MCHC 32.1 g/dL (31.0-37.0); MCV 92.8 fL (80.0-100.0); Mean Platelet Volume 7.7; Monocytes # (A) 0.7 k/uL (0-1.0); Monocytes % (A) 8 %; Neutrophils # (A) 6.5 k/uL (1.3-7.7); Neutrophils % (A) 73 %; Platelet Count 128 k/uL (150-450); RBC 4.83 m/uL (3.80-5.40); RDW 14.7 % (11.5-15.5); WBC 8.9 k/uL (3.8-10.6)
[2024-06-02] MEDS: ALPRAZolam 0.25 MG TAB PO PRN (09:37)
[2024-06-02] MEDS: CHOLECALCIFEROL 25 MCG (1000 IU) TABLET PO SCH (09:39)
[2024-06-02] MEDS: OXYBUTYNIN 10 MG TAB.ER.24 PO SCH (09:39)
[2024-06-02] MEDS: hydroCHLOROthiazide 12.5 MG CAP PO SCH (09:39)
[2024-06-02] MEDS: LORATADINE 10 MG TAB PO SCH (09:39)
[2024-06-02] MEDS: FAMOTIDINE 20 MG TAB PO SCH (09:39)
[2024-06-02] MEDS: MULTIVITAMINS, THERA 1 EACH TAB PO SCH (09:40)
[2024-06-02] MEDS: APIXABAN 5 MG TAB PO SCH (09:40)
[2024-06-02] MEDS: LATANOPROST 0.005% OPHTH DROPS 2.5 ML BTL BOTH EYES SCH (09:40)
[2024-06-02] MEDS: DORZOLAMIDE HCL 2% DROPS 10 ML BTL BOTH EYES SCH (09:40)
[2024-06-02 10:08] LABS: INR 1.2 (<1.2); Partial Thromboplastin Time 27.7 sec (22.0-30.0); Prothrombin Time 12.6 sec (10.0-12.5)
[2024-06-02] MEDS: FERROUS SULFATE 325 MG TAB PO SCH (12:03)
[2024-06-02] MEDS: VIT A,C & E-LUTEIN-MINERALS 1 EACH TAB PO SCH (12:22)
[2024-06-02 14:34] LABS: ALT 24 U/L (4-34); AST 36 U/L (14-36); African American GFR (CKD) >90 (>60 ml/min/1.73 sqM); Albumin 4.1 g/dL (3.5-5.0); Alkaline Phosphatase 80 U/L (38-126); Anion Gap 6 mmol/L; Blood Urea Nitrogen 16 mg/dL (7-17); Calcium 9.4 mg/dL (8.4-10.2); Carbon Dioxide 32 mmol/L (22-30); Chloride 99 mmol/L (98-107); Glucose 83 mg/dL (74-99); Non-African American GFR(CKD) 79 (>60 ml/min/1.73 sqM); Potassium 3.5 mmol/L (3.5-5.1); Sodium 137 mmol/L (137-145); Total Bilirubin 1.4 mg/dL (0.2-1.3); Total Protein 6.9 g/dL (6.3-8.2)
[2024-06-02] MEDS: ACETAMINOPHEN TAB 325 MG TAB PO PRN (15:42)
[2024-06-02] MEDS: ALBUTEROL NEBULIZED 2.5 MG/3 ML INHALATION PRN (17:38)
[2024-06-02] MEDS: ATORVASTATIN 40 MG TAB PO SCH (20:59)
--- NOTE | 2024-06-03 07:57 | P.PN ---
Subjective Progress Note Date: 06/03/24 Principal diagnosis: Chills UTI. Non-Hodgkin's lymphoma. The patient is a 78-year-old white female essentially admitted for UTI with history of systemic inflammatory response. The patient states she does feel better but she has significant rigors this morning. Element of non-Hodgkin's lymphoma. History of atrial fibrillation. Tolerating liquids. Constipation is complained of Objective - Vital Signs Vital signs: Vital Signs Temp 98.7 F 06/03/24 03:45 Pulse 79 06/03/24 03:45 Resp 16 06/03/24 03:45 BP 100/66 06/03/24 03:45 Pulse Ox 96 06/03/24 03:45 FiO2 Intake & Output 06/02/24 06/03/24 06/03/24 18:59 06:59 18:59 Output Total 300 Balance -300 Weight 120.202 kg Output: Urine 300 Other: Voiding Method External Catheter - Constitutional General appearance: Present: obese - EENT Eyes: Absent: abnormal pupil - Neck Neck: Absent: lymphadenopathy - Respiratory Respiratory: bilateral: diminished - Cardiovascular Rhythm: regular Heart sounds: normal: S1, S2 Abnormal Heart Sounds: Absent: S3 Gallop - Gastrointestinal General gastrointestinal: Present: soft. Absent: tenderness - Musculoskeletal Musculoskeletal: Present: generalized weakness - Labs CBC & Chem 7: 06/02/24 02:33 06/02/24 02:33 Labs: Abnormal Lab Results - Last 24 Hours (Table) 06/01/24 06/02/24 06/02/24 Range/Units 22:40 02:33 02:33 Plt Count 128 L (150-450) k/uL PT (10.0-12.5) sec INR (<1.2) Carbon Dioxide 32 H (22-30) mmol/L Total Bilirubin 1.4 H (0.2-1.3) mg/dL Troponin I (0.000-0.034) ng/mL Urine Appearance Cloudy H (Clear) Urine Protein Trace H (Negative) Urine Blood Moderate H (Negative) Ur Leukocyte Esterase Large H (Negative) Urine RBC 34 H (0-5) /hpf Urine WBC 118 H (0-5) /hpf Urine Bacteria Many H (None) /hpf Urine Mucus Rare H (None) /hpf 06/02/24 06/02/24 06/02/24 Range/Units 02:33 09:23 14:53 Plt Count (150-450) k/uL PT 12.6 H (10.0-12.5) sec INR 1.2 H (<1.2) Carbon Dioxide (22-30) mmol/L Total Bilirubin (0.2-1.3) mg/dL Troponin I 0.160 H* 0.136 H* (0.000-0.034) ng/mL Urine Appearance (Clear) Urine Protein (Negative) Urine Blood (Negative) Ur Leukocyte Esterase (Negative) Urine RBC (0-5) /hpf Urine WBC (0-5) /hpf Urine Bacteria (None) /hpf Urine Mucus (None) /hpf Assessment and Plan (1) Non Hodgkin's lymphoma Current Visit: Yes Status: Acute Code(s): C85.90 - NON-HODGKIN LYMPHOMA, UNSPECIFIED, UNSPECIFIED SITE SNOMED Code(s): 914084357 (2) UTI (urinary tract infection) Current Visit: Yes Status: Acute Code(s): N39.0 - URINARY TRACT INFECTION, SITE NOT SPECIFIED SNOMED Code(s): 82972845 (3) Atrial fibrillation Current Visit: No Status: Acute Code(s): I48.91 - UNSPECIFIED ATRIAL FIBRILLATION SNOMED Code(s): 17917505 (4) GERD (gastroesophageal reflux disease) Current Visit: No Status: Acute Code(s): K21.9 - GASTRO-ESOPHAGEAL REFLUX DISEASE WITHOUT ESOPHAGITIS SNOMED Code(s): 798830415 (5) History of CVA (cerebrovascular accident) Current Visit: No Status: Acute Code(s): Z86.73 - PRSNL HX OF TIA (TIA), AND CEREB INFRC W/O RESID DEFICITS SNOMED Code(s): 946025578 (6) Hyperlipidemia Current Visit: No Status: Acute Code(s): E78.5 - HYPERLIPIDEMIA, UNSPECIFIED SNOMED Code(s): 87929993 (7) Weakness Current Visit: No Status: Acute Code(s): R53.1 - WEAKNESS SNOMED Code(s): 03166411 Plan: Continue antibiotic treatment. Milk of magnesia for constipation. Check CBC and CMP in a.m. There was slightly elevated troponin yesterday, cardiology will be consulted for appropriate opinion. Anticipate discharge in next 24-48 hours if continues to recovery trajectory Time with Patient: Greater than 30
--- NOTE | 2024-06-03 10:48 | P.CRDCN ---
History of Present Illness Consult date: 06/03/24 Reason for Consult (text): Elevated troponin History of present illness: This is a 78-year-old female patient of Dr. Jerez with past medical history of hypertension, dyslipidemia, morbid obesity, obstructive sleep apnea, paroxysmal atrial fibrillation, valvular heart disease, history of stroke, non-Hodgkin's lymphoma. We have been asked to evaluate the patient for elevated troponin. Patient states that she has had significant weight loss of 58 pounds since April 2023 when her . She is complaining of weakness and shaking states she could not get out of her power chair and had to call her niece and friends to help. Patient states she completed chemotherapy a couple months ago for non-Hodgkin's lymphoma. She denies having any chest pain, no specific shortness of breath or cough. Blood pressure 129/69, heart rate 88, pulse ox 94% on 2 L nasal cannula. Temperature max 102. EKG: #1 atrial fibrillation at 89 bpm, #2 atrial fibrillation at 78 bpm. Chest x-ray: Unable to access report due to downtime Laboratory studies: WBC 8.9, hemoglobin 14.4, platelet count 128. Sodium 137, potassium 3.5, BUN 16, creatinine 0.74. Troponins 0.160, 0.136. Influenza A, influenza B, RSV, COVID-19 not detected. Home cardiac medications: Eliquis 5 mg twice daily, atorvastatin 40 mg at bedtime, Plavix 75 mg daily, hydrochlorothiazide 12.5 mg daily, lisinopril 2.5 mg daily. Echocardiogram performed 11/05/2023 reveals EF 50 to 55%, moderate concentric left ventricular hypertrophy. Mild aortic stenosis. Review Of Systems: At the time of my exam: CONSTITUTIONAL: + fever or chills. + Generalized weakness HEENT: Denies blurred vision, vision changes, or eye pain. Denies hemoptysis CARDIOVASCULAR: Denies chest pain. Denies orthopnea. Denies PND. Denies palpitations RESPIRATORY: Denies shortness of breath. GASTROINTESTINAL: Denies abdominal pain. Denies nausea or vomiting. HEMATOLOGIC: Denies bleeding disorders. GENITOURINARY: Denies any blood in urine. SKIN: Denies puritis. Denies rash. Physical examination: Gen: This is a morbidly obese 78-year-old female appears to be quite uncomfortable with chills and rigors. VS: reviewed HEENT: Head is atraumatic, normocephalic. Pupils equal, round. Sclerae is anicteric. NECK: Supple. No JVD. LUNGS: Clear to auscultation. No wheezes or rhonchi. No intercostal retractions. HEART: Regular rate and rhythm. Systolic murmur. ABDOMEN: Soft No tenderness. EXTREMITIES: No pedal edema. No calf tenderness. NEUROLOGICAL: Patient is awake, alert and oriented x3. Assessment: Febrile illness Elevated troponins most likely secondary to underlying malignancy, fever, no type I nor type II [place] Paroxysmal atrial fibrillation, controlled ventricular rate Hypertension Dyslipidemia Valvular heart disease with moderate History of stroke Morbid obesity Obstructive sleep apnea History of non-Hodgkin's lymphoma Plan: Resume patient's home cardiac medications Obtain 2-D echocardiogram and Doppler study to assess cardiac structure and function Further recommendations to follow based upon clinical course Thank you kindly for this consultation. Nurse practitioner note has been reviewed, I agree with documented findings and plan of care. Patient was seen and examined. 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 cataract surgery, bilateral laser eye surgery 02/24/21. hiatal hernia repair. Past Anesthesia/Blood Transfusion Reactions: No Reported Reaction Past Psychological History: Anxiety Smoking Status: Never smoker Past Alcohol Use History: None Reported Past Drug Use History: None Reported - Past Family History Mother Family Medical History: GERD/Reflux Additional Family Medical History / Comment(s): osteoporosis, feeding tube Father Family Medical History: CVA/TIA, Myocardial Infarction ([place]) Additional Family Medical History / Comment(s): mini strokes, CABG Daughter(s) Family Medical History: Pulmonary Embolus Additional Family Medical History / Comment(s): granddaughter blood clots when Medications and Allergies Home Medications Medication Instructions Recorded Confirmed Type Multivitamins, Thera [Multivitamin 1 tab PO DAILY 09/22/15 06/02/24 History (formulary)] ALPRAZolam [Xanax] 0.25 mg PO TID PRN 10/12/15 06/02/24 History hydroCHLOROthiazide [Hydrodiuril] 12.5 mg PO DAILY 03/03/20 06/02/24 History Clopidogrel [Plavix] 75 mg PO DAILY #30 tab 03/07/21 06/02/24 Rx Albuterol Inhaler [Ventolin Hfa 1 - 2 puff INHALATION RT-Q6H PRN 04/17/21 06/02/24 History Inhaler] Latanoprost/Pf [Latanoprost 0.005% 1 drop BOTH EYES HS 04/17/21 06/02/24 History Eye Drop] Atorvastatin Calcium [Lipitor] 40 mg PO HS 04/18/21 06/02/24 History Cholecalciferol (Vitamin D3) 50 mcg PO DAILY 09/23/23 06/02/24 History [Vitamin D3 (50 Mcg = 2000 Iu) Chew Tab] Loratadine [Claritin] 10 mg PO DAILY 09/23/23 06/02/24 History Tolterodine ER [Detrol LA] 4 mg PO DAILY 09/23/23 06/02/24 History Pantoprazole [Protonix] 40 mg PO AC-BID 30 Days #60 tab 11/07/23 06/02/24 Rx Apixaban [Eliquis] 5 mg PO BID 04/20/24 06/02/24 History Famotidine 40 mg PO HS 04/20/24 06/02/24 History lisinopriL 2.5 mg PO DAILY 04/20/24 06/02/24 History Dorzolamide 2% [Trusopt 2%] 1 drop BOTH EYES TID 06/02/24 06/02/24 History Vit A/Vit C/Vit E/Zinc/Copper 1 cap PO DAILY 06/02/24 06/02/24 History [ICAPS SOFTGEL] Allergies Allergy/AdvReac Type Severity Reaction Status Date / Time aspirin Allergy upset Verified 06/02/24 08:38 stomach , ulcers codeine Allergy Rash/Hives Verified 06/02/24 08:38 Iodinated Contrast Media Allergy Rash/Hives Verified 06/02/24 08:38 [Iodinated Contrast Media - IV Dye] Penicillins Allergy Rash/Hives Verified 06/02/24 08:38 Physical Exam Vitals: Vital Signs Temp Pulse Pulse Resp BP BP Pulse Ox 06/03/24 08:25 72 06/03/24 08:17 94 L 06/03/24 03:45 98.7 F 79 16 100/66 96 06/02/24 23:02 98.4 F 95 18 146/85 93 L 06/02/24 20:58 98.4 F 74 14 102/50 98 06/02/24 18:20 102.0 F H 106 H 18 102/62 95 06/02/24 17:48 65 06/02/24 17:39 68 95 06/02/24 16:19 68 18 95 06/02/24 15:45 99.2 F 60 20 117/68 90 L 06/02/24 15:24 99.2 F 06/02/24 14:36 98.2 F 59 L 18 121/68 92 L 06/02/24 13:06 98.1 F 80 18 110/60 97 06/02/24 10:58 98.8 F 87 18 119/52 92 L 06/02/24 09:27 100.3 F H 86 18 112/68 96 Intake and Output 06/02/24 06/03/24 06/03/24 22:59 06:59 14:59 Intake Total 350 Output Total 300 Balance -300 350 Intake: Oral 350 Output: Urine 300 Other: Voiding Method External Catheter External Catheter Weight 120.202 kg Results 06/02/24 02:33 06/02/24 02:33 Cardiac Enzymes 06/02/24 06/02/24 06/02/24 Range/Units 02:33 02:33 14:53 AST 36 (14-36) U/L Troponin I 0.160 H* 0.136 H* (0.000-0.034) ng/mL Coagulation 06/02/24 Range/Units 09:23 PT 12.6 H (10.0-12.5) sec APTT 27.7 (22.0-30.0) sec CBC 06/02/24 Range/Units 02:33 WBC 8.9 (3.8-10.6) k/uL RBC 4.83 (3.80-5.40) m/uL Hgb 14.4 (11.4-16.0) gm/dL Hct 44.8 (34.0-46.0) % Plt Count 128 L (150-450) k/uL Comprehensive Metabolic Panel 06/02/24 Range/Units 02:33 Sodium 137 (137-145) mmol/L Potassium 3.5 (3.5-5.1) mmol/L Chloride 99 (98-107) mmol/L Carbon Dioxide 32 H (22-30) mmol/L BUN 16 (7-17) mg/dL Creatinine 0.74 (0.52-1.04) mg/dL Glucose 83 (74-99) mg/dL Calcium 9.4 (8.4-10.2) mg/dL AST 36 (14-36) U/L ALT 24 (4-34) U/L Alkaline Phosphatase 80 (38-126) U/L Total Protein 6.9 (6.3-8.2) g/dL Albumin 4.1 (3.5-5.0) g/dL Current Medications Generic Name Dose Route Start Last Admin Trade Name Freq PRN Reason Stop Dose Admin Acetaminophen 650 mg 06/02/24 07:43 06/02/24 23:02 Acetaminophen Tab 325 Mg Tab PO 650 mg Q6HR PRN Administration Mild Pain or Fever > 100.5 Al Hydroxide/Mg Hydroxide 15 ml 06/02/24 07:43 Mag Hydrox/Al Hydrox/Simeth 30 Ml Cup PO Q6HR PRN Indigestion Albuterol Sulfate 2.5 mg 06/02/24 08:13 06/03/24 08:15 Albuterol Nebulized 2.5 Mg/3 Ml INHALATION 2.5 mg RT-Q6H PRN Administration Shortness Of Breath Alprazolam 0.25 mg 06/02/24 08:13 06/02/24 15:43 Alprazolam 0.25 Mg Tab PO 0.25 mg TID PRN Administration Anxiety Apixaban 5 mg 06/02/24 09:00 06/03/24 08:06 Apixaban 5 Mg Tab PO 5 mg BID [facility] Administration Protocol Atorvastatin Calcium 40 mg 06/02/24 21:00 06/02/24 20:59 Atorvastatin 40 Mg Tab PO 40 mg HS [facility] Administration Cholecalciferol 50 mcg 06/02/24 09:00 06/03/24 08:06 Cholecalciferol 25 Mcg (1000 Iu) Tablet PO 50 mcg DAILY [facility] Administration Dorzolamide HCl 1 drops 06/02/24 16:00 06/03/24 08:07 Dorzolamide Hcl 2% Drops 10 Ml Btl BOTH EYES 1 drops TID [facility] Administration Famotidine 20 mg 06/02/24 09:00 06/03/24 08:06 Famotidine 20 Mg Tab PO 20 mg BID [facility] Administration Ferrous Sulfate 325 mg 06/02/24 09:00 06/03/24 08:06 Ferrous Sulfate 325 Mg Tab PO 325 mg DAILY [facility] Administration Hydrochlorothiazide 12.5 mg 06/02/24 09:00 06/03/24 08:06 Hydrochlorothiazide 12.5 Mg Cap PO 12.5 mg DAILY [facility] Administration Sodium Chloride 1,000 mls @ 130 mls/hr 06/02/24 07:45 06/03/24 06:37 Saline 0.9% IV Not Given .[id number] [facility] Latanoprost 1 drops 06/02/24 09:00 06/03/24 08:06 Latanoprost 0.005% Ophth Drops 2.5 Ml Btl BOTH EYES 1 drops BID [facility] Administration Lisinopril 2.5 mg 06/02/24 09:00 06/03/24 08:06 Lisinopril 2.5 Mg Tab PO 2.5 mg DAILY [facility] Administration Loratadine 10 mg 06/02/24 09:00 06/03/24 08:06 Loratadine 10 Mg Tab PO 10 mg DAILY [facility] Administration Magnesium Hydroxide 2,400 mg 06/02/24 07:43 Magnesium Hydroxide 2,400 Mg/30 Ml Cup PO DAILY PRN Constipation Multivitamins 1 each 06/02/24 09:00 06/03/24 08:06 Multivitamins, Thera 1 Each Tab PO 1 each DAILY [facility] Administration Multivitamins/Minerals 1 each 06/02/24 12:00 06/03/24 08:06 Vit A,C & X-Glfyta-Hxyxbwtq 1 Each Tab PO 1 each DAILY [facility] Administration Naloxone HCl 0.2 mg 06/02/24 07:43 Naloxone 0.4 Mg/Ml 1 Ml Vial IV Q2M PRN Opioid Reversal Ondansetron HCl 4 mg 06/02/24 07:43 Ondansetron 4 Mg/2 Ml Vial IVP Q8HR PRN Nausea And Vomiting Oxybutynin Chloride 10 mg 06/02/24 09:00 06/03/24 08:06 Oxybutynin 10 Mg Tab.Er.24 PO 10 mg DAILY [facility] Administration Intake and Output 06/02/24 06/03/24 06/03/24 22:59 06:59 14:59 Intake Total 350 Output Total 300 Balance -300 350 Intake: Oral 350 Output: Urine 300 Other: Voiding Method External Catheter External Catheter Weight 120.202 kg 06/02/24 02:33 06/02/24 02:33
[2024-06-03 11:35] LABS: HCT 40.3 % (34.0-46.0); HGB 12.9 gm/dL (11.4-16.0); Hypochromasia Slight; MCH 29.7 pg (25.0-35.0); MCV 92.9 fL (80.0-100.0); Mean Platelet Volume 8.6; RBC 4.34 m/uL (3.80-5.40); RDW 14.6 % (11.5-15.5); WBC 8.9 k/uL (3.8-10.6)
[2024-06-03 12:19] LABS: Platelet Count 97 k/uL (150-450)
[2024-06-03 12:28] LABS: ALT 27 U/L (4-34); AST 49 U/L (14-36); African American GFR (CKD) >90 (>60 ml/min/1.73 sqM); Albumin 3.4 g/dL (3.5-5.0); Alkaline Phosphatase 70 U/L (38-126); Anion Gap 4 mmol/L; Blood Urea Nitrogen 17 mg/dL (7-17); Calcium 8.7 mg/dL (8.4-10.2); Carbon Dioxide 27 mmol/L (22-30); Chloride 99 mmol/L (98-107); Glucose 121 mg/dL (74-99); Non-African American GFR(CKD) 85 (>60 ml/min/1.73 sqM); Potassium 3.4 mmol/L (3.5-5.1); Sodium 130 mmol/L (137-145); Total Protein 5.8 g/dL (6.3-8.2)
[2024-06-03] MEDS ORDERED: Potassium Replacement Protocol 1 EACH MISC MISCELLANE PRN (13:20)
[2024-06-03] MEDS: POTASSIUM CHLORIDE ER 20 MEQ TAB.ER PO STA (14:00)
[2024-06-04 09:55] LABS: HGB 13.5 gm/dL (11.4-16.0); MCH 30.8 pg (25.0-35.0); MCHC 32.8 g/dL (31.0-37.0); MCV 93.9 fL (80.0-100.0); Mean Platelet Volume 9.7; Platelet Count 92 k/uL (150-450); RBC 4.37 m/uL (3.80-5.40); RDW 14.8 % (11.5-15.5); WBC 8.3 k/uL (3.8-10.6)
[2024-06-04 09:59] LABS: ALT 35 U/L (4-34); AST 78 U/L (14-36); African American GFR (CKD) >90 (>60 ml/min/1.73 sqM); Albumin 3.1 g/dL (3.5-5.0); Alkaline Phosphatase 62 U/L (38-126); Anion Gap 4 mmol/L; Blood Urea Nitrogen 17 mg/dL (7-17); Calcium 8.8 mg/dL (8.4-10.2); Carbon Dioxide 31 mmol/L (22-30); Chloride 102 mmol/L (98-107); Glucose 106 mg/dL (74-99); Non-African American GFR(CKD) 86 (>60 ml/min/1.73 sqM); Potassium 3.1 mmol/L (3.5-5.1); Sodium 137 mmol/L (137-145); Total Bilirubin 0.7 mg/dL (0.2-1.3); Total Protein 5.6 g/dL (6.3-8.2)
[2024-06-04] MEDS: POTASSIUM CHLORIDE ER 20 MEQ TAB.ER PO SCH (11:09)
--- NOTE | 2024-06-04 11:51 | P.PN ---
Subjective Progress Note Date: 06/04/24 Reason for Consult (text): Elevated troponin History of present illness: This is a 78-year-old female patient of Dr. Jerez with past medical history of hypertension, dyslipidemia, morbid obesity, obstructive sleep apnea, paroxysmal atrial fibrillation, valvular heart disease, history of stroke, non-Hodgkin's lymphoma. We have been asked to evaluate the patient for elevated troponin. Patient states that she has had significant weight loss of 58 pounds since April 2023 when her . She is complaining of weakness and shaking states she could not get out of her power chair and had to call her niece and friends to help. Patient states she completed chemotherapy a couple months ago for non-Hodgkin's lymphoma. She denies having any chest pain, no specific shortness of breath or cough. Blood pressure 129/69, heart rate 88, pulse ox 94% on 2 L nasal cannula. Temperature max 102. EKG: #1 atrial fibrillation at 89 bpm, #2 atrial fibrillation at 78 bpm. Chest x-ray: Unable to access report due to downtime Laboratory studies: WBC 8.9, hemoglobin 14.4, platelet count 128. Sodium 137, potassium 3.5, BUN 16, creatinine 0.74. Troponins 0.160, 0.136. Influenza A, influenza B, RSV, COVID-19 not detected. Home cardiac medications: Eliquis 5 mg twice daily, atorvastatin 40 mg at bedtime, Plavix 75 mg daily, hydrochlorothiazide 12.5 mg daily, lisinopril 2.5 mg daily. Echocardiogram performed 11/05/2023 reveals EF 50 to 55%, moderate concentric left ventricular hypertrophy. Mild aortic stenosis. 06/04 Patient has been afebrile for 24 hours. Blood pressure 131/78, heart rate 84, pulse ox 93% on room air. No repeat blood work this morning. Blood culture no growth at 24 hours. Telemetry is atrial fibrillation controlled rate. Patient is feeling much better, able to walk to BR, off oxygen. She denies chest pain, no shortness of breath. No more chills. Physical examination: Gen: This is a morbidly obese 78-year-old female appears to be in no acute distress. VS: reviewed HEENT: Head is atraumatic, normocephalic. Pupils equal, round. Sclerae is anicteric. NECK: Supple. No JVD. LUNGS: Clear to auscultation. No wheezes or rhonchi. No intercostal retractions. HEART: Regular rate and rhythm. Systolic murmur. ABDOMEN: Soft No tenderness. EXTREMITIES: No pedal edema. No calf tenderness. NEUROLOGICAL: Patient is awake, alert and oriented x3. Assessment: UTI and sepsis Elevated troponins most likely secondary to underlying malignancy, fever, no type I nor type II [place] Paroxysmal atrial fibrillation, controlled ventricular rate Hypertension Dyslipidemia Valvular heart disease with moderate History of stroke Morbid obesity Obstructive sleep apnea History of non-Hodgkin's lymphoma Plan: Continue patient's home cardiac medications Obtain 2-D echocardiogram and Doppler study to assess cardiac structure and function If echocardiogram is unremarkable, no further cardiac workup at this time Cardiology will sign off this case and follow on an as-needed basis. Please reconsult for any new concerns. Patient may follow-up in the office with Dr. Jerez in one to 2 weeks. Nurse practitioner note has been reviewed, I agree with documented findings and plan of care. Patient was seen and examined. Objective - Vital Signs Vital signs: Vital Signs Temp 98.5 F 06/04/24 03:02 Pulse 84 06/04/24 03:02 Resp 18 06/04/24 03:46 BP 131/78 06/04/24 03:02 Pulse Ox 93 L 06/04/24 03:46 FiO2 Intake & Output 06/03/24 06/04/24 06/04/24 18:59 06:59 18:59 Intake Total 1370 Output Total 500 700 Balance 870 -700 Intake: Oral 1370 Output: Urine 500 700 Other: Voiding Method External Catheter External Catheter # Bowel Movements 1 - Labs CBC & Chem 7: 06/04/24 08:49 06/04/24 08:49 Labs: Abnormal Lab Results - Last 24 Hours (Table) 06/03/24 06/03/24 Range/Units 10:40 10:40 Plt Count 97 L (150-450) k/uL Sodium 130 L (137-145) mmol/L Potassium 3.4 L (3.5-5.1) mmol/L Glucose 121 H (74-99) mg/dL AST 49 H (14-36) U/L Total Protein 5.8 L (6.3-8.2) g/dL Albumin 3.4 L (3.5-5.0) g/dL Microbiology - Last 24 Hours (Table) 06/02/24 02:33 Blood Culture - Preliminary Blood
--- NOTE | 2024-06-04 17:13 | P.PN ---
Subjective Progress Note Date: 06/04/24 78-year-old female patient of Dr. Jerez with past medical history of hypertension, dyslipidemia, morbid obesity, obstructive sleep apnea, paroxysmal atrial fibrillation, valvular heart disease, history of stroke, non-Hodgkin's lymphoma. We have been asked to evaluate the patient for elevated troponin. Morris shanks states that she has had significant weight loss of 58 pounds since April 2023 when her . She is complaining of weakness and shaking states she could not get out of her power chair and had to call her niece and friends to help. Patient states she completed chemotherapy a couple months ago for non-Hodgkin's lymphoma. She denies having any chest pain, no specific shortness of breath or cough. Blood pressure 129/69, heart rate 88, pulse ox 94% on 2 L nasal cannula. Temperature max 102. EKG: #1 atrial fibrillation at 89 bpm, #2 atrial fibrillation at 78 bpm. Chest x-ray: Unable to access report due to downtime Laboratory studies: WBC 8.9, hemoglobin 14.4, platelet count 128. Sodium 137, potassium 3.5, BUN 16, creatinine 0.74. Troponins 0.160, 0.136. Influenza A, influenza B, RSV, COVID-19 not detected. Objective - Vital Signs Vital signs: Vital Signs Temp 98.3 F 06/04/24 09:18 Pulse 72 06/04/24 09:18 Resp 17 06/04/24 09:18 BP 102/58 06/04/24 09:18 Pulse Ox 95 06/04/24 09:18 FiO2 Intake & Output 06/03/24 06/04/24 06/04/24 18:59 06:59 18:59 Intake Total 1370 180 Output Total 500 700 Balance 870 -700 180 Intake: Oral 1370 180 Output: Urine 500 700 Other: Voiding Method External Catheter External Catheter External Catheter # Voids 1 # Bowel Movements 1 - Exam Gen: This is a morbidly obese 78-year-old female appears to be quite uncomfortable with chills and rigors. VS: reviewed HEENT: Head is atraumatic, normocephalic. Pupils equal, round. Sclerae is anicteric. NECK: Supple. No JVD. LUNGS: Clear to auscultation. No wheezes or rhonchi. No intercostal retractions. HEART: Regular rate and rhythm. Systolic murmur. ABDOMEN: Soft No tenderness. EXTREMITIES: No pedal edema. No calf tenderness. NEUROLOGICAL: Patient is awake, alert and oriented x3. - Labs CBC & Chem 7: 06/04/24 08:49 06/04/24 14:14 Labs: Abnormal Lab Results - Last 24 Hours (Table) 06/03/24 06/03/24 06/04/24 Range/Units 10:40 10:40 08:49 Plt Count 97 L 92 L (150-450) k/uL Sodium 130 L (137-145) mmol/L Potassium 3.4 L (3.5-5.1) mmol/L Carbon Dioxide (22-30) mmol/L Glucose 121 H (74-99) mg/dL AST 49 H (14-36) U/L ALT (4-34) U/L Total Protein 5.8 L (6.3-8.2) g/dL Albumin 3.4 L (3.5-5.0) g/dL 06/04/24 Range/Units 08:49 Plt Count (150-450) k/uL Sodium (137-145) mmol/L Potassium 3.1 L (3.5-5.1) mmol/L Carbon Dioxide 31 H (22-30) mmol/L Glucose 106 H (74-99) mg/dL AST 78 H (14-36) U/L ALT 35 H (4-34) U/L Total Protein 5.6 L (6.3-8.2) g/dL Albumin 3.1 L (3.5-5.0) g/dL Microbiology - Last 24 Hours (Table) 06/02/24 02:33 Blood Culture - Preliminary Blood Assessment and Plan Assessment: Elevated troponins most likely secondary to underlying malignancy, fever, no type I nor type II [place] Paroxysmal atrial fibrillation, controlled ventricular rate Hypertension Dyslipidemia Valvular heart disease with moderate History of stroke Morbid obesity Obstructive sleep apnea History of non-Hodgkin's lymphoma Plan: Resume patient's home cardiac medications Obtain 2-D echocardiogram and Doppler study to assess cardiac structure and function Further recommendations to follow based upon clinical course
--- NOTE | 2024-06-05 05:27 | CA ---
Transthoracic Echo Report Name: Sharla Lin Age: 78 Gender: F : 1945 Exam Date: 06/04/2024 16:11 Exam Location: [facility] Ht (in): 63 Wt (lb): 265 Ordering Physician: Irene Morales Attending/Referring Phys: [id number], Carmen Spray Drier Operator Helper Mimi Solano RDCS Procedure CPT: Indications: LVF Cardiac Hx: Technical Quality: Technically difficult study Contrast 1: Definity Total Dose (mL): 2 Contrast 2: Total Dose (mL): MEASUREMENTS (Male / Female) Normal Values 2D ECHO LV Diastolic Diameter PLAX 5.0 cm 4.2 - 5.9 / 3.9 - 5.3 cm LV Systolic Diameter PLAX 3.4 cm IVS Diastolic Thickness 2.0 cm 0.6 - 1.0 / 0.6 - 0.9 cm LVPW Diastolic Thickness 2.0 cm 0.6 - 1.0 / 0.6 - 0.9 cm LV Relative Wall Thickness 0.8 RV Internal Dim ED PLAX 3.7 cm LVOT Diameter 1.8 cm LA Volume 107.5 cm??? 18 - 58 / 22 - 52 cm??? LA Volume Index 45.1 cm???/m??? 16 - 28 cm???/m??? M-MODE Aortic Root Diameter MM 3.2 cm LA Systolic Diameter MM 5.5 cm LA Ao Ratio MM 1.7 AV Cusp Separation MM 1.8 cm DOPPLER AV Peak Velocity 270.1 cm/s AV Peak Gradient 29.2 mmHg AV Mean Velocity 168.5 cm/s AV Mean Gradient 14.3 mmHg AV Velocity Time Integral 44.3 cm LVOT Peak Velocity 160.7 cm/s LVOT Peak Gradient 10.3 mmHg LVOT Velocity Time Integral 29.2 cm LVOT Stroke Volume 78.2 cm??? LVOT Stroke Volume Index 35.9 ml/m??? LVOT Cardiac Index 2789.1 cm???/min???m??? AV Area Cont Eq vti 1.8 cm??? AV Area Cont Eq pk 1.6 cm??? TR Peak Velocity 297.3 cm/s TR Peak Gradient 35.3 mmHg Right Ventricular Systolic Press 40.3 mmHg FINDINGS Left Ventricle Severely increased left ventricular wall thickness. Left ventricular cavity size normal. Normal left ventricular systolic function with no obvious regional wall motion abnormalities. Left ventricular ejection fraction is estimated at 55-60 %. Grade 2 diastolic dysfunction. Right Ventricle Right ventricular dilatation. Mild pulmonary hypertension. Right Atrium Mild right atrial dilatation. Left Atrium Severely increased left atrial volume. Mildly increased left atrial area. Mitral Valve Structurally normal mitral valve. Mitral valve thickened. Moderate mitral annular calcification. Mild mitral regurgitation. Aortic Valve Mild aortic stenosis with a peak gradient of 29 mmHg and a mean gradient of 14 mmHg. No aortic regurgitation. Tricuspid Valve Structurally normal tricuspid valve. Mild tricuspid regurgitation. Pulmonic Valve Structurally normal pulmonic valve. Pericardium No pericardial effusion. Aorta Normal size aortic root and proximal ascending aorta. CONCLUSIONS Severe increased left ventricular wall thickness Left ventricular ejection fraction 55-60% RVSP 40 Moderately dilated left atrium Mild mitral regurgitation Moderate mitral annular calcification Mild aortic stenosis Previewed by: Dr. Live Vernon DO (Electronically Signed) Final Date: 05 June 2024 05:27
[2024-06-05 12:01] LABS: African American GFR (CKD) >90 (>60 ml/min/1.73 sqM); Anion Gap 4 mmol/L; Blood Urea Nitrogen 18 mg/dL (7-17); Calcium 9.2 mg/dL (8.4-10.2); Carbon Dioxide 32 mmol/L (22-30); Chloride 100 mmol/L (98-107); Glucose 84 mg/dL (74-99); Non-African American GFR(CKD) 88 (>60 ml/min/1.73 sqM); Potassium 3.4 mmol/L (3.5-5.1); Sodium 136 mmol/L (137-145)
[2024-06-05 12:09] LABS: HCT 41.5 % (34.0-46.0); HGB 13.3 gm/dL (11.4-16.0); MCH 30.1 pg (25.0-35.0); MCHC 32.2 g/dL (31.0-37.0); MCV 93.5 fL (80.0-100.0); Mean Platelet Volume 9.4; Platelet Count 101 k/uL (150-450); RBC 4.43 m/uL (3.80-5.40); RDW 14.7 % (11.5-15.5); WBC 5.2 k/uL (3.8-10.6)
[2024-06-05 12:30] LABS: Eosinophils # (M) 0.21 k/uL (0-0.7); Lymphocytes # (M) 1.61 k/uL (1.0-4.8); Monocytes # (M) 0.16 k/uL (0-1.0); Neutrophils # (M) 3.22 k/uL (1.3-7.7); Neutrophils % (M) 62 %; Nucleated Red Blood Cells 0 /100 WBC (0-0); Total Cells Counted 100
[2024-06-05 12:31] LABS: RBC Morphology Normal
--- NOTE | 2024-06-05 15:29 | P.PN ---
Subjective Progress Note Date: 06/05/24 78-year-old female patient of Dr. Jerez with past medical history of hypertension, dyslipidemia, morbid obesity, obstructive sleep apnea, paroxysmal atrial fibrillation, valvular heart disease, history of stroke, non-Hodgkin's lymphoma. We have been asked to evaluate the patient for elevated troponin. Morris shanks states that she has had significant weight loss of 58 pounds since April 2023 when her . She is complaining of weakness and shaking states she could not get out of her power chair and had to call her niece and friends to help. Patient states she completed chemotherapy a couple months ago for non-Hodgkin's lymphoma. She denies having any chest pain, no specific shortness of breath or cough. Blood pressure 129/69, heart rate 88, pulse ox 94% on 2 L nasal cannula. Temperature max 102. EKG: #1 atrial fibrillation at 89 bpm, #2 atrial fibrillation at 78 bpm. Chest x-ray: Unable to access report due to downtime Laboratory studies: WBC 8.9, hemoglobin 14.4, platelet count 128. Sodium 137, potassium 3.5, BUN 16, creatinine 0.74. Troponins 0.160, 0.136. Influenza A, influenza B, RSV, COVID-19 not detected. 06/05/2024 Patient is seen and evaluated in room at bedside; has been afebrile for 24 hours. Blood pressure 131/78, heart rate 84, pulse ox 93% on room air. No repeat blood work this morning. Blood culture no growth at 24 hours. Telemetry is atrial fibrillation controlled rate. Patient is feeling much better, able to walk to BR, off oxygen. She denies chest pain, no shortness of breath. No more chills. Continue patient's home cardiac medications Obtain 2-D echocardiogram and Doppler study to assess cardiac structure and fun ction If echocardiogram is unremarkable, Objective - Vital Signs Vital signs: Vital Signs Temp 98.0 F 06/05/24 08:34 Pulse 75 06/05/24 08:34 Resp 17 06/05/24 08:34 BP 96/56 06/05/24 08:34 Pulse Ox 98 06/05/24 08:45 FiO2 Intake & Output 06/04/24 06/05/24 06/05/24 18:59 06:59 18:59 Intake Total 540 240 Output Total 600 850 Balance -60 -850 240 Weight 116.8 kg Intake: Oral 540 240 Output: Urine 600 850 Other: Voiding Method External Catheter External Catheter External Catheter # Voids 1 - Exam Gen: This is a morbidly obese 78-year-old female appears to be quite uncomfortable with chills and rigors. VS: reviewed HEENT: Head is atraumatic, normocephalic. Pupils equal, round. Sclerae is anicteric. NECK: Supple. No JVD. LUNGS: Clear to auscultation. No wheezes or rhonchi. No intercostal retractions. HEART: Regular rate and rhythm. Systolic murmur. ABDOMEN: Soft No tenderness. EXTREMITIES: No pedal edema. No calf tenderness. NEUROLOGICAL: Patient is awake, alert and oriented x3. - Labs CBC & Chem 7: 06/05/24 11:00 06/05/24 11:00 Labs: Abnormal Lab Results - Last 24 Hours (Table) 06/04/24 Range/Units 14:14 Potassium 3.4 L (3.5-5.1) mmol/L Microbiology - Last 24 Hours (Table) 06/02/24 02:33 Blood Culture - Preliminary Blood Assessment and Plan Assessment: Elevated troponins most likely secondary to underlying malignancy, fever, no type I nor type II [place] Paroxysmal atrial fibrillation, controlled ventricular rate Hypertension Dyslipidemia Valvular heart disease with moderate History of stroke Morbid obesity Obstructive sleep apnea History of non-Hodgkin's lymphoma Plan: Resume patient's home cardiac medications Obtain 2-D echocardiogram and Doppler study to assess cardiac structure and function Further recommendations to follow based upon clinical course
[2024-06-06 05:20] VITALS: RESP 16
[2024-06-06 07:56] LABS: Basophils % (A) 0 %; Eosinophils # (A) 0.2 k/uL (0-0.7); Eosinophils % (A) 3 %; HCT 42.9 % (34.0-46.0); HGB 13.9 gm/dL (11.4-16.0); Lymphocytes # (A) 1.6 k/uL (1.0-4.8); Lymphocytes % (A) 28 %; MCH 30.2 pg (25.0-35.0); MCHC 32.4 g/dL (31.0-37.0); MCV 93.2 fL (80.0-100.0); Mean Platelet Volume 9.2; Monocytes # (A) 0.5 k/uL (0-1.0); Monocytes % (A) 9 %; Neutrophils # (A) 3.2 k/uL (1.3-7.7); Neutrophils % (A) 56 %; Platelet Count 132 k/uL (150-450); RDW 14.7 % (11.5-15.5); WBC 5.7 k/uL (3.8-10.6)
[2024-06-06 08:01] LABS: African American GFR (CKD) >90 (>60 ml/min/1.73 sqM); Anion Gap 4 mmol/L; Blood Urea Nitrogen 17 mg/dL (7-17); Calcium 9.2 mg/dL (8.4-10.2); Carbon Dioxide 33 mmol/L (22-30); Chloride 101 mmol/L (98-107); Glucose 81 mg/dL (74-99); Non-African American GFR(CKD) 85 (>60 ml/min/1.73 sqM); Potassium 3.4 mmol/L (3.5-5.1); Sodium 138 mmol/L (137-145)
[2024-06-06] MEDS ORDERED: Magnesium Replacement Protocol 1 EACH MISC MISCELLANE PRN (09:57)
--- NOTE | 2024-06-06 10:04 | P.PN ---
Subjective 78-year-old female patient of Dr. Jerez with past medical history of hypertension, dyslipidemia, morbid obesity, obstructive sleep apnea, paroxysmal atrial fibrillation, valvular heart disease, history of stroke, non-Hodgkin's lymphoma. We have been asked to evaluate the patient for elevated troponin. Patient states that she has had significant weight loss of 58 pounds since April 2023 when her . She is complaining of weakness and shaking states she could not get out of her power chair and had to call her niece and friends to help. Patient states she completed chemotherapy a couple months ago for non-Hodgkin's lymphoma. She denies having any chest pain, no specific shortness of breath or cough. Blood pressure 129/69, heart rate 88, pulse ox 94% on 2 L nasal cannula. Temperature max 102. EKG: #1 atrial fibrillation at 89 bpm, #2 atrial fibrillation at 78 bpm. Chest x-ray: Unable to access report due to downtime Laboratory studies: WBC 8.9, hemoglobin 14.4, platelet count 128. Sodium 137, potassium 3.5, BUN 16, creatinine 0.74. Troponins 0.160, 0.136. Influenza A, influenza B, RSV, COVID-19 not detected. 06/05/2024 Patient is seen and evaluated in room at bedside; has been afebrile for 24 hours. Blood pressure 131/78, heart rate 84, pulse ox 93% on room air. No repeat blood work this morning. Blood culture no growth at 24 hours. Telemetry is atrial fibrillation controlled rate. Patient is feeling much better, able to walk to BR, off oxygen. She denies chest pain, no shortness of breath. No more chills. Continue patient's home cardiac medications Obtain 2-D echocardiogram and Doppler study to assess cardiac structure and function If echocardiogram is unremarkable, 06/06 Patient still complaining of shortness of breath today She has some basal crepitation and leg edema IV fluid is discontinued Will give IV Lasix today Echocardiogram showing ejection fraction of 55 to 60% with severe increased left ventricular wall thickness, RVSP 40 Objective - Vital Signs Vital signs: Vital Signs Temp 98.1 F 06/06/24 08:20 Pulse 71 06/06/24 08:20 Resp 16 06/06/24 08:20 BP 109/56 06/06/24 08:20 Pulse Ox 98 06/06/24 08:20 FiO2 Intake & Output 06/05/24 06/06/24 06/06/24 18:59 06:59 18:59 Intake Total 956 10 118 Output Total 500 400 Balance 506 -912 -282 Weight 115.9 kg Intake: IV 10 Invasive Line 2 10 Oral 956 118 Output: Urine 500 400 Other: Voiding Method External Catheter External Catheter External Catheter # Voids 1 # Bowel Movements 1 0 1 - Exam GENERAL: The patient is alert and oriented x3, not in any acute distress. Well developed, well nourished. HEENT: Pupils are round and equally reacting to light. EOMI. No scleral icterus. No conjunctival pallor. Normocephalic, atraumatic. No pharyngeal erythema. No thyromegaly. CARDIOVASCULAR: S1 and S2 present. No murmurs, rubs, or gallops. -PULMONARY: Chest is clear to auscultation, no wheezing , bilateral basal crackles. ABDOMEN: Soft, nontender, nondistended, normoactive bowel sounds. No palpable organomegaly. MUSCULOSKELETAL: No joint swelling or deformity. -EXTREMITIES: No cyanosis, clubbing, 1+ bilateral pitting leg l edema. NEUROLOGICAL: Gross neurological examination did not reveal any focal deficits. SKIN: No rashes. no petechiae. - Labs CBC & Chem 7: 06/06/24 06:36 06/06/24 06:36 Labs: Abnormal Lab Results - Last 24 Hours (Table) 06/05/24 06/05/24 06/06/24 Range/Units 11:00 11:00 06:36 Plt Count 101 L 132 L (150-450) k/uL Sodium 136 L (137-145) mmol/L Potassium 3.4 L (3.5-5.1) mmol/L Carbon Dioxide 32 H (22-30) mmol/L BUN 18 H (7-17) mg/dL 06/06/24 Range/Units 06:36 Plt Count (150-450) k/uL Sodium (137-145) mmol/L Potassium 3.4 L (3.5-5.1) mmol/L Carbon Dioxide 33 H (22-30) mmol/L BUN (7-17) mg/dL Microbiology - Last 24 Hours (Table) 06/02/24 02:33 Blood Culture - Preliminary Blood Assessment and Plan Assessment: Acute urinary tract infection Elevated troponin, mostly troponin leak, evaluated by athletic coordinator and cleared for discharge Paroxysmal A-fib on Eliquis at home Acute on chronic diastolic CHF with ejection fraction 55 to 60%, also patient received IV fluid on admission Non-Hodgkin lymphoma s/p chemotherapy History of stroke Plan: Will give IV Lasix x 2 doses DC IV fluid Wagon Washer already cleared the patient On ceftriaxone No urine culture Blood culture not final yet Labs and medication were reviewed.. Continue same treatment. Continue with symptomatic treatment. Resume home medication. Monitor labs and vitals. DVT and GI prophylaxis. Further recommendations as per clinical course of the patient DVT prophylaxis: Eliquis GI Prophylaxis: Pepcid
[2024-06-06] MEDS: POTASSIUM CHLORIDE ER 20 MEQ TAB.ER PO STA (10:20)
[2024-06-06] MEDS: FUROSEMIDE 10 MG/ML 4 ML VIAL IV SCH (10:21)
[2024-06-07 03:24] VITALS: PULSE 76
[2024-06-07 08:20] LABS: African American GFR (CKD) 86 (>60 ml/min/1.73 sqM); Anion Gap 5 mmol/L; Blood Urea Nitrogen 20 mg/dL (7-17); Calcium 9.2 mg/dL (8.4-10.2); Carbon Dioxide 37 mmol/L (22-30); Chloride 96 mmol/L (98-107); Glucose 98 mg/dL (74-99); Magnesium 1.5 mg/dL (1.6-2.3); Non-African American GFR(CKD) 75 (>60 ml/min/1.73 sqM); Potassium 3.6 mmol/L (3.5-5.1); Sodium 138 mmol/L (137-145)
--- NOTE | 2024-06-07 08:46 | P.DS ---
Providers Date of admission: 06/03/24 09:34 Attending physician: Aroldo Ford Consults: 06/02/24 13:18 Consult Physician Routine Consulting Provider: Live Vernon Consult Reason/Comments: elevated trop Do you want consulting provider notified?: Yes Primary care physician: Aroldo Ford - Discharge Diagnosis(es) (1) Weakness Current Visit: No Status: Acute (2) History of CVA (cerebrovascular accident) Current Visit: No Status: Acute (3) Hypertension Current Visit: No Status: Acute (4) Hyperlipidemia Current Visit: No Status: Acute (5) GERD (gastroesophageal reflux disease) Current Visit: No Status: Acute (6) Non Hodgkin's lymphoma Current Visit: Yes Status: Acute (7) UTI (urinary tract infection) Current Visit: Yes Status: Acute Hospital Course: This is a 78-year-old female with a history of non-Hodgkin's lymphoma who originally presented to the emergency department with complaints of increasing weakness. Patient is currently undergoing chemotherapy and has been becoming progressively weaker during treatments. Patient diagnosed with UTI in the ER, has been maintained on Rocephin while inpatient will be discharged with Ceftin. Patient had some shortness of breath over the weekend and received IV Lasix. Today she is seen this morning sitting in chair out of bed and reports she is feeling a lot better. She has been up moving around the room and is able to use the restroom she will be discharged if cleared by cardiology. Patient seen and evaluated by nurse practitioner, physician in agreement with plan Plan - Discharge Summary Discharge Rx Participant: No New Discharge Prescriptions: New cefUROXime axetiL [Ceftin] 500 mg PO BID 4 Days #8 tab Continue Multivitamins, Thera [Multivitamin (formulary)] 1 tab PO DAILY ALPRAZolam [Xanax] 0.25 mg PO TID PRN PRN Reason: Anxiety hydroCHLOROthiazide [Hydrodiuril] 12.5 mg PO DAILY Latanoprost/Pf [Latanoprost 0.005% Eye Drop] 1 drop BOTH EYES HS Atorvastatin Calcium [Lipitor] 40 mg PO HS Loratadine [Claritin] 10 mg PO DAILY Cholecalciferol (Vitamin D3) [Vitamin D3 (50 Mcg = 2000 Iu) Chew Tab] 50 mcg PO DAILY Pantoprazole [Protonix] 40 mg PO AC-BID 30 Days #60 tab lisinopriL 2.5 mg PO DAILY Apixaban [Eliquis] 5 mg PO BID Famotidine 40 mg PO HS Vit A/Vit C/Vit E/Zinc/Copper [ICAPS SOFTGEL] 1 cap PO DAILY Clopidogrel [Plavix] 75 mg PO DAILY #30 tab Albuterol Inhaler [Ventolin Hfa Inhaler] 1 - 2 puff INHALATION RT-Q6H PRN PRN Reason: Shortness Of Breath Tolterodine ER [Detrol LA] 4 mg PO DAILY Dorzolamide 2% [Trusopt 2%] 1 drop BOTH EYES TID Discharge Medication List Multivitamins, Thera [Multivitamin (formulary)] 1 tab PO DAILY 09/22/15 [History] ALPRAZolam [Xanax] 0.25 mg PO TID PRN 10/12/15 [History] hydroCHLOROthiazide [Hydrodiuril] 12.5 mg PO DAILY 03/03/20 [History] Clopidogrel [Plavix] 75 mg PO DAILY #30 tab 03/07/21 [Rx] Albuterol Inhaler [Ventolin Hfa Inhaler] 1 - 2 puff INHALATION RT-Q6H PRN 04/17/21 [History] Latanoprost/Pf [Latanoprost 0.005% Eye Drop] 1 drop BOTH EYES HS 04/17/21 [History] Atorvastatin Calcium [Lipitor] 40 mg PO HS 04/18/21 [History] Cholecalciferol (Vitamin D3) [Vitamin D3 (50 Mcg = 2000 Iu) Chew Tab] 50 mcg PO DAILY 09/23/23 [History] Loratadine [Claritin] 10 mg PO DAILY 09/23/23 [History] Tolterodine ER [Detrol LA] 4 mg PO DAILY 09/23/23 [History] Pantoprazole [Protonix] 40 mg PO AC-BID 30 Days #60 tab 11/07/23 [Rx] Apixaban [Eliquis] 5 mg PO BID 04/20/24 [History] Famotidine 40 mg PO HS 04/20/24 [History] lisinopriL 2.5 mg PO DAILY 04/20/24 [History] Dorzolamide 2% [Trusopt 2%] 1 drop BOTH EYES TID 06/02/24 [History] Vit A/Vit C/Vit E/Zinc/Copper [ICAPS SOFTGEL] 1 cap PO DAILY 06/02/24 [History] cefUROXime axetiL [Ceftin] 500 mg PO BID 4 Days #8 tab 06/07/24 [Rx] Follow up Appointment(s)/Referral(s): Ector Jerez MD [STAFF PHYSICIAN] - 2 Weeks Aroldo Ford MD [Primary Care Provider] - 3 Days Discharge Disposition: HOME SELF-CARE
[2024-06-07 10:44] VITALS: BP 108/70; TEMP 97.9
== END 2024-06-07 10:39 | disposition home or self-care (01) | DRG 689 ==
LOC: EC 20:28 → 5NMEDONC 06-02 07:45 → 3SCARD 06-02 14:56 → OBSVTOIN 06-03 09:34
PROVIDERS: ADMIT Family Medicine; ATTEND Family Medicine
DX: N39.0 Urinary tract infection, site not specified (principal); I50.33 Acute on chronic diastolic (congestive) heart failure; C85.90 Non-Hodgkin lymphoma, unspecified, unspecified site; Z68.41 Body mass index [BMI] 40.0-44.9, adult; J45.909 Unspecified asthma, uncomplicated; K21.9 Gastro-esophageal reflux disease without esophagitis; E78.5 Hyperlipidemia, unspecified; I10 Essential (primary) hypertension; M19.90 Unspecified osteoarthritis, unspecified site; G40.909 Epilepsy, unspecified, not intractable, without status epilepticus; G47.30 Sleep apnea, unspecified; H54.62 Unqualified visual loss, left eye, normal vision right eye; Z96.653 Presence of artificial knee joint, bilateral; F41.9 Anxiety disorder, unspecified; K59.00 Constipation, unspecified; I48.0 Paroxysmal atrial fibrillation; I11.0 Hypertensive heart disease with heart failure; G47.33 Obstructive sleep apnea (adult) (pediatric); E66.01 Morbid (severe) obesity due to excess calories; R79.89 Other specified abnormal findings of blood chemistry; Z63.4 Disappearance and death of family member; Z92.21 Personal history of antineoplastic chemotherapy; Z79.899 Other long term (current) drug therapy; Z79.01 Long term (current) use of anticoagulants; Z79.02 Long term (current) use of antithrombotics/antiplatelets; Z86.73 Personal history of transient ischemic attack (TIA), and cerebral infarction without residual deficits; Z88.0 Allergy status to penicillin; Z88.5 Allergy status to narcotic agent; Z91.041 Radiographic dye allergy status
CPT/HCPCS: 36415; 71046; 80048; 80053; 81001; 83605; 83735; 84100; 84132; 84145; 84484; 85025; 85027; 85610; 85730; 87040; 87636; 93005; 93306; 94640; 94760; 99285

== ENCOUNTER 2024-06-17 07:03 | Day surgery (SDC) | payer MEDICARE ==
[2024-06-13 13:47] VITALS: BMI 44.2
[2024-06-17 07:51] VITALS: TEMP 96.8
[2024-06-17] MEDS: IV FLUID CONTINUATION 1,000 ML IV ONE (07:51)
[2024-06-17] MEDS: LACTATED RINGERS 1,000 ML IV SCH (07:58)
[2024-06-17 08:09] LABS: Glucose,Whole Blood 84 mg/dL (70-110)
[2024-06-17] MEDS ORDERED: PROPOFOL 10 MG/ML 20 ML VIAL IV ONE (08:39)
[2024-06-17] MEDS ORDERED: LIDOCAINE 2% (PF) 20 MG/ML 5 ML VIAL ONE (08:39)
--- NOTE | 2024-06-17 08:51 | P.PCN ---
Date of Procedure: 06/17/24 Procedure(s) Performed: BRIEF HISTORY: Patient is a 78-year-old, pleasant, white female skilled follow- up anoscopy as a part of follow-up of was diagnosed in October 2023. 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 She sees Dr. Cam. Finished 6 cycles of chemotherapy. Scheduled for repeat upper endoscopy today.. She is asymptomatic. PROCEDURE PERFORMED: Esophagogastroduodenoscopy with biopsy. 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 IV sedation per anesthesia. PROCEDURE: After informed consent was obtained, the patient was brought into the endoscopy unit. IV sedation was administered by Anesthesia under continuous monitoring. Initially the Olympus GIF-140 video endoscope was inserted into the mouth. Esophagus intubated without any difficulty. It was gradually advanced into the stomach and duodenum and carefully examined. The bulb and the second part of the duodenum appeared normal. The scope at this time was withdrawn to the stomach, adequately insufflated with air, and upon careful examination, mucosa of the antrum, appeared normal. The previously noted. Pyloric ulcer has completely healed. Along the incisura angularis there was a 1 cm small clean- based ulceration identified which was biopsied. The ulcer in the proximal body of the stomach has completely healed. Body, cardia and the fundus appeared normal. The scope was then withdrawn into the esophagus. The GE junction was located at 39 cm from the incisors. The esophagus appeared normal. There were no erosions or ulcerations seen and the patient tolerated the procedure well. IMPRESSION: 1. Completely healed prepyloric and proximal gastric ulcer. 2. 1 cm residual ulcer along the incisura angularis ( along the lesser curvature of the stomach ). S/p multiple biopsies RECOMMENDATIONS: The findings of this examination were discussed with the patient as well as her family. She was advised to follow-up with the biopsy results and follow-up with Dr. Cam as scheduled..
[2024-06-17 09:06] VITALS: BP 125/60; PULSE 82; RESP 16
== END 2024-06-17 09:40 | disposition home or self-care (01) ==
LOC: ORWHC2ENDO 07:03
PROVIDERS: ATTEND Internal Medicine Gastroenterology
DX: C83.33 Diffuse large B-cell lymphoma, intra-abdominal lymph nodes (principal); I48.91 Unspecified atrial fibrillation; J45.909 Unspecified asthma, uncomplicated; G47.33 Obstructive sleep apnea (adult) (pediatric); I67.9 Cerebrovascular disease, unspecified; M54.50 Low back pain, unspecified; Z86.73 Personal history of transient ischemic attack (TIA), and cerebral infarction without residual deficits; Z87.11 Personal history of peptic ulcer disease; Z92.21 Personal history of antineoplastic chemotherapy; Z88.5 Allergy status to narcotic agent; Z88.6 Allergy status to analgesic agent; Z91.041 Radiographic dye allergy status; Z79.899 Other long term (current) drug therapy
CPT/HCPCS: 88305; 88342; 88341; 43239; J2704; J2001

== ENCOUNTER 2024-09-07 14:25 | Emergency (ER) | payer MEDICARE ==
--- NOTE | 2024-09-07 14:59 | ED ---
General Adult HPI - General Chief complaint: Abdominal Pain Stated complaint: vomiting/L shoulder pain/cancer pt Time Seen by Provider: 09/07/24 14:40 Source: patient, RN notes reviewed, old records reviewed Mode of arrival: ambulatory Limitations: no limitations - History of Present Illness Initial comments: This is a 79-year-old female presents to the emergency department stating that she started eating rice and chicken today she felt like a lump in her throat and since then she has been spitting up anything she drinks. Patient states right after that when she was vomiting she started having left-sided neck pain into her shoulder and down to her elbow she states patient did not think she hurt it when she was vomiting but ever since has been hurting and it comes and goes quickly it is of a very sharp pain and severe when it comes and then it goes away. Patient states palpating her trapezius muscle on that side does cause the pain. Patient denies any chest pain difficulty breathing shortness of breath. - Related Data Home Medications Medication Instructions Recorded Confirmed Multivitamins, Thera [Multivitamin 1 tab PO DAILY 09/22/15 06/17/24 (formulary)] ALPRAZolam [Xanax] 0.25 mg PO TID PRN 10/12/15 06/17/24 hydroCHLOROthiazide [Hydrodiuril] 12.5 mg PO DAILY 03/03/20 06/17/24 Albuterol Inhaler [Ventolin Hfa 1 - 2 puff INHALATION RT-Q6H PRN 04/17/21 06/17/24 Inhaler] Latanoprost/Pf [Latanoprost 0.005% 1 drop BOTH EYES HS 04/17/21 06/17/24 Eye Drop] Atorvastatin Calcium [Lipitor] 40 mg PO HS 04/18/21 06/17/24 Cholecalciferol (Vitamin D3) 50 mcg PO DAILY 09/23/23 06/17/24 [Vitamin D3 (50 Mcg = 2000 Iu) Chew Tab] Loratadine [Claritin] 10 mg PO DAILY 09/23/23 06/17/24 Tolterodine ER [Detrol LA] 4 mg PO DAILY 09/23/23 06/17/24 Famotidine 40 mg PO HS 04/20/24 06/17/24 lisinopriL 2.5 mg PO DAILY 04/20/24 06/17/24 Vit A/Vit C/Vit E/Zinc/Copper 1 cap PO DAILY 06/02/24 06/17/24 [ICAPS SOFTGEL] Apixaban [Eliquis] 2.5 mg PO BID 06/13/24 06/17/24 Previous Rx's Medication Instructions Recorded Pantoprazole [Protonix] 40 mg PO AC-BID 30 Days #60 tab 11/07/23 Allergies Allergy/AdvReac Type Severity Reaction Status Date / Time aspirin Allergy upset Verified 09/07/24 14:40 stomach , ulcers codeine Allergy Rash/Hives Verified 09/07/24 14:40 Iodinated Contrast Media Allergy Rash/Hives Verified 09/07/24 14:40 [Iodinated Contrast Media - IV Dye] Penicillins Allergy Rash/Hives Verified 09/07/24 14:40 Review of Systems ROS Statement: Those systems with pertinent positive or pertinent negative responses have been documented in the HPI. ROS Other: All systems not noted in ROS Statement are negative. 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 non hodgkins lymphoma finished tx 2 mos ago, hx of afib History of Any Multi-Drug Resistant Organisms: None Reported Past Surgical History: Cholecystectomy, Hernia Repair, Joint Replacement Additional Past Surgical History / Comment(s): Bilateral knee replacement,kashif. cataract surgery, bilateral laser eye surgery 02/24/21. hiatal hernia repair. port non hodgkins lymphoma Past Anesthesia/Blood Transfusion Reactions: No Reported Reaction Additional Past Anesthesia/Blood Transfusion Reaction / Comment(s): no blood transfusion reaction Past Psychological History: Anxiety Smoking Status: Never smoker Past Alcohol Use History: None Reported Past Drug Use History: None Reported - Past Family History Sister(s) Family Medical History: Cancer General Exam - General Exam Comments Initial Comments: GENERAL: Patient is well-developed and well-nourished. Patient is nontoxic and well- hydrated and is in mild distress. ENT: Neck is soft and supple. No significant lymphadenopathy is noted. Oropharynx is clear. Moist mucous membranes. Neck has full range of motion without eliciting any pain. EYES: The sclera were anicteric and conjunctiva were pink and moist. Extraocular movements were intact and pupils were equal round and reactive to light. Eyelids were unremarkable. PULMONARY: Unlabored respirations. Good breath sounds bilaterally. No audible rales rhonchi or wheezing was noted. CARDIOVASCULAR: There is a regular rate and rhythm without any murmurs gallops or rubs. ABDOMEN: Soft and nontender with normal bowel sounds. SKIN: Skin is clear with no lesions or rashes and otherwise unremarkable. NEUROLOGIC: Patient is alert and oriented x3. Cranial nerves II through XII are grossly intact. Motor and sensory are also intact. Normal speech, volume and content. Symmetrical smile. MUSCULOSKELETAL: Normal extremities with adequate strength and full range of motion. LYMPHATICS: No significant lymphadenopathy is noted PSYCHIATRIC: Normal psychiatric evaluation. Limitations: no limitations Course Vital Signs 09/07/24 09/07/24 09/07/24 14:36 15:50 17:56 Temperature 98.1 F 97.8 F 98.3 F Pulse Rate 90 83 88 Respiratory 20 20 22 Rate Blood Pressure 137/81 130/53 138/75 O2 Sat by Pulse 97 96 95 Oximetry Medical Decision Making - Medical Decision Making EKG is interpreted by myself. EKG shows a bigeminal pattern at 86 bpm QRS is 92 QT interval 330 QTc is 374. Patient's EKG shows no ST segment elevation Was pt. sent in by a medical professional or institution ([facility] Amaya, SENIOR PREMIUM AUDITOR, urgent care, hospital, or prison...) When possible be specific @ -No Did you speak to anyone other than the patient for history (EMS, parent, family, police, friend...)? What history was obtained from this source @ -No Did you review nursing and triage notes (agree or disagree)? Why? @ -I reviewed and agree with nursing and triage notes Were old charts reviewed (outside hosp., previous admission, EMS record, old EKG, old radiological studies, urgent care reports/EKG's, prison records)? Report findings @ -No old charts were reviewed Differential Diagnosis? @ -Differential Musculoskeletal Muscular strain, contusion, ligament sprain, fracture, arthritis, septic arthritis, bursitis, cellulitis, muscle spasm, nerve compression, DVT, arterial occlusion, herpes zoster, electrolyte abnormality, tumor.... This is not meant to be in all inclusive list Esophageal foreign body, globus hystericus, this is not an all-inclusive list EKG interpreted by me (3pts min.). @ -As above X-rays interpreted by me (1pt min.). @ -Chest x-ray shows no acute normality CT interpreted by me (1pt min.). @ -None done U/S interpreted by me (1pt. min.). @ -None done What testing was considered but not performed or refused? (CT, X-rays, U/S, labs)? Why? @ -None What meds were considered but not given or refused? Why? @ -None Did you discuss the management of the patient with other professionals (professionals i.e. , PA, SENIOR PREMIUM AUDITOR, lab, RT, psych nurse, social media editor, breaker machine tender, teacher, adult parole officer, case manager specialist)? Give summary @ -No Was smoking cessation discussed for >3mins.? @ -No Was critical care preformed (if so, how long)? @ -No Were there social determinants of health that impacted care today? How? (Homelessness, low income, unemployed, alcoholism, drug addiction, collado sportation, low edu. Level, literacy, decrease access to med. care, skilled nursing, rehab)? @ -No Was there de-escalation of care discussed even if they declined (Discuss DNR or withdrawal of care, Hospice)? DNR status @ -No What co-morbidities impacted this encounter? (DM, HTN, Smoking, COPD, CAD, Cancer, CVA, ARF, Chemo, Hep., AIDS, mental health diagnosis, sleep apnea, morbid obesity)? @ -None Was patient admitted / discharged? Hospital course, mention meds given and route, prescriptions, significant lab abnormalities, going to OR and other pertinent info. @ -Patient appears to have esophageal foreign body because she was unable to swallow her saliva or water without vomiting it back up. Patient was given glucagon and Reglan Valium and nitroglycerin sublingual and it seemed to improve her symptoms a little another dose of glucagon and nitroglycerin were given and after that the patient had no sensation of a foreign body in her throat and she was able to swallow water na zain and eat Jell-O and crackers. Patient states she has no symptoms at this time would like to go home. Patient states the pain in her right shoulder area and into her neck was relieved with the Toradol. Patient never had any chest pain Undiagnosed new problem with uncertain prognosis? @ -No Drug Therapy requiring intensive monitoring for toxicity (Heparin, Nitro, Insulin, Cardizem)? @ -No Were any procedures done? @ -No Diagnosis/symptom? @ -Esophageal foreign body Acute, or Chronic, or Acute on Chronic? @ -Acute Uncomplicated (without systemic symptoms) or Complicated (systemic symptoms)? @ -Complicate Side effects of treatment? @ -No Exacerbation, Progression, or Severe Exacerbation? @ -No Poses a threat to life or bodily function? How? (Chest pain, [place], [place], pneumonia, PE, COPD, DKA, ARF, appy, cholecystitis, CVA, Diverticulitis, Homicidal, Suicidal, threat to staff... and all critical care pts) @ -No - Lab Data Result diagrams: 09/07/24 15:25 09/07/24 15:25 Lab Results 09/07/24 09/07/24 09/07/24 Range/Units 15:25 15:25 15:25 WBC 6.1 (3.8-10.6) k/uL RBC 4.99 (3.80-5.40) m/uL Hgb 14.8 (11.4-16.0) gm/dL Hct 46.1 H (34.0-46.0) % MCV 92.5 (80.0-100.0) fL MCH 29.7 (25.0-35.0) pg MCHC 32.1 (31.0-37.0) g/dL RDW 15.0 (11.5-15.5) % Plt Count 176 (150-450) k/uL MPV 7.9 Neutrophils % 65 % Lymphocytes % 22 % Monocytes % 9 % Eosinophils % 2 % Basophils % 0 % Neutrophils # 3.9 (1.3-7.7) k/uL Lymphocytes # 1.4 (1.0-4.8) k/uL Monocytes # 0.5 (0-1.0) k/uL Eosinophils # 0.1 (0-0.7) k/uL Basophils # 0.0 (0-0.2) k/uL Sodium 139 (137-145) mmol/L Potassium 4.1 (3.5-5.1) mmol/L Chloride 99 (98-107) mmol/L Carbon Dioxide 33 H (22-30) mmol/L Anion Gap 7 mmol/L BUN 15 (7-17) mg/dL Creatinine 0.91 (0.52-1.04) mg/dL Est GFR (CKD-EPI)AfAm 70 (>60 ml/min/1.73 sqM) Est GFR (CKD-EPI)NonAf 61 (>60 ml/min/1.73 sqM) Glucose 94 (74-99) mg/dL POC Glucose (mg/dL) (70-110) mg/dL POC Glu Marble Cutter Operator ID Calcium 9.3 (8.4-10.2) mg/dL Magnesium 1.8 (1.6-2.3) mg/dL Total Bilirubin 0.8 (0.2-1.3) mg/dL AST 35 (14-36) U/L ALT 34 (4-34) U/L Alkaline Phosphatase 90 (38-126) U/L Troponin I 0.028 (0.000-0.034) ng/mL Total Protein 6.9 (6.3-8.2) g/dL Albumin 4.2 (3.5-5.0) g/dL 09/07/24 09/07/24 Range/Units 16:41 18:22 WBC (3.8-10.6) k/uL RBC (3.80-5.40) m/uL Hgb (11.4-16.0) gm/dL Hct (34.0-46.0) % MCV (80.0-100.0) fL MCH (25.0-35.0) pg MCHC (31.0-37.0) g/dL RDW (11.5-15.5) % Plt Count (150-450) k/uL MPV Neutrophils % % Lymphocytes % % Monocytes % % Eosinophils % % Basophils % % Neutrophils # (1.3-7.7) k/uL Lymphocytes # (1.0-4.8) k/uL Monocytes # (0-1.0) k/uL Eosinophils # (0-0.7) k/uL Basophils # (0-0.2) k/uL Sodium (137-145) mmol/L Potassium (3.5-5.1) mmol/L Chloride (98-107) mmol/L Carbon Dioxide (22-30) mmol/L Anion Gap mmol/L BUN (7-17) mg/dL Creatinine (0.52-1.04) mg/dL Est GFR (CKD-EPI)AfAm (>60 ml/min/1.73 sqM) Est GFR (CKD-EPI)NonAf (>60 ml/min/1.73 sqM) Glucose (74-99) mg/dL POC Glucose (mg/dL) 90 (70-110) mg/dL POC Glu Marble Cutter Operator ID January Calcium (8.4-10.2) mg/dL Magnesium (1.6-2.3) mg/dL Total Bilirubin (0.2-1.3) mg/dL AST (14-36) U/L ALT (4-34) U/L Alkaline Phosphatase (38-126) U/L Troponin I 0.032 (0.000-0.034) ng/mL Total Protein (6.3-8.2) g/dL Albumin (3.5-5.0) g/dL Disposition Clinical Impression: Esophageal foreign body, Trapezius muscle strain Disposition: HOME SELF-CARE Condition: Good Is patient prescribed a controlled substance at d/c from ED?: No Referrals: Aroldo Ford MD [Primary Care Provider] - 1-2 days Georgia Alfaro MD [STAFF PHYSICIAN] - 1-2 days Time of Disposition: 19:17
[2024-09-07] MEDS: GLUCAGON 1 MG/ML VIAL IVP STA ×2 (15:31→17:50)
[2024-09-07 15:32] LABS: Basophils % (A) 0 %; Eosinophils # (A) 0.1 k/uL (0-0.7); Eosinophils % (A) 2 %; HCT 46.1 % (34.0-46.0); HGB 14.8 gm/dL (11.4-16.0); Lymphocytes # (A) 1.4 k/uL (1.0-4.8); Lymphocytes % (A) 22 %; MCH 29.7 pg (25.0-35.0); MCHC 32.1 g/dL (31.0-37.0); MCV 92.5 fL (80.0-100.0); Mean Platelet Volume 7.9; Monocytes # (A) 0.5 k/uL (0-1.0); Monocytes % (A) 9 %; Neutrophils # (A) 3.9 k/uL (1.3-7.7); Neutrophils % (A) 65 %; Platelet Count 176 k/uL (150-450); RBC 4.99 m/uL (3.80-5.40); WBC 6.1 k/uL (3.8-10.6)
[2024-09-07] MEDS: NITROGLYCERIN SL TABS 0.4 MG TAB SUBLINGUAL STA ×2 (15:38→18:00)
[2024-09-07] MEDS: KETOROLAC 15 MG/ML 1 ML VIAL IVP STA (15:38)
[2024-09-07 15:42] LABS: ALT 34 U/L (4-34); AST 35 U/L (14-36); African American GFR (CKD) 70 (>60 ml/min/1.73 sqM); Albumin 4.2 g/dL (3.5-5.0); Alkaline Phosphatase 90 U/L (38-126); Anion Gap 7 mmol/L; Blood Urea Nitrogen 15 mg/dL (7-17); Calcium 9.3 mg/dL (8.4-10.2); Carbon Dioxide 33 mmol/L (22-30); Chloride 99 mmol/L (98-107); Glucose 94 mg/dL (74-99); Magnesium 1.8 mg/dL (1.6-2.3); Non-African American GFR(CKD) 61 (>60 ml/min/1.73 sqM); Potassium 4.1 mmol/L (3.5-5.1); Sodium 139 mmol/L (137-145); Total Bilirubin 0.8 mg/dL (0.2-1.3); Total Protein 6.9 g/dL (6.3-8.2)
[2024-09-07] MEDS: METOCLOPRAMIDE 5 MG/ML 2 ML VIAL IVP STA (15:42)
--- NOTE | 2024-09-07 16:34 | XR ---
EXAMINATION TYPE: XR chest 2V DATE OF EXAM: 09/07/2024 4:29 PM COMPARISON: 05/24/2024 CLINICAL INDICATION: Female, 79 years old with history of Chest Pain, TECHNIQUE: XR chest 2V view(s) obtained. FINDINGS: The heart size is enlarged. The pulmonary vasculature is normal. The lungs are clear. Catheter is present on the right with the tip in the superior vena cava region. IMPRESSION: 1. Cardiomegaly. 2. No acute pulmonary process. [facility], Workstation: [facility], 09/07/2024 4:32 PM
[2024-09-07 16:44] LABS: Glucose,Whole Blood 90 mg/dL (70-110)
[2024-09-07 18:00] VITALS: TEMP 98.3
[2024-09-07 20:06] VITALS: BP 111/53; PULSE 78; RESP 18
== END 2024-09-07 20:10 | disposition home or self-care (01) ==
LOC: EC 14:25
DX: T18.108A Unspecified foreign body in esophagus causing other injury, initial encounter (principal); S46.912A Strain of unspecified muscle, fascia and tendon at shoulder and upper arm level, left arm, initial encounter; Z88.0 Allergy status to penicillin; Z91.041 Radiographic dye allergy status; Z88.5 Allergy status to narcotic agent; Z88.6 Allergy status to analgesic agent; W44.9XXA Unspecified foreign body entering into or through a natural orifice, initial encounter
CPT/HCPCS: 36415; 93005; 80053; 83735; 84484; 85025; 71046; 99284; 96374; 96375; 96376; J1610; J2765; J3360; J1885

== ENCOUNTER → 2024-09-12 | Outpatient (CLI) | payer MEDICARE ==
[2024-09-12 11:47] LABS: African American GFR (CKD) >90 (>60 ml/min/1.73 sqM); Blood Urea Nitrogen 19 mg/dL (7-17); Non-African American GFR(CKD) 84 (>60 ml/min/1.73 sqM)
--- NOTE | 2024-09-12 14:38 | CT ---
EXAMINATION TYPE: CT ChestAbdPelvis w con DATE OF EXAM: 09/12/2024 COMPARISON: 05/13/2024, PET/CT 11/27/2023 and 02/22/2024 HISTORY: f/u lymphoma CT DLP: 2494.5 mGycm Automated exposure control for dose reduction was used. CONTRAST: CT scan of the chest, abdomen and pelvis is performed with Oral Contrast and with IV Contrast, patien t injected with 100 mL of Isovue 370. FINDINGS: LUNGS: The lungs are grossly clear, there is no concerning parenchymal mass or nodule identified. T here is no pleural effusion or pneumothorax seen. The tracheobronchial tree is patent. MEDIASTINUM: There are no greater than 1 cm hilar or mediastinal lymph nodes. No pericardial effusi on is seen. OTHER: Mediport catheter partially included in the [id number]-eduo with the tip at the level of the SV C. LIVER/GB: Postcholecystectomy. Mild reduced attenuation of the liver. Findings compatible with hepati c steatosis. There is mild intrahepatic biliary dilation. Faint area of hyperdensity involving the le ft lobe of the liver retrospectively stable and too small to characterize possibly related to vascula r shunting. No definitive mass is seen. This area can be closely monitored. PANCREAS: Fatty replacement and diminutive course of the body and tail the pancreas and portions of t he head of the pancreas. More nodular component of the measures approximately 2.3 cm in the region of the uncinate process is noted appears somewhat more hyperintense relative to the remaining pancreati c tissue. Finding is stable from prior exam. Both of the prior PET scan demonstrated significant jovani fact in this region and comparison is unable to be performed. SPLEEN: No significant abnormality is seen. ADRENALS: Bilateral adrenal thickening and nodularity is stable and indeterminate. KIDNEYS: No significant abnormality is seen. BOWEL: There is stable soft tissue thickening or wall thickening along the lesser curvature of the s tomach extending to the lino hepatis unchanged in appearance there is a small hiatal hernia. Diverti culosis with no CT evidence of diverticulitis. Normal appendix. REPRODUCTIVE ORGANS: No gross abnormality seen. LYMPH NODES: As noted above cannot exclude a 2.2 cm peripancreatic lymph node adenopathy. OSSEOUS STRUCTURES: Demineralization and multilevel severe degenerative disc disease. Grade 1 anterol isthesis L4-L5. Multilevel facet arthropathy. Bilateral hip arthropathy. Suspect multilevel foraminal encroachment. OTHER: Bladder wall is mildly thickened. However, the bladder is decompressed likely accounting for t he finding correlate clinically to exclude a mild cystitis. IMPRESSION: 1. Stable soft tissue thickening along the lesser curvature of the stomach stent unchanged from prior exams suspected to represent the patient's history of known lymphoma. 2. Stable indeterminate bilateral adrenal nodularity or thickening. 3. In the region of the uncinate process of the pancreas there is an area of hyperdensity and soft ti ssue fullness difficult to determine if this is inferior to the pancreas and related to a area of madalyn nopathy. Finding Is stable from most recent CT. This could be reassessed on subsequent PET CT scan. [facility], , 09/12/2024 2:36 PM
== END | disposition home or self-care (01) ==
LOC: RADCTMAIN 10:59
PROVIDERS: ATTEND Internal Medicine Hematology & Oncology
DX: I48.91 Unspecified atrial fibrillation (principal); I10 Essential (primary) hypertension; C83.398 Diffuse large B-cell lymphoma of other extranodal and solid organ sites; J45.998 Other asthma; R59.9 Enlarged lymph nodes, unspecified; K57.90 Diverticulosis of intestine, part unspecified, without perforation or abscess without bleeding; K44.9 Diaphragmatic hernia without obstruction or gangrene; K76.0 Fatty (change of) liver, not elsewhere classified; Z71.3 Dietary counseling and surveillance
CPT/HCPCS: 82565; 84520; 71260; 74177; 36415; Q9967

== ENCOUNTER 2024-10-12 09:03 | Day surgery (SDC) | payer MEDICARE ==
[2024-10-11 08:44] VITALS: BMI 45.1
[~2024-10-12 09:03] MED LIST changes: +ONDANSETRON 4 MG/2 ML VIAL IVP PRN; -Pre Op ABX Message 1 EACH MISC MISCELLANE ONE; -fentaNYL (PF) 50 MCG/ML 2 ML AMP IV PRN
[2024-10-12 09:57] VITALS: RESP 18; TEMP 97
[2024-10-12] MEDS: SODIUM CHLORIDE 0.9% 1,000 ML IV ONE (10:11)
[2024-10-12] MEDS ORDERED: LIDOCAINE 2% (PF) 20 MG/ML 5 ML VIAL ONE (10:30)
[2024-10-12] MEDS ORDERED: PROPOFOL 10 MG/ML 20 ML VIAL IV ONE (10:30)
[2024-10-12 11:12] VITALS: BP 147/82; PULSE 75
--- NOTE | 2024-10-12 11:44 | P.PCN ---
Date of Procedure: 10/12/24 Procedure(s) Performed: Date of Procedure: 10/12/24 Procedure(s) Performed: BRIEF HISTORY: Patient is a 79-year-old, pleasant, white female scheduled for an upper endoscopy as a part of evaluation of gastric lymphoma that was diagnosed in October 2023. EGD revealed sick centimeter deep ulcer along the incisura angularis and 2 cm pyloric ulcer biopsies which revealed diffuse large B-cell lymphoma. She finished 6 cycles of chemotherapy and follows with Dr. Richardson. Last EGD in June 2024 revealed a 1 cm residual gastric ulcer. Complains of intermittent dysphagia to solids. Scheduled for a follow-up upper endoscopy today. PROCEDURE PERFORMED: Esophagogastroduodenoscopy with biopsy. PREOPERATIVE DIAGNOSIS: Follow-up gastric lymphoma diagnosed in October 2023. IV sedation per anesthesia. PROCEDURE: After informed consent was obtained, the patient was brought into the endoscopy unit. IV sedation was administered by Anesthesia under continuous monitoring. Initially the Olympus GIF-140 video endoscope was inserted into the mouth. Esophagus intubated without any difficulty. It was gradually advanced into the stomach and duodenum and carefully examined. The bulb and the second part of the duodenum appeared normal. The scope at this time was withdrawn to the stomach, adequately insufflated with air, and upon careful examination, mucosa of the antrum, and mild diffuse gastritis. Previously noted large ulceration along the incisura angularis is completely healed with residual scar tissue and this was biopsied. Rest of the body, cardia and the fundus appeared normal. The scope was then withdrawn into the esophagus. The GE junction was located at 39 cm from the incisors. The esophagus appeared normal. There were no erosions or ulcerations seen and the patient tolerated the procedure well. IMPRESSION: 1. Completely healed gastric ulcers. 2. Mild diffuse gastritis. RECOMMENDATIONS: The findings of this examination were discussed with the patient as well as her family. She was advised to follow-up with the biopsy results. Will plan on a repeat upper endoscopy in 1 year. Additional CC's: Aroldo Ford
== END 2024-10-12 12:08 | disposition home or self-care (01) ==
LOC: ORWHC2ENDO 09:03
PROVIDERS: ATTEND Internal Medicine Gastroenterology
DX: K29.50 Unspecified chronic gastritis without bleeding (principal); K25.9 Gastric ulcer, unspecified as acute or chronic, without hemorrhage or perforation; C83.30 Diffuse large B-cell lymphoma, unspecified site; I10 Essential (primary) hypertension; E78.5 Hyperlipidemia, unspecified; J45.909 Unspecified asthma, uncomplicated; G47.33 Obstructive sleep apnea (adult) (pediatric); G40.909 Epilepsy, unspecified, not intractable, without status epilepticus; F41.9 Anxiety disorder, unspecified; K21.9 Gastro-esophageal reflux disease without esophagitis; E66.01 Morbid (severe) obesity due to excess calories; Z88.6 Allergy status to analgesic agent; Z88.0 Allergy status to penicillin; Z88.5 Allergy status to narcotic agent; Z90.49 Acquired absence of other specified parts of digestive tract; Z79.01 Long term (current) use of anticoagulants; Z86.73 Personal history of transient ischemic attack (TIA), and cerebral infarction without residual deficits; Z79.899 Other long term (current) drug therapy; Z79.51 Long term (current) use of inhaled steroids; Z99.89 Dependence on other enabling machines and devices
CPT/HCPCS: 43239; 88305; 88342

== ENCOUNTER 2024-10-24 09:47 | Day surgery (SDC) | payer MEDICARE ==
[2024-10-24] MEDS ORDERED: LIDOCAINE 1% (10MG/ML) FOR IV START INTRADERMA PRN (10:07)
[2024-10-24] MEDS ORDERED: fentaNYL (PF) 50 MCG/ML 2 ML AMP IVP PRN (10:07)
[2024-10-24] MEDS ORDERED: HYDROmorphone 0.5 MG/0.5 ML SYRINGE IVP PRN (10:07)
[2024-10-24] MEDS ORDERED: MIDAZOLAM 2 MG/2 ML VIAL IV PRN (10:07)
[2024-10-24 10:35] VITALS: TEMP 97
[2024-10-24 10:43] LABS: Glucose,Whole Blood 72 mg/dL (70-110)
[2024-10-24] MEDS: ACETAMINOPHEN TAB 500 MG TAB PO PRN (10:45)
[2024-10-24] MEDS: LACTATED RINGERS 1,000 ML IV SCH (10:45)
[2024-10-24] MEDS: DEXAMETHASONE SOD PHOSPHATE 4 MG/ML 1 ML VIAL IV ONE (10:46)
[2024-10-24] MEDS: HEPARIN SODIUM,PORCINE 5,000 UNIT/ML 1 ML VIAL SQ PRN (10:46)
[2024-10-24] MEDS: ONDANSETRON 4 MG/2 ML VIAL IVP ONE (10:46)
[2024-10-24] MEDS: IV FLUID CONTINUATION 1,000 ML IV ONE (10:49)
[2024-10-24] MEDS: LIDOCAINE 1%-EPI 1:100,000 20 ML VIAL SQ ONE ×3 (11:35→11:56)
[2024-10-24] MEDS ORDERED: MIDAZOLAM 2 MG/2 ML VIAL ONE (11:41)
[2024-10-24] MEDS ORDERED: PROPOFOL 10 MG/ML 20 ML VIAL IV ONE (11:41)
[2024-10-24] MEDS ORDERED: fentaNYL (PF) 50 MCG/ML 2 ML AMP ONE (11:41)
[2024-10-24] MEDS ORDERED: KETAMINE HCL IN 0.9 % NACL 50 MG/5 ML SYRINGE ONE (11:41)
--- NOTE | 2024-10-24 11:47 | P.GSHP ---
History of Present Illness H&P Date: 10/24/24 Chief Complaint: History of lymphoma This a 79-year-old female who has a. History of lymphoma. Patient presents today for removal of Port-A-Cath. 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 non hodgkins lymphoma ,last chemo 04/2024. being tx for UTI right now. hx of LLE edema. hx cellulitis of the ankles History of Any Multi-Drug Resistant Organisms: None Reported Past Surgical History: Cholecystectomy, Hernia Repair, Joint Replacement Additional Past Surgical History / Comment(s): Bilateral knee replacement,kashif. cataract surgery, bilateral laser eye surgery 02/24/21. hiatal hernia repair. port non hodgkins lymphoma, colonoscopy , egd Past Anesthesia/Blood Transfusion Reactions: No Reported Reaction Additional Past Anesthesia/Blood Transfusion Reaction / Comment(s): no blood tr ansfusion reaction Smoking Status: Never smoker - Past Family History Mother Additional Family Medical History / Comment(s): osteoporosis, feeding tube Father Additional Family Medical History / Comment(s): mini strokes, CABG Daughter(s) Family Medical History: Deep Vein Thrombosis (DVT), Pulmonary Embolus Additional Family Medical History / Comment(s): granddaughter blood clots when Sister(s) Family Medical History: Cancer Additional Family Medical History / Comment(s): non hodgkins lymphoma Medications and Allergies Home Medications Medication Instructions Recorded Confirmed Type Multivitamins, Thera [Multivitamin 1 tab PO DAILY 09/22/15 10/19/24 History (formulary)] ALPRAZolam [Xanax] 0.25 mg PO TID PRN 10/12/15 10/19/24 History hydroCHLOROthiazide [Hydrodiuril] 12.5 mg PO DAILY 03/03/20 10/19/24 History Albuterol Inhaler [Ventolin Hfa 1 - 2 puff INHALATION RT-Q6H PRN 04/17/21 10/19/24 History Inhaler] Latanoprost/Pf [Latanoprost 0.005% 1 drop BOTH EYES HS 04/17/21 10/19/24 History Eye Drop] Atorvastatin Calcium [Lipitor] 40 mg PO HS 04/18/21 10/19/24 History Cholecalciferol (Vitamin D3) 50 mcg PO DAILY 09/23/23 10/19/24 History [Vitamin D3 (50 Mcg = 2000 Iu) Chew Tab] Loratadine [Claritin] 10 mg PO DAILY 09/23/23 10/19/24 History Tolterodine ER [Detrol LA] 4 mg PO DAILY 09/23/23 10/19/24 History Famotidine 40 mg PO HS 04/20/24 10/19/24 History lisinopriL 2.5 mg PO DAILY 04/20/24 10/19/24 History Vit A/Vit C/Vit E/Zinc/Copper 1 cap PO DAILY 06/02/24 10/19/24 History [ICAPS SOFTGEL] Apixaban [Eliquis] 5 mg PO BID 06/13/24 10/19/24 History Clarithromycin [Biaxin] 500 mg PO BID 10/11/24 10/19/24 History Pantoprazole [Protonix] 40 mg PO DAILY 10/19/24 10/19/24 History Allergies Allergy/AdvReac Type Severity Reaction Status Date / Time aspirin Allergy upset Verified 10/19/24 11:44 stomach , ulcers codeine Allergy Rash/Hives Verified 10/19/24 11:44 Penicillins Allergy Rash/Hives Verified 10/19/24 11:44 Surgical - Exam Vital Signs Temp Pulse Resp BP Pulse Ox 97.0 F L 87 18 164/70 98 10/24/24 10:26 10/24/24 10:26 10/24/24 10:26 10/24/24 10:26 10/24/24 10:26 - General well developed, well nourished, no distress - Eyes PERRL - ENT normal pinna - Neck no masses - Respiratory normal expansion - Cardiovascular Rhythm: regular - Abdomen Abdomen: soft, non tender Results - Labs 10/24/24 10:43 Diabetes panel 10/24/24 Range/Units 10:43 Potassium 3.6 (3.5-5.1) mmol/L Pituitary panel 10/24/24 Range/Units 10:43 Potassium 3.6 (3.5-5.1) mmol/L Adrenal panel 10/24/24 Range/Units 10:43 Potassium 3.6 (3.5-5.1) mmol/L Assessment and Plan Assessment: History of lymphoma. Will perform removal of Port-A-Cath.
[2024-10-24 12:18] VITALS: RESP 16
[2024-10-24 12:42] VITALS: BP 152/87; PULSE 66
--- NOTE | 2024-12-05 10:17 | P.OP ---
Date of Procedure: 10/24/24 Preoperative Diagnosis: History of lymphoma Postoperative Diagnosis: History of lymphoma Procedure(s) Performed: Removal of Port-A-Cath Anesthesia: MAC Surgeon: Asael Nicholas Pathology: other (Port a cath) Condition: stable Disposition: PACU Description of Procedure: Patient is placed on the operative table in supine position. She received IV sedation. Her chest was prepped to be sterile fashion. The skin was anesthetized 1% local Xylocaine. I then used 11 blade the skin was incised. Using blunt sharp/electrocautery the Port-A-Cath was dissected free. The specimen sent to pathology. The skin was closed interrupted 3-0 Monocryl suture. Dermabond wrist was applied. Patient Toller procedure well. She was sent to recovery room in stable condition.
== END 2024-10-24 12:54 | disposition home or self-care (01) ==
LOC: OR 09:47
PROVIDERS: ATTEND Surgery
DX: Z85.72 Personal history of non-Hodgkin lymphomas (principal); I48.91 Unspecified atrial fibrillation; J45.909 Unspecified asthma, uncomplicated; K21.9 Gastro-esophageal reflux disease without esophagitis; M19.90 Unspecified osteoarthritis, unspecified site; E78.5 Hyperlipidemia, unspecified; G47.33 Obstructive sleep apnea (adult) (pediatric); G40.909 Epilepsy, unspecified, not intractable, without status epilepticus; Z86.73 Personal history of transient ischemic attack (TIA), and cerebral infarction without residual deficits; Z45.2 Encounter for adjustment and management of vascular access device; Z87.440 Personal history of urinary (tract) infections; Z89.521 Acquired absence of right knee; Z89.522 Acquired absence of left knee; Z90.49 Acquired absence of other specified parts of digestive tract; Z98.890 Other specified postprocedural states; Z96.653 Presence of artificial knee joint, bilateral; Z82.62 Family history of osteoporosis; Z82.3 Family history of stroke; Z88.6 Allergy status to analgesic agent; Z88.5 Allergy status to narcotic agent; Z88.0 Allergy status to penicillin; Z79.01 Long term (current) use of anticoagulants; Z79.51 Long term (current) use of inhaled steroids; Z79.899 Other long term (current) drug therapy
CPT/HCPCS: 84132; 36590; J2250; J1644; J1100; J0690; J2405; J3010; J2704

== ENCOUNTER → 2024-12-14 | Outpatient (CLI) | payer MEDICARE ==
[2024-12-14 10:46] LABS: African American GFR (CKD) >90 (>60 ml/min/1.73 sqM); Blood Urea Nitrogen 22 mg/dL (7-17); Non-African American GFR(CKD) 82 (>60 ml/min/1.73 sqM)
--- NOTE | 2024-12-14 12:52 | CT ---
EXAMINATION TYPE: CT ChestAbdPelvis w con DATE OF EXAM: 12/14/2024 12:17 PM COMPARISON: 11/10/2024 , 09/12/2024 CLINICAL INDICATION: Female, 79 years old with history of C83.39 lymphoma, F/U LYMPHOMA. Technique: CT ChestAbdPelvis w con; Multiple axial images were obtained. Two-dimensional coronal and sagittal reconstructions were obtained. Contrast used:100ml mL of Isovue 300 with IV Contrast, (None if empty) Oral contrast used: with Oral Contrast CT DLP: 2619.30 mGycm, Automated exposure control for dose reduction was used. Findings: CHEST: LUNGS/ PLEURA: No focal consolidation, pneumothorax or pleural effusion. AIRWAY: Patent and unremarkable. HEART: Cardiomegaly is demonstrated. No significant coronary artery calcifications. Mitral valve abena ular aortic valve leaflet calcifications. MEDIASTINUM: No gross evidence of adenopathy. Small hiatal hernia. VASCULATURE: No aortic aneurysm. MUSCULOSKELETAL: No acute osseous abnormalities. SOFT TISSUES/LYMPH NODES: Unremarkable. LOWER NECK: No significant findings. ABDOMEN: ABDOMEN LIVER: Unremarkable GALLBLADDER AND BILE DUCTS: Gallbladder is surgically absent with mild intrahepatic and extra hepatic biliary dilatation likely physiologic and a postcholecystectomy change. No evidence of choledocholit hiasis. PANCREAS: Unremarkable. SPLEEN: Unremarkable. ADRENAL GLANDS: Stable left adrenal nodule measuring 17 mm most compatible with lipid rich adrenal ad enoma on prior imaging. KIDNEYS AND URETERS: No evidence of hydronephrosis or renal calculus. The ureters are unremarkable. PELVIS BLADDER: Unremarkable REPRODUCTIVE: Unremarkable. ABDOMEN & PELVIS STOMACH AND BOWEL: No evidence of bowel obstruction. Similar confluent soft tissue near the lesser cu rvature of the stomach extending towards the liver in the gastrohepatic ligament. Some eccentric righ t rectal wall thickening likely representing feces. PERITONEUM/RETROPERITONEUM: No evidence of pneumoperitoneum or free fluid. VASCULATURE: No evidence of aortic aneurysm. MUSCULOSKELETAL: No acute osseous abnormalities. Moderate disc degeneration changes are present throu ghout the thoracolumbar spine., stable nonaggressive lucent centrally in sclerotic peripherally right iliac bone lesion. Compression deformities throughout the spine are not significantly changed from p rior. Slight grade 1 anterolisthesis of L4 on L5 is unchanged. LYMPH NODES: No gross evidence for lymphadenopathy. SOFT TISSUE/ABDOMINAL WALL: Unremarkable IMPRESSION: 1. Similar appearance of the gastrohepatic ligament with confluent soft tissue extending from the st omach to the liver. Note the prior exam is only one month prior consider six-month up CT chest and pe lvis revealed identify any changes as one month is not enough time for masses to grow. 2. Eccentric right rectal wall thickening thought to be due to feces as it was not seen on prior exa m one month prior. 3. Small hiatal hernia. 4. Cholecystectomy changes with physiologic dilation of the biliary system. 5. Normal appendix. 6. Stable left adrenal lipid rich adenoma. [facility], , 12/14/2024 12:50 PM
== END | disposition home or self-care (01) ==
LOC: RADCTMAIN 12-12 09:41
PROVIDERS: ATTEND Internal Medicine Hematology & Oncology
DX: C83.390 Primary central nervous system lymphoma (principal); I48.91 Unspecified atrial fibrillation; I10 Essential (primary) hypertension; J45.998 Other asthma; E27.9 Disorder of adrenal gland, unspecified; K62.89 Other specified diseases of anus and rectum; K44.9 Diaphragmatic hernia without obstruction or gangrene; Z90.49 Acquired absence of other specified parts of digestive tract
CPT/HCPCS: 82565; 84520; 71260; 74177; 36415; Q9967

== ENCOUNTER → 2025-04-18 | Outpatient (CLI) | payer MEDICARE ==
[2025-04-18 08:12] LABS: African American GFR (CKD) 88 (>60 ml/min/1.73 sqM); Blood Urea Nitrogen 17 mg/dL (7-17); Non-African American GFR(CKD) 77 (>60 ml/min/1.73 sqM)
--- NOTE | 2025-04-18 09:16 | CT ---
EXAMINATION TYPE: CT ChestAbdPelvis w con DATE OF EXAM: 04/18/2025 9:11 AM COMPARISON: 11/16/2024. 11/10/2024 , 09/12/2024 CLINICAL INDICATION: Female, 79 years old with history of C83.398 DIFFUSE LARGE B-CELL LYMPH, Technique: CT ChestAbdPelvis w con; Multiple axial images were obtained. Two-dimensional coronal and sagittal reconstructions were obtained. Contrast used:100 mL of Isovue 300 with IV Contrast, (None if empty) Oral contrast used: with Oral Contrast CT DLP: 2629 mGycm, Automated exposure control for dose reduction was used. Findings: CHEST: LUNGS/ PLEURA: No focal consolidation, pneumothorax or pleural effusion. AIRWAY: Patent and unremarkable. HEART: Cardiomegaly is demonstrated. No significant coronary artery calcifications. Mitral valve abena ular aortic valve leaflet calcifications. Aortic valve calcifications are present. MEDIASTINUM: No gross evidence of adenopathy. Small hiatal hernia. VASCULATURE: No aortic aneurysm. MUSCULOSKELETAL: No acute osseous abnormalities. SOFT TISSUES/LYMPH NODES: Unremarkable. LOWER NECK: No significant findings. ABDOMEN: ABDOMEN LIVER: Unremarkable GALLBLADDER AND BILE DUCTS: Gallbladder is surgically absent with mild intrahepatic and extra hepatic biliary dilatation likely physiologic and a postcholecystectomy change. No evidence of choledocholit hiasis. PANCREAS: Unremarkable. SPLEEN: Unremarkable. ADRENAL GLANDS: Stable left adrenal nodule measuring 18 mm most compatible with lipid rich adrenal ad enoma on prior imaging. KIDNEYS AND URETERS: No evidence of hydronephrosis or renal calculus. The ureters are unremarkable. PELVIS BLADDER: Unremarkable REPRODUCTIVE: Unremarkable. ABDOMEN & PELVIS STOMACH AND BOWEL: No evidence of bowel obstruction. Redemonstration of confluent soft tissue near th e lesser curvature of the stomach extending towards the liver in the gastrohepatic ligament. Some ecc entric right rectal wall thickening is confirmed to have represented feces on prior. The appendix is normal. PERITONEUM/RETROPERITONEUM: No evidence of pneumoperitoneum or free fluid. VASCULATURE: No evidence of aortic aneurysm. MUSCULOSKELETAL: No acute osseous abnormalities. Moderate disc degeneration changes are present throu ghout the thoracolumbar spine., stable nonaggressive lucent centrally in sclerotic peripherally right iliac bone lesion. Compression deformities throughout the spine are not significantly changed from p rior. Slight grade 1 anterolisthesis of L4 on L5 is unchanged. LYMPH NODES: No gross evidence for lymphadenopathy. SOFT TISSUE/ABDOMINAL WALL: Unremarkable IMPRESSION: 1. Stable appearance of the gastrohepatic ligament with confluent soft tissue extending from the sto mach to the liver. No new lymphadenopathy identified. 2. Eccentric right rectal wall thickening was due to feces on prior exam. 3. Small hiatal hernia. 4. Cholecystectomy changes with physiologic dilation of the biliary system. 5. Normal appendix. 6. Stable left adrenal lipid rich adenoma. 7. Mild cardiomegaly. 8. Mild aortic valve calcifications. [facility], , 04/18/2025 9:14 AM
== END | disposition home or self-care (01) ==
LOC: RADCTMAIN 04-12 12:23
PROVIDERS: ATTEND Internal Medicine Hematology & Oncology
DX: C83.398 Diffuse large B-cell lymphoma of other extranodal and solid organ sites (principal); K44.9 Diaphragmatic hernia without obstruction or gangrene; Z90.49 Acquired absence of other specified parts of digestive tract; I51.7 Cardiomegaly; E27.9 Disorder of adrenal gland, unspecified; I70.0 Atherosclerosis of aorta; K62.89 Other specified diseases of anus and rectum
CPT/HCPCS: 82565; 84520; 71260; 74177; 36415; Q9967

== ENCOUNTER 2025-04-19 08:44 | Emergency (ER) | payer MEDICARE ==
[2025-04-19 08:52] VITALS: RESP 20; TEMP 98.5
[2025-04-19] MEDS: KETOROLAC 15 MG/ML 1 ML VIAL IVP STA (09:12)
[2025-04-19] MEDS: diphenhydrAMINE 50 MG/ML 1 ML VIAL IVP STA (09:12)
[2025-04-19] MEDS: FAMOTIDINE 20 MG/2 ML VIAL IV STA (09:12)
[2025-04-19] MEDS: METOCLOPRAMIDE 5 MG/ML 2 ML VIAL IVP STA (09:12)
[2025-04-19] MEDS: SODIUM CHLORIDE 0.9% 1,000 ML IV STA (09:13)
[2025-04-19 09:25] LABS: Basophils # (A) 0.02 10*3/uL (0.00-0.10); Basophils % (A) 0.2 %; Eosinophils # (A) 0.00 10*3/uL (0.04-0.35); Eosinophils % (A) 0.0 %; HCT 45.3 % (37.2-46.3); HGB 15.2 g/dL (12.0-15.0); Lymphocytes # (A) 1.30 10*3/uL (0.90-5.00); Lymphocytes % (A) 10.1 %; MCH 30.9 pg (27.0-32.0); MCHC 33.6 g/dL (32.0-37.0); MCV 92.1 fL (80.0-97.0); Monocytes # (A) 1.31 10*3/uL (0.20-1.00); Monocytes % (A) 10.2 %; Neutrophils # (A) 10.15 10*3/uL (1.80-7.70); Neutrophils % (A) 79.0 %; Platelet Count 155 10*3/uL (140-440); RBC 4.92 10*6/uL (4.10-5.20); RDW 15.1 % (11.5-14.5); WBC 12.85 10*3/uL (4.50-10.00)
[2025-04-19 09:47] LABS: ALT 31 U/L (4-34); AST 32 U/L (14-36); African American GFR (CKD) >90 (>60 ml/min/1.73 sqM); Albumin 4.0 g/dL (3.5-5.0); Alkaline Phosphatase 79 U/L (38-126); Anion Gap 7 mmol/L; Blood Urea Nitrogen 22 mg/dL (7-17); Calcium 8.9 mg/dL (8.4-10.2); Carbon Dioxide 31 mmol/L (22-30); Chloride 102 mmol/L (98-107); Glucose 108 mg/dL (74-99); Lipase 12 U/L (23-300); Magnesium 1.8 mg/dL (1.6-2.3); Non-African American GFR(CKD) 78 (>60 ml/min/1.73 sqM); Potassium 3.7 mmol/L (3.5-5.1); Sodium 140 mmol/L (137-145); Total Protein 6.6 g/dL (6.3-8.2)
--- NOTE | 2025-04-19 09:50 | ED ---
Nausea/Vomiting/Diarrhea HPI - General Chief complaint: Nausea/Vomiting/Diarrhea Stated complaint: NV/Chest pain Time Seen by Provider: 04/19/25 08:59 Source: patient, RN notes reviewed Mode of arrival: ambulatory Limitations: no limitations - History of Present Illness Initial comments: 79-year-old female presents emergency department complaint of epigastric discomfort. Patient states that she had a CT of her chest abdomen pelvis yesterday ordered by her oncologist. Patient has a history of esophageal cancer patient states that she has allergy to the dye they tried to give her some prophylaxis. Patient states she went home and tried to eat and started vomiting. She states pain is localized in this area denies any shortness of breath headache dizziness no change in bowel habits - Related Data Home Medications Medication Instructions Recorded Confirmed Multivitamins, Thera [Multivitamin 1 tab PO DAILY 09/22/15 10/19/24 (formulary)] ALPRAZolam [Xanax] 0.25 mg PO TID PRN 10/12/15 10/19/24 hydroCHLOROthiazide [Hydrodiuril] 12.5 mg PO DAILY 03/03/20 10/19/24 Albuterol Inhaler [Ventolin Hfa 1 - 2 puff INHALATION RT-Q6H PRN 04/17/21 10/19/24 Inhaler] Latanoprost/Pf [Latanoprost 0.005% 1 drop BOTH EYES HS 04/17/21 10/19/24 Eye Drop] Atorvastatin Calcium [Lipitor] 40 mg PO HS 04/18/21 10/19/24 Cholecalciferol (Vitamin D3) 50 mcg PO DAILY 09/23/23 10/19/24 [Vitamin D3 (50 Mcg = 2000 Iu) Chew Tab] Loratadine [Claritin] 10 mg PO DAILY 09/23/23 10/19/24 Tolterodine ER [Detrol LA] 4 mg PO DAILY 09/23/23 10/19/24 Famotidine 40 mg PO HS 04/20/24 10/19/24 lisinopriL 2.5 mg PO DAILY 04/20/24 10/19/24 Vit A/Vit C/Vit E/Zinc/Copper 1 cap PO DAILY 06/02/24 10/19/24 [ICAPS SOFTGEL] Apixaban [Eliquis] 5 mg PO BID 06/13/24 10/19/24 Clarithromycin [Biaxin] 500 mg PO BID 10/11/24 10/19/24 Pantoprazole [Protonix] 40 mg PO DAILY 10/19/24 10/19/24 Previous Rx's Medication Instructions Recorded Ondansetron Odt [Zofran Odt] 4 mg PO Q8HR PRN #10 tab 04/19/25 Allergies Allergy/AdvReac Type Severity Reaction Status Date / Time aspirin Allergy upset Verified 04/19/25 08:52 stomach , ulcers codeine Allergy Rash/Hives Verified 04/19/25 08:52 Iodinated Contrast Media Allergy Rash/Hives Verified 04/19/25 08:52 Penicillins Allergy Rash/Hives Verified 04/19/25 08:52 Review of Systems ROS Statement: Those systems with pertinent positive or pertinent negative responses have been documented in the HPI. ROS Other: All systems not noted in ROS Statement are negative. 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 non hodgkins lymphoma ,last chemo 04/2024. being tx for UTI right now. hx of LLE edema. hx cellulitis of the ankles History of Any Multi-Drug Resistant Organisms: None Reported Past Surgical History: Cholecystectomy, Hernia Repair, Joint Replacement Additional Past Surgical History / Comment(s): Bilateral knee replacement,kashif. cataract surgery, bilateral laser eye surgery 02/24/21. hiatal hernia repair. port non hodgkins lymphoma, colonoscopy , egd Past Anesthesia/Blood Transfusion Reactions: No Reported Reaction Additional Past Anesthesia/Blood Transfusion Reaction / Comment(s): no blood transfusion reaction Past Psychological History: Anxiety Smoking Status: Never smoker Past Alcohol Use History: None Reported Past Drug Use History: None Reported - Past Family History Mother Additional Family Medical History / Comment(s): osteoporosis, feeding tube Father Additional Family Medical History / Comment(s): mini strokes, CABG Daughter(s) Family Medical History: Deep Vein Thrombosis (DVT), Pulmonary Embolus Additional Family Medical History / Comment(s): granddaughter blood clots when Sister(s) Family Medical History: Cancer Additional Family Medical History / Comment(s): non hodgkins lymphoma General Exam Limitations: no limitations General appearance: alert, in no apparent distress Head exam: Present: atraumatic, normocephalic, normal inspection Eye exam: Present: normal appearance, PERRL, EOMI. Absent: scleral icterus, conjunctival injection, periorbital swelling ENT exam: Present: normal exam, normal oropharynx, mucous membranes moist Neck exam: Present: normal inspection, full ROM. Absent: tenderness, m eningismus, lymphadenopathy Respiratory exam: Present: normal lung sounds bilaterally. Absent: respiratory distress, wheezes, rales, rhonchi, stridor Cardiovascular Exam: Present: regular rate, normal rhythm, normal heart sounds. Absent: systolic murmur, diastolic murmur, rubs, gallop, clicks GI/Abdominal exam: Present: soft, normal bowel sounds. Absent: distended, tenderness, guarding, rebound, rigid Course Vital Signs 04/19/25 08:49 Temperature 98.5 F Pulse Rate 64 Respiratory 20 Rate Blood Pressure 143/82 O2 Sat by Pulse 99 Oximetry Medical Decision Making - Medical Decision Making Was pt. sent in by a medical professional or institution ([facility], OCULARIST, urgent care, hospital, or [facility]...) When possible be specific @ -[No] Did you speak to anyone other than the patient for history (EMS, parent, family, police, friend...)? What history was obtained from this source @ -[No] Did you review nursing and triage notes (agree or disagree)? Why? @ -[I reviewed and agree with nursing and triage notes] Were old charts reviewed (outside hosp., previous admission, EMS record, old EKG, old radiological studies, urgent care reports/EKG's, [facility] records)? Report findings @ -Reviewed CT of the chest abdomen pelvis performed yesterday showing no acute intrathoracic or intra-abdominal process Differential Diagnosis (chest pain, altered mental status, abdominal pain women, abdominal pain men, vaginal bleeding, weakness, fever, dyspnea, syncope, headache, dizziness, GI bleed, back pain, seizure, CVA, palpatations, mental health, musculoskeletal)? @ -Differential Abdominal Pain Women: Appendicitis, Cholecystitis, diverticulosis, ischemic bowel, pancreatitis, hepatitis, UTI, gastroenteritis, AAA, incarcerated hernia, bowel obstruction, constipation, inflammatory bowel, hepatitis, peptic ulcer disease, splenic infarction, perforated viscus, vulvitis, ovarian torsion, PID, kidney stone, placenta abruption, this is not meant to be an all-inclusive list EKG interpreted by me (3pts min.). @ -[As above] X-rays interpreted by me (1pt min.). @ -[None done] CT interpreted by me (1pt min.). @ -[None done] U/S interpreted by me (1pt. min.). @ -[None done] What testing was considered but not performed or refused? (CT, X-rays, U/S, labs)? Why? @ -None What meds were considered but not given or refused? Why? @ -None Did you discuss the management of the patient with other professionals (professionals i.e. , PA, OCULARIST, lab, RT, psych nurse, psychiatric social worker supervisor, christmas bell ringer, teacher, chief security officer, director of casework)? Give summary @ -No Was smoking cessation discussed for >3mins.? @ -No Was critical care preformed (if so, how long)? @ -No Were there social determinants of health that impacted care today? How? (Homelessness, low income, unemployed, alcoholism, drug addiction, transportati on, low edu. Level, literacy, decrease access to med. care, [facility], rehab)? @ -No Was there de-escalation of care discussed even if they declined (Discuss DNR or withdrawal of care, Hospice)? DNR status @ -No What co-morbidities impacted this encounter? (DM, HTN, Smoking, COPD, CAD, Cancer, CVA, ARF, Chemo, Hep., AIDS, mental health diagnosis, sleep apnea, morbid obesity)? @ -None Was patient admitted / discharged? Hospital course, mention meds given and route, prescriptions, significant lab abnormalities, going to OR and other pertinent info. @ -Discharge laboratory studies unremarkable. Patient peers. Pain improved after antiemetics and Maalox. Patient discharged in stable condition return parameters discussed Undiagnosed new problem with uncertain prognosis? @ -No Drug Therapy requiring intensive monitoring for toxicity (Heparin, Nitro, Insulin, Cardizem)? @ -No Were any procedures done? @ -No Diagnosis/symptom? @ -Nausea vomiting epigastric pain Acute, or Chronic, or Acute on Chronic? @ -Acute Uncomplicated (without systemic symptoms) or Complicated (systemic symptoms)? @ -Comp Side effects of treatment? @ -No Exacerbation, Progression, or Severe Exacerbation? @ -No Poses a threat to life or bodily function? How? (Chest pain, [place], [place], pneumonia, PE, COPD, DKA, ARF, appy, cholecystitis, CVA, Diverticulitis, Homicidal, Suicidal, threat to staff... and all critical care pts) @ -No - Lab Data Result diagrams: 04/19/25 09:08 04/19/25 09:08 Lab Results 04/19/25 04/19/25 Range/Units 09:08 09:08 WBC 12.85 H (4.50-10.00) 10*3/uL RBC 4.92 (4.10-5.20) 10*6/uL Hgb 15.2 H (12.0-15.0) g/dL Hct 45.3 (37.2-46.3) % MCV 92.1 (80.0-97.0) fL MCH 30.9 (27.0-32.0) pg MCHC 33.6 (32.0-37.0) g/dL Plt Count 155 (140-440) 10*3/uL MPV 10.5 (9.5-12.2) fL Immature Gran % (Auto) 0.5 % Neutrophils % 79.0 % Lymphocytes % 10.1 % Monocytes % 10.2 % Eosinophils % 0.0 % Basophils % 0.2 % Immature Gran # 0.07 H (0.00-0.04) 10*3/uL Neutrophils # 10.15 H (1.80-7.70) 10*3/uL Lymphocytes # 1.30 (0.90-5.00) 10*3/uL Monocytes # 1.31 H (0.20-1.00) 10*3/uL Eosinophils # 0.00 L (0.04-0.35) 10*3/uL Basophils # 0.02 (0.00-0.10) 10*3/uL Sodium 140 (137-145) mmol/L Potassium 3.7 (3.5-5.1) mmol/L Chloride 102 (98-107) mmol/L Carbon Dioxide 31 H (22-30) mmol/L Anion Gap 7 mmol/L BUN 22 H (7-17) mg/dL Creatinine 0.74 (0.52-1.04) mg/dL Est GFR (CKD-EPI)AfAm >90 (>60 ml/min/1.73 sqM) Est GFR (CKD-EPI)NonAf 78 (>60 ml/min/1.73 sqM) Glucose 108 H (74-99) mg/dL Calcium 8.9 (8.4-10.2) mg/dL Magnesium 1.8 (1.6-2.3) mg/dL Total Bilirubin 1.3 (0.2-1.3) mg/dL AST 32 (14-36) U/L ALT 31 (4-34) U/L Alkaline Phosphatase 79 (38-126) U/L Total Protein 6.6 (6.3-8.2) g/dL Albumin 4.0 (3.5-5.0) g/dL Lipase 12 L (23-300) U/L - EKG Data -: EKG Interpreted by Me EKG Comments: EKG performed at 9: 02 A-fib with a rate of 60 QRS 105 QT/QTc 429/434 Disposition Clinical Impression: Nausea & vomiting, Abdominal pain Disposition: HOME SELF-CARE Condition: Stable Instructions (If sedation given, give patient instructions): Abdominal Pain (ED), Acute Nausea and Vomiting (ED) Additional Instructions: Please return to the Emergency Department if symptoms worsen or any other concerns. Prescriptions: Ondansetron Odt [Zofran Odt] 4 mg PO Q8HR PRN #10 tab PRN Reason: Nausea Is patient prescribed a controlled substance at d/c from ED?: No Referrals: Aroldo Ford MD [Primary Care Provider] - 1-2 days Time of Disposition: 12:09
[2025-04-19] MEDS: MAG HYDROX/AL HYDROX/SIMETH 30 ML CUP PO STA (10:14)
[2025-04-19] MEDS: ONDANSETRON 4 MG/2 ML VIAL IVP STA (10:14)
[2025-04-19] MEDS: LIDOCAINE VISCOUS 2% 15 ML CUP PO ONE (10:14)
[2025-04-19 12:25] VITALS: BP 129/60; PULSE 65
== END 2025-04-19 12:25 | disposition home or self-care (01) ==
LOC: EC 08:44
DX: R11.2 Nausea with vomiting, unspecified (principal); R10.13 Epigastric pain; Z88.0 Allergy status to penicillin; Z88.5 Allergy status to narcotic agent; Z91.041 Radiographic dye allergy status; Z88.6 Allergy status to analgesic agent
CPT/HCPCS: 36415; 80053; 83690; 83735; 85025; 99284; 96374; 96375; 96361; J1200; J2765; J2405; J1885; J1308

== ENCOUNTER 2025-04-21 07:52 | Emergency (ER) | payer MEDICARE ==
[2025-04-21 07:57] VITALS: TEMP 98
--- NOTE | 2025-04-21 08:20 | ED ---
General Adult HPI - General Chief complaint: Abdominal Pain Stated complaint: Vomiting Time Seen by Provider: 04/21/25 07:57 Source: patient Mode of arrival: ambulatory Limitations: no limitations - History of Present Illness Initial comments: Dictation was produced using [employer] dictation software. please excuse any grammatical, word or spelling errors. Chief Complaint: 79-year-old female with vomiting History of Present Illness: Patient 79-year-old female presents emergency department with granddaughter. Patient states that on Thursday she had a CT chest abdomen pelvis. Patient has history of non-Hodgkin's lymphoma. Imaging studies were ordered by oncologist. Patient was given premeds for her iodine contrast allergy. Since then she has been having vomiting nausea. Was seen here in the emergency department 2 days ago was treated and discharged with oral nausea medications. Patient states that her vomiting is so severe that she is u nable to tolerate her oral antinausea medications. Patient Nuys any abdominal pain. The ROS documented in this emergency department record has been reviewed and confirmed by me. Those systems with pertinent positive or negative responses have been documented in the HPI. All other systems are other negative and/or noncontributory. - Related Data Home Medications Medication Instructions Recorded Confirmed Multivitamins, Thera [Multivitamin 1 tab PO DAILY 09/22/15 10/19/24 (formulary)] ALPRAZolam [Xanax] 0.25 mg PO TID PRN 10/12/15 10/19/24 hydroCHLOROthiazide [Hydrodiuril] 12.5 mg PO DAILY 03/03/20 10/19/24 Albuterol Inhaler [Ventolin Hfa 1 - 2 puff INHALATION RT-Q6H PRN 04/17/21 10/19/24 Inhaler] Latanoprost/Pf [Latanoprost 0.005% 1 drop BOTH EYES HS 04/17/21 10/19/24 Eye Drop] Atorvastatin Calcium [Lipitor] 40 mg PO HS 04/18/21 10/19/24 Cholecalciferol (Vitamin D3) 50 mcg PO DAILY 09/23/23 10/19/24 [Vitamin D3 (50 Mcg = 2000 Iu) Chew Tab] Loratadine [Claritin] 10 mg PO DAILY 09/23/23 10/19/24 Tolterodine ER [Detrol LA] 4 mg PO DAILY 09/23/23 10/19/24 Famotidine 40 mg PO HS 04/20/24 10/19/24 lisinopriL 2.5 mg PO DAILY 04/20/24 10/19/24 Vit A/Vit C/Vit E/Zinc/Copper 1 cap PO DAILY 06/02/24 10/19/24 [ICAPS SOFTGEL] Apixaban [Eliquis] 5 mg PO BID 06/13/24 10/19/24 Clarithromycin [Biaxin] 500 mg PO BID 10/11/24 10/19/24 Pantoprazole [Protonix] 40 mg PO DAILY 10/19/24 10/19/24 Previous Rx's Medication Instructions Recorded Ondansetron Odt [Zofran Odt] 4 mg PO Q8HR PRN #10 tab 04/19/25 Allergies Allergy/AdvReac Type Severity Reaction Status Date / Time aspirin Allergy upset Verified 04/21/25 07:57 stomach , ulcers codeine Allergy Rash/Hives Verified 04/21/25 07:57 Iodinated Contrast Media Allergy Rash/Hives Verified 04/21/25 07:57 Penicillins Allergy Rash/Hives Verified 04/21/25 07:57 Review of Systems ROS Statement: Those systems with pertinent positive or pertinent negative responses have been documented in the HPI. ROS Other: All systems not noted in ROS Statement are negative. 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 non hodgkins lymphoma ,last chemo 04/2024. being tx for UTI right now. hx of LLE edema. hx cellulitis of the ankles History of Any Multi-Drug Resistant Organisms: None Reported Past Surgical History: Cholecystectomy, Hernia Repair, Joint Replacement Additional Past Surgical History / Comment(s): Bilateral knee replacement,kashif. cataract surgery, bilateral laser eye surgery 02/24/21. hiatal hernia repair. port non hodgkins lymphoma, colonoscopy , egd Past Anesthesia/Blood Transfusion Reactions: No Reported Reaction Additional Past Anesthesia/Blood Transfusion Reaction / Comment(s): no blood transfusion reaction Past Psychological History: Anxiety Smoking Status: Never smoker Past Alcohol Use History: None Reported Past Drug Use History: None Reported - Past Family History Mother Additional Family Medical History / Comment(s): osteoporosis, feeding tube Father Additional Family Medical History / Comment(s): mini strokes, CABG Daughter(s) Family Medical History: Deep Vein Thrombosis (DVT), Pulmonary Embolus Additional Family Medical History / Comment(s): granddaughter blood clots when Sister(s) Family Medical History: Cancer Additional Family Medical History / Comment(s): non hodgkins lymphoma General Exam - General Exam Comments Initial Comments: PHYSICAL EXAM: General Impression: Alert and oriented x3, not in acute distress HEENT: Normocephalic atraumatic, extra-ocular movements intact, pupils equal and reactive to light bilaterally, mucous membranes moist. Cardiovascular: Heart regular rate and rhythm Chest: Able to complete full sentences, no retractions, no tachypnea Abdomen: abdomen soft, non-tender, non-distended, no organomegaly Musculoskeletal: Pulses present and equal in all extremities, no peripheral edema Motor: no focal deficits noted Neurological: CN II-XII grossly intact, no focal motor or sensory deficits noted Skin: Intact with no visualized rashes Psych: Normal affect and mood Limitations: no limitations Course Vital Signs 04/21/25 04/21/25 04/21/25 07:54 07:57 09:08 Temperature 98.0 F Pulse Rate 79 73 70 Respiratory 18 18 16 Rate Blood Pressure 170/83 166/89 160/87 O2 Sat by Pulse 94 L 94 L 98 Oximetry EKG Findings - EKG Comments: EKG Findings:: My EKG interpretation: Ventricular rate, A-fib, QRS 97, QTc 321. No ME prolongation, no QTC prolongation, no ST or T-wave changes noted. EKG compared to April 19, 2025 showing no changes. Overall, this EKG is unremarkable Medical Decision Making - Medical Decision Making Was pt. sent in by a medical professional or institution (, PA, AUDIOVISUAL LIBRARIAN, urgent care, hospital, or halfway...) When possible be specific @ -No Did you speak to anyone other than the patient for history (EMS, parent, family, police, friend...)? What history was obtained from this source @ -No Did you review nursing and triage notes (agree or disagree)? Why? @ -I reviewed and agree with nursing and triage notes Were old charts reviewed (outside hosp., previous admission, EMS record, old EKG, old radiological studies, urgent care reports/EKG's, halfway records)? Report findings @ -No old charts were reviewed Differential Diagnosis (chest pain, altered mental status, abdominal pain women, abdominal pain men, vaginal bleeding, musculoskeletal, weakness, fever, dyspnea, syncope, headache, dizziness, GI bleed, back pain, seizure, CVA, palpatations, mental health)? @ -Gastritis, peptic ulcer, gastroenteritis EKG interpreted by me (3pts min.). @ -See above X-rays interpreted by me (1pt min.). @ -None done CT interpreted by me (1pt min.). @ -None done U/S interpreted by me (1pt. min.). @ -None done What testing was considered but not performed or refused? (CT, X-rays, U/S, labs)? Why? @ -None What meds were considered but not given or refused? Why? @ -None Was smoking cessation discussed for >3mins.? @ -No Were there social determinants of health that impacted care today? How? (Homele ssness, low income, unemployed, alcoholism, drug addiction, transportation, low edu. Level, literacy, decrease access to med. care, residential, rehab)? @ -No Was there de-escalation of care discussed even if they declined (Discuss DNR or withdrawal of care, Hospice)? DNR status @ -No What co-morbidities impacted this encounter? (DM, HTN, Smoking, COPD, CAD, Cancer, CVA, ARF, Chemo, Hep., AIDS, mental health diagnosis, sleep apnea, morbid obesity)? @ -None Was patient admitted / discharged? Hospital course, mention meds given and route, prescriptions, significant lab abnormalities, going to OR and other pertinent info. @ -71-year-old female presents to the emergency department nausea vomiting. Patient has benign abdomen. Patient well-appearing at the bedside with stable vital signs. Abdomen is nonsurgical. Laboratory evaluation is unremarkable. Patient given IV fluids and Reglan with improvement of symptoms. She states that she feels normal no symptoms with nausea vomiting. Patient given options for disposition. Patient states she feels well and wants to be discharged. Patient states she already has nausea medications at home. Patient told to follow closely primary care doctor and GI doctor. Did you discuss the management of the patient with other professionals (professionals i.e. , PA, AUDIOVISUAL LIBRARIAN, lab, RT, psych nurse, social sciences research scientist, professional application designer, teacher, customs patrol officer, community case manager)? Give summary @ -No Was critical care preformed (if so, how long)? @ -No Undiagnosed new problem with uncertain prognosis? @ -No Drug Therapy requiring intensive monitoring for toxicity (Heparin, Nitro, Insulin, Cardizem)? @ -No Were any procedures done? @ -No Diagnosis/symptom? Acute, or Chronic, or Acute on Chronic? Uncomplicated (without systemic symptoms) or Complicated (systemic symptoms)? @ -Nausea and vomiting Side effects of treatment? @ -No Exacerbation, Progression, or Severe Exacerbation? @ -No Poses a threat to life or bodily function? How? (Chest pain, USA, OR, pneumonia, PE, COPD, DKA, ARF, appy, cholecystitis, CVA, Diverticulitis, Homicidal, Suicidal, threat to staff... and all critical care pts) @ -No - Lab Data Result diagrams: 04/21/25 08:15 04/21/25 08:15 Lab Results 04/21/25 04/21/25 Range/Units 08:15 08:15 WBC 10.60 H (4.50-10.00) 10*3/uL RBC 4.87 (4.10-5.20) 10*6/uL Hgb 14.9 (12.0-15.0) g/dL Hct 44.7 (37.2-46.3) % MCV 91.8 (80.0-97.0) fL MCH 30.6 (27.0-32.0) pg MCHC 33.3 (32.0-37.0) g/dL Plt Count 142 (140-440) 10*3/uL MPV 10.5 (9.5-12.2) fL Immature Gran % (Auto) 0.6 % Neutrophils % 89.4 % Lymphocytes % 6.2 % Monocytes % 3.6 % Eosinophils % 0.0 % Basophils % 0.2 % Immature Gran # 0.06 H (0.00-0.04) 10*3/uL Neutrophils # 9.48 H (1.80-7.70) 10*3/uL Lymphocytes # 0.66 L (0.90-5.00) 10*3/uL Monocytes # 0.38 (0.20-1.00) 10*3/uL Eosinophils # 0.00 L (0.04-0.35) 10*3/uL Basophils # 0.02 (0.00-0.10) 10*3/uL Sodium 140 (137-145) mmol/L Potassium 3.7 (3.5-5.1) mmol/L Chloride 98 (98-107) mmol/L Carbon Dioxide 33 H (22-30) mmol/L Anion Gap 9 mmol/L BUN 20 H (7-17) mg/dL Creatinine 0.72 (0.52-1.04) mg/dL Est GFR (CKD-EPI)AfAm >90 (>60 ml/min/1.73 sqM) Est GFR (CKD-EPI)NonAf 81 (>60 ml/min/1.73 sqM) Glucose 98 (74-99) mg/dL Calcium 9.2 (8.4-10.2) mg/dL Magnesium 1.8 (1.6-2.3) mg/dL Total Bilirubin 1.4 H (0.2-1.3) mg/dL AST 34 (14-36) U/L ALT 31 (4-34) U/L Alkaline Phosphatase 90 (38-126) U/L Total Protein 6.9 (6.3-8.2) g/dL Albumin 4.2 (3.5-5.0) g/dL Disposition Clinical Impression: Nausea and vomiting Disposition: HOME SELF-CARE Condition: Fair Instructions (If sedation given, give patient instructions): Acute Nausea and Vomiting (ED) Is patient prescribed a controlled substance at d/c from ED?: No Referrals: Aroldo Ford MD [Primary Care Provider] - 1-2 days Time of Disposition: 09:42
[2025-04-21] MEDS: SODIUM CHLORIDE 0.9% 1,000 ML IV STA (08:25)
[2025-04-21] MEDS: METOCLOPRAMIDE 5 MG/ML 2 ML VIAL IVP STA (08:25)
[2025-04-21 08:40] LABS: Basophils # (A) 0.02 10*3/uL (0.00-0.10); Basophils % (A) 0.2 %; Eosinophils # (A) 0.00 10*3/uL (0.04-0.35); Eosinophils % (A) 0.0 %; HCT 44.7 % (37.2-46.3); HGB 14.9 g/dL (12.0-15.0); Lymphocytes # (A) 0.66 10*3/uL (0.90-5.00); Lymphocytes % (A) 6.2 %; MCH 30.6 pg (27.0-32.0); MCHC 33.3 g/dL (32.0-37.0); MCV 91.8 fL (80.0-97.0); Monocytes # (A) 0.38 10*3/uL (0.20-1.00); Monocytes % (A) 3.6 %; Neutrophils # (A) 9.48 10*3/uL (1.80-7.70); Neutrophils % (A) 89.4 %; Platelet Count 142 10*3/uL (140-440); RBC 4.87 10*6/uL (4.10-5.20); RDW 14.7 % (11.5-14.5); WBC 10.60 10*3/uL (4.50-10.00)
[2025-04-21 08:57] LABS: ALT 31 U/L (4-34); AST 34 U/L (14-36); African American GFR (CKD) >90 (>60 ml/min/1.73 sqM); Albumin 4.2 g/dL (3.5-5.0); Alkaline Phosphatase 90 U/L (38-126); Anion Gap 9 mmol/L; Blood Urea Nitrogen 20 mg/dL (7-17); Calcium 9.2 mg/dL (8.4-10.2); Carbon Dioxide 33 mmol/L (22-30); Chloride 98 mmol/L (98-107); Glucose 98 mg/dL (74-99); Magnesium 1.8 mg/dL (1.6-2.3); Non-African American GFR(CKD) 81 (>60 ml/min/1.73 sqM); Potassium 3.7 mmol/L (3.5-5.1); Sodium 140 mmol/L (137-145); Total Protein 6.9 g/dL (6.3-8.2)
[2025-04-21 09:08] VITALS: PULSE 70; RESP 16
[2025-04-21] MEDS: FAMOTIDINE 20 MG/2 ML VIAL IV STA (09:51)
[2025-04-21 09:58] VITALS: BP 150/89
== END 2025-04-21 09:58 | disposition home or self-care (01) ==
LOC: EC 07:52
DX: R11.2 Nausea with vomiting, unspecified (principal); Z86.73 Personal history of transient ischemic attack (TIA), and cerebral infarction without residual deficits; Z88.0 Allergy status to penicillin; Z88.5 Allergy status to narcotic agent; Z88.8 Allergy status to other drugs, medicaments and biological substances
CPT/HCPCS: 36415; 93005; 80053; 83735; 85025; 99284; 96374; 96375; 96361 ×2; J2765; J1308